=== PATIENT | female | born 1945 | race Caucasian/White ===

== ENCOUNTER 2016-09-07 14:08 | Emergency (ER) | payer OTHER ==
[2016-09-07 14:16] VITALS: TEMP 98; BMI 34.7
--- NOTE | 2016-09-07 14:22 | PDOC ---
History of Present Illness - General History Source: Patient, Old Records Exam Limitations: No Limitations - History of Present Illness Initial Comments: 09/07/16 15:18 The patient is a 71 year old female with a significant past medical history of CAD, CHF, atrial fibrillation, hypertension, hyperlipidemia, anxiety, chronic lower back pain, and recurrent peripheral vertigo, who presents to the emergency department today for further evaluation of shortness of breath on exertion for 7-10 days. The patient states that she is only able to make it up 3 steps at a time before becoming short of breath. The patient reports that, at baseline, she is able to make it up all 22 steps to her residence without becoming short of breath. The patient notes that she also becomes short of breath when she is vacuuming and talking. The patient denies fever, cough, chest pain. Patient does report point tenderness at xiphoid bone to touch. The patient reports associated hoarseness and constipation intermittently over the last week, but denies sore throat. The patient reports mild alleviation of her shortness of breath when she uses a pillow (placed at her lower back) to sit. Patients PCP was called at 15:07 and reports patient had a normal stress test in 2016; echocardiogram 10/28/15 EF at 50%-60%, moderate mitril regurgitation, normal Diastolic function The patient denies fever, chills, and sweats. The patient denies nausea, vomiting, and diarrhea. The patient denies chest pain, cough, and shortness of breath. PCP: Dr. Beverley Pizarro [phone] Coding Director: Dr. Bud Calle [phone] PAST MEDICAL HISTORY: CAD, atrial fibrillation, hypertension, hyperlipidemia, anxiety, chronic lower back pain, and recurrent peripheral vertigo PAST SURGICAL HISTORY: Abdominal, orthopedic (bilateral trigger finger release) FAMILY HISTORY: No pertinent history reported SOCIAL HISTORY: Former smoker (quit 10 years ago) MEDICATIONS: Reviewed ALLERGIES: As per nursing notes <Bryson Hernandez - Last Filed: 09/07/16 17:06> <Alonso Montenegro - Last Filed: 09/07/16 19:03> - General Chief Complaint: Shortness of Breath Stated Complaint: sob Time Seen by Provider: 09/07/16 14:20 Past History <Bryson Hernandez - Last Filed: 09/07/16 17:06> - Past Medical History Anemia: No Asthma: No Cancer: Yes (H/O CERVICAL) Cardiac Disorders: Yes (Cardio Myopathy,CAD, afib) CVA: No COPD: No CHF: No Dementia: No Diabetes: No GI Disorders: No Disorders: No HTN: Yes Hypercholesterolemia: Yes Liver Disease: No Psychiatric Problems: Yes (ANXIETY) Suicide Attempt (Hx): No Seizures: No Thyroid Disease: No - Surgical History Abdominal Surgery: Yes Appendectomy: No Cardiac Surgery: No Cholecystectomy: No Lung Surgery: No Neurologic Surgery: No Orthopedic Surgery: Yes (Bilateral Trigger finger release) - Immunization History Immunization Up to Date: No - Psycho/Social/Smoking Cessation Hx Anxiety: No Suicidal Ideation: No Smoking Status: No Smoking History: Former smoker Have you smoked in the past 12 months: No Number of Cigarettes Smoked Daily: 0 If you are a former smoker, when did you quit?: 5 years ago Information on smoking cessation initiated: No Hx Alcohol Use: No Drug/Substance Use Hx: No Substance Use Type: None Hx Substance Use Treatment: No <Alonso Montenegro - Last Filed: 09/07/16 19:03> - Past Medical History Allergies/Adverse Reactions: Allergies Allergy/AdvReac Type Severity Reaction Status Date / Time aspirin Allergy Verified 09/07/16 14:09 fish derived [Fish derived] Allergy Verified 09/07/16 14:09 mercury (elemental) Allergy Verified 09/07/16 14:09 [Mercury (Elemental)] Penicillins Allergy Verified 09/07/16 14:09 Raspberry Flavor, Artificial Allergy Verified 09/07/16 14:09 Home Medications: Ambulatory Orders Bupropion HCl [Bupropion Xl] 120 mg PO TID 11/03/14 Diltiazem Cd [Cardizem Cd -] 180 mg PO DAILY 11/03/14 Ubidecarenone [Co Q-10] 200 mg PO DAILY 10/22/15 Atenolol [Tenormin -] 100 mg PO DAILY tablet 11/03/15 Atorvastatin Ca [Lipitor] 10 mg PO HS tablet 11/03/15 Ramipril [Altace] 10 mg PO DAILY capsule 11/03/15 Meclizine HCl [Antivert -] 25 mg PO TID PRN 02/01/16 Warfarin Sodium 1 mg PO DAILY 02/06/16 Acetaminophen [Tylenol .Regular Strength -] 650 mg PO Q4H PRN #0 tablet Oxycodone HCl/Acetaminophen [Percocet 5-325 mg Tablet] 1 - 2 combo PO Q4H PRN # 10 tablet MDD 4 05/19/16 Review of Systems - Review of Systems Able to Perform ROS?: Yes Comments:: 09/07/16 15:44 CONSTITUTIONAL: Absent: Fever, Chills, Diaphoresis, Generalized Weakness, Malaise, Loss of Appetite HEENT: Present: Throat hoarseness Absent: Rhinorrhea, Nasal Congestion, Difficulty Swallowing, Mouth Swelling, Ear Pain, Eye Pain, Visual Changes CARDIOVASCULAR: Absent: Chest Pain, Syncope, Palpitations, Irregular Heart Rate, Lightheadedness , Peripheral Edema RESPIRATORY: Present: SOB with exertion Absent: Cough, Wheezing, Stridor, Hemoptysis GASTROINTESTINAL: Present: Constipation Absent: Abdominal pain, Abdominal Distension, Nausea, Vomiting, Diarrhea, Melena , Hematochezia GENITOURINARY: Absent: Dysuria, Frequency, Urgency, Hesitancy, Flank Pain, Genital Pain MUSCULOSKELETAL: Present: Point tenderness to palpation at xiphoid bone, lower back pain Absent: Joint Swelling, Neck Pain SKIN: Absent: Rash, Itching, PalloR HEMEATOLOGIC/IMMUNOLOGIC: Absent: Easy Bleeding, Easy Bruising, Lymphadenopathy, Frequent infections ENDOCRINE: Absent: Unexplained Weight Gain, Unexplained Weight Loss, Heat Intolerance, Cold Intolerance NEUROLOGIC: Absent: Headache, Focal Weakness, Paresthesias, Vertigo, Lightheadedness, Unsteady Gait, Seizure, Mental Status Changes, Incontinence PSYCHIATRIC: Absent: Depression <Bryson Hernandez - Last Filed: 09/07/16 17:06> *Physical Exam - Vital Signs Last Vital Signs Temp Pulse Resp BP Pulse Ox 98 F 70 18 128/85 99 09/07/16 14:09/07/16 14:09 09/07/16 14:09/07/16 14:09/07/16 14:09 - Physical Exam Comments: 09/07/16 15:40 GENERAL: The patient is awake, alert, and fully oriented, in no acute distress. HEAD: Normal with no signs of trauma. EYES: Pupils equal, round and reactive to light, extraocular movements intact, sclera anicteric, conjunctiva clear. ENT: Ears normal, nares patent, oropharynx clear without exudates. Moist mucous membranes. NECK: Normal range of motion, supple without lymphadenopathy, JVD, or masses. LUNGS: Breath sounds equal, clear to auscultation bilaterally. No wheezes, and no crackles. HEART: Regular rate and rhythm, normal S1 and S2 without murmur, rub or gallop. ABDOMEN: Soft, nontender, normoactive bowel sounds. No guarding, no rebound. No masses. BACK: (+) Mild paralumbar tenderness EXTREMITIES: Normal range of motion, no edema. No clubbing or cyanosis. No cords , erythema, or tenderness. NEUROLOGICAL: Cranial nerves II through XII grossly intact. Normal speech, normal gait. PSYCH: Normal mood, normal affect. SKIN: Warm, Dry, normal turgor, no rashes or lesions noted. <Bryson Hernandez - Last Filed: 09/07/16 17:06> - Vital Signs Last Vital Signs Temp Pulse Resp BP Pulse Ox 98 F 70 18 128/85 99 09/07/16 14:09 09/07/16 14:09 09/07/16 14:09 09/07/16 14:09 09/07/16 14:09 <Alonso Montenegro - Last Filed: 09/07/16 19:03> Heart Score/ECG Review - ECG Impressions Comment:: 09/07/16 15:39 Twelve-lead EKG was performed and reviewed by me. There is [atrial fibrillation ] at a rate of [70] beats per minute. The axis is [normal]. The intervals are normal. There are no abnormal Q waves. There are no abnormal ST elevations or depressions. There are non-specific interior T wave flattening. <Bryson Hernandez - Last Filed: 09/07/16 17:06> ED Treatment Course - LABORATORY CBC & Chemistry Diagram: 09/07/16 14:52 09/07/16 14:52 - RADIOLOGY Radiograph Interpretation: 09/07/16 16:29 IMAGIN. CXR Impression. No evidence of active pulmonary disease Reviewed and interpreted by radiologist Dr. Sergio Ta MD. <Bryson Hernandez - Last Filed: 09/07/16 17:06> - LABORATORY CBC & Chemistry Diagram: 09/07/16 14:52 09/07/16 14:52 <Alonso Montenegro S - Last Filed: 09/07/16 19:03> Medical Decision Making - Medical Decision Making 09/07/16 18:56 Laboratory Results - last 24 hr 09/07/16 09/07/16 09/07/16 14:52 14:52 14:52 WBC 7.0 RBC 5.07 Hgb 15.3 Hct 46.6 H MCV 91.8 MCHC 32.8 RDW 13.4 Plt Count 177 MPV 8.7 Neutrophils % 57.2 D Lymphocytes % 30.5 D Monocytes % 9.7 D Eosinophils % 1.9 Basophils % 0.7 INR 1.93 H Sodium 142 Potassium 4.2 Chloride 112 H Carbon Dioxide 19 L Anion Gap 11 BUN 41 H D Creatinine 1.9 H Creat Clearance w eGFR 26.06 Random Glucose 121 H Calcium 9.2 Magnesium 1.9 Total Bilirubin 0.2 D AST 20 D ALT 15 Alkaline Phosphatase 87 Creatine Kinase Troponin I B-Natriuretic Peptide Total Protein 7.1 Albumin 4.0 09/07/16 09/07/16 09/07/16 14:52 14:52 17:52 WBC RBC Hgb Hct MCV MCHC RDW Plt Count MPV Neutrophils % Lymphocytes % Monocytes % Eosinophils % Basophils % INR Sodium Potassium Chloride Carbon Dioxide Anion Gap BUN Creatinine Creat Clearance w eGFR Random Glucose Calcium Magnesium Total Bilirubin AST ALT Alkaline Phosphatase Creatine Kinase 43 Troponin I < 0.03 L < 0.03 L B-Natriuretic Peptide 3392.57 H Total Protein Albumin Patient with history of CHF, CAD, atrial fibrillation, and mitral valve regurgitation presents complaining of increasing dyspnea over the last week and a half. She states on exertion, she can only walk up a few stairs before needing to rest. She denies any chest pain. There is no nausea or vomiting. There is no diaphoresis. The symptoms also occur when vacuuming in the house. On examination, there is no JVD, the lungs are clear. The heart is irregularly irregular with a normal ventricular rate and without any audible murmur. The abdomen is benign. Extremities are warm and well-perfused with good pulses throughout, and no peripheral edema. Laboratory studies reveals serial troponin negative 2. Discussion with patient 's primary M.D. is notable for a normal stress test last year. Other laboratory results unremarkable. Chest x-ray on my review is clear without signs of CHF or pneumonia. BNP is elevated, but no clinical signs of heart failure. BUN and creatinine is also mildly elevated, but the patient has old labs with mild chronic kidney disease, unchanged from baseline. Impression: Patient with ongoing exertional dyspnea over the last couple of weeks. Her last echo had normal EF with moderate mitral regurgitation. Currently, there are no signs of CHF on examination. Given the negative cardiac enzymes, the clear chest x-ray, and the overall picture, patient is stable to follow up with her primary edge brusher on Saturday. I attempted to call her edge brusher, but the office is closed. Patient states she will follow -up on Saturday and discuss with her edge brusher possible follow-up echo and further evaluation and possible adjustment of medications. 09/07/16 19:03 The scribe's documentation has been prepared under my direction and personally reviewed by me in its entirety. I have confirmed that the note above accurately reflects all work, treatment, procedures, and medical decision- making performed by me. <Alonso Montenegro - Last Filed: 09/07/16 19:03> *DC/Admit/Observation/Transfer - Attestations Scribe Attestion: 09/07/16 15:40 Documentation prepared by Bryson Hernandez, acting as territory sales manager medical for Alonso Montenegro MD. <Bryson Hernandez - Last Filed: 09/07/16 17:06> - Discharge Dispostion Admit: No <Alnoso Montenegro - Last Filed: 09/07/16 19:03> Diagnosis at time of Disposition: Exertional dyspnea - Discharge Dispostion Disposition: HOME Condition at time of disposition: Stable - Referrals Referrals: Beverley Pizarro MD [Primary Care Provider] - 3 days - Patient Instructions Printed Discharge Instructions: DI for Shortness of Breath Additional Instructions: You were evaluated today for shortness of breath on exertion. It is strongly advised that you see your edge brusher on Saturday. Bring a copy of your laboratory results and chest x-ray with you to your appointment. If you develop chest pain, or worsening symptoms, return to the emergency department immediately. Otherwise follow-up with your edge brusher as discussed on Saturday. Continue all of your heart medications as before.
[2016-09-07 15:14] LABS: BASOPHIL 0.7 % (0-2.0); EOSINOPHIL 1.9 % (0-4.5); MCH 30.1 pg (25.7-33.7); MCHC 32.8 g/dl (32.0-36.0); MEAN CELL VOLUME 91.8 fl (80-96); MEAN PLT VOLUME 8.7 fl (7.5-11.1); NEUTROPHILS 57.2 % (42.8-82.8); PLATELET COUNT 177 K/MM3 (134-434); RDW 13.4 % (11.6-15.6)
[2016-09-07 15:26] LABS: INR 1.93 (0.82-1.09); PROTHROMBIN TIME (PATIENT) 21.3 SEC (10.2-13.0)
[2016-09-07 15:34] LABS: BILIRUBIN,TOTAL 0.2 mg/dl (0.2-1.0); CALCIUM 9.2 mg/dl (8.4-10.2); CREATININE 1.9 mg/dl (0.6-1.3); MAGNESIUM 1.9 mg/dL (1.8-2.4); TOT PROT 7.1 g/dl (6.4-8.3)
[2016-09-07 15:35] LABS: CPK(DFH) 43 IU/L (26-140)
[2016-09-07 16:01] LABS: TROPONIN I (DFP) < 0.03 ng/ml (0.03-0.50)
[2016-09-07 17:37] VITALS: BP 125/73; PULSE 61
--- NOTE | 2016-09-08 21:08 | EKG ---
Test Reason : Blood Pressure : / mmHG Vent. Rate : 070 BPM Atrial Rate : 063 BPM P-R Int : 000 ms QRS Dur : 086 ms QT Int : 402 ms P-R-T Axes : 000 050 -24 degrees QTc Int : 434 ms ATRIAL FIBRILLATION NONSPECIFIC ST AND T WAVE ABNORMALITY ABNORMAL ECG WHEN COMPARED WITH ECG OF 12-AUG-2015 04:44, NO SIGNIFICANT CHANGE WAS FOUND Confirmed by GERMÁN KAISER MD ([id number]) on 09/08/2016 9:07:43 PM Referred By: EMMANUEL Confirmed By:GERMÁN KAISER MD
== END 2016-09-07 19:06 | disposition home or self-care (01) ==
LOC: FER 14:08
DX: Z87.891 Personal history of nicotine dependence (principal); I25.10 Atherosclerotic heart disease of native coronary artery without angina pectoris; I50.9 Heart failure, unspecified; I48.91 Unspecified atrial fibrillation; E78.5 Hyperlipidemia, unspecified; I10 Essential (primary) hypertension; F41.9 Anxiety disorder, unspecified; M54.5 Low back pain; R42 Dizziness and giddiness
CPT/HCPCS: 36415; 71020-TC; 80053; 82550; 83735; 83880; 84484; 85025; 85610; 93005; 99284-25

== ENCOUNTER 2016-10-27 16:30 | Observation (INO) | payer OTHER ==
--- NOTE | 2016-10-27 16:56 | PDOC ---
History of Present Illness - General History Source: Patient Exam Limitations: No Limitations - History of Present Illness Initial Comments: 10/27/16 17:44 The patient is a 71 year old female, with significant past medical history of CKD, CHF, Atrial fibrillation, HTN, HLD, anxiety, chronic lower back pain, and recurrent peripheral vertigo, who presents today complaining of SOB, lightheadedness and a headache starting this morning. The patient states that the onset of the SOB is random and lasts about 5 minutes. She notes that the SOB is accompanied by intermittent lightheadedness and a headache. The patient states that she lives at home alone and took a taxi here today. Denies fever, chills, nausea, vomiting. Denies chest pain, cough. Denies palpitations. Denies LOC. Allergies:Aspirin, fish, Mercury, Penicillins. Surgical Hx: Abdominal, orthopedic (Bilateral trigger finger release) Social Hx: Former smoker (quit 10 years ago) PCP- Dr. Farhad Pizarro [phone] Implementation Manager: Dr. Bud Calle [phone] <Gissel French - Last Filed: 10/27/16 17:52> <Elan Driscoll - Last Filed: 10/27/16 18:36> <Joey Vann - Last Filed: 10/27/16 19:15> - General Chief Complaint: Shortness of Breath Stated Complaint: sob Time Seen by Provider: 10/27/16 16:55 Past History <Gissel French - Last Filed: 10/27/16 17:52> - Past Medical History Anemia: No Asthma: No Cancer: Yes (H/O CERVICAL) Cardiac Disorders: Yes (Cardio Myopathy,CAD, afib) CVA: No COPD: No CHF: No Dementia: No Diabetes: No GI Disorders: No Disorders: No HTN: Yes Hypercholesterolemia: Yes Liver Disease: No Psychiatric Problems: Yes (ANXIETY) Suicide Attempt (Hx): No Seizures: No Thyroid Disease: No - Surgical History Abdominal Surgery: Yes Appendectomy: No Cardiac Surgery: No Cholecystectomy: No Lung Surgery: No Neurologic Surgery: No Orthopedic Surgery: Yes (Bilateral Trigger finger release) - Immunization History Immunization Up to Date: No - Psycho/Social/Smoking Cessation Hx Anxiety: No Suicidal Ideation: No Smoking Status: No Smoking History: Unknown if ever smoked Have you smoked in the past 12 months: No Number of Cigarettes Smoked Daily: 0 If you are a former smoker, when did you quit?: 5 years ago Information on smoking cessation initiated: No Hx Alcohol Use: No Drug/Substance Use Hx: No Substance Use Type: None Hx Substance Use Treatment: No <Elan Driscoll - Last Filed: 10/27/16 18:36> <Joey Vann - Last Filed: 10/27/16 19:15> - Past Medical History Allergies/Adverse Reactions: Allergies Allergy/AdvReac Type Severity Reaction Status Date / Time aspirin Allergy Verified 10/27/16 16:36 fish derived [Fish derived] Allergy Verified 10/27/16 16:36 mercury (elemental) Allergy Verified 10/27/16 16:36 [Mercury (Elemental)] Penicillins Allergy Verified 10/27/16 16:36 Raspberry Flavor, Artificial Allergy Verified 10/27/16 16:36 Home Medications: Ambulatory Orders Atenolol [Tenormin -] 100 mg PO DAILY 10/27/16 Atorvastatin Calcium [Lipitor] 10 mg PO DAILY 10/27/16 Bupropion HCl [Bupropion HCl Sr] 150 mg PO BID 10/27/16 Diltiazem Cd [Cardizem Cd -] 180 mg PO DAILY 10/27/16 Furosemide [Lasix] 80 mg PO DAILY 10/27/16 Meclizine HCl 25 mg PO TID 10/27/16 Ramipril [Altace] 10 mg PO DAILY 10/27/16 Ubidecarenone [Coenzyme Q-10] 100 mg PO DAILY 10/27/16 Warfarin Sodium [Coumadin] 2 mg PO ASDIR 10/27/16 Review of Systems - Review of Systems Comments:: 10/27/16 17:44 GENERAL/CONSTITUTIONAL: Yes: lightheadedness, headache. No fever or chills. No weakness. HEAD, EYES, EARS, NOSE AND THROAT: No change in vision. No ear pain or discharge. No sore throat. CARDIOVASCULAR: No chest pain or shortness of breath. RESPIRATORY: Yes: SOB No cough, wheezing, or hemoptysis. GASTROINTESTINAL: No nausea, vomiting, diarrhea or constipation. GENITOURINARY: No dysuria, frequency, or change in urination. MUSCULOSKELETAL: No joint or muscle swelling or pain. No neck or back pain. SKIN: No rash NEUROLOGIC: No vertigo, loss of consciousness, or change in strength/sensation. ENDOCRINE: No increased thirst. No abnormal weight change. HEMATOLOGIC/LYMPHATIC: No anemia, easy bleeding, or history of blood clots. ALLERGIC/IMMUNOLOGIC: No hives or skin allergy. <ChristieliviaGissel - Last Filed: 10/27/16 17:52> *Physical Exam - Vital Signs Last Vital Signs Temp Pulse Resp BP Pulse Ox 98.1 F 68 18 108/72 97 10/27/16 16:31 10/27/16 17:23 10/27/16 17:23 10/27/16 17:23 10/27/16 17:23 - Physical Exam Comments: 10/27/16 17:45 GENERAL: Morbidly obese. Awake, alert, and fully oriented, in no acute distress HEAD: No signs of trauma EYES: PERRLA, EOMI, sclera anicteric, conjunctiva clear ENT: Auricles normal inspection, hearing grossly normal, nares patent, oropharynx clear without exudates. Moist mucosa NECK: Normal ROM, supple, no lymphadenopathy, JVD, or masses LUNGS: Breath sounds equal, clear to auscultation bilaterally. No wheezes, and no crackles HEART: Irregularly irregular rate and rhythm, normal S1 and S2, no murmurs, rubs or gallops ABDOMEN: Soft, nontender, normoactive bowel sounds. No guarding, no rebound. No masses EXTREMITIES: Normal range of motion, no edema. No clubbing or cyanosis. No cords, erythema, or tenderness NEUROLOGICAL: Cranial nerves II through XII grossly intact. Normal speech, normal gait SKIN: Warm, Dry, normal turgor, no rashes or lesions noted. <Kipjose antonioGissel - Last Filed: 10/27/16 17:52> - Vital Signs Last Vital Signs Temp Pulse Resp BP Pulse Ox 98.1 F 76 17 105/70 100 10/27/16 16:31 10/27/16 16:31 10/27/16 16:31 10/27/16 16:31 10/27/16 16:31 <Elan Driscoll - Last Filed: 10/27/16 18:36> - Vital Signs Last Vital Signs Temp Pulse Resp BP Pulse Ox 98.1 F 72 17 108/82 97 10/27/16 16:31 10/27/16 18:02 10/27/16 17:45 10/27/16 18:02 10/27/16 17:45 <Joey Vann - Last Filed: 10/27/16 19:15> Heart Score/ECG Review #1 10/27/16 17:[address] depression in v5 and v6. T waves are in the opposite polarity of the previous EKG of 08/31. <Gissel French - Last Filed: 10/27/16 17:52> #1 ECG reviewed & interpreted by me at: 19:14 10/27/16 19:15 EKG 10/27/2016 18:26 Ventricular rate: [address] and T wave abnormality, consider anterior ischemia Persistent ST depressions in V4, V5 and V6 <Joey Vann - Last Filed: 10/27/16 19:15> ED Treatment Course - LABORATORY CBC & Chemistry Diagram: 10/27/16 17:11 10/27/16 17:11 - Medications Given in the ED: ED Medications Discontinued Medications Generic Name Dose Route Start Last Admin Trade Name Freq PRN Reason Stop Dose Admin Lorazepam 1 mg 10/27/16 17:11 10/27/16 17:23 Ativan - PO 10/27/16 17:12 1 mg ONCE ONE Administration Nitroglycerin 0.5 inch 10/27/16 17:11 10/27/16 17:23 Nitro-Bid 2% Paste - TD 10/27/16 17:12 0.5 inch ONCE ONE Administration <Gissel French - Last Filed: 10/27/16 17:52> - LABORATORY CBC & Chemistry Diagram: 10/27/16 17:11 10/27/16 17:11 <Elan Driscoll - Last Filed: 10/27/16 18:36> - LABORATORY CBC & Chemistry Diagram: 10/27/16 17:11 10/27/16 17:11 - ADDITIONAL ORDERS Additional order review: Laboratory Results 10/27/16 10/27/16 10/27/16 17:11 17:11 17:11 INR 1.69 H Sodium 141 Potassium 3.8 Chloride 105 Carbon Dioxide 24 D Anion Gap 12 BUN 37 H Creatinine 2.0 H Creat Clearance w eGFR 24.56 Random Glucose 154 H D Calcium 9.2 Total Bilirubin 0.7 D AST 24 ALT 15 Alkaline Phosphatase 93 H Creatine Kinase 43 Troponin I < 0.03 L B-Natriuretic Peptide 2894.34 H Total Protein 7.1 Albumin 4.1 10/27/16 17:11 RBC 4.65 MCV 92.4 MCHC 34.2 RDW 12.8 MPV 9.0 Neutrophils % 61.5 Lymphocytes % 27.1 Monocytes % 9.7 Eosinophils % 0.9 Basophils % 0.8 - Medications Given in the ED: ED Medications Discontinued Medications Generic Name Dose Route Start Last Admin Trade Name Freq PRN Reason Stop Dose Admin Lorazepam 1 mg 10/27/16 17:11 10/27/16 17:23 Ativan - PO 10/27/16 17:12 1 mg ONCE ONE Administration Nitroglycerin 0.5 inch 10/27/16 17:11 10/27/16 17:23 Nitro-Bid 2% Paste - TD 10/27/16 17:12 0.5 inch ONCE ONE Administration <Joey Vann - Last Filed: 10/27/16 19:15> Medical Decision Making - Medical Decision Making 10/27/16 18:47 Dr. Nieves was consulted regarding the patient and admission at 6:30pm Dr. Fleming was consulted regarding the patient at 6:47pm <Joey Vann - Last Filed: 10/27/16 19:15> *DC/Admit/Observation/Transfer - Attestations Scribe Attestion: 10/27/16 17:46 Documentation prepared by LETY Bansal, acting as medical assisting instructor for Elan Driscoll. <Gissel French - Last Filed: 10/27/16 17:52> - Discharge Dispostion Admit: Yes - Attestations Physician Attestion: 10/27/16 16:56 I, Dr. Elan Driscoll, attest that this document has been prepared under my direction and personally reviewed by me in its entirety. I further attest, that it accurately reflects all work, treatment, procedures and medical decision -making performed by me. <Elan Driscoll - Last Filed: 10/27/16 18:36> <Joey Vann - Last Filed: 10/27/16 19:15> Diagnosis at time of Disposition: Acute myocardial ischemia, Atrial fibrillation by electrocardiogram Dyspnea Qualifiers: Dyspnea type: shortness of breath Qualified Code(s): R06.02 - Shortness of breath - Discharge Dispostion Condition at time of disposition: Guarded
[2016-10-27] MEDS ORDERED: LORazepam 1 MG TABLET PO ONE (17:11)
[2016-10-27] MEDS ORDERED: NITROGLYCERIN 2% OINTMENT - 1GM PACKET TD ONE ×2 (17:11→17:17)
[2016-10-27] MEDS ORDERED: LORazepam 0.5 MG TABLET ONE (17:17)
[2016-10-27 17:33] LABS: BASOPHIL 0.8 % (0-2.0); EOSINOPHIL 0.9 % (0-4.5); MCH 31.6 pg (25.7-33.7); MCHC 34.2 g/dl (32.0-36.0); MEAN CELL VOLUME 92.4 fl (80-96); NEUTROPHILS 61.5 % (42.8-82.8); PLATELET COUNT 173 K/MM3 (134-434); RDW 12.8 % (11.6-15.6)
[2016-10-27 17:35] LABS: INR 1.69 (0.82-1.09); PROTHROMBIN TIME (PATIENT) 18.7 SEC (10.2-13.0)
[2016-10-27 17:39] LABS: ALBUMIN 4.1 g/dl (3.5-5.0); BILIRUBIN,TOTAL 0.7 mg/dl (0.2-1.0); CALCIUM 9.2 mg/dl (8.4-10.2); COCKROFT - GAULT 33.9915; TOT PROT 7.1 g/dl (6.4-8.3)
[2016-10-27 17:40] LABS: CPK(DFH) 43 IU/L (26-140)
[2016-10-27 17:56] LABS: TROPONIN I (DFP) < 0.03 ng/ml (0.03-0.50)
--- NOTE | 2016-10-27 21:02 | HP ---
CHIEF COMPLAINT: PCP: Not on Staff HISTORY OF PRESENT ILLNESS: This is a 71 y/o female with a past medical history of CKD, CHF, Atrial fibrillation, HTN, HLD, Anxiety, Chronic Lower Back Pain, Recurrent Peripheral Vertigo. Who presents to the emergency department with SOB, lightheadedness and a headache x am. The patient reports that she becomes SOB after taking 12 steps. She notes that the SOB is accompanied by intermittent lightheadedness and a headache. Patient denies fever, chills, cough, CP, AP, N/V/D, constipation , dysuria ER course was notable for: (1) BNP- 2894 (2) Chest Xray-image Cardiomegaly, vascular congestion, report pending (3) Cardiac Enzymes- neg x1 Recent Travel: None PAST MEDICAL HISTORY: See HPI PAST SURGICAL HISTORY: AICD placement Social History: Smoking: Former Alcohol: None Drugs: None Lives alone, independent- retired [employer]EL[employer] SE[employer]ING [employer] Family History: Father: Cardiac- Mother- well, alive Allergies aspirin Allergy (Verified 10/27/16 16:36) fish derived [Fish derived] Allergy (Verified 10/27/16 16:36) all fish mercury (elemental) [Mercury (Elemental)] Allergy (Verified 10/27/16 16:36) Penicillins Allergy (Verified 10/27/16 16:36) Raspberry Flavor, Artificial Allergy (Verified 10/27/16 16:36) HOME MEDICATIONS: Home Medications Medication Instructions Recorded Atenolol [Tenormin -] 100 mg PO DAILY 10/27/16 Atorvastatin Calcium [Lipitor] 10 mg PO DAILY 10/27/16 Bupropion HCl [Bupropion HCl Sr] 150 mg PO BID 10/27/16 Diltiazem Cd [Cardizem Cd -] 180 mg PO DAILY 10/27/16 Furosemide [Lasix] 80 mg PO DAILY 10/27/16 Meclizine HCl 25 mg PO TID 10/27/16 Ramipril [Altace] 10 mg PO DAILY 10/27/16 Ubidecarenone [Coenzyme Q-10] 100 mg PO DAILY 10/27/16 Warfarin Sodium [Coumadin] 2 mg PO ASDIR 10/27/16 REVIEW OF SYSTEMS CONSTITUTIONAL: Absent: fever, chills, diaphoresis, generalized weakness, malaise, loss of appetite, weight change HEENT: Absent: rhinorrhea, nasal congestion, throat pain, throat swelling, difficulty swallowing, mouth swelling, ear pain, eye pain, visual changes CARDIOVASCULAR: Absent: chest pain, syncope, palpitations, irregular heart rate, lightheadedness , peripheral edema RESPIRATORY: shortness of breath, dyspnea with exertion Absent: cough, orthopnea, wheezing, stridor, hemoptysis GASTROINTESTINAL: Absent: abdominal pain, abdominal distension, nausea, vomiting, diarrhea, constipation, melena, hematochezia GENITOURINARY: Absent: dysuria, frequency, urgency, hesitancy, hematuria, flank pain, genital pain MUSCULOSKELETAL: Absent: myalgia, arthralgia, joint swelling, back pain, neck pain SKIN: Absent: rash, itching, pallor HEMATOLOGIC/IMMUNOLOGIC: Absent: easy bleeding, easy bruising, lymphadenopathy, frequent infections ENDOCRINE: Absent: unexplained weight gain, unexplained weight loss, heat intolerance, cold intolerance NEUROLOGIC: Absent: headache, focal weakness or paresthesias, dizziness, unsteady gait, seizure, mental status changes, bladder or bowel incontinence PSYCHIATRIC: Absent: anxiety, depression, suicidal or homicidal ideation, hallucinations. PHYSICAL EXAMINATION GENERAL: Severe Obesity. Awake, alert, and fully oriented, in no acute distress. HEAD: Normal with no signs of trauma. EYES: Pupils equal, round and reactive to light, extraocular movements intact, sclera anicteric, conjunctiva clear. No lid lag. EARS, NOSE, THROAT: Ears normal, nares patent, oropharynx clear without exudates. Moist mucous membranes. NECK: Normal range of motion, supple without lymphadenopathy, JVD, or masses. LUNGS: Breath sounds equal, clear to auscultation bilaterally. No wheezes, and no crackles. No accessory muscle use. HEART: Irregular rate and rhythm, normal S1 and S2 without murmur, rub or gallop. ABDOMEN: Soft, Obese, nontender, not distended, normoactive bowel sounds, no guarding, no rebound, no masses. No hepatomegaly or splenomegaly. MUSCULOSKELETAL: Normal range of motion at all joints. No bony deformities or tenderness. No CVA tenderness. UPPER EXTREMITIES: 2+ pulses, warm, well-perfused. No cyanosis. No clubbing. No peripheral edema. LOWER EXTREMITIES: Trace to R>L peripheral edema. 2+ pulses, warm, well- perfused. No calf tenderness. NEUROLOGICAL: Cranial nerves II-XII intact. Normal speech. Normal gait. PSYCHIATRIC: Cooperative. Good eye contact. Appropriate mood and affect. SKIN: Warm, dry, normal turgor, no rashes or lesions noted, normal capillary refill. Laboratory Results - last 24 hr 3 10/27/16 10/27/16 10/27/16 17:11 17:11 17:11 WBC 6.0 RBC 4.65 Hgb 14.7 Hct 42.9 MCV 92.4 MCHC 34.2 RDW 12.8 Plt Count 173 MPV 9.0 Neutrophils % 61.5 Lymphocytes % 27.1 Monocytes % 9.7 Eosinophils % 0.9 Basophils % 0.8 INR 1.69 H Sodium 141 Potassium 3.8 Chloride 105 Carbon Dioxide 24 D Anion Gap 12 BUN 37 H Creatinine 2.0 H Creat Clearance w eGFR 24.56 Random Glucose 154 H D Calcium 9.2 Total Bilirubin 0.7 D AST 24 ALT 15 Alkaline Phosphatase 93 H Creatine Kinase Troponin I B-Natriuretic Peptide 2894.34 H Total Protein 7.1 Albumin 4.1 Urine Color Urine Appearance Urine pH Ur Specific [place] Urine Protein Urine Glucose (UA) Urine Ketones Urine Blood Urine Nitrite Urine Bilirubin Urine Urobilinogen Ur Leukocyte Esterase Urine RBC Urine WBC Ur Epithelial Cells Amorphous Urates Urine Bacteria 3 10/27/16 10/27/16 17:11 20:30 WBC RBC Hgb Hct MCV MCHC RDW Plt Count MPV Neutrophils % Lymphocytes % Monocytes % Eosinophils % Basophils % INR Sodium Potassium Chloride Carbon Dioxide Anion Gap BUN Creatinine Creat Clearance w eGFR Random Glucose Calcium Total Bilirubin AST ALT Alkaline Phosphatase Creatine Kinase 43 Troponin I < 0.03 L B-Natriuretic Peptide Total Protein Albumin Urine Color Yellow Urine Appearance Hazy Urine pH 5.0 Ur Specific [place] 1.015 Urine Protein Negative Urine Glucose (UA) Negative Urine Ketones Trace Urine Blood Trace-intact Urine Nitrite Negative Urine Bilirubin Negative Urine Urobilinogen 0.2 e.u/dl Ur Leukocyte Esterase 1+ H Urine RBC 2-+5 Urine WBC 5-10 Ur Epithelial Cells Few Amorphous Urates Few Urine Bacteria Few Heart Score/ECG Review #1 10/27/16 17:[address] depression in v5 and v6. T waves are in the opposite polarity of the previous EKG of 08/31. ASSESSMENT/PLAN: This is a 71 y/o female with a PMHx of: CKD, CHF, Afib, HLD, HTN, Anxiety, Recurrent Peripheral Vertigo. Placed in Tele Observation for AMI, Dyspnea for further evaluation of their emergent condition. 1. Cardiology:Afib/CHF/HTN/HLD - continue telemetry monitoring - HEART Score 4 - Appreciate Cardiology Consult - EKG- Afib with ST or T wave abnormality - CE neg x1 - Serial Enzymes - Echo - Lipid panel in am - HgbA1c - Continue home meds 2. Nephrology: CKD - Cr at Baseline - Avoid Nephrotoxic Agents - Monitor BMP 3. Subtherapuetic INR - Warfarin 2mg given tonight - Daily INRs - f/u in outpatient with PMD 3. Neurology: Recurrent Peripheral Vertigo - Stable - Meclizine prn 4. Psych: Anxiety - Continue home meds 5. FEN - 2L fluid restriction - Monitor labs in am - Low Na, Low Cholesterol Diet 6. DVT Prophylaxis - OOB - SCDs - Continue Coumadin Code Status: Full Code Problem List - Problem (1) Acute myocardial ischemia Code(s): I24.9 - ACUTE ISCHEMIC HEART DISEASE, UNSPECIFIED (2) Dyspnea Code(s): R06.00 - DYSPNEA, UNSPECIFIED Qualifiers: Dyspnea type: shortness of breath Qualified Code(s): R06.02 - Shortness of breath (3) [id number] kidney injury Code(s): N17.9 - ACUTE KIDNEY FAILURE, UNSPECIFIED N18.9 - CHRONIC KIDNEY DISEASE, UNSPECIFIED (4) Lightheaded Code(s): R42 - DIZZINESS AND GIDDINESS (5) TIA (transient ischemic attack) Code(s): G45.9 - TRANSIENT CEREBRAL ISCHEMIC ATTACK, UNSPECIFIED (6) Vertigo Code(s): R42 - DIZZINESS AND GIDDINESS (7) A-fib Code(s): I48.91 - UNSPECIFIED ATRIAL FIBRILLATION (8) Anxiety Code(s): F41.9 - ANXIETY DISORDER, UNSPECIFIED (9) CKD (chronic kidney disease) Code(s): N18.9 - CHRONIC KIDNEY DISEASE, UNSPECIFIED (11) HTN (hypertension) Code(s): I10 - ESSENTIAL (PRIMARY) HYPERTENSION (12) Hyperlipidemia Code(s): E78.5 - HYPERLIPIDEMIA, UNSPECIFIED (13) DVT prophylaxis Code(s): VSV6046 - Visit type - Emergency Visit Emergency Visit: Yes ED Registration Date: 10/27/16 Care time: The patient presented to the Emergency Department on the above date and was hospitalized for further evaluation of their emergent condition. - New Patient This patient is new to me today: Yes Date on this admission: 10/27/16 - Critical Care Critical Care patient: No
[2016-10-27] MEDS ORDERED: WARFARIN NA 2 MG TABLET (UD) PO ONE (21:25)
[2016-10-27 21:37] LABS: URINE BILIRUBIN Negative (NEGATIVE); URINE BLOOD Trace-intact (NEGATIVE); URINE COLOR YELLOW; URINE GLUCOSE (UA) Negative (NEGATIVE); URINE KETONE Trace (NEGATIVE); URINE LEUK ESTERASE 1+ (NEGATIVE); URINE NITRITE Negative (NEGATIVE); URINE PROTEIN Negative (NEGATIVE); URINE UROBILINOGEN 0.2 E.U/dl (0.2-1.0)
[2016-10-27 21:44] VITALS: BMI 35.7
[2016-10-27 21:59] LABS: URINE BACTERIA FEW /hpf (NEGATIVE); URINE RBC 2-+5 /hpf (0-3)
[2016-10-27 22:00] LABS: URINE APPEARANCE HAZY
[2016-10-27] MEDS ORDERED: ATORVASTATIN CA 10 MG TABLET (FP) PO SCH (22:00)
[2016-10-28 01:42] LABS: TROPONIN I < 0.02 ng/ml (0.00-0.05)
[2016-10-28 06:25] VITALS: TEMP 98.7
--- NOTE | 2016-10-28 08:13 | PN ---
[id number] in her chest yesterday afternoon assoc with some dizzyness. states it lasted for several beats then self resolved with sitting on the couch. several hours later has similar episode which prompted her to the ER. states she woke up in her normal state of health. no SOB, CP, orthopnea, swelling, fever, chills, urinary frequency, dysuria, recent cold symptoms or sick contacts. states this was different in nature than when she presented to the hospital 2 months ago. unaware if she becomes symptomatic along with her afib. has been compliant with her medication and have been frequently adjusting her coumadin to due to labile INR. saw her PMD a week or 2 ago and is awaiting schedule for carotid endarectomy at [facility] and possible cardiac bypass? had cardiac workup this time last year including echo and stress which she reports as negative. (echo here is negative) states she has a lot scheduled to do today and having a large family gathering today for the holiday and contributes her symptoms to stress for the event Current Medications Generic Name Dose Route Start Last Admin Trade Name Loco PRN Reason Stop Dose Admin Atenolol 50 mg 10/28/16 10:00 Tenormin - PO DAILY ANA Atorvastatin Calcium 10 mg 10/27/16 22:00 10/27/16 22:21 Lipitor - PO Not Given HS ANA Diltiazem HCl 180 mg 10/28/16 10:00 Cardizem Cd - PO DAILY [facility] Furosemide 80 mg 10/28/16 10:00 Lasix - PO DAILY [facility] Ramipril 10 mg 10/28/16 10:00 Altace - PO DAILY ANA Warfarin Sodium 2 mg 11/01/16 18:00 Coumadin - PO THFR@1800 ANA Warfarin Sodium 1 mg 10/28/16 18:00 Coumadin - PO SUMOTUWESA@1800 [facility] Last Vital Signs Temp Pulse Resp BP Pulse Ox 98.7 F 81 18 133/81 97 10/28/16 06:00 10/28/16 06:00 10/28/16 06:00 10/28/16 06:00 10/28/16 03:21 General NAD HEENT no JVD, no carotid bruit CP S1 S2+ no murmur/rub/gallop Lungs CTA B/L no murmur/rub/gallop Extremities no pedal edema, pulses intact CBCD WBC 6.0 K/mm3 (4.0-10.8) 10/27/16 17:11 RBC 4.65 M/mm3 (3.60-5.2) 10/27/16 17:11 Hgb 14.7 GM/dl (10.7-15.3) 10/27/16 17:11 Hct 42.9 % (32.4-45.2) 10/27/16 17:11 MCV 92.4 fl (80-96) 10/27/16 17:11 MCHC 34.2 g/dl (32.0-36.0) 10/27/16 17:11 RDW 12.8 % (11.6-15.6) 10/27/16 17:11 Plt Count 173 K/MM3 (134-434) 10/27/16 17:11 MPV 9.0 fl (7.5-11.1) 10/27/16 17:11 CMP Sodium 141 mmol/L (136-145) 10/27/16 17:11 Potassium 3.8 mmol/L (3.5-5.1) 10/27/16 17:11 Chloride 105 mmol/L (98-107) 10/27/16 17:11 Carbon Dioxide 24 mmol/L (22-28) D 10/27/16 17:11 Anion Gap 12 (8-16) 10/27/16 17:11 BUN 37 mg/dl (7-18) H 10/27/16 17:11 Creatinine 2.0 mg/dl (0.6-1.3) H 10/27/16 17:11 Creat Clearance w eGFR 24.56 (>60) 10/27/16 17:11 Random Glucose 154 mg/dl (74-106) H D 10/27/16 17:11 Calcium 9.2 mg/dl (8.4-10.2) 10/27/16 17:11 Total Bilirubin 0.7 mg/dl (0.2-1.0) D 10/27/16 17:11 AST 24 U/L (10-42) 10/27/16 17:11 ALT 15 U/L (10-40) 10/27/16 17:11 Alkaline Phosphatase 93 U/L (32-92) H 10/27/16 17:11 Total Protein 7.1 g/dl (6.4-8.3) 10/27/16 17:11 Albumin 4.1 g/dl (3.5-5.0) 10/27/16 17:11 CARDIAC ENZYMES Creatine Kinase 41 IU/L (26-192) 10/28/16 00:04 Troponin I < 0.02 ng/ml (0.00-0.05) 10/28/16 00:04 A/P 71yo F with multiple comorbidities presented to the ER and was admitted for further evaluation of their emergent condition 1. palpitations- several insignificant pauses noted on the monitor. orthostatics checked this AM and negative. cardiac markers neg x2 with no recurrent episodes. cadio eval pending. 2. Afib on coumadin- no ablation in the past. INR subtherapeutic, currently adjusting medication with PMD to optimize therapeutic INR. unsure if not candidate for NOAC in setting of CKD (CrCl 33) cont to monitor closely by primary. instructed her to take 2mg tonight due to subtherapeutic INR. 3. HTN- atenolol dose reduced here due to single reading of low BP on admission. however pt took her medication yesterday. will give full 100mg today. 4. pt states she needs to leave by noon due to large gathering shes hosting. informed her of importance of waiting to see pipe welder prior to discharge. informed her or risks and benefits of leaving. verbalized understanding and states she will wait until noon. agreed to follow up with PMD on Saturday, will need frequent INR monitoring Visit type - Emergency Visit Emergency Visit: Yes ED Registration Date: 10/27/16 Care time: The patient presented to the Emergency Department on the above date and was hospitalized for further evaluation of their emergent condition. - New Patient This patient is new to me today: Yes Date on this admission: 10/28/16 - Critical Care Critical Care patient: No - Discharge Referral Referred to [facility] Yes Physician Referral: Joshua Davalos MD (Int Med)
[2016-10-28] MEDS: FUROSEMIDE 40 MG TABLET (FP) PO SCH ×2 (09:21→09:25)
[2016-10-28 09:48] LABS: INR 1.82 (0.82-1.09); PROTHROMBIN TIME (PATIENT) 20.1 SEC (10.2-13.0)
[2016-10-28 09:50] LABS: BASOPHIL 0.5 % (0-2.0); CPK(DFH) 33 IU/L (26-140); EOSINOPHIL 1.9 % (0-4.5); MCH 31.1 pg (25.7-33.7); MCHC 33.1 g/dl (32.0-36.0); MEAN CELL VOLUME 93.9 fl (80-96); MEAN PLT VOLUME 9.2 fl (7.5-11.1); NEUTROPHILS 51.8 % (42.8-82.8); PLATELET COUNT 163 K/MM3 (134-434); RDW 13.2 % (11.6-15.6); WHITE BLOOD COUNT 6.3 K/mm3 (4.0-10.8)
[2016-10-28 09:56] LABS: ANION GAP 12 (8-16); CALCIUM 8.9 mg/dl (8.4-10.2); CHOLESTEROL 136 mg/dl; CO2 23 mmol/L (22-28); CREATININE 1.9 mg/dl (0.6-1.3); GLUCOSE,RANDOM 94 mg/dl (74-106); MAGNESIUM 2.3 mg/dL (1.8-2.4); PHOSPHOROUS 3.6 mg/dl (2.5-4.6)
[2016-10-28] MEDS ORDERED: ATENOLOL 50 MG TABLET (FP) PO SCH ×2 (10:00)
[2016-10-28] MEDS ORDERED: RAMIPRIL 5 MG CAPSULE (FP) PO SCH (10:00)
[2016-10-28] MEDS ORDERED: PATIENT'S OWN MEDICATION (NON-FORMULARY) (Atenolol [Tenormin -] 100 MG) PO SCH (10:00)
[2016-10-28 10:07] LABS: COCKROFT - GAULT NT
--- NOTE | 2016-10-28 11:10 | CON.CARD ---
Cardiology Consult (text) - Consultation Consultation Note: Patient left AMA prior to evaluation.
[2016-10-28 12:19] VITALS: BP 111/65; PULSE 88
[2016-10-28 12:23] LABS: TROPONIN I (DFP) < 0.03 ng/ml (0.03-0.50)
--- NOTE | 2016-10-28 16:08 | EKG ---
Test Reason : Blood Pressure : / mmHG Vent. Rate : 068 BPM Atrial Rate : 288 BPM P-R Int : 000 ms QRS Dur : 086 ms QT Int : 408 ms P-R-T Axes : 000 025 -30 degrees QTc Int : 433 ms ATRIAL FIBRILLATION NONSPECIFIC ST AND T WAVE ABNORMALITY ABNORMAL ECG WHEN COMPARED WITH ECG OF 07-SEP-2016 14:09, NO SIGNIFICANT CHANGE WAS FOUND Confirmed by ARGENIS NAIK MD ([id number]) on 10/28/2016 4:08:31 PM Referred By: JE Confirmed By:ARGENIS NAIK MD
--- NOTE | 2016-10-28 16:08 | EKG ---
Test Reason : Blood Pressure : / mmHG Vent. Rate : 065 BPM Atrial Rate : 072 BPM P-R Int : 000 ms QRS Dur : 088 ms QT Int : 430 ms P-R-T Axes : 000 001 -15 degrees QTc Int : 447 ms ATRIAL FIBRILLATION NONSPECIFIC ST AND T WAVE ABNORMALITY ABNORMAL ECG WHEN COMPARED WITH ECG OF 27-OCT-2016 16:47, NO SIGNIFICANT CHANGE WAS FOUND Confirmed by ARGENIS NAIK MD ([id number]) on 10/28/2016 4:08:12 PM Referred By: JE Confirmed By:ARGENIS NAIK MD
[2016-10-28] MEDS ORDERED: WARFARIN NA 1 MG TABLET (FP) PO SCH (18:00)
--- NOTE | 2016-10-30 07:28 | DS ---
Physical Exam: SUBJECTIVE: Patient seen and examined. OBJECTIVE: PHYSICAL EXAM GENERAL: The patient is awake, alert, and fully oriented, in no acute distress. HEAD: Normal with no signs of trauma. EYES: PERRL, extraocular movements intact, sclera anicteric, conjunctiva clear. ENT: Ears normal, nares patent, oropharynx clear without exudates, moist mucous membranes. NECK: Trachea midline, full range of motion, supple. LUNGS: Breath sounds equal, clear to auscultation bilaterally, no wheezes, no crackles, no accessory muscle use. HEART: Regular rate and rhythm, S1, S2 without murmur, rub or gallop. ABDOMEN: Soft, nontender, nondistended, normoactive bowel sounds, no guarding, no rebound, no hepatosplenomegaly, no masses. EXTREMITIES: 2+ pulses, warm, well-perfused, no edema. NEUROLOGICAL: Cranial nerves II through XII grossly intact. Normal speech, gait not observed. PSYCH: Normal mood, normal affect. SKIN: Warm, dry, normal turgor, no rashes or lesions noted. LABS HOSPITAL COURSE: Date of Admission:10/27/16 Date of Discharge: 10/30/16 admitting diagnosis: palpitations Pre hospital course This is a 71 y/o female with a past medical history of CKD, CHF, Atrial fibrillation, HTN, HLD, Anxiety, Chronic Lower Back Pain, Recurrent Peripheral Vertigo. Who presents to the emergency department with SOB, lightheadedness and a headache x am. The patient reports that she becomes SOB after taking 12 steps. She notes that the SOB is accompanied by intermittent lightheadedness and a headache. Patient denies fever, chills, cough, CP, AP, N/V/D, constipation , dysuria Subsequent hospital course tele observation. home medications resumed. orthostatics checked and negative. tele monotr with insignificant pauses. full cardiac workup done last year. symptoms resolved. cardio consulted. pt did not want to wait for cardio evaluation. stated she would follow up with PMD next day. informed INR subtherapeutic and should take 2 mg of coumadin tonight. pt signed out ama. counseled on risks and benefits of leaving. verbalized understanding. Minutes to complete discharge: 40 Discharge Summary Reason For Visit: MYOCARDIAL ISCHEMIA, AFIB & DYSPENA Condition: Improved - Instructions Disposition: AGAINST MEDICAL ADVICE - Home Medications Comprehensive Discharge Medication List: Ambulatory Orders Atenolol [Tenormin -] 100 mg PO DAILY 10/27/16 Atorvastatin Calcium [Lipitor] 10 mg PO DAILY 10/27/16 Bupropion HCl [Bupropion HCl Sr] 150 mg PO BID 10/27/16 Diltiazem Cd [Cardizem Cd -] 180 mg PO DAILY 10/27/16 Furosemide [Lasix] 80 mg PO DAILY 10/27/16 Meclizine HCl 25 mg PO TID 10/27/16 Ramipril [Altace] 10 mg PO DAILY 10/27/16 Ubidecarenone [Coenzyme Q-10] 100 mg PO DAILY 10/27/16 Warfarin Sodium [Coumadin] 1 mg PO 10/27/16 Warfarin Sodium [Coumadin] 2 mg PO 10/27/16 This patient is new to me today: Yes Date on this admission: 10/28/16 Emergency Visit: Yes ED Registration Date: 10/27/16 Care time: The patient presented to the Emergency Department on the above date and was hospitalized for further evaluation of their emergent condition. Critical Care patient: No - Discharge Referral Referred to [facility] Yes Physician Referral: Joshua Davalos MD (Int Med)
[2016-11-01] MEDS ORDERED: WARFARIN NA 2 MG TABLET (UD) PO SCH (18:00)
== END 2016-10-28 12:10 | disposition left against medical advice (07) ==
LOC: FER 16:30 → FM/S 19:13
PROVIDERS: ADMIT Internal Medicine; ATTEND Internal Medicine
DX: I21.29 ST elevation (STEMI) myocardial infarction involving other sites (principal); I48.91 Unspecified atrial fibrillation; Z79.01 Long term (current) use of anticoagulants; I50.9 Heart failure, unspecified; I12.9 Hypertensive chronic kidney disease with stage 1 through stage 4 chronic kidney disease, or unspecified chronic kidney disease; N18.9 Chronic kidney disease, unspecified; I25.10 Atherosclerotic heart disease of native coronary artery without angina pectoris; E78.5 Hyperlipidemia, unspecified; F41.9 Anxiety disorder, unspecified; M54.5 Low back pain; G89.29 Other chronic pain; Z85.41 Personal history of malignant neoplasm of cervix uteri; I42.9 Cardiomyopathy, unspecified; Z88.0 Allergy status to penicillin; Z88.8 Allergy status to other drugs, medicaments and biological substances; Z91.013 Allergy to seafood
CPT/HCPCS: 36415; 71010-TC; 80048; 80053; 80061; 81003; 81015; 82550; 83036; 83735; 83880; 84100; 84484; 85025; 85610; 93005; 99285-25; G0378

== ENCOUNTER 2016-11-12 17:45 | Emergency (ER) | payer OTHER ==
[2016-11-12 17:51] VITALS: BMI 35.9
--- NOTE | 2016-11-12 17:51 | PDOC ---
History of Present Illness - General History Source: Patient Exam Limitations: No Limitations <Dennise Alexandre - Last Filed: 11/12/16 19:00> - General History Source: Patient Exam Limitations: No Limitations <Rosita Alvarez - Last Filed: 11/13/16 10:51> - General Chief Complaint: Palpitations Stated Complaint: SHORTNESS OF BREATH/PALPIATION Time Seen by Provider: 11/12/16 17:48 - History of Present Illness Initial Comments: 11/12/16 18:56 The patient is a 71 year old female with a significant past medical history of Afib, CAD, CKD, CHF, hypertension, hyperlipidemia, anxiety, depression, chronic lower back pain, and recurrent peripheral vertigo, who presents to the emergency department with a complaint of shortness of breath and intermittent dyspnea. Patient was recently admitted to [facility] on 10/28/15 and left AMA 10/30. Patient states that she usually experiences her breathing going fast and then going slow and then it resolves on its own after few minutes. Patient states that her symptoms worsened today which prompted her to present to the ED. Patient has an appointment on November 29, 2016 for chris cardioversion. Patient states that she was able to take all of her medications today. She denies any chest pain, chest tightness, palpitations, diaphoresis or nausea Last stress test - EF at 50%-60%, moderate mitral regurgitation, normal Diastolic function PCP: Dr. Beverley Pizarro [phone] Director Educational Radio - Dr. Joy [facility] [place] office; [phone] [facility] (Dennise Alexandre) Past History <Dennise Alexandre - Last Filed: 11/12/16 19:00> - Past Medical History Anemia: No Asthma: No Cancer: Yes (H/O CERVICAL) Cardiac Disorders: Yes (Cardio Myopathy,CAD, afib) CVA: No COPD: No CHF: No Dementia: No Diabetes: No GI Disorders: No Disorders: No HTN: Yes Hypercholesterolemia: Yes Liver Disease: No Psychiatric Problems: Yes (ANXIETY) Suicide Attempt (Hx): No Seizures: No Thyroid Disease: No - Surgical History Abdominal Surgery: Yes Appendectomy: No Cardiac Surgery: No Cholecystectomy: No Lung Surgery: No Neurologic Surgery: No Orthopedic Surgery: Yes (Bilateral Trigger finger release) - Immunization History Immunization Up to Date: No - Psycho/Social/Smoking Cessation Hx Anxiety: No Suicidal Ideation: No Smoking Status: No Smoking History: Never smoked Have you smoked in the past 12 months: No Number of Cigarettes Smoked Daily: 0 If you are a former smoker, when did you quit?: 10 years ago Hx Alcohol Use: No Drug/Substance Use Hx: No Substance Use Type: None Hx Substance Use Treatment: No <Rosita Alvarez - Last Filed: 11/13/16 10:51> - Past Medical History Allergies/Adverse Reactions: Allergies Allergy/AdvReac Type Severity Reaction Status Date / Time aspirin Allergy Verified 11/12/16 17:58 fish derived [Fish derived] Allergy Verified 11/12/16 17:58 mercury (elemental) Allergy Verified 11/12/16 17:58 [Mercury (Elemental)] Penicillins Allergy Verified 11/12/16 17:58 Raspberry Flavor, Artificial Allergy Verified 11/12/16 17:58 Home Medications: Ambulatory Orders Atenolol [Tenormin -] 100 mg PO DAILY 10/27/16 Atorvastatin Calcium [Lipitor] 10 mg PO DAILY 10/27/16 Bupropion HCl [Bupropion HCl Sr] 150 mg PO BID 10/27/16 Diltiazem Cd [Cardizem Cd -] 180 mg PO DAILY 10/27/16 Furosemide [Lasix] 80 mg PO DAILY 10/27/16 Meclizine HCl 25 mg PO TID 10/27/16 Ramipril [Altace] 10 mg PO DAILY 10/27/16 Ubidecarenone [Coenzyme Q-10] 100 mg PO DAILY 10/27/16 Warfarin Sodium [Coumadin] 1 mg PO ASDIR 10/27/16 Warfarin Sodium [Coumadin] 2 mg PO ASDIR 10/27/16 Cardiac Specific PMH - Complaint Specific PMHX Cardiac Arrhythmia: Yes (A Fib) Pacemaker: No <Rosita Alvarez - Last Filed: 11/13/16 10:51> Review of Systems - Review of Systems Able to Perform ROS?: Yes <Dennise Alexandre - Last Filed: 11/12/16 19:00> <Rosita Alvarez - Last Filed: 11/13/16 10:51> - Review of Systems Comments:: 11/12/16 18:56 GENERAL/CONSTITUTIONAL: No: fever, chills, weakness, loss of appetite. HEAD, EYES, EARS, NOSE AND THROAT: No: change in vision, ear pain, discharge, sore throat, throat swelling. CARDIOVASCULAR: No: chest pain, lightheadedness, palpitations, syncope RESPIRATORY: +SOB, +intermittent dyspnea No: cough, wheezing, hemoptysis, stridor. GASTROINTESTINAL: No: nausea, vomiting, abdominal cramping, diarrhea, rectal bleeding, constipation. GENITOURINARY: No: dysuria, hematuria, frequency, urgency, flank pain. MUSCULOSKELETAL: No: back pain, neck pain, joint pain, muscle swelling or pain SKIN: No: lesions, pallor, rash or easy bruising. NEUROLOGIC: No: headache, vertigo, paresthesias, weakness ENDOCRINE: No: unexplained weight gain or loss HEMATOLOGIC/LYMPHATIC: No: anemia, easy bleeding, swelling nodes (Dennise Alexandre) *Physical Exam <Dennise Alexandre - Last Filed: 11/12/16 19:00> <Rosita Alvarez - Last Filed: 11/13/16 10:51> - Vital Signs Last Vital Signs Temp Pulse Resp BP Pulse Ox 98.4 F 82 20 121/67 96 11/12/16 17:46 11/12/16 19:07 11/12/16 19:07 11/12/16 20:02 11/12/16 19:07 - Physical Exam Comments: 11/12/16 18:57 GENERAL: The patient is in no acute distress. HEAD: Normal with no signs of trauma. EYES: PERRLA, EOMI, sclera anicteric, conjunctiva clear. ENT: Ears normal, nares patent, oropharynx clear without exudates. Moist mucous membranes. NECK: Normal range of motion, supple without lymphadenopathy, JVD, or masses. LUNGS: +Speaking full sentences, non dyspneic. Breath sounds equal, clear to auscultation bilaterally. No wheezes, and no crackles. HEART: +Regularly irregular rate and rhythm, normal S1 and S2 without murmur, rub or gallop. ABDOMEN: Soft, nontender, normoactive bowel sounds. No guarding, no rebound. EXTREMITIES: Normal range of motion, no edema. No clubbing or cyanosis. No erythema, or tenderness. NEUROLOGICAL: Cranial nerves II through XII grossly intact. Normal speech. No focal neurological deficits. MUSCULOSKELETAL: Back nontender to palpation, no CVA tenderness SKIN: Warm, Dry, normal turgor, no rashes or lesions noted. (Dennise Alexandre) Heart Score/ECG Review <Dennise Alexandre - Last Filed: 11/12/16 19:00> #1 ECG reviewed & interpreted by me at: 18:35 <Rosita Alvarez - Last Filed: 11/13/16 10:51> #1 11/12/16 18:35 Afib rate of 76bpm Hayden nml Intervals: QRS:94ms, QTc:486 (Rosita Alvarez) ED Treatment Course - LABORATORY CBC & Chemistry Diagram: 11/12/16 18:57 11/12/16 18:57 <Rosita Alvarez - Last Filed: 11/13/16 10:51> - ADDITIONAL ORDERS Additional order review: 11/12/16 18:57 RBC 4.57 MCV 93.2 MCHC 33.7 RDW 12.9 MPV 8.5 Neutrophils % 65.4 D Lymphocytes % 22.6 D Monocytes % 9.3 Eosinophils % 0.9 Basophils % 1.8 D Medical Decision Making <Dennise Alexandre - Last Filed: 11/12/16 19:00> <Rosita Alvarez - Last Filed: 11/13/16 10:51> - Medical Decision Making 11/12/16 17:51 A portion of this note was documented by scribe services under my direction. I have reviewed the details of the note, within reason, and agree with the documentation with the following case summary and management plan written by me. Nursing documentation reviewed and incorporated into medical decision making This is a 71 yo F well known to this facility She has a past medical history of CAD, atrial fibrillation (on coumadin), hypertension, hyperlipidemia, anxiety, recurrent peripheral vertigo, multiple episodes, with multiple ER visits She presents emergency department with a complaint of intermittent dyspnea, shortness of breath. Patient denies fevers chills cough. patient denies chest pain. Patient denies palpitations. Patient denies lower extremity edema. Patient tells me that she has had a long-standing history of these symptoms, but states today it was worse and she felt that it "knocked her out " She denies vertigo today. Patient apparently is scheduled for a CHRIS and ablation by her blade groover Dr. Joy in 2 weeks 11/12/16 18:34 Call placed to covering physician - Dr. Dwyer Saw Rufino on 02/2016 Had increased dyspnea Denied exertional symptoms Thought to be related to anxiety Nuclear stress in September - EF normal, 11/12/16 18:35 Will do labs Will do EKG Will do CXR Will re assess Pt currently is well appearing 11/12/16 18:55 11/12/16 18:58 Pt signed out to Dr. Dawson Pending Labs Pending CXR Re Assess (Rosita Alvarez) *DC/Admit/Observation/Transfer <Dennise Alexandre - Last Filed: 11/12/16 19:00> <Rosita Alvarez - Last Filed: 11/13/16 10:51> Diagnosis at time of Disposition: SOB (shortness of breath) - Discharge Dispostion Disposition: HOME Condition at time of disposition: Improved - Referrals Referrals: Beverley Pizarro MD [Staff Physician] - - Patient Instructions Printed Discharge Instructions: DI for Shortness of Breath Additional Instructions: Return to the emergency department immediately with ANY new, persistent or worsening symptoms. You MUST call and follow up with your doctor tomorrow for further evaluation of your symptoms. Results were discussed with you. Please make sure your doctor reviews the results of your emergency evaluation. If you had any xrays during your visit, it was read preliminarily by myself, a Radiologist will review it and if there are any additional findings we will call you. Print Language: GHANAIAN - Attestations Scribe Attestion: 11/12/16 18:58 Documentation prepared by LETY Hernandes, acting as certified medical technician assistant for Rosita Alvarez MD. (Dennise Alexandre)
[2016-11-12 18:31] VITALS: TEMP 98.4
[2016-11-12 19:08] VITALS: PULSE 82
[2016-11-12 19:11] LABS: BASOPHIL 1.8 % (0-2.0); EOSINOPHIL 0.9 % (0-4.5); MCH 31.4 pg (25.7-33.7); MCHC 33.7 g/dl (32.0-36.0); MEAN CELL VOLUME 93.2 fl (80-96); MEAN PLT VOLUME 8.5 fl (7.5-11.1); NEUTROPHILS 65.4 % (42.8-82.8); PLATELET COUNT 196 K/MM3 (134-434); RDW 12.9 % (11.6-15.6); WHITE BLOOD COUNT 8.6 K/mm3 (4.0-10.8)
[2016-11-12 19:20] LABS: INR 2.78 (0.82-1.09); PROTHROMBIN TIME (PATIENT) 30.5 SEC (10.2-13.0)
[2016-11-12 19:29] LABS: ANION GAP 12 (8-16); CALCIUM 8.8 mg/dl (8.4-10.2); CO2 21 mmol/L (22-28); CPK(DFH) 60 IU/L (26-140); GLUCOSE,RANDOM 94 mg/dl (74-106)
[2016-11-12 19:30] LABS: ALBUMIN 4.2 g/dl (3.5-5.0); ALK PHOS 82 U/L (32-92); BILIRUBIN,TOTAL 1.2 mg/dl (0.2-1.0); SGOT/AST 28 U/L (10-42); SGPT/ALT 14 U/L (10-40)
[2016-11-12 19:45] LABS: TROPONIN I (DFP) < 0.03 ng/ml (0.03-0.50)
--- NOTE | 2016-11-12 19:59 | PDOC ---
*Physical Exam - Vital Signs Last Vital Signs Temp Pulse Resp BP Pulse Ox 98.4 F 82 20 109/60 96 11/12/16 17:46 11/12/16 19:07 11/12/16 19:07 11/12/16 19:07 11/12/16 19:07 ED Treatment Course - LABORATORY CBC & Chemistry Diagram: 11/12/16 18:57 11/12/16 18:57 - ADDITIONAL ORDERS Additional order review: Laboratory Results 11/12/16 11/12/16 11/12/16 18:57 18:57 18:57 INR 2.78 H D Sodium 141 Potassium 4.0 Chloride 108 H Carbon Dioxide 21 L Anion Gap 12 BUN 34 H Creatinine 2.0 H Creat Clearance w eGFR 24.56 Random Glucose 94 Calcium 8.8 Total Bilirubin 1.2 H D AST 28 ALT 14 Alkaline Phosphatase 82 Creatine Kinase 60 Troponin I < 0.03 L Total Protein 7.0 Albumin 4.2 11/12/16 18:57 RBC 4.57 MCV 93.2 MCHC 33.7 RDW 12.9 MPV 8.5 Neutrophils % 65.4 D Lymphocytes % 22.6 D Monocytes % 9.3 Eosinophils % 0.9 Basophils % 1.8 D Medical Decision Making - Medical Decision Making 11/12/16 19:55 Pt signed out to me from Dr. Alvarez The patient has multiple meical problems including afib, presenting with complaing of 'sob, feeling like her cheset is going up and down'. Pt was awaiting lab work, which are at baseline. On reassessment the pt is feeling ' much better'. She is in no acute distress, her BP was noted a bit low but suspect it is secondary to a very large bp cuff. will recheck. Will dc the pt to fu with PMD return precautions were discussed I discussed the physical exam findings, ancillary test results and final diagnoses with the patient. I answered all of the patient's questions. The patient was satisfied with the care received and felt comfortable with the discharge plan and treatment plan. The patient will call their primary care physician within 24 hours to arrange follow-up and will return to the Emergency Department with any new, persistent or worsening symptoms. *DC/Admit/Observation/Transfer Diagnosis at time of Disposition: SOB (shortness of breath) - Discharge Dispostion Disposition: HOME Condition at time of disposition: Improved Admit: No - Referrals Referrals: Beverley Pizarro MD [Staff Physician] - - Patient Instructions Printed Discharge Instructions: DI for Shortness of Breath Additional Instructions: Return to the emergency department immediately with ANY new, persistent or worsening symptoms. You MUST call and follow up with your doctor tomorrow for further evaluation of your symptoms. Results were discussed with you. Please make sure your doctor reviews the results of your emergency evaluation. If you had any xrays during your visit, it was read preliminarily by myself, a Radiologist will review it and if there are any additional findings we will call you. Print Language: SOUTH SUDANESE
[2016-11-12 20:02] VITALS: BP 121/67
--- NOTE | 2016-11-13 22:56 | EKG ---
Test Reason : Blood Pressure : / mmHG Vent. Rate : 076 BPM Atrial Rate : 082 BPM P-R Int : 000 ms QRS Dur : 094 ms QT Int : 432 ms P-R-T Axes : 000 029 -67 degrees QTc Int : 486 ms ATRIAL FIBRILLATION PROLONGED QT ABNORMAL ECG WHEN COMPARED WITH ECG OF 27-OCT-2016 18:26, NO SIGNIFICANT CHANGE WAS FOUND Confirmed by CHAI LLAMAS MD ([id number]) on 11/13/2016 10:56:17 PM Referred By: VIELKA Confirmed By:CHAI LLAMAS MD
== END 2016-11-12 20:07 | disposition home or self-care (01) ==
LOC: FER 17:45
DX: R06.02 Shortness of breath (principal); I48.91 Unspecified atrial fibrillation; I25.10 Atherosclerotic heart disease of native coronary artery without angina pectoris; N18.9 Chronic kidney disease, unspecified; I50.9 Heart failure, unspecified; I10 Essential (primary) hypertension; E78.5 Hyperlipidemia, unspecified; F41.8 Other specified anxiety disorders; G89.29 Other chronic pain; Z87.891 Personal history of nicotine dependence
CPT/HCPCS: 36415; 80053; 82550; 84484; 85025; 85610; 93005; 99283-25

== ENCOUNTER 2016-11-23 19:32 | Observation (INO) | payer OTHER ==
--- NOTE | 2016-11-23 20:11 | PDOC ---
History of Present Illness - General History Source: Patient Exam Limitations: No Limitations - History of Present Illness Initial Comments: 11/23/16 20:29 The patient is a 71 year old female, with significant past medical history of anxiety, depression, CAD, CKD, CHF, HTN, HLD, who presents today complaining of palpitations and SOB. The patient has multiple previous visits, approximately twice a month, for SOB. The patient states that she had a transesophageal echocardiography performed today at [facility] because she was experiencing SOB and palpitations. After the MAINE, she continued to experience SOB and palpitations, so she called her associate java developer at [facility] who advised her to visit the closest emergency room. Denies abdominal pain. Denies fever, chills, nausea, vomiting. Allergies: Penicillin, mercury, fish PCP- Dr.Steve Pizarro Lcsw: Dr. Joy at [facility] Review of systems General: No fevers or chills, no weakness, no weight loss HEENT: No change in vision. No sore throat,. No ear pain CardioVascular: +shortness of breath, palpitations. No chest pain. Respiratory:No cough, or wheezing. Gastrointestinal: no nausea, vomiting, diarrhea or constipation, No rectal bleeding Genitourinary: No dysuria, hematuria, or frequency Musculoskeletal: No joint or muscle pain or swelling Neurologic: No headache, vertigo, dizziness or loss of consciousness Psychiatric: nor depression Skin: No rashes or easy bruising Endocrine: no increased thirst or abnormal weight change Allergic: no skin or latex allergy All other systems reviewed and normal Physical Exam General: Patient hyperventilating during exam. Well-nourished well-developed individual. HEENT: Throat: Normal, tonsils normal, no erythema or exudate Neck: Supple, no meningeal signs, no lymphadenopathy Eyes::Pupils equal reactive and round, extraocular motion intact Chest: Nontender to palpation Cardiac: S1-S2 normal, regular rate and rhythm, no murmurs rubs or gallops Respiratory: Lungs clear to auscultation bilateral Abdomen: Soft, nondistended, normal bowel sounds, nontender to palpation diffusely Extremities: Warm, dry, no cyanosis, clubbing, or edema Skin: No rashes Neuro: Alert and oriented x3, nonfocal exam, grossly intact, normal gait Psych: Normal mood and affect 11/23/16 20:34 <Gissel French - Last Filed: 11/23/16 21:29> - General History Source: Patient Exam Limitations: No Limitations - History of Present Illness Initial Comments: 11/23/16 22:13 A portion of this note was documented by scribe services under my direction. I have reviewed the details of the note, within reason, and agree with the documentation. The case summary and management plan written by me. This is a 71-year-old female comes in complaining of shortness of breath and palpitations. Patient was noted to be hyperventilating when she came in. Patient said she has had these symptoms times all day long. Patient had a transesophageal echo earlier in the day over to [facility] for these symptoms and after the MAINE she was discharged and after she got home she said symptoms persisted and worsened so she called the doctors at [facility] and they told her to go to the nearest emergency room. So patient came here. In the emergency room patient was very anxious and noted to be hyperventilating she otherwise denied any chest pain, nausea, sweating or any other complaints other than palpitations and shortness of breath. Patient's vitals were here in the emergency room normal with a normal O2 sat other than a slightly elevated respiratory rate. Patient had a workup including cardiac enzymes and her troponin was measurable at 0.04. Patient's heart score is 5. Patient will be admitted to an inpatient telemetry bed. <Benedicto Pena I - Last Filed: 11/23/16 22:54> - General Chief Complaint: Shortness of Breath Stated Complaint: SOB Time Seen by Provider: 11/23/16 20:03 Past History <Gissel French - Last Filed: 11/23/16 21:29> - Past Medical History Anemia: No Asthma: No Cancer: Yes (H/O CERVICAL) Cardiac Disorders: Yes (Cardio Myopathy,CAD, afib) CVA: No COPD: No CHF: No Dementia: No Diabetes: No GI Disorders: No Disorders: No HTN: Yes Hypercholesterolemia: Yes Liver Disease: No Psychiatric Problems: Yes (ANXIETY) Suicide Attempt (Hx): No Seizures: No Thyroid Disease: No - Surgical History Abdominal Surgery: Yes Appendectomy: No Cardiac Surgery: No Cholecystectomy: No Lung Surgery: No Neurologic Surgery: No Orthopedic Surgery: Yes (Bilateral Trigger finger release) - Immunization History Immunization Up to Date: No - Psycho/Social/Smoking Cessation Hx Anxiety: No Suicidal Ideation: No Smoking Status: No Smoking History: Former smoker Have you smoked in the past 12 months: No Number of Cigarettes Smoked Daily: 0 If you are a former smoker, when did you quit?: 10 years ago Information on smoking cessation initiated: No Hx Alcohol Use: No Drug/Substance Use Hx: No Substance Use Type: None Hx Substance Use Treatment: No <Benedicto Pena I - Last Filed: 11/23/16 22:54> - Past Medical History Allergies/Adverse Reactions: Allergies Allergy/AdvReac Type Severity Reaction Status Date / Time aspirin Allergy Verified 11/12/16 17:58 fish derived [Fish derived] Allergy Verified 11/12/16 17:58 mercury (elemental) Allergy Verified 11/12/16 17:58 [Mercury (Elemental)] Penicillins Allergy Verified 11/12/16 17:58 Raspberry Flavor, Artificial Allergy Verified 11/12/16 17:58 Home Medications: Ambulatory Orders Atenolol [Tenormin -] 25 mg PO DAILY 10/27/16 Atorvastatin Calcium [Lipitor] 10 mg PO DAILY 10/27/16 Bupropion HCl [Bupropion HCl Sr] 150 mg PO BID 10/27/16 Furosemide [Lasix] 40 mg PO DAILY 10/27/16 Meclizine HCl 25 mg PO TID PRN 10/27/16 Ramipril [Altace] 10 mg PO DAILY 10/27/16 Ubidecarenone [Coenzyme Q-10] 100 mg PO DAILY 10/27/16 Warfarin Sodium [Coumadin] 1 mg PO ASDIR 10/27/16 Warfarin Sodium [Coumadin] 2 mg PO ASDIR 10/27/16 Clopidogrel Bisulfate [Plavix -] 75 mg PO DAILY 11/23/16 Isosorbide Mononitrate [Imdur -] 30 mg PO DAILY 11/23/16 Soy Isofl/Blk Coh/Gr Tea/Yerba [[employer] Caplet] 25 mg PO DAILY 11/23/16 *Physical Exam - Vital Signs Last Vital Signs Temp Pulse Resp BP Pulse Ox 97.7 F 70 20 110/73 98 11/23/16 19:39 11/23/16 19:39 11/23/16 19:39 11/23/16 19:39 11/23/16 19:39 <Gissel French - Last Filed: 11/23/16 21:29> - Vital Signs Last Vital Signs Temp Pulse Resp BP Pulse Ox 97.7 F 70 20 110/73 98 11/23/16 19:39 11/23/16 19:39 11/23/16 19:39 11/23/16 19:39 11/23/16 19:39 <Benedicto Pena I - Last Filed: 11/23/16 22:54> Heart Score/ECG Review #1 11/23/16 20:33 Abnormal EKG with a rate of 95 Afib No acute changes since 10/13/16 <Gissel French - Last Filed: 11/23/16 21:29> - History History: Slightly suspicious - Electrocardiogram EKG: Non specific repolarization disturbance - Age Age: >/= 65 - Risk Factors Risk Factors Heart Score: Yes Hx Hypercholesterolemia, Yes Hx Hypertension, Yes Positive family hx of cardiac disease, Yes Hx Obesity Based on the list above the patient has:: >/=3 risk factors or Hx atherosclerotic disease - Troponin Troponin: </= normal limit - Score Heart Score - Total: 5 <Benedicto Pnea I - Last Filed: 11/23/16 22:54> ED Treatment Course - LABORATORY CBC & Chemistry Diagram: 11/23/16 20:35 - RADIOLOGY Radiograph Interpretation: 11/23/16 21:29 EXAM#: TYPE/EXAM: RESULT: [id number] RAD/CHEST X-RAY PORTABLE* Difficulty breathing. Portable chest x-ray AP sitting Since prior chest x-ray dated 10/27/2016, the cardiac silhouette remains slightly enlarged with mild unfolding of the aortic arch and mild perihilar lung markings. No focal infiltrates are identified. Mediastinum and visualized osseous structures appear intact Impression: No significant interval change. Mild cardiomegaly without evidence of acute lung disease Reported By: Kalin Wesley <Gissel French - Last Filed: 11/23/16 21:29> - LABORATORY CBC & Chemistry Diagram: 11/23/16 20:35 11/23/16 22:30 <Benedicto Pena I - Last Filed: 11/23/16 22:54> *DC/Admit/Observation/Transfer - Attestations Scribe Attestion: 11/23/16 20:34 Documentation prepared by LETY Bansal, acting as medical claims specialist for Benedicto Pena MD. <Gissel French - Last Filed: 11/23/16 21:29> - Discharge Dispostion Admit: Yes <Benedicto Pena I - Last Filed: 11/23/16 22:54> Diagnosis at time of Disposition: SOB (shortness of breath), Atrial fibrillation by electrocardiogram - Discharge Dispostion Condition at time of disposition: Stable - Referrals Referrals: Beverley Pizarro MD [Primary Care Provider] -
[2016-11-23] MEDS ORDERED: ALPRAZolam 0.25 MG TABLET PO ONE (20:18)
[2016-11-23] MEDS ORDERED: ALPRAZolam 0.25 MG TABLET ONE (20:19)
[2016-11-23 20:43] LABS: BASOPHIL 0.4 % (0-2.0); EOSINOPHIL 1.6 % (0-4.5); MCH 31.6 pg (25.7-33.7); MCHC 33.7 g/dl (32.0-36.0); MEAN CELL VOLUME 93.7 fl (80-96); MEAN PLT VOLUME 8.1 fl (7.5-11.1); NEUTROPHILS 54.5 % (42.8-82.8); PLATELET COUNT 159 K/MM3 (134-434); RDW 13.1 % (11.6-15.6); WHITE BLOOD COUNT 6.1 K/mm3 (4.0-10.8)
[2016-11-23 21:09] LABS: TROPONIN I (DFP) 0.04 ng/ml (0.03-0.50)
[2016-11-23 22:39] LABS: URINE APPEARANCE Clear; URINE BILIRUBIN Negative (NEGATIVE); URINE BLOOD Negative (NEGATIVE); URINE GLUCOSE (UA) Negative (NEGATIVE); URINE KETONE Negative (NEGATIVE); URINE NITRITE Negative (NEGATIVE); URINE PROTEIN Negative (NEGATIVE); URINE UROBILINOGEN 0.2 E.U/dl (0.2-1.0)
[2016-11-23 22:42] LABS: URINE COLOR YELLOW; URINE LEUK ESTERASE 2+ (NEGATIVE)
[2016-11-23] MEDS ORDERED: FUROSEMIDE 40 MG/4 ML INJECTABLE VIAL IVPUSH ONE (22:50)
[2016-11-23 22:51] LABS: INR 1.27 (0.82-1.09); PROTHROMBIN TIME (PATIENT) 14.2 SEC (10.2-13.0)
[2016-11-23 22:56] LABS: ALBUMIN 3.9 g/dl (3.5-5.0); ALK PHOS 76 U/L (32-92); ANION GAP 9 (8-16); BILIRUBIN,TOTAL 1.3 mg/dl (0.2-1.0); CALCIUM 9.1 mg/dl (8.4-10.2); CO2 21 mmol/L (22-28); CREATININE 1.8 mg/dl (0.6-1.3); GLUCOSE,RANDOM 99 mg/dl (74-106); SGOT/AST 21 U/L (10-42); SGPT/ALT 12 U/L (10-40); TOT PROT 7.1 g/dl (6.4-8.3)
[2016-11-23 23:07] LABS: URINE RBC 0-1 /hpf (0-3); URINE WBC 20-30 (3-5)
[2016-11-23 23:08] LABS: URINE BACTERIA FEW /hpf (NEGATIVE)
[2016-11-23] MEDS ORDERED: FUROSEMIDE 40 MG/4 ML INJECTABLE VIAL ONE (23:14)
[2016-11-24 00:25] VITALS: BMI 35.3
[2016-11-24] MEDS ORDERED: MECLIZINE HCL 25 MG TABLET (FP) PO PRN (00:37)
--- NOTE | 2016-11-24 00:41 | HP ---
CHIEF COMPLAINT: palpitations and SOB PCP: Moira Edge Stripper: Rufino HISTORY OF PRESENT ILLNESS: This is a 71 year old woman with h/o CAD, afib, HLD , HTN, anxiety, cardiomyopathy and cervical CA who presents with worsening palpitations and SOB after a MAINE today. She endorses having the SOB and palpitations for the past 2 weeks which is why she was referred for echo. She denies chest pain, PND, bloating, swelling of extremities or change in weight. ER course was notable for: (1) palpitations (2) subtherapeutic INR (3) elevated urine WBC and Leuk esterase Recent Travel: Denies PAST MEDICAL HISTORY: CAD, afib, HLD, HTN, anxiety and cervical CA PAST SURGICAL HISTORY: denies Social History: Smokin pack years quit 5-6 years ago Alcohol: denies Drugs: denies Family History: Allergies aspirin Allergy (Verified 11/12/16 17:58) fish derived [Fish derived] Allergy (Verified 11/12/16 17:58) all fish mercury (elemental) [Mercury (Elemental)] Allergy (Verified 11/12/16 17:58) Penicillins Allergy (Verified 11/12/16 17:58) Raspberry Flavor, Artificial Allergy (Verified 11/12/16 17:58) HOME MEDICATIONS: Home Medications 3 Medication Instructions Recorded Atenolol [Tenormin -] 25 mg PO DAILY 10/27/16 Atorvastatin Calcium [Lipitor] 10 mg PO DAILY 10/27/16 Bupropion HCl [Bupropion HCl Sr] 150 mg PO BID 10/27/16 Furosemide [Lasix] 40 mg PO DAILY 10/27/16 Meclizine HCl 25 mg PO TID PRN 10/27/16 Ramipril [Altace] 10 mg PO DAILY 10/27/16 Ubidecarenone [Coenzyme Q-10] 100 mg PO DAILY 10/27/16 Warfarin Sodium [Coumadin] 1 mg PO ASDIR 10/27/16 Warfarin Sodium [Coumadin] 2 mg PO ASDIR 10/27/16 Clopidogrel Bisulfate [Plavix -] 75 mg PO DAILY 11/23/16 Isosorbide Mononitrate [Imdur -] 30 mg PO DAILY 11/23/16 Soy Isofl/Blk Coh/Gr Tea/Yerba 25 mg PO DAILY 11/23/16 [[employer]let] REVIEW OF SYSTEMS CONSTITUTIONAL: Absent: fever, chills, diaphoresis, generalized weakness, malaise, loss of appetite, weight change HEENT: throat pain Absent: rhinorrhea, nasal congestion, throat swelling, difficulty swallowing, mouth swelling, ear pain, eye pain, visual changes CARDIOVASCULAR: palpitations Absent: chest pain, syncope, irregular heart rate, lightheadedness, peripheral edema RESPIRATORY: cough, shortness of breath, 2 pillow orthopnea Absent: dyspnea with exertion, wheezing, stridor, hemoptysis GASTROINTESTINAL: Absent: abdominal pain, abdominal distension, nausea, vomiting, diarrhea, constipation, melena, hematochezia GENITOURINARY: Absent: dysuria, frequency, urgency, hesitancy, hematuria, flank pain, genital pain MUSCULOSKELETAL: Absent: myalgia, arthralgia, joint swelling, back pain, neck pain SKIN: Absent: rash, itching, pallor HEMATOLOGIC/IMMUNOLOGIC: Absent: easy bleeding, easy bruising, lymphadenopathy, frequent infections ENDOCRINE: Absent: unexplained weight gain, unexplained weight loss, heat intolerance, cold intolerance NEUROLOGIC: Absent: headache, focal weakness or paresthesias, dizziness, unsteady gait, seizure, mental status changes, bladder or bowel incontinence PSYCHIATRIC: Absent: anxiety, depression, suicidal or homicidal ideation, hallucinations. PHYSICAL EXAMINATION GENERAL: Awake, alert, and fully oriented, in no acute distress. HEAD: Normal with no signs of trauma. EYES: Pupils equal, round and reactive to light, extraocular movements intact, sclera anicteric, conjunctiva clear. No lid lag. EARS, NOSE, THROAT: Ears normal, nares patent, oropharynx clear without exudates. Moist mucous membranes. NECK: Normal range of motion, supple without lymphadenopathy, JVD, or masses. LUNGS: Breath sounds equal, clear to auscultation bilaterally. No wheezes, and no crackles. No accessory muscle use. HEART: Irregular rate and rhythm, normal S1 and S2 without murmur, rub or gallop. ABDOMEN: Soft, nontender, not distended, normoactive bowel sounds, no guarding, no rebound, no masses. No hepatomegaly or splenomegaly. MUSCULOSKELETAL: Normal range of motion at all joints. No bony deformities or tenderness. No CVA tenderness. UPPER EXTREMITIES: 2+ pulses, warm, well-perfused. No cyanosis. No clubbing. No peripheral edema. LOWER EXTREMITIES: 2+ pulses, warm, well-perfused. No calf tenderness. No peripheral edema. NEUROLOGICAL: Cranial nerves II-XII intact. Normal speech. Normal gait. PSYCHIATRIC: Cooperative. Good eye contact. Appropriate mood and affect. SKIN: Warm, dry, normal turgor, no rashes or lesions noted, normal capillary refill. Laboratory Tests 3 11/23/16 11/23/16 11/23/16 20:35 20:35 20:35 WBC 6.1 RBC 4.30 Hgb 13.6 Hct 40.3 MCV 93.7 MCHC 33.7 RDW 13.1 Plt Count 159 MPV 8.1 Neutrophils % 54.5 Lymphocytes % 32.7 D Monocytes % 10.8 H Eosinophils % 1.6 Basophils % 0.4 INR Sodium Potassium Chloride Carbon Dioxide Anion Gap BUN Creatinine Creat Clearance w eGFR Random Glucose Calcium Total Bilirubin AST ALT Alkaline Phosphatase Creatine Kinase 96 Troponin I 0.04 B-Natriuretic Peptide 81084.83 H Total Protein Albumin Urine Color Urine Appearance Urine pH Ur Specific [place] Urine Protein Urine Glucose (UA) Urine Ketones Urine Blood Urine Nitrite Urine Bilirubin Urine Urobilinogen Ur Leukocyte Esterase Urine RBC Urine WBC Ur Epithelial Cells Urine Bacteria 3 11/23/16 11/23/16 11/23/16 22:30 22:30 22:30 WBC RBC Hgb Hct MCV MCHC RDW Plt Count MPV Neutrophils % Lymphocytes % Monocytes % Eosinophils % Basophils % INR 1.27 H D Sodium 138 Potassium 3.8 Chloride 108 H Carbon Dioxide 21 L Anion Gap 9 BUN 25 H D Creatinine 1.8 H Creat Clearance w eGFR 27.74 Random Glucose 99 Calcium 9.1 Total Bilirubin 1.3 H AST 21 D ALT 12 Alkaline Phosphatase 76 Creatine Kinase Troponin I B-Natriuretic Peptide Total Protein 7.1 Albumin 3.9 Urine Color Yellow Urine Appearance Clear Urine pH 5.0 Ur Specific [place] 1.010 Urine Protein Negative Urine Glucose (UA) Negative Urine Ketones Negative Urine Blood Negative Urine Nitrite Negative Urine Bilirubin Negative Urine Urobilinogen 0.2 e.u/dl Ur Leukocyte Esterase 2+ H Urine RBC 0-1 Urine WBC 20-30 Ur Epithelial Cells Few Urine Bacteria Few ASSESSMENT/PLAN: A: This is a 71 year old woman with history as above presenting with worsening SOB and palpitations s/p MAINE today. Lungs CTAB. No edema present. No JVD. At present denies palpitations. Telemetry- afib with rate of 89. INR 1.27 on current dosing schedule of warfarin (1mg on MWThFSa and 2mg SuTu). UA with elevated WBC and Leuk esterase. Does not meet SIRS. Treat prophylactically. P: CHF -continue Lasix -daily weights -I&O's Palpitations -telemetry monitoring -continue home Beta mikaela -serial troponin Subtherapeutic INR -give warfarin 1mg now -daily INR CKD -GFR 29.5 remains decreased since 08/31 -nephrology consult UTI -start Bactrim -urine cx HTN -continue home meds HLD -continue home meds F/E/N -monitor K as is on Bactrim and DANA as well as CKD -cardiac diet Dispo- Patient currently needs inpatient admission. Currently Full Code. Visit type - Emergency Visit Emergency Visit: Yes ED Registration Date: 11/23/16 Care time: The patient presented to the Emergency Department on the above date and was hospitalized for further evaluation of their emergent condition. - New Patient This patient is new to me today: Yes Date on this admission: 11/25/16 - Critical Care Critical Care patient: No
[2016-11-24] MEDS ORDERED: WARFARIN NA 1 MG TABLET (FP) PO ONE (01:41)
[2016-11-24] MEDS ORDERED: SULFAMETHOXAZOLE/TRIMETHOPRIM 800MG/160MG D.S. TABLET PO SCH (10:00)
[2016-11-24] MEDS ORDERED: UBIDECARENONE 100 MG PO SCH (10:00)
[2016-11-24] MEDS: CLOPIDOGREL BISULFATE 75 MG TABLET (FP) PO SCH (10:00)
[2016-11-24] MEDS ORDERED: ATENOLOL 25 MG TABLET (FP) PO SCH (10:00)
[2016-11-24] MEDS: ISOSORBIDE MONONITRATE 30 MG TAB.SR.24H (FP) PO SCH (10:00)
[2016-11-24] MEDS: FUROSEMIDE 40 MG TABLET (FP) PO SCH (10:01)
[2016-11-24] MEDS: RAMIPRIL 5 MG CAPSULE (FP) PO SCH (10:01)
--- NOTE | 2016-11-24 12:26 | PN ---
Physical Exam: SUBJECTIVE: Patient seen and examined. Reports persistent SOB and "heaviness of breathing." Not feeling better at all as per pt. However, does report that she has no heaviness of breathing at present. Denies chest pain. OBJECTIVE: Vital Signs - 24 hr 3 11/23/16 11/23/16 11/23/16 19:39 23:24 23:54 Temperature 97.7 F 98.7 F 98.7 F Pulse Rate 70 Pulse Rate [ 85 Radial] Respiratory 20 20 20 Rate Blood Pressure 110/73 Blood Pressure 126/81 [Arm] O2 Sat by Pulse 98 95 95 Oximetry (%) 3 11/24/16 11/24/16 11/24/16 00:41 06:15 08:57 Temperature 98.0 F 98.4 F Pulse Rate 102 H 103 H Pulse Rate [ Radial] Respiratory 19 18 18 Rate Blood Pressure 134/79 135/75 Blood Pressure [Arm] O2 Sat by Pulse 98 93 L 93 L Oximetry (%) GENERAL: The patient is awake, alert, and fully oriented, in no acute distress. HEAD: Normal with no signs of trauma. EYES: PERRL, extraocular movements intact, sclera anicteric, conjunctiva clear. No ptosis. ENT: Ears normal, nares patent, oropharynx clear without exudates, moist mucous membranes. NECK: Trachea midline, full range of motion, supple. LUNGS: Breath sounds equal, clear to auscultation bilaterally, no wheezes, no crackles, no accessory muscle use. HEART: Regular rate and rhythm, S1, S2 without murmur, rub or gallop. ABDOMEN: Obese, soft, nontender, nondistended, normoactive bowel sounds, no guarding, no rebound, no hepatosplenomegaly, no masses. EXTREMITIES: 2+ pulses, warm, well-perfused, no edema. NEUROLOGICAL: Cranial nerves II through XII grossly intact. Normal speech, gait not observed. PSYCH: Normal mood, normal affect. SKIN: Warm, dry, normal turgor, no rashes or lesions noted Laboratory Results - last 24 hr 3 11/23/16 11/23/16 11/23/16 20:35 20:35 20:35 WBC 6.1 RBC 4.30 Hgb 13.6 Hct 40.3 MCV 93.7 MCHC 33.7 RDW 13.1 Plt Count 159 MPV 8.1 Neutrophils % 54.5 Lymphocytes % 32.7 D Monocytes % 10.8 H Eosinophils % 1.6 Basophils % 0.4 INR Sodium Potassium Chloride Carbon Dioxide Anion Gap BUN Creatinine Creat Clearance w eGFR Random Glucose Calcium Total Bilirubin AST ALT Alkaline Phosphatase Creatine Kinase 96 Troponin I 0.04 B-Natriuretic Peptide 89125.83 H Total Protein Albumin Urine Color Urine Appearance Urine pH Ur Specific [place] Urine Protein Urine Glucose (UA) Urine Ketones Urine Blood Urine Nitrite Urine Bilirubin Urine Urobilinogen Ur Leukocyte Esterase Urine RBC Urine WBC Ur Epithelial Cells Urine Bacteria 3 11/23/16 11/23/16 11/23/16 11/24/16 22:30 22:30 22:30 02:00 WBC RBC Hgb Hct MCV MCHC RDW Plt Count MPV Neutrophils % Lymphocytes % Monocytes % Eosinophils % Basophils % INR 1.27 H D Sodium 138 Potassium 3.8 Chloride 108 H Carbon Dioxide 21 L Anion Gap 9 BUN 25 H D Creatinine 1.8 H Creat Clearance w eGFR 27.74 Random Glucose 99 Calcium 9.1 Total Bilirubin 1.3 H AST 21 D ALT 12 Alkaline Phosphatase 76 Creatine Kinase Troponin I 0.02 B-Natriuretic Peptide Total Protein 7.1 Albumin 3.9 Urine Color Yellow Urine Appearance Clear Urine pH 5.0 Ur Specific [place] 1.010 Urine Protein Negative Urine Glucose (UA) Negative Urine Ketones Negative Urine Blood Negative Urine Nitrite Negative Urine Bilirubin Negative Urine Urobilinogen 0.2 e.u/dl Ur Leukocyte Esterase 2+ H Urine RBC 0-1 Urine WBC 20-30 Ur Epithelial Cells Few Urine Bacteria Few Active Medications Generic Name Dose Route Start Last Admin Trade Name Freq PRN Reason Stop Dose Admin Atenolol 25 mg 11/24/16 10:00 11/24/16 10:01 Tenormin - PO 25 mg DAILY ANA Administration Atorvastatin Calcium 10 mg 11/24/16 22:00 Lipitor - PO HS ANA Bupropion HCl 150 mg 11/24/16 10:00 11/24/16 10:00 Wellbutrin Xl - PO 150 mg BID ANA Administration Cephalexin HCl 500 mg 11/24/16 22:00 Keflex - PO Q8H ANA Clopidogrel Bisulfate 75 mg 11/24/16 10:00 11/24/16 10:00 Plavix - PO 75 mg DAILY ANA Administration Furosemide 40 mg 11/24/16 10:00 11/24/16 10:01 Lasix - PO 40 mg DAILY ANA Administration Isosorbide Mononitrate 30 mg 11/24/16 10:00 11/24/16 10:00 Imdur - PO 30 mg DAILY ANA Administration Meclizine HCl 25 mg 11/24/16 00:37 Antivert - PO TID PRN VERTIGO Non-Formulary Medication 25 mg 11/24/16 10:00 Soy Isofl/Blk Coh/Gr Tea/Yerba [[employer]let] PO DAILY [facility] Non-Formulary Medication 100 mg 11/24/16 10:00 Ubidecarenone [Coenzyme Q-10] PO DAILY [facility] Ramipril 10 mg 11/24/16 10:00 11/24/16 10:01 Altace - PO 10 mg DAILY ANA Administration Warfarin Sodium 1 mg 11/24/16 18:00 Coumadin - PO MOWETHFRSA@1800 [facility] Warfarin Sodium 2 mg 11/25/16 18:00 Coumadin - PO SUTH@1800 [facility] ASSESSMENT/PLAN: 71yF with a PMH significant for anxiety, depression, CAD, CKD, CHF, HTN, HLD presented with palpitations and SOB s/p MAINE yesterday. She was referred to nearest ED by her it network administrator. Pt was admitted for further observation. Acute SOB / CHF exac - s/p lasix 40mg IVP last evening in ED - no crackles auscultated on exam, CXR ok - will cont home lasix 40mg po - Cardiology consult - troponin neg x 2; one more ordered - cardiology consult - ? anxiety component to SOB given hyperventilation on arrival to ED and normal oxygen saturation - cont DANA-i Atrial fibrillation, on coumadin - INR subtherapeutic, pt declining any change in her scheduled home regimen, but agrees to 2mg tonight in lieu of 1mg, will f/u with her private it network administrator on saturday for change in home regimen. Aware of risk of CVA. - HR low 100s, would recommend increasing atenolol to 50QD, pt in agreement. atenolol 25 given this am, 25mg additional to be given now. CAD - cont home imdur CKD - Cr 1.8 yesterday, baseline 1.6-2.0 - bactrim DC, change to doxycycline, less nephrotoxic UTI - bactrim DC secondary to CKD - doxycycline 100 BID HLD - cont home statin DVT PPX - deferred, expected LOS <48h FEN - tolerating po intake, no IVF - repeat BMP, mag - low sodium diet Dispo: Pt currently requires inpatient observation for management of her emergent condition. Visit type - Emergency Visit Emergency Visit: Yes ED Registration Date: 11/23/16 Care time: The patient presented to the Emergency Department on the above date and was hospitalized for further evaluation of their emergent condition. - New Patient This patient is new to me today: Yes Date on this admission: 11/24/16 - Critical Care Critical Care patient: No - Discharge Referral Referred to [facility] Med P.C.: No
[2016-11-24] MEDS ORDERED: ATENOLOL 25 MG TABLET (FP) PO ONE (12:42)
--- NOTE | 2016-11-24 13:42 | CON.CARD ---
Cardiology Consult (text) - Consultation Consultation Note: cc: palps, sob hpi: 71 f hx afib, dchf, htn, hld, here with sob, palps. Pt had elective outpt chris/dccv on saturday at [facility], sent by her cardio dr lucia. After procedure that night she felt palps/sob and sxs lasted for 3 days at home until she contacted her cardio and was told to go to ER last night. No cp, dizzy, loc , pnd, orthopnea, le edema. She was found to have uti and mild rvr, no signs chf. She was given abx and bb was increased. Today she reports feeling better. pmh: per hpi psh: nc social: ex tob fam: no premature cad, scd ros: per hpi; no fever, nvd, cough, nasal congestion, gib, hematuria, wt loss, vision changes, rash meds: Home Medications Medication Instructions Recorded Atenolol [Tenormin -] 25 mg PO DAILY 10/27/16 Atorvastatin Calcium [Lipitor] 10 mg PO DAILY 10/27/16 Bupropion HCl [Bupropion HCl Sr] 150 mg PO BID 10/27/16 Furosemide [Lasix] 40 mg PO DAILY 10/27/16 Meclizine HCl 25 mg PO TID PRN 10/27/16 Ramipril [Altace] 10 mg PO DAILY 10/27/16 Ubidecarenone [Coenzyme Q-10] 100 mg PO DAILY 10/27/16 Warfarin Sodium [Coumadin] 1 mg PO ASDIR 10/27/16 Warfarin Sodium [Coumadin] 2 mg PO ASDIR 10/27/16 Clopidogrel Bisulfate [Plavix -] 75 mg PO DAILY 11/23/16 Isosorbide Mononitrate [Imdur -] 30 mg PO DAILY 11/23/16 Soy Isofl/Blk Coh/Gr Tea/Yerba 25 mg PO DAILY 11/23/16 [[employer] Caplet] pe: Vital Signs Period Temp Pulse Resp BP Sys/Franks Pulse Ox Last 24 Hr 97.7 F-98.7 F 70-103 18-20 110-135/73-81 93-98 nad no jvd irreg, reg rate, s1s2 no mrg cta bl nl eff aaox3 no le e/c/c no jaundice diaphoresis pos dp pt no carotid bruits abd nt nd pos bs Laboratory Last Values WBC 6.1 K/mm3 (4.0-10.8) 11/23/16 20:35 RBC 4.30 M/mm3 (3.60-5.2) 11/23/16 20:35 Hgb 13.6 GM/dl (10.7-15.3) 11/23/16 20:35 Hct 40.3 % (32.4-45.2) 11/23/16 20:35 MCV 93.7 fl (80-96) 11/23/16 20:35 MCHC 33.7 g/dl (32.0-36.0) 11/23/16 20:35 RDW 13.1 % (11.6-15.6) 11/23/16 20:35 Plt Count 159 K/MM3 (134-434) 11/23/16 20:35 MPV 8.1 fl (7.5-11.1) 11/23/16 20:35 Neutrophils % 54.5 % (42.8-82.8) 11/23/16 20:35 Lymphocytes % 32.7 % (8-40) D 11/23/16 20:35 Monocytes % 10.8 % (3.8-10.2) H 11/23/16 20:35 Eosinophils % 1.6 % (0-4.5) 11/23/16 20:35 Basophils % 0.4 % (0-2.0) 11/23/16 20:35 INR 1.27 (0.82-1.09) H D 11/23/16 22:30 Sodium 141 mmol/L (136-145) 11/24/16 13:05 Potassium 3.8 mmol/L (3.5-5.1) 11/24/16 13:05 Chloride 108 mmol/L (98-107) H 11/24/16 13:05 Carbon Dioxide 20 mmol/L (22-28) L 11/24/16 13:05 Anion Gap 13 (8-16) 11/24/16 13:05 BUN 29 mg/dl (7-18) H 11/24/16 13:05 Creatinine 2.2 mg/dl (0.6-1.3) H D 11/24/16 13:05 Creat Clearance w eGFR 27.74 (>60) 11/23/16 22:30 Random Glucose 166 mg/dl (74-106) H D 11/24/16 13:05 Calcium 9.1 mg/dl (8.4-10.2) 11/24/16 13:05 Magnesium 1.8 mg/dL (1.8-2.4) D 11/24/16 13:05 Total Bilirubin 1.3 mg/dl (0.2-1.0) H 11/23/16 22:30 AST 21 U/L (10-42) D 11/23/16 22:30 ALT 12 U/L (10-40) 11/23/16 22:30 Alkaline Phosphatase 76 U/L (32-92) 11/23/16 22:30 Creatine Kinase 82 IU/L (26-140) 11/24/16 13:05 Troponin I 0.02 ng/ml (0.00-0.05) 11/24/16 02:00 B-Natriuretic Peptide 21121.83 pg/ml (5-125) H 11/23/16 20:35 Total Protein 7.1 g/dl (6.4-8.3) 11/23/16 22:30 Albumin 3.9 g/dl (3.5-5.0) 11/23/16 22:30 Urine Color Yellow 11/23/16 22:30 Urine Appearance Clear 11/23/16 22:30 Urine pH 5.0 (4.5-8) 11/23/16 22:30 Ur Specific [place] 1.010 (1.005-1.025) 11/23/16 22:30 Urine Protein Negative (NEGATIVE) 11/23/16 22:30 Urine Glucose (UA) Negative (NEGATIVE) 11/23/16 22:30 Urine Ketones Negative (NEGATIVE) 11/23/16 22:30 Urine Blood Negative (NEGATIVE) 11/23/16 22:30 Urine Nitrite Negative (NEGATIVE) 11/23/16 22:30 Urine Bilirubin Negative (NEGATIVE) 11/23/16 22:30 Urine Urobilinogen 0.2 e.u/dl (0.2-1.0) 11/23/16 22:30 Ur Leukocyte Esterase 2+ (NEGATIVE) H 11/23/16 22:30 Urine RBC 0-1 /hpf (0-3) 11/23/16 22:30 Urine WBC 20-30 (3-5) 11/23/16 22:30 Ur Epithelial Cells Few /HPF 11/23/16 22:30 Urine Bacteria Few /hpf (NEGATIVE) 11/23/16 22:30 Echo 07/2014: Normal LV/RVF, imp relaxation, BILL, mild to mod MR Ado stress MPI 2012: no ischemia Cath @ [facility] 2002 and [facility] 05/2009: normal cors, normal LVF ecg 11/23/16: afib, vr 95, nl qtc, nonspecific st-t changes, no sig change prior ecg 11/12/16 tele: afib, rate controlled cxr: clear lungs a/p: 71 f hx afib, dchf, htn, hld, here with sob, palps. sob, palps: -current symptoms seem to correlate with her afib with RVR upon admit -now that bb increased and HR improved she is feeling better -no signs chf or acs. ce's negx2, ecg w/o ischemic changes afib: -had elective chris/dccv 11/20/16, now here with afib and rvr -cont bb at increased dose of atenolol 50 qd (was on 25 qd at home), HR improved -monitor on tele overnight, if rate controlled then ok for dc from cardiac pov -cont ac with coumadin per inr chronic diastolic chf: -no signs vol overload, cxr clear, no chf sxs -cont home dose po lasix htn: -controlled on current meds hld: -cont statin
[2016-11-24 13:43] LABS: CALCIUM 9.1 mg/dl (8.4-10.2); COCKROFT - GAULT 30.43; CREATININE 2.2 mg/dl (0.6-1.3); MAGNESIUM 1.8 mg/dL (1.8-2.4)
[2016-11-24 15:43] LABS: TROPONIN I (DFP) 0.03 ng/ml (0.03-0.50)
[2016-11-24] MEDS ORDERED: WARFARIN NA 2 MG TABLET (UD) PO ONE (18:00)
[2016-11-24] MEDS ORDERED: WARFARIN NA 1 MG TABLET (FP) PO SCH ×2 (18:00)
[2016-11-24] MEDS ORDERED: WARFARIN NA 2 MG TABLET (UD) PO SCH (18:00)
[2016-11-24] MEDS: DOXYCYCLINE HYCLATE 100 MG CAPSULE PO SCH (18:08)
[2016-11-24] MEDS ORDERED: CEPHALEXIN MONOHYDRATE 500 MG CAPSULE (UD) PO SCH (22:00)
[2016-11-24] MEDS ORDERED: ATORVASTATIN CA 10 MG TABLET (FP) PO SCH (22:00)
--- NOTE | 2016-11-25 08:04 | CONSULT ---
Consult - text type - Consultation Consultation Note: Renal Consult for KAYLA on CKD This is a 71 year old woman with PMhx of CKD Stage 3, Hypertension, Afib on Coumadin, HLD who presented with palpitations and found to have Afib with RVR and Cr 1.8->2.2. Pt reported palpitions for 1 week. Has elective MAINE at [place] recently. Denies any NSAID use, no contrast exposure. On ACEi. No chest pain, sob, abd pain, N/V/D, LE swelling today. PMhx: as above Allergies: as per EMR Family Hx: NC Social Hx: No T/A ROS: as per HPI, all other pertinent ros negative Home Meds: Home Medications Medication Instructions Recorded Atenolol [Tenormin -] 25 mg PO DAILY 10/27/16 Atorvastatin Calcium [Lipitor] 10 mg PO DAILY 10/27/16 Bupropion HCl [Bupropion HCl Sr] 150 mg PO BID 10/27/16 Furosemide [Lasix] 40 mg PO DAILY 10/27/16 Meclizine HCl 25 mg PO TID PRN 10/27/16 Ramipril [Altace] 10 mg PO DAILY 10/27/16 Ubidecarenone [Coenzyme Q-10] 100 mg PO DAILY 10/27/16 Warfarin Sodium [Coumadin] 1 mg PO ASDIR 10/27/16 Warfarin Sodium [Coumadin] 2 mg PO ASDIR 10/27/16 Clopidogrel Bisulfate [Plavix -] 75 mg PO DAILY 11/23/16 Isosorbide Mononitrate [Imdur -] 30 mg PO DAILY 11/23/16 Soy Isofl/Blk Coh/Gr Tea/Yerba 25 mg PO DAILY 11/23/16 [[employer]] Vital Signs Temperature 98.2 F 11/25/16 06:00 Pulse Rate 68 11/25/16 06:00 Respiratory Rate 19 11/25/16 06:00 Blood Pressure 113/72 11/25/16 06:00 O2 Sat by Pulse Oximetry (%) 97 11/25/16 06:00 Intake & Output 11/22/16 11/23/16 11/24/16 11/25/16 23:59 23:59 23:59 23:59 Intake Total 650 Output Total 600 500 Balance 50 -500 Weight 181 lb 0.014 oz 181 lb 10.931 oz 178 lb 0.7 oz Gen: NAD, awake and alert HEENT: NC/AT, MMM, No JVD CVS: irregular, no M/R Lungs: CTA, no rales or wheeze Abd: soft NT/ND Ext: No edema, clubbing or cyanosis : No bladder distension CBC, BMP 11/23/16 20:35 11/24/16 13:05 Laboratory Tests 11/24/16 13:05 Calcium 9.1 Magnesium 1.8 D Current Medications Atenolol (Tenormin -) 50 mg PO DAILY [facility] Atorvastatin Calcium (Lipitor -) 10 mg PO HS [facility] Last Admin: 11/24/16 21:21 Dose: 10 mg Bupropion HCl (Wellbutrin Xl -) 150 mg PO BID [facility] Last Admin: 11/24/16 21:21 Dose: 150 mg Clopidogrel Bisulfate (Plavix -) 75 mg PO DAILY [facility] Last Admin: 11/24/16 10:00 Dose: 75 mg Doxycycline Hyclate (Vibramycin -) 100 mg PO BID@1000,1800 [facility] Last Admin: 11/24/16 18:08 Dose: 100 mg Furosemide (Lasix -) 40 mg PO DAILY [facility] Last Admin: 11/24/16 10:01 Dose: 40 mg Isosorbide Mononitrate (Imdur -) 30 mg PO DAILY [facility] Last Admin: 11/24/16 10:00 Dose: 30 mg Meclizine HCl (Antivert -) 25 mg PO TID PRN PRN Reason: VERTIGO Non-Formulary Medication (Soy Isofl/Blk Coh/Gr Tea/Yerba [[employer] ]) 25 mg PO DAILY [facility] Non-Formulary Medication (Ubidecarenone [Coenzyme Q-10]) 100 mg PO DAILY [facility] Ramipril (Altace -) 10 mg PO DAILY [facility] Last Admin: 11/24/16 10:01 Dose: 10 mg Warfarin Sodium (Coumadin -) 1 mg PO MOWETHFRSA@1800 [facility] Warfarin Sodium (Coumadin -) 2 mg PO SUTH@1800 [facility] A/P 71 year old woman with PMhx of CKD Stage 3, Hypertension, Afib on Coumadin, HLD who presented with palpitations and found to have Afib with RVR and Cr 1.8->2.2. #Acute on Chronic Renal Insufficiency Likely related to transient hemodynamic injury/renal hypoperfusion in setting of rapid afib and relative hypotension with ACEi Todays labs pending if BUN/Cr stable ok for discharge with outpatient follow up if Cr up trends, hold ACEi or reduce dose as pt may need to have a slightly higher BP given long standing history of HTN Dose all meds for Cr Cl ~30 avoid NSAIDs, Contrast on Lasix 40mg, can continue as per cardiology Pt to follow up in the office on discharge Thank you Harley Torres DO
[2016-11-25 08:50] LABS: BASOPHIL 0.5 % (0-2.0); EOSINOPHIL 2.7 % (0-4.5); MCH 30.8 pg (25.7-33.7); MCHC 32.8 g/dl (32.0-36.0); MEAN PLT VOLUME 9.2 fl (7.5-11.1); NEUTROPHILS 49.2 % (42.8-82.8); PLATELET COUNT 168 K/MM3 (134-434); RDW 13.4 % (11.6-15.6); WHITE BLOOD COUNT 6.9 K/mm3 (4.0-10.8)
[2016-11-25 09:08] LABS: INR 1.16 (0.82-1.09)
[2016-11-25] MEDS: ISOSORBIDE MONONITRATE 30 MG TAB.SR.24H (FP) PO SCH (09:29)
[2016-11-25] MEDS: FUROSEMIDE 40 MG TABLET (FP) PO SCH (09:29)
[2016-11-25] MEDS: DOXYCYCLINE HYCLATE 100 MG CAPSULE PO SCH (09:29)
[2016-11-25] MEDS: RAMIPRIL 5 MG CAPSULE (FP) PO SCH (09:29)
[2016-11-25] MEDS: CLOPIDOGREL BISULFATE 75 MG TABLET (FP) PO SCH (09:29)
[2016-11-25 09:34] VITALS: BP 131/75; PULSE 93; TEMP 98.1
[2016-11-25] MEDS ORDERED: ATENOLOL 50 MG TABLET (FP) PO SCH (10:00)
[2016-11-25 10:12] LABS: ALBUMIN 3.8 g/dl (3.5-5.0); ALK PHOS 71 U/L (32-92); ANION GAP 14 (8-16); BILIRUBIN,TOTAL 1.2 mg/dl (0.2-1.0); CALCIUM 8.9 mg/dl (8.4-10.2); CO2 21 mmol/L (22-28); GLUCOSE,RANDOM 82 mg/dl (74-106); SGOT/AST 16 U/L (10-42); SGPT/ALT 13 U/L (10-40)
[2016-11-25 10:13] LABS: COCKROFT - GAULT NT
[2016-11-25] MEDS ORDERED: WARFARIN NA 2 MG TABLET (UD) PO ONE (11:15)
--- NOTE | 2016-11-25 12:01 | DS ---
Physical Exam: SUBJECTIVE: Patient seen and examined OBJECTIVE: Vital Signs Period Temp Pulse Resp BP Sys/Franks Pulse Ox Last 24 Hr 98.1 F-99.1 F 68-104 18-95 110-132/52-81 93-97 PHYSICAL EXAM GENERAL: The patient is awake, alert, and fully oriented, in no acute distress. HEAD: Normal with no signs of trauma. EYES: PERRL, extranuclear movements intact, sclera anicteric, conjunctiva clear. ENT: Ears normal, nares patent, oropharynx clear without exudates, moist mucous membranes. NECK: Trachea midline, full range of motion, supple. LUNGS: Breath sounds equal, clear to auscultation bilaterally, no wheezes, no crackles, no accessory muscle use. HEART: Regular rate and rhythm, S1, S2 without murmur, rub or gallop. ABDOMEN: Soft, nontender, nondistended, normoactive bowel sounds, no guarding, no rebound, no hepatosplenomegaly, no masses. EXTREMITIES: 2+ pulses, warm, well-perfused, no edema. NEUROLOGICAL: Cranial nerves II through XII grossly intact. Normal speech, gait not observed. PSYCH: Normal mood, normal affect. SKIN: Warm, dry, normal turgor, no rashes or lesions noted. LABS Laboratory Results - last 24 hr 11/24/16 11/24/16 11/25/16 13:05 13:05 06:20 WBC 6.9 RBC 4.49 Hgb 13.8 Hct 42.2 MCV 94.0 MCHC 32.8 RDW 13.4 Plt Count 168 MPV 9.2 D Neutrophils % 49.2 Lymphocytes % 37.4 Monocytes % 10.2 Eosinophils % 2.7 Basophils % 0.5 INR Sodium 141 Potassium 3.8 Chloride 108 H Carbon Dioxide 20 L Anion Gap 13 BUN 29 H Creatinine 2.2 H D Creat Clearance w eGFR Random Glucose 166 H D Calcium 9.1 Magnesium 1.8 D Total Bilirubin AST ALT Alkaline Phosphatase Creatine Kinase 82 Troponin I 0.03 Total Protein Albumin 11/25/16 11/25/16 06:20 06:20 WBC RBC Hgb Hct MCV MCHC RDW Plt Count MPV Neutrophils % Lymphocytes % Monocytes % Eosinophils % Basophils % INR 1.16 Sodium 139 Potassium 3.7 Chloride 104 Carbon Dioxide 21 L Anion Gap 14 BUN 34 H Creatinine 2.0 H Creat Clearance w eGFR 24.56 Random Glucose 82 D Calcium 8.9 Magnesium Total Bilirubin 1.2 H AST 16 D ALT 13 Alkaline Phosphatase 71 Creatine Kinase Troponin I Total Protein 7.0 Albumin 3.8 HOSPITAL COURSE: Date of Admission:11/23/16 Date of Discharge: 11/25/16 This is a 71yF with a PMH significant for anxiety, depression, CAD, CKD, CHF, HTN, HLD presented with palpitations and SOB s/p MAINE yesterday. Pt was placed on observation. EKG showed A-Fib with controlled rate. cxr - revealed mild cardiomegaly no acute pathology. Serial cardiac enzymes negative ACS ruled out. BNP [id number], pt received IV Lasix with improvement, now remains asymptomatic. Pt was evaluated by hydramatic mechanic, recommend to continue on Lasix 40mg daily *For hx of Atrial fibrillation: Initially,HR was in low 100's, Atenolol dose increased to 50mg daily. HR stable now, ON Coumadin, INR subtherapeutic will give 4mg today and recommend to follow up on INR in 2 days,pt declining any change in her scheduled home regimen. *CAD: Will continue on Plavix, BB, Statin and Imdur *CKD: Cr was 2.2 , now to day( baseline 1.6-2.0), renal consult appreciated, recommend to followup with Dr. Torres as scheduled tomorrow. *UTI: Pyuria but urine culture revealed no significant growth,remains asymptomatic, pt received Doxy during the hospital stay, no need to continue on antibiotics. *HLD: Will continue on home dose Statin Minutes to complete discharge: 40 Discharge Summary Reason For Visit: SOB & AFIB Current Active Problems Atrial fibrillation by electrocardiogram (Acute) SOB (shortness of breath) (Acute) Condition: Stable - Instructions Diet, Activity, Other Instructions: Heart healthy diet. Followup on INR in 1-2 days. Referrals: Beverley Pizarro MD [Primary Care Provider] - 1 Week Walter Joy MD [Staff Physician] - 1 Week Harley Torres MD [Staff Physician] - (as scheduled tomorrow ) Disposition: HOME - Home Medications Comprehensive Discharge Medication List: Ambulatory Orders Atorvastatin Calcium [Lipitor] 10 mg PO DAILY 10/27/16 Bupropion HCl [Bupropion HCl Sr] 150 mg PO BID 10/27/16 Furosemide [Lasix] 40 mg PO DAILY 10/27/16 Meclizine HCl 25 mg PO TID PRN 10/27/16 Ramipril [Altace] 10 mg PO DAILY 10/27/16 Ubidecarenone [Coenzyme Q-10] 100 mg PO DAILY 10/27/16 Clopidogrel Bisulfate [Plavix -] 75 mg PO DAILY 11/23/16 Isosorbide Mononitrate [Imdur -] 30 mg PO DAILY 11/23/16 Soy Isofl/Blk Coh/Gr Tea/Yerba [[employer] Caplet] 25 mg PO DAILY 11/23/16 Atenolol [Tenormin -] 50 mg PO DAILY tablet 11/25/16 Warfarin Na [Coumadin -] 1 mg PO MOWETHFR@1800 tablet 11/25/16 Warfarin Na [Coumadin -] 2 mg PO SuTh@1800 tablet 11/25/16 This patient is new to me today: Yes Date on this admission: 11/25/16 Emergency Visit: Yes ED Registration Date: 11/23/16 Care time: The patient presented to the Emergency Department on the above date and was hospitalized for further evaluation of their emergent condition. Critical Care patient: No - Discharge Referral Referred to [facility] No
[2016-11-25] MEDS ORDERED: WARFARIN NA 2 MG TABLET (UD) PO SCH ×2 (18:00)
--- NOTE | 2016-11-26 13:05 | EKG ---
Test Reason : Blood Pressure : / mmHG Vent. Rate : 095 BPM Atrial Rate : 039 BPM P-R Int : 000 ms QRS Dur : 080 ms QT Int : 386 ms P-R-T Axes : 000 012 -45 degrees QTc Int : 485 ms ATRIAL FIBRILLATION NONSPECIFIC ST AND T WAVE ABNORMALITY ABNORMAL ECG WHEN COMPARED WITH ECG OF 12-NOV-2016 17:52, NO SIGNIFICANT CHANGE WAS FOUND Confirmed by ARGENIS NAIK MD ([id number]) on 11/26/2016 1:05:26 PM Referred By: LELE Confirmed By:ARGENIS NAIK MD
[2016-11-26] MEDS ORDERED: WARFARIN NA 1 MG TABLET (FP) PO SCH (18:00)
== END 2016-11-25 13:00 | disposition home or self-care (01) ==
LOC: FER 19:32 → FM/S 23:54 → INTOOBSV 23:54
PROVIDERS: ADMIT Internal Medicine; ATTEND Nurse Practitioner Family
PROC: 3E033GC Introduction of Other Therapeutic Substance into Peripheral Vein, Percutaneous Approach (ICD-10-PCS; principal; 2016-11-23)
DX: I48.91 Unspecified atrial fibrillation (principal); I50.32 Chronic diastolic (congestive) heart failure; Z79.01 Long term (current) use of anticoagulants; R06.02 Shortness of breath; I12.9 Hypertensive chronic kidney disease with stage 1 through stage 4 chronic kidney disease, or unspecified chronic kidney disease; I25.10 Atherosclerotic heart disease of native coronary artery without angina pectoris; I42.9 Cardiomyopathy, unspecified; N18.3 Chronic kidney disease, stage 3 (moderate); F41.9 Anxiety disorder, unspecified; F52.9 Unspecified sexual dysfunction not due to a substance or known physiological condition; Z85.41 Personal history of malignant neoplasm of cervix uteri; Z87.891 Personal history of nicotine dependence; N39.0 Urinary tract infection, site not specified
CPT/HCPCS: 36415; 71010-TC; 80048; 80053; 81003; 81015; 82550; 83735; 83880; 84484; 85025; 85610; 87086; 93005; 99283-25; G0378

== ENCOUNTER 2017-02-05 17:40 | Emergency (ER) | payer OTHER ==
[2017-02-05 17:44] VITALS: BP 121/64; PULSE 60; TEMP 97.9; BMI 35.7
--- NOTE | 2017-02-05 18:41 | PDOC ---
History of Present Illness <Areli Rodarte - Last Filed: 02/05/17 18:37> - History of Present Illness Initial Comments: 02/05/17 18:41 The patient is a 71 year old female, with significant past medical history of anxiety, depression, CAD, CKD, CHF, HTN, HLD, who presents to the emergency department with earring stuck in left ear x2 days. The patient reports pain, redness, pus, and swelling from the left ear today. The patient reports placing ice packs on her left ear with no relief. She denies other complaints. She denies chest pain, shortness of breath, headache and dizziness. She denies fever, chills, nausea, vomit, diarrhea and constipation. She denies dysuria, frequency, urgency and hematuria. Allergies: Penicillin, mercury, fish PCP- Dr.Steve Pizarro <Louise Keith - Last Filed: 02/05/17 18:43> - General Chief Complaint: Ear Problem Stated Complaint: EARING STUCK IN EAR Time Seen by Provider: 02/05/17 17:52 Past History - Past Medical History Anemia: No Asthma: No Cancer: Yes (H/O CERVICAL) Cardiac Disorders: Yes (Cardio Myopathy,CAD, afib) CVA: No COPD: No CHF: No Dementia: No Diabetes: No GI Disorders: No Disorders: No HTN: Yes Hypercholesterolemia: Yes Liver Disease: No Psychiatric Problems: Yes (ANXIETY) Suicide Attempt (Hx): No Seizures: No Thyroid Disease: No - Surgical History Abdominal Surgery: Yes Appendectomy: No Cardiac Surgery: No Cholecystectomy: No Lung Surgery: No Neurologic Surgery: No Orthopedic Surgery: Yes (Bilateral Trigger finger release) - Immunization History Immunization Up to Date: No - Psycho/Social/Smoking Cessation Hx Anxiety: No Suicidal Ideation: No Smoking Status: No Smoking History: Never smoked Have you smoked in the past 12 months: No Number of Cigarettes Smoked Daily: 0 If you are a former smoker, when did you quit?: 10 years ago Information on smoking cessation initiated: No Hx Alcohol Use: No Drug/Substance Use Hx: No Substance Use Type: None Hx Substance Use Treatment: No <Areli Rodarte - Last Filed: 02/05/17 18:37> <Louise Keith - Last Filed: 02/05/17 18:43> - Past Medical History Allergies/Adverse Reactions: Allergies Allergy/AdvReac Type Severity Reaction Status Date / Time aspirin Allergy Verified 02/05/17 17:41 fish derived [Fish derived] Allergy Verified 02/05/17 17:41 mercury (elemental) Allergy Verified 02/05/17 17:41 [Mercury (Elemental)] Penicillins Allergy Verified 02/05/17 17:41 Raspberry Flavor, Artificial Allergy Verified 02/05/17 17:41 Home Medications: Ambulatory Orders Atorvastatin Calcium [Lipitor] 10 mg PO DAILY 10/27/16 Bupropion HCl [Bupropion HCl Sr] 150 mg PO BID 10/27/16 Furosemide [Lasix] 40 mg PO DAILY 10/27/16 Meclizine HCl 25 mg PO TID PRN 10/27/16 Ramipril [Altace] 10 mg PO DAILY 10/27/16 Ubidecarenone [Coenzyme Q-10] 100 mg PO DAILY 10/27/16 Clopidogrel Bisulfate [Plavix -] 75 mg PO DAILY 11/23/16 Isosorbide Mononitrate [Imdur -] 30 mg PO DAILY 11/23/16 Soy Isofl/Blk Coh/Gr Tea/Yerba [[employer] Caplet] 25 mg PO DAILY 11/23/16 Atenolol [Tenormin -] 50 mg PO DAILY tablet 11/25/16 Warfarin Na [Coumadin -] 1 mg PO MOWETHFR@1800 tablet 11/25/16 Warfarin Na [Coumadin -] 2 mg PO SuTh@1800 tablet 11/25/16 Sulfamethoxazole/Trimethoprim [Bactrim Ds -] 1 tab PO BID #10 tablet 02/05/17 Review of Systems - Review of Systems Able to Perform ROS?: Yes Comments:: 02/05/17 18:42 GENERAL/CONSTITUTIONAL: No fever or chills. No weakness. HEAD, EYES, EARS, NOSE AND THROAT: (+) earring stuck in left ear with pain, redness, swelling, and "pus". No change in vision.No sore throat. CARDIOVASCULAR: No chest pain or shortness of breath. RESPIRATORY: No cough, wheezing, or hemoptysis. GASTROINTESTINAL: No nausea, vomiting, diarrhea or constipation. GENITOURINARY: No dysuria, frequency, or change in urination. MUSCULOSKELETAL: No joint or muscle swelling or pain. No neck or back pain. SKIN: No rash NEUROLOGIC: No headache, vertigo, loss of consciousness, or change in strength/ sensation. ENDOCRINE: No increased thirst. No abnormal weight change. HEMATOLOGIC/LYMPHATIC: No anemia, easy bleeding, or history of blood clots. ALLERGIC/IMMUNOLOGIC: No hives or skin allergy. <Louise Keith - Last Filed: 02/05/17 18:43> *Physical Exam - Vital Signs Last Vital Signs Temp Pulse Resp BP Pulse Ox 97.9 F 60 16 121/64 100 02/05/17 17:40 02/05/17 17:40 02/05/17 17:40 02/05/17 17:40 02/05/17 17:40 <Areli Rodarte - Last Filed: 02/05/17 18:37> - Vital Signs Last Vital Signs Temp Pulse Resp BP Pulse Ox 97.9 F 60 16 121/64 100 02/05/17 17:40 02/05/17 17:40 02/05/17 17:40 02/05/17 17:40 02/05/17 17:40 - Physical Exam Comments: 02/05/17 18:41 GENERAL: Awake, alert, and fully oriented, in no acute distress HEAD: No signs of trauma EYES: PERRLA, EOMI, sclera anicteric, conjunctiva clear ENT: (+) Left ear is erythematous to inferior lobe. Earring in place. Unable to visualize anterior surface. expressible purulence. Auricles normal inspection, hearing grossly normal, nares patent, oropharynx clear without exudates. Moist mucosa NECK: Normal ROM, supple, no lymphadenopathy, JVD, or masses LUNGS: Breath sounds equal, clear to auscultation bilaterally. No wheezes, and no crackles HEART: Regular rate and rhythm, normal S1 and S2, no murmurs, rubs or gallops ABDOMEN: Soft, nontender, normoactive bowel sounds. No guarding, no rebound. No masses EXTREMITIES: Normal range of motion, no edema. No clubbing or cyanosis. No cords, erythema, or tenderness NEUROLOGICAL: Cranial nerves II through XII grossly intact. Normal speech, normal gait SKIN: (+) see ear exam otherwise no rash. Warm, Dry, normal turgor, no rashes or lesions noted. <Louise Keith - Last Filed: 02/05/17 18:43> Medical Decision Making - Medical Decision Making 02/05/17 18:38 earring removed. 1 % lido . tolerated procedure well. irrigated. bacitracin and sterile dressing applied. <Areli Rodarte - Last Filed: 02/05/17 18:37> - Medical Decision Making 02/05/17 18:41 The patient is a 71yF who presents for evaluation of an earring stuck to her left ear with associated redness, swelling, and pain. Plan for anesthetic removal and ABx, D/c home <Louise Keith - Last Filed: 02/05/17 18:43> *DC/Admit/Observation/Transfer - Discharge Dispostion Admit: No <Areli Rodarte - Last Filed: 02/05/17 18:37> - Attestations Scribe Attestion: 02/05/17 18:43 Documentation prepared by Louise Keith, acting as medical billing coder for Areli Rodarte MD, <Louise Keith - Last Filed: 02/05/17 18:43> Diagnosis at time of Disposition: Embedded earring of left ear - Discharge Dispostion Condition at time of disposition: Stable - Prescriptions Prescriptions: Sulfamethoxazole/Trimethoprim [Bactrim Ds -] 1 tab PO BID #10 tablet - Patient Instructions Printed Discharge Instructions: Cellulitis Additional Instructions: leave dressing in place for one day. then wash with warm soap and water. clean with hydrogen peroxide. then apply triple antiobtiocs cream or bacitracin to the ear twice daily. you will take an oral antiobiotic called BActrim twice daily x 5 days. follow up with your regular doctor. for repeat of your INR due to your coumadin. return for fever, headache or any concerns.
== END 2017-02-05 18:48 | disposition home or self-care (01) ==
LOC: FER 17:40
PROC: 09C1XZZ Extirpation of Matter from Left External Ear, External Approach (ICD-10-PCS; principal; 2017-02-05)
DX: T16.2XXA Foreign body in left ear, initial encounter (principal); F41.8 Other specified anxiety disorders; I25.10 Atherosclerotic heart disease of native coronary artery without angina pectoris; I10 Essential (primary) hypertension; E78.5 Hyperlipidemia, unspecified; Z85.41 Personal history of malignant neoplasm of cervix uteri
CPT/HCPCS: 69200-25; 99281-25

== ENCOUNTER 2017-05-08 17:33 | Emergency (ER) | payer OTHER ==
[2017-05-08 17:45] VITALS: BP 124/74; PULSE 90; TEMP 98.5; BMI 35.7
[2017-05-08] MEDS ORDERED: ACETAMINOPHEN 325 MG TABLET (FP) PO ONE (18:33)
--- NOTE | 2017-05-08 18:34 | PDOC ---
History of Present Illness - General History Source: Patient Exam Limitations: No Limitations - History of Present Illness Initial Comments: 05/08/17 18:34 Chief Complaint: Right Knee Pain History of Present Illness: 72 year old female, with significant past medical history of anxiety, depression, CAD, CKD, CHF, HTN, HLD, who presents to the emergency department with right knee pain today. Patient states the pain began this morning when she woke up. She reports associated swelling. Patient is able to ambulate, but with pain. Denies recent trauma or injury. Denies numbness, tingling. Denies chest pain, SOB, palpitations. Denies fever, chills, nausea, vomiting, diarrhea. Review of Systems: CONSTITUTIONAL: Absent: fever, chills, diaphoresis, generalized weakness, malaise, loss of appetite HEENT: Absent: rhinorrhea, nasal congestion, throat pain, throat swelling, difficulty swallowing, mouth swelling, ear pain, eye pain, visual changes CARDIOVASCULAR: Absent: chest pain, syncope, palpitations, irregular heart rate , lightheadedness, peripheral edema RESPIRATORY: Absent: cough, shortness of breath, dyspnea with exertion, orthopnea, wheezing, stridor, hemoptysis GASTROINTESTINAL: Absent: abdominal pain, abdominal distension, nausea, vomiting , diarrhea, constipation, melena, hematochezia GENITOURINARY: Absent: dysuria, frequency, urgency, hesitancy, hematuria, flank pain, genital pain MUSCULOSKELETAL: (+) right knee pain SKIN: Absent: rash, itching, pallor HEMATOLOGIC/IMMUNOLOGIC: Absent: easy bleeding, easy bruising, lymphadenopathy, frequent infections ENDOCRINE: Absent: unexplained weight gain, unexplained weight loss, heat intolerance, cold intolerance NEUROLOGIC: Absent: headache, focal weakness or paresthesias, dizziness, seizure , mental status changes, bladder or bowel incontinence PSYCHIATRIC: Absent: anxiety, depression, suicidal or homicidal ideation, hallucinations. Physical Exam: GENERAL: Well developed, well nourished. Awake and alert. No acute distress. HEENT: Normocephalic, atraumatic. PERRLA, EOMI. No conjunctival pallor. Sclera are non-icteric. Moist mucous membranes. Oropharynx is clear. NECK: Supple. Full ROM. No JVD. Carotid pulses 2+ and symmetric, without bruits. No thyromegaly. No lymphadenopathy. CARDIOVASCULAR: Regular rate and rhythm. No murmurs, rubs, or gallops. Distal pulses are 2+ and symmetric. PULMONARY: No evidence of respiratory distress. Lungs clear to auscultation bilaterally. No wheezing, rales or rhonchi. ABDOMINAL: Soft. Non-tender. Non-distended. No rebound or guarding. No organomegaly. Normoactive bowel sounds. MUSCULOSKELETAL: Normal range of motion at all joints. No bony deformities or tenderness. No CVA tenderness. EXTREMITIES: Diffuse swelling, small effusion. No deformity, erythema or warmth. Limited ROM in flexion and extension secondary to pain, unable to asses ligaments due to pain and guarding. No posterior calf swelling or tenderness, pulses full, no distal sensory deficits. SKIN: Warm and dry. Normal capillary refill. No rashes. No jaundice. NEUROLOGICAL: Alert, awake, appropriate. Cranial nerves 2-12 intact. No deficits to light touch and temperature in face, upper extremities and lower extremities. No motor deficits in the in face, upper extremities and lower extremities. Normoreflexic in the upper and lower extremities. Normal speech. Toes are downgoing bilaterally. PSYCHIATRIC: Cooperative. Good eye contact. Appropriate mood and affect. <Valeria Nagy - Last Filed: 05/08/17 18:34> <Ricardo Cunha - Last Filed: 05/09/17 07:14> - General Chief Complaint: Pain, Acute Stated Complaint: RIGHT KNEE PAIN Time Seen by Provider: 05/08/17 17:44 Past History <Valeria Nagy - Last Filed: 05/08/17 18:34> - Past Medical History Anemia: No Asthma: No Cancer: Yes (H/O CERVICAL) Cardiac Disorders: Yes (Cardio Myopathy,CAD, afib) CVA: No COPD: No CHF: No Dementia: No Diabetes: No GI Disorders: No Disorders: No HTN: Yes Hypercholesterolemia: Yes Liver Disease: No Psychiatric Problems: Yes (ANXIETY) Seizures: No Thyroid Disease: No - Surgical History Abdominal Surgery: Yes Appendectomy: No Cardiac Surgery: No Cholecystectomy: No Lung Surgery: No Neurologic Surgery: No Orthopedic Surgery: Yes (Bilateral Trigger finger release) - Immunization History Immunization Up to Date: No - Suicide/Smoking/Psychosocial Hx Smoking Status: No Smoking History: Former smoker Have you smoked in the past 12 months: No Number of Cigarettes Smoked Daily: 0 If you are a former smoker, when did you quit?: 10 years ago Information on smoking cessation initiated: No Hx Alcohol Use: No Drug/Substance Use Hx: No Substance Use Type: None Hx Substance Use Treatment: No <Ricardo Cunha - Last Filed: 05/09/17 07:14> - Past Medical History Allergies/Adverse Reactions: Allergies Allergy/AdvReac Type Severity Reaction Status Date / Time aspirin Allergy Verified 05/08/17 17:47 fish derived [Fish derived] Allergy Verified 05/08/17 17:47 mercury (elemental) Allergy Verified 05/08/17 17:47 [Mercury (Elemental)] Penicillins Allergy Verified 05/08/17 17:47 Raspberry Flavor, Artificial Allergy Verified 05/08/17 17:47 Home Medications: Ambulatory Orders Atorvastatin Calcium [Lipitor] 10 mg PO DAILY 10/27/16 Bupropion HCl [Bupropion HCl Sr] 150 mg PO BID 10/27/16 Furosemide [Lasix] 40 mg PO DAILY 10/27/16 Meclizine HCl 25 mg PO TID PRN 10/27/16 Ramipril [Altace] 10 mg PO DAILY 10/27/16 Clopidogrel Bisulfate [Plavix -] 75 mg PO DAILY 11/23/16 Isosorbide Mononitrate [Imdur -] 30 mg PO DAILY 11/23/16 Atenolol [Tenormin -] 50 mg PO DAILY tablet 11/25/16 Warfarin Na [Coumadin -] 1 mg PO MOWETHFR@1800 tablet 11/25/16 Warfarin Na [Coumadin -] 2 mg PO SuTh@1800 tablet 11/25/16 Tramadol HCl 50 mg PO QID PRN #20 tablet MDD 4 05/08/17 *Physical Exam - Vital Signs Last Vital Signs Temp Pulse Resp BP Pulse Ox 98.5 F 90 18 124/74 98 05/08/17 17:35 05/08/17 17:35 05/08/17 17:35 05/08/17 17:35 05/08/17 17:35 <Valeria Nagy - Last Filed: 05/08/17 18:34> - Vital Signs Last Vital Signs Temp Pulse Resp BP Pulse Ox 98.5 F 90 18 124/74 98 05/08/17 17:35 05/08/17 17:35 05/08/17 17:35 05/08/17 17:35 05/08/17 17:35 <Ricardo Cunha - Last Filed: 05/09/17 07:14> Medical Decision Making - Medical Decision Making 05/08/17 18:45 Patient with swelling and pain of her right knee since this morning. No known trauma. Examination of the knee demonstrates what appears to be chronic synovial thickening, no erythema or warmth suggestive of acute inflammation. There is pain with weightbearing and with flexion and extension. X-ray examination pending. Patient refuses analgesics. Signed out to Dr. Schmitz 7 PM pending x-ray and further orthopedic evaluation. <Ricardo Cunha - Last Filed: 05/09/17 07:14> *DC/Admit/Observation/Transfer - Attestations Scribe Attestion: 05/08/17 18:35 Documentation prepared by Valeria Nagy, acting as director medical writing for Ricardo Macario MD. <Valeria Nagy - Last Filed: 05/08/17 18:34> - Discharge Dispostion Admit: No <Ricardo Cunha - Last Filed: 05/09/17 07:14> Diagnosis at time of Disposition: Osteoarthritis Qualifiers: Osteoarthritis location: knee Osteoarthritis type: primary Laterality: left Qualified Code(s): M17.12 - Unilateral primary osteoarthritis, left knee Strain of right knee Qualifiers: Encounter type: initial encounter Qualified Code(s): S86.911A - Strain of unspecified muscle(s) and tendon(s) at lower leg level, right leg, initial encounter - Discharge Dispostion Disposition: HOME Condition at time of disposition: Stable - Prescriptions Prescriptions: Tramadol HCl 50 mg PO QID PRN #20 tablet MDD 4 PRN Reason: Severe Pain - Referrals Referrals: Ignacio Valles MD [Staff Physician] - 1 week - Patient Instructions Printed Discharge Instructions: DI for Osteoarthritis, How to Apply an Efraín Wrap Additional Instructions: Rest, ice, elevate, medication as needed for pain. Efraín wrap during day. See orthopedist for further evaluation and treatment
[2017-05-08] MEDS ORDERED: ACETAMINOPHEN 325 MG TABLET (FP) ONE (18:44)
--- NOTE | 2017-05-08 19:27 | PDOC ---
History of Present Illness - General Chief Complaint: Pain, Acute Stated Complaint: RIGHT KNEE PAIN Time Seen by Provider: 05/08/17 17:44 Past History - Past Medical History Allergies/Adverse Reactions: Allergies Allergy/AdvReac Type Severity Reaction Status Date / Time aspirin Allergy Verified 05/08/17 17:47 fish derived [Fish derived] Allergy Verified 05/08/17 17:47 mercury (elemental) Allergy Verified 05/08/17 17:47 [Mercury (Elemental)] Penicillins Allergy Verified 05/08/17 17:47 Raspberry Flavor, Artificial Allergy Verified 05/08/17 17:47 Home Medications: Ambulatory Orders Atorvastatin Calcium [Lipitor] 10 mg PO DAILY 10/27/16 Bupropion HCl [Bupropion HCl Sr] 150 mg PO BID 10/27/16 Furosemide [Lasix] 40 mg PO DAILY 10/27/16 Meclizine HCl 25 mg PO TID PRN 10/27/16 Ramipril [Altace] 10 mg PO DAILY 10/27/16 Clopidogrel Bisulfate [Plavix -] 75 mg PO DAILY 11/23/16 Isosorbide Mononitrate [Imdur -] 30 mg PO DAILY 11/23/16 Atenolol [Tenormin -] 50 mg PO DAILY tablet 11/25/16 Warfarin Na [Coumadin -] 1 mg PO MOWETHFR@1800 tablet 11/25/16 Warfarin Na [Coumadin -] 2 mg PO SuTh@1800 tablet 11/25/16 Tramadol HCl 50 mg PO QID PRN #20 tablet MDD 4 05/08/17 Anemia: No Asthma: No Cancer: Yes (H/O CERVICAL) Cardiac Disorders: Yes (Cardio Myopathy,CAD, afib) CVA: No COPD: No CHF: No Dementia: No Diabetes: No GI Disorders: No Disorders: No HTN: Yes Hypercholesterolemia: Yes Liver Disease: No Psychiatric Problems: Yes (ANXIETY) Seizures: No Thyroid Disease: No - Surgical History Abdominal Surgery: Yes Appendectomy: No Cardiac Surgery: No Cholecystectomy: No Lung Surgery: No Neurologic Surgery: No Orthopedic Surgery: Yes (Bilateral Trigger finger release) - Immunization History Immunization Up to Date: No - Suicide/Smoking/Psychosocial Hx Smoking Status: No Smoking History: Former smoker Have you smoked in the past 12 months: No Number of Cigarettes Smoked Daily: 0 If you are a former smoker, when did you quit?: 10 years ago Information on smoking cessation initiated: No Hx Alcohol Use: No Drug/Substance Use Hx: No Substance Use Type: None Hx Substance Use Treatment: No *Physical Exam - Vital Signs Last Vital Signs Temp Pulse Resp BP Pulse Ox 98.5 F 90 18 124/74 98 05/08/17 17:35 05/08/17 17:35 05/08/17 17:35 05/08/17 17:35 05/08/17 17:35 ED Treatment Course - Medications Given in the ED: ED Medications Discontinued Medications Generic Name Dose Route Start Last Admin Trade Name Freq PRN Reason Stop Dose Admin Acetaminophen 650 mg 05/08/17 18:33 05/08/17 18:45 Tylenol - PO 05/08/17 18:34 Not Given ONCE ONE *DC/Admit/Observation/Transfer Diagnosis at time of Disposition: Osteoarthritis Qualifiers: Osteoarthritis location: knee Osteoarthritis type: primary - Discharge Dispostion Condition at time of disposition: Stable - Prescriptions Prescriptions: Tramadol HCl 50 mg PO QID PRN #20 tablet MDD 4 PRN Reason: Severe Pain - Referrals Referrals: Ignacio Valles MD [Staff Physician] - 1 week - Patient Instructions Printed Discharge Instructions: DI for Osteoarthritis, How to Apply an Efraín Wrap Additional Instructions: Rest, ice, elevate, medication as needed for pain. Knee immobilizer as directed. See orthopedist for further evaluation and treatment - Post Discharge Activity
--- NOTE | 2017-05-08 19:33 | PDOC ---
*Physical Exam - Vital Signs Last Vital Signs Temp Pulse Resp BP Pulse Ox 98.5 F 90 18 124/74 98 05/08/17 17:35 05/08/17 17:35 05/08/17 17:35 05/08/17 17:35 05/08/17 17:35 ED Treatment Course - Medications Given in the ED: ED Medications Discontinued Medications Generic Name Dose Route Start Last Admin Trade Name Freq PRN Reason Stop Dose Admin Acetaminophen 650 mg 05/08/17 18:33 05/08/17 18:45 Tylenol - PO 05/08/17 18:34 Not Given ONCE ONE Progress Note - Progress Note Progress Note: Care of this patient received from Dr. Flodo. Right knee x-ray shows no evidence of effusion/fracture/dislocation. Clinical presentation most consistent with right knee osteoarthritis/right knee strain. Results discussed with the patient. Patient states that she has an orthopedist at [facility] with whom she will follow up. Efraín wrap was applied. The patient states that she has medications at home that she can take for pain. *DC/Admit/Observation/Transfer Diagnosis at time of Disposition: Osteoarthritis Qualifiers: Osteoarthritis location: knee Osteoarthritis type: primary Laterality: left Qualified Code(s): M17.12 - Unilateral primary osteoarthritis, left knee Strain of right knee Qualifiers: Encounter type: initial encounter Qualified Code(s): S86.911A - Strain of unspecified muscle(s) and tendon(s) at lower leg level, right leg, initial encounter - Discharge Dispostion Disposition: HOME Condition at time of disposition: Stable - Prescriptions Prescriptions: Tramadol HCl 50 mg PO QID PRN #20 tablet MDD 4 PRN Reason: Severe Pain - Referrals Referrals: Ignacio Valles MD [Staff Physician] - 1 week - Patient Instructions Printed Discharge Instructions: DI for Osteoarthritis, How to Apply an Efraín Wrap Additional Instructions: Rest, ice, elevate, medication as needed for pain. Efraín wrap during day. See orthopedist for further evaluation and treatment - Post Discharge Activity
== END 2017-05-08 19:39 | disposition home or self-care (01) ==
LOC: FER 17:33
DX: M17.11 Unilateral primary osteoarthritis, right knee (principal); S86.911A Strain of unspecified muscle(s) and tendon(s) at lower leg level, right leg, initial encounter; X58.XXXA Exposure to other specified factors, initial encounter; Y93.89 Activity, other specified; Y92.9 Unspecified place or not applicable; Z87.891 Personal history of nicotine dependence; I10 Essential (primary) hypertension; Z85.41 Personal history of malignant neoplasm of cervix uteri; F41.9 Anxiety disorder, unspecified; E78.00 Pure hypercholesterolemia, unspecified
CPT/HCPCS: 73560-TC-RT; 99282-25

== ENCOUNTER 2017-07-19 09:00 | Emergency (ER) | payer OTHER ==
[2017-07-19 09:55] VITALS: BP 130/84; PULSE 88; TEMP 98.5; BMI 35.2
[2017-07-19] MEDS ORDERED: CEPHALEXIN MONOHYDRATE 500 MG CAPSULE (UD) PO ONE (10:28)
--- NOTE | 2017-07-19 10:29 | PDOC ---
History of Present Illness - General Chief Complaint: Foreign Body (FB) Stated Complaint: LEFT EARLOBE EARRING STUCK Time Seen by Provider: 07/19/17 10:01 History Source: Patient Exam Limitations: No Limitations - History of Present Illness Initial Comments: 07/19/17 10:23 This is a 72-year-old female who woke up this morning with her jaymie ear ringing stuck inside the earlobe. Patient tried to get it out but was unable to come in for evaluation. Patient denies any other complaints. PAST MEDICAL HISTORY: Extensive medical history none of which is significant to patient's complaint PAST SURGICAL HISTORY: no significant history FAMILY HISTORY: no pertinant history SOCIAL HISTORY: Pt lives with family and is employed. MEDICATIONS: reviewed ALLERGIES: As per nursing notes Review of Systems General: No fevers or chills, no weakness, no weight loss HEENT: No change in vision. No sore throat,. No ear pain CardioVascular: No chest pain or shortness of breath Respiratory:No cough, or wheezing. Gastrointestinal: no nausea, vomitting, diarrhea or constipation, No rectal bleeding Genitourinary: No dysuria, hematuria, or frequency Musculoskeletal: No joint or muscle pain or swelling Neurologic: No headache, vertigo, dizziness or loss of consciousness Psychiatric: nor depression Skin: earing stuck in earlobe as per history of present illness Endocrine: no increased thirst or abnormal weight change Allergic: no skin or latex allergy All other systems reviewed and normal GENERAL: The patient is awake, alert, and fully oriented, in no acute distress. HEAD: Normal with no signs of trauma. LEFT EARLOBE there is an earring embedded in the left earlobe EYES: Pupils equal, round and reactive to light, extraocular movements intact, sclera anicteric, conjunctiva clear. EXTREMITIES: Normal range of motion, no edema. NEUROLOGICAL: Normal speech, normal gait. grossly intact PSYCH: Normal mood, normal affect. SKIN: Warm, Dry, normal turgor, no rashes or lesions noted. Procedure note: Foreign body removal left ear Ear lobe anesthetized with 2% lidocaine no epinephrine Earing removed from earlobe with forceps with minimal difficulty Post removal earlobe was cleaned and bacitracin applied to the earlobe. Assessment and plan: This is 72-year-old female who had a earing/foreign body embedded in her left earlobe. It was removed and patient will be started on Keflex a short course to prevent infection. Past History - Past Medical History Allergies/Adverse Reactions: Allergies Allergy/AdvReac Type Severity Reaction Status Date / Time aspirin Allergy Verified 05/08/17 17:47 fish derived [Fish derived] Allergy Verified 05/08/17 17:47 mercury (elemental) Allergy Verified 05/08/17 17:47 [Mercury (Elemental)] Penicillins Allergy Verified 05/08/17 17:47 Raspberry Flavor, Artificial Allergy Verified 05/08/17 17:47 Home Medications: Ambulatory Orders Atorvastatin Calcium [Lipitor] 10 mg PO DAILY 10/27/16 Bupropion HCl [Bupropion HCl Sr] 150 mg PO BID 10/27/16 Furosemide [Lasix] 40 mg PO DAILY 10/27/16 Meclizine HCl 25 mg PO TID PRN 10/27/16 Ramipril [Altace] 10 mg PO DAILY 10/27/16 Clopidogrel Bisulfate [Plavix -] 75 mg PO DAILY 11/23/16 Isosorbide Mononitrate [Imdur -] 30 mg PO DAILY 11/23/16 Atenolol [Tenormin -] 50 mg PO DAILY tablet 11/25/16 Warfarin Na [Coumadin -] 1 mg PO MOWETHFR@1800 tablet 11/25/16 Warfarin Na [Coumadin -] 2 mg PO SuTh@1800 tablet 11/25/16 Tramadol HCl 50 mg PO QID PRN #20 tablet MDD 4 05/08/17 Cephalexin Monohydrate [Keflex -] 500 mg PO TID #15 capsule 07/19/17 Anemia: No Asthma: No Cancer: Yes (H/O CERVICAL) Cardiac Disorders: Yes (Cardio Myopathy,CAD, afib) CVA: No COPD: No CHF: No Dementia: No Diabetes: No GI Disorders: No Disorders: No HTN: Yes Hypercholesterolemia: Yes Liver Disease: No Psychiatric Problems: Yes (ANXIETY) Seizures: No Thyroid Disease: No - Surgical History Abdominal Surgery: Yes Appendectomy: No Cardiac Surgery: No Cholecystectomy: No Lung Surgery: No Neurologic Surgery: No Orthopedic Surgery: Yes (Bilateral Trigger finger release) - Immunization History Immunization Up to Date: No - Suicide/Smoking/Psychosocial Hx Smoking Status: No Smoking History: Former smoker Have you smoked in the past 12 months: No Number of Cigarettes Smoked Daily: 0 If you are a former smoker, when did you quit?: 10 years ago Information on smoking cessation initiated: No Hx Alcohol Use: No Drug/Substance Use Hx: No Substance Use Type: None Hx Substance Use Treatment: No *Physical Exam - Vital Signs Last Vital Signs Temp Pulse Resp BP Pulse Ox 98.5 F 88 16 130/84 98 07/19/17 09:50 07/19/17 09:50 07/19/17 09:50 07/19/17 09:50 07/19/17 09:50 *DC/Admit/Observation/Transfer Diagnosis at time of Disposition: Acute foreign body of left earlobe Qualifiers: Encounter type: initial encounter Qualified Code(s): T16.2XXA - Foreign body in left ear, initial encounter - Discharge Dispostion Disposition: HOME Condition at time of disposition: Stable Admit: No - Referrals - Patient Instructions Additional Instructions: Clean the left ear lobe with some peroxide once a day and reapply the bacitracin. Take Keflex one tablet 3 times a day for 5 days to prevent infection. Return to the emergency department immediately with ANY new, persistent or worsening symptoms. Continue any medications as previously prescribed by your physician. You should follow up with your primary doctor as soon as possible regarding today's emergency department visit. . Please make sure your doctor reviews the results of your emergency evaluation. Thank you for coming to the Emergency Department today for your care. It was a pleasure to see you today. Please note that your evaluation is INCOMPLETE until you follow-up with your doctor. - Post Discharge Activity
[2017-07-19] MEDS ORDERED: CEPHALEXIN MONOHYDRATE 500 MG CAPSULE (UD) ONE (10:36)
== END 2017-07-19 10:40 | disposition home or self-care (01) ==
LOC: FER 09:49
PROC: 09C1XZZ Extirpation of Matter from Left External Ear, External Approach (ICD-10-PCS; principal; 2017-07-19)
DX: T16.2XXA Foreign body in left ear, initial encounter (principal); I10 Essential (primary) hypertension; I48.91 Unspecified atrial fibrillation; F41.9 Anxiety disorder, unspecified; E78.00 Pure hypercholesterolemia, unspecified; X58.XXXA Exposure to other specified factors, initial encounter; Y93.89 Activity, other specified; Y92.9 Unspecified place or not applicable
CPT/HCPCS: 10120-25; 99282-25

== ENCOUNTER 2017-09-09 18:42 | Emergency (ER) | payer OTHER ==
[2017-09-09] MEDS ORDERED: SODIUM CHLORIDE 500 ML IV STA (18:44)
[2017-09-09] MEDS ORDERED: ONDANSETRON 4 MG/2 ML VIAL IVPB ONE (18:44)
[2017-09-09 18:55] VITALS: BP 140/75; PULSE 95; TEMP 98.1; BMI 35.2
--- NOTE | 2017-09-09 19:03 | PDOC ---
History of Present Illness - General History Source: Patient Exam Limitations: No Limitations - History of Present Illness Initial Comments: 09/09/17 19:03 The patient is a 72 year old female with significant history of hypertension, hyperlipidemia, CAD, atrial fibrillation, CKD, who presents to the ED complaining of shortness of breath for 1 day. She states she went to bed in her usual state of health this morning. Today she woke up and experienced SOB and sore throat. She describes her shortness of breath as improved with lying flat, worse with sitting up. She also reports associated diffuse headache and nausea. No vomiting. No fever or chills. No chest pain or palpitations. PCP: Dr. Pizarro <Franny Davis - Last Filed: 09/09/17 19:55> <Hilton Haynes - Last Filed: 09/11/17 12:09> - General Chief Complaint: Lightheaded Stated Complaint: sob Time Seen by Provider: 09/09/17 18:44 Past History <Franny Davis - Last Filed: 09/09/17 19:55> - Past Medical History Anemia: No Asthma: No Cancer: Yes (H/O CERVICAL) Cardiac Disorders: Yes (Cardio Myopathy,CAD, afib) CVA: No COPD: No CHF: No Dementia: No Diabetes: No GI Disorders: No Disorders: No HTN: Yes Hypercholesterolemia: Yes Liver Disease: No Psychiatric Problems: Yes (ANXIETY) Seizures: No Thyroid Disease: No - Surgical History Abdominal Surgery: Yes Appendectomy: No Cardiac Surgery: No Cholecystectomy: No Lung Surgery: No Neurologic Surgery: No Orthopedic Surgery: Yes (Bilateral Trigger finger release) - Immunization History Immunization Up to Date: No - Suicide/Smoking/Psychosocial Hx Smoking Status: No Smoking History: Former smoker Have you smoked in the past 12 months: No Number of Cigarettes Smoked Daily: 0 If you are a former smoker, when did you quit?: 10 years ago Hx Alcohol Use: No Drug/Substance Use Hx: No Substance Use Type: None Hx Substance Use Treatment: No <Hilton Haynes - Last Filed: 09/11/17 12:09> - Past Medical History Allergies/Adverse Reactions: Allergies Allergy/AdvReac Type Severity Reaction Status Date / Time aspirin Allergy Verified 09/09/17 18:48 fish derived [Fish derived] Allergy Verified 09/09/17 18:48 mercury (elemental) Allergy Verified 09/09/17 18:48 [Mercury (Elemental)] Penicillins Allergy Verified 09/09/17 18:48 Raspberry Flavor, Artificial Allergy Verified 09/09/17 18:48 Home Medications: Ambulatory Orders Atorvastatin Calcium [Lipitor] 10 mg PO DAILY 10/27/16 Bupropion HCl [Bupropion HCl Sr] 150 mg PO BID 10/27/16 Furosemide [Lasix] 40 mg PO DAILY 10/27/16 Meclizine HCl 25 mg PO TID PRN 10/27/16 Ramipril [Altace] 10 mg PO DAILY 10/27/16 Clopidogrel Bisulfate [Plavix -] 75 mg PO DAILY 11/23/16 Isosorbide Mononitrate [Imdur -] 30 mg PO DAILY 11/23/16 Atenolol [Tenormin -] 50 mg PO DAILY tablet 11/25/16 Warfarin Na [Coumadin -] 1 mg PO MOWETHFR@1800 tablet 11/25/16 Warfarin Na [Coumadin -] 2 mg PO SuTh@1800 tablet 11/25/16 Tramadol HCl 50 mg PO QID PRN #20 tablet MDD 4 05/08/17 Review of Systems - Review of Systems Able to Perform ROS?: Yes Comments:: 09/09/17 19:06 GENERAL/CONSTITUTIONAL: No fever or chills. No weakness. HEAD, EYES, EARS, NOSE AND THROAT: +Sore throat. No change in vision. No ear pain or discharge. CARDIOVASCULAR: +SOB. No chest pain or palpitations. RESPIRATORY: No cough, wheezing, or hemoptysis. GASTROINTESTINAL: +Nausea. No vomiting, diarrhea or constipation. GENITOURINARY: No dysuria, frequency, or change in urination. MUSCULOSKELETAL: No joint or muscle swelling or pain. No neck or back pain. SKIN: No rash NEUROLOGIC: +Headache. No loss of consciousness, or change in strength/ sensation. ENDOCRINE: No increased thirst. No abnormal weight change. HEMATOLOGIC/LYMPHATIC: No anemia, easy bleeding, or history of blood clots. ALLERGIC/IMMUNOLOGIC: No hives or skin allergy. <Franny Davis - Last Filed: 09/09/17 19:55> *Physical Exam - Vital Signs Last Vital Signs Temp Pulse Resp BP Pulse Ox 98.1 F 95 H 22 140/75 98 09/09/17 18:44 09/09/17 18:44 09/09/17 18:44 09/09/17 18:44 09/09/17 18:44 - Physical Exam Comments: 09/09/17 19:09 GENERAL: Awake, alert, and fully oriented. +Anxious appearing. HEAD: No signs of trauma EYES: PERRLA, EOMI, sclera anicteric, conjunctiva clear ENT: Auricles normal inspection, hearing grossly normal, nares patent, oropharynx clear without exudates. Moist mucosa NECK: Normal ROM, supple, no lymphadenopathy, JVD, or masses LUNGS: Breath sounds equal, clear to auscultation bilaterally. No wheezes, and no crackles HEART: Irregularly irregular, normal S1 and S2, no murmurs, rubs or gallops ABDOMEN: Soft, nontender, normoactive bowel sounds. No guarding, no rebound. No masses EXTREMITIES: Normal range of motion, no edema. No clubbing or cyanosis. No cords, erythema, or tenderness NEUROLOGICAL: Cranial nerves II through XII grossly intact. Normal speech, normal gait SKIN: Warm, Dry, normal turgor, no rashes or lesions noted. <Franny Davis - Last Filed: 09/09/17 19:55> Heart Score/ECG Review #1 ECG reviewed & interpreted by me at: 19:35 09/09/17 19:46 atrial fibrillation 83, no std/cyrus, nonspecific ST and T wave abnormality, QTC 470 msec <Hilton Haynes - Last Filed: 09/11/17 12:09> ED Treatment Course - LABORATORY CBC & Chemistry Diagram: 09/09/17 19:25 09/09/17 19:25 <Franny Davis - Last Filed: 09/09/17 19:55> - LABORATORY CBC & Chemistry Diagram: 09/09/17 19:25 09/09/17 19:25 - RADIOLOGY Radiology Studies Ordered: Category Date Time Status CHEST X-RAY PORTABLE* [RAD] Stat Radiology 09/09/17 18:44 Ordered <Hilton Haynes - Last Filed: 09/11/17 12:09> Medical Decision Making - Medical Decision Making 09/09/17 19:[address] Palacios demonstrates mild CHF. <Franny Davis - Last Filed: 09/09/17 19:55> - Medical Decision Making 09/09/17 19:46 A portion of this note was documented by scribe services under my direction. I have reviewed the details of the note, within reason, and agree with the documentation with the following case summary and management plan written by me. Patient treated in the ED. Nursing notes are reviewed and incorporated into the medical decision-making. Vital signs reviewed. Peripheral IV access obtained by the nurse, laboratory studies are drawn and sent, reviewed and interpreted by myself. Vital Signs Temp Pulse Resp BP Pulse Ox 98.1 F 95 H 22 140/75 98 09/09/17 18:44 09/09/17 18:44 09/09/17 18:44 09/09/17 18:44 09/09/17 18:44 72 year old female with past medical history anxiety, depression, coronary disease, chronic kidney disease, congestive heart failure, hypertension, hyperlipidemia presents with palpitation short of breath today. Patient reports that she was in her usual state health when she felt palpitations and discomfort and lightheadedness. Denies recent illnesses, fevers, chills, cough, vomiting. Reports that she is adherent to her medications. Patient states that she's been feeling palpitations and came to the ED. Given her cardiac history, we'll send a troponin, labs. Chest x-ray, telemetry. We'll rule out other cardiac etiology such as OR, atrial fibrillation in rapid ventricular response. Patient's heart rate is not tachycardic at the moment. The patient was reporting palpitations though on the monitor there was no rapid ventricular response. We'll however work the patient up. Case was signed out to night physician Dr. Schmitz for further management and disposition. <Hilton Haynes - Last Filed: 09/11/17 12:09> *DC/Admit/Observation/Transfer - Attestations Scribe Attestion: 09/09/17 19:10 Documentation prepared by Franny Davis, acting as center medical and lab director for Hilton Haynes MD. <Franny Davis - Last Filed: 09/09/17 19:55> <Hilton Haynes - Last Filed: 09/11/17 12:09> Diagnosis at time of Disposition: Dyspnea Qualifiers: Dyspnea type: shortness of breath Qualified Code(s): R06.02 - Shortness of breath CHF (congestive heart failure) Qualifiers: Heart failure type: diastolic Heart failure chronicity: chronic Qualified Code( s): I50.32 - Chronic diastolic (congestive) heart failure - Discharge Dispostion Disposition: HOME Condition at time of disposition: Stable - Referrals Referrals: Beverley Pizarro MD [Staff Physician] - 24 hours - Patient Instructions Printed Discharge Instructions: DI for Shortness of Breath Additional Instructions: Continue medications as prescribed Follow-up with tomorrow as scheduled Follow-up with tapping machine operator automatic next Saturday as scheduled Return to ER if you have severe shortness of breath/palpitations/chest pain
[2017-09-09] MEDS ORDERED: ONDANSETRON 4 MG/2 ML VIAL ONE (19:30)
[2017-09-09 19:34] LABS: URINE APPEARANCE Clear; URINE BILIRUBIN Negative (NEGATIVE); URINE GLUCOSE (UA) Negative (NEGATIVE); URINE KETONE Negative (NEGATIVE); URINE NITRITE Negative (NEGATIVE); URINE PROTEIN Negative (NEGATIVE); URINE UROBILINOGEN 0.2 (0.2-1.0)
[2017-09-09 19:37] LABS: URINE BLOOD Trace-intact (NEGATIVE); URINE COLOR YELLOW; URINE LEUK ESTERASE 1+ (NEGATIVE)
[2017-09-09 19:43] LABS: BASO % 0.6 % (0-2.0); EOS % 2.1 % (0-4.5); HEMATOCRIT 43.8 % (32.4-45.2); HEMOGLOBIN 15.4 GM/dl (10.7-15.3); LYMPH % 28.9 % (8-40); MCH 32.7 pg (25.7-33.7); MCHC 35.2 g/dl (32.0-36.0); MEAN CELL VOLUME 92.8 fl (80-96); MEAN PLT VOLUME 8.2 fl (7.5-11.1); NEUT % 59.4 % (42.8-82.8); PLATELET COUNT 216 K/MM3 (134-434); RBC 4.72 M/mm3 (3.60-5.2); RDW 12.6 % (11.6-15.6); WHITE BLOOD COUNT 7.9 K/mm3 (4.0-10.8)
[2017-09-09 19:49] LABS: ACTIVATED PTT 25.3 SECONDS (24.0-38.9)
[2017-09-09 19:52] LABS: ALBUMIN 4.4 g/dl (3.5-5.0); ALK PHOS 111 U/L (32-92); ANION GAP 12 (8-16); BILIRUBIN,TOTAL 0.6 mg/dl (0.2-1.0); BLOOD UREA NITROGEN 42 mg/dl (7-18); CHLORIDE 105 mmol/L (98-107); CO2 25 mmol/L (22-28); GLUCOSE,RANDOM 87 mg/dl (74-106); MAGNESIUM 2.1 mg/dL (1.8-2.4); PHOSPHOROUS 3.7 mg/dl (2.5-4.6); SGOT/AST 22 U/L (10-42); SGPT/ALT 14 U/L (10-40); SODIUM 142 mmol/L (136-145); TOT PROT 7.6 g/dl (6.4-8.3)
[2017-09-09 19:54] LABS: INR 1.12 (0.82-1.09); PROTHROMBIN TIME (PATIENT) 12.5 SEC (10.2-13.0)
[2017-09-09 20:25] LABS: POTASSIUM 3.7 mmol/L (3.5-5.1)
[2017-09-09 20:47] LABS: EPI CELLS FEW /HPF; N-TERMINAL BNP 3242.19 pg/ml (5-125); URINE BACTERIA FEW /hpf (NEGATIVE)
--- NOTE | 2017-09-09 21:03 | PDOC ---
*Physical Exam - Vital Signs Last Vital Signs Temp Pulse Resp BP Pulse Ox 98.1 F 95 H 22 140/75 98 09/09/17 18:44 09/09/17 18:44 09/09/17 18:44 09/09/17 18:44 09/09/17 18:44 ED Treatment Course - LABORATORY CBC & Chemistry Diagram: 09/09/17 19:25 09/09/17 19:25 - ADDITIONAL ORDERS Additional order review: Laboratory Results 09/09/17 09/09/17 09/09/17 19:25 19:25 19:25 PT with INR INR PTT (Actin FS) Sodium 142 Potassium 3.7 Chloride 105 Carbon Dioxide 25 Anion Gap 12 BUN 42 H Creatinine 2.0 H Creat Clearance w eGFR 24.49 Random Glucose 87 D Calcium 9.0 Phosphorus 3.7 Magnesium 2.1 Total Bilirubin 0.6 AST 22 ALT 14 Alkaline Phosphatase 111 H D Troponin I < 0.03 B-Natriuretic Peptide 3242.19 H Total Protein 7.6 Albumin 4.4 Urine Color Yellow Urine Appearance Clear Urine pH 5.0 Ur Specific [place] 1.015 Urine Protein Negative Urine Glucose (UA) Negative Urine Ketones Negative Urine Blood Trace-intact H Urine Nitrite Negative Urine Bilirubin Negative Urine Urobilinogen 0.2 Ur Leukocyte Esterase 1+ H Urine RBC 2-3 Urine WBC 5-10 Ur Epithelial Cells Few Urine Bacteria Few 09/09/17 19:25 PT with INR 12.5 INR 1.12 PTT (Actin FS) 25.3 L Sodium Potassium Chloride Carbon Dioxide Anion Gap BUN Creatinine Creat Clearance w eGFR Random Glucose Calcium Phosphorus Magnesium Total Bilirubin AST ALT Alkaline Phosphatase Troponin I B-Natriuretic Peptide Total Protein Albumin Urine Color Urine Appearance Urine pH Ur Specific [place] Urine Protein Urine Glucose (UA) Urine Ketones Urine Blood Urine Nitrite Urine Bilirubin Urine Urobilinogen Ur Leukocyte Esterase Urine RBC Urine WBC Ur Epithelial Cells Urine Bacteria 09/09/17 19:25 RBC 4.72 MCV 92.8 MCHC 35.2 RDW 12.6 MPV 8.2 Neutrophils % 59.4 Lymphocytes % 28.9 Monocytes % 9.0 Eosinophils % 2.1 Basophils % 0.6 - Medications Given in the ED: ED Medications Discontinued Medications Generic Name Dose Route Start Last Admin Trade Name Freq PRN Reason Stop Dose Admin Sodium Chloride 500 mls @ 500 mls/hr 09/09/17 18:44 09/09/17 19:37 Normal Saline - IV 09/09/17 19:43 500 mls/hr ASDIR STA Administration Ondansetron HCl 4 mg 09/09/17 18:44 09/09/17 19:38 Zofran Injection IVPB 09/09/17 18:45 4 mg ONCE ONE Administration Medical Decision Making - Medical Decision Making Care of this patient received from . Portable chest x-ray performed and interpreted by Dr. Palacios: Mild CHF without other acute processes. Laboratory evaluation is essentially at baseline (moderate renal insufficiency is stable) except for BNP which is 3242. Lasix 40 mg administered intravenously. Since patient has been ambulating without significant difficulty, speaks in full sentences without shortness of breath, she will be discharged with follow- up with Dr. Pizarro tomorrow and with her new chainstitch zipper setter on Saturday. Patient should return to the emergency room if she has any development of chest pain, increasing shortness of breath, palpitations. *DC/Admit/Observation/Transfer Diagnosis at time of Disposition: Dyspnea Qualifiers: Dyspnea type: shortness of breath Qualified Code(s): R06.02 - Shortness of breath CHF (congestive heart failure) Qualifiers: Heart failure type: diastolic Heart failure chronicity: chronic Qualified Code( s): I50.32 - Chronic diastolic (congestive) heart failure - Discharge Dispostion Disposition: HOME Condition at time of disposition: Stable - Referrals Referrals: Beverley Pizarro MD [Staff Physician] - 24 hours - Patient Instructions Printed Discharge Instructions: DI for Shortness of Breath Additional Instructions: Continue medications as prescribed Follow-up with tomorrow as scheduled Follow-up with chainstitch zipper setter next Saturday as scheduled Return to ER if you have severe shortness of breath/palpitations/chest pain - Post Discharge Activity
[2017-09-09] MEDS ORDERED: FUROSEMIDE 40 MG/4 ML INJECTABLE VIAL IVPUSH ONE (21:12)
[2017-09-09] MEDS ORDERED: FUROSEMIDE 40 MG/4 ML INJECTABLE VIAL ONE (21:13)
[2017-09-09] MEDS ORDERED: FUROSEMIDE 40 MG TABLET (FP) PO ONE (21:15)
[2017-09-09] MEDS ORDERED: FUROSEMIDE 40 MG TABLET (FP) ONE (21:16)
--- NOTE | 2017-09-10 13:33 | EKG ---
Test Reason : Blood Pressure : / mmHG Vent. Rate : 083 BPM Atrial Rate : 079 BPM P-R Int : 000 ms QRS Dur : 090 ms QT Int : 400 ms P-R-T Axes : 000 043 -17 degrees QTc Int : 470 ms ATRIAL FIBRILLATION LOW VOLTAGE QRS NONSPECIFIC ST AND T WAVE ABNORMALITY ABNORMAL ECG WHEN COMPARED WITH ECG OF 23-NOV-2016 20:25, NO SIGNIFICANT CHANGE WAS FOUND Confirmed by MD Zafar, Surinder ([id number]) on 09/10/2017 1:32:34 PM Referred By: CRUZ Confirmed By:Surinder Stephen MD
== END 2017-09-09 21:25 | disposition home or self-care (01) ==
LOC: FER 18:42
PROC: 3E033GC Introduction of Other Therapeutic Substance into Peripheral Vein, Percutaneous Approach (ICD-10-PCS; principal; 2017-09-09)
PROC: 3E0337Z Introduction of Electrolytic and Water Balance Substance into Peripheral Vein, Percutaneous Approach (ICD-10-PCS; 2017-09-09)
DX: I50.32 Chronic diastolic (congestive) heart failure (principal); R06.02 Shortness of breath
CPT/HCPCS: 36415; 71045-TC-FY; 80053; 81003; 81015; 83735; 83880; 84100; 84484; 85025; 85610; 85730; 87086; 93005; 96361; 96374; 99281-25

== ENCOUNTER 2017-09-12 13:00 | Emergency (ER) | payer OTHER ==
[2017-09-12 13:13] VITALS: BP 116/73; PULSE 89; TEMP 98.2; BMI 35.2
--- NOTE | 2017-09-12 13:13 | PDOC ---
History of Present Illness - General Chief Complaint: Lightheaded Stated Complaint: DIZZINESS Time Seen by Provider: 09/12/17 13:05 History Source: Patient Exam Limitations: No Limitations - History of Present Illness Initial Comments: 09/12/17 13:09 72 y/o female with history of vertigo presents to ER with dizziness on/off since yesterday. No weakness or numbness. Denies chest pain, but feels heart racing and some SOB. Coughing as well. No N/V/d/c. No weakness or numbness.Pt states she did not take her medication for her dizziness. Has a history of a- fib. NIH Stroke Scale - Initial Evaluation Level of consciousness: Alert Ask patient the month and their age: Answers both correctly Ask patient to open & close eyes; make fist and let go: Obeys both correctly Best gaze (horizontal eye movement): Normal Visual field testing: No visual field loss Facial paresis (Show teeth/raise eyebrows/close eyes tight): Normal symmetrical movement Motor Function: Left Arm: Normal Motor Function: Right Arm: Normal (extends arm 90 (or 45) degrees for 10 seconds without drift Motor Function: Left Leg: Normal (extends leg 30 degrees for 5 seconds without drift) Motor Function: Right Leg: Normal (extends leg 30 degrees for 5 seconds without drift) Limb Ataxia: No ataxia Sensory(Use pinprick test arms,legs,trunk,face/side to side): Normal Best language (Describe picture, name items, read sentences): No Aphasia Dysarthria (read several words): Normal articulation Extinction and Inattention: No abnormality - Total Score NIH Stroke Scale Score: 0 Past History - Past Medical History Allergies/Adverse Reactions: Allergies Allergy/AdvReac Type Severity Reaction Status Date / Time aspirin Allergy Verified 09/12/17 13:03 fish derived [Fish derived] Allergy Verified 09/12/17 13:03 mercury (elemental) Allergy Verified 09/12/17 13:03 [Mercury (Elemental)] Penicillins Allergy Verified 09/12/17 13:03 Raspberry Flavor, Artificial Allergy Verified 09/12/17 13:03 Home Medications: Ambulatory Orders Atorvastatin Calcium [Lipitor] 10 mg PO DAILY 10/27/16 Bupropion HCl [Bupropion HCl Sr] 150 mg PO BID 10/27/16 Furosemide [Lasix] 40 mg PO DAILY 10/27/16 Meclizine HCl 25 mg PO TID PRN 10/27/16 Ramipril [Altace] 10 mg PO DAILY 10/27/16 Clopidogrel Bisulfate [Plavix -] 75 mg PO DAILY 11/23/16 Isosorbide Mononitrate [Imdur -] 30 mg PO DAILY 11/23/16 Atenolol [Tenormin -] 50 mg PO DAILY tablet 11/25/16 Warfarin Na [Coumadin -] 1 mg PO MOWETHFR@1800 tablet 11/25/16 Warfarin Na [Coumadin -] 2 mg PO SuTh@1800 tablet 11/25/16 Tramadol HCl 50 mg PO QID PRN #20 tablet MDD 4 05/08/17 Anemia: No Asthma: No Cancer: Yes (H/O CERVICAL) Cardiac Disorders: Yes (Cardio Myopathy,CAD, afib) CVA: No COPD: No CHF: No Dementia: No Diabetes: No GI Disorders: No Disorders: No HTN: Yes Hypercholesterolemia: Yes Liver Disease: No Psychiatric Problems: Yes (ANXIETY) Seizures: No Thyroid Disease: No - Surgical History Abdominal Surgery: Yes Appendectomy: No Cardiac Surgery: No Cholecystectomy: No Lung Surgery: No Neurologic Surgery: No Orthopedic Surgery: Yes (Bilateral Trigger finger release) - Immunization History Immunization Up to Date: No - Suicide/Smoking/Psychosocial Hx Smoking Status: No Smoking History: Former smoker Have you smoked in the past 12 months: No Number of Cigarettes Smoked Daily: 0 If you are a former smoker, when did you quit?: 10 years ago Hx Alcohol Use: No Drug/Substance Use Hx: No Substance Use Type: None Hx Substance Use Treatment: No Review of Systems - Review of Systems Able to Perform ROS?: Yes Is the patient limited [place] proficient: No Constitutional: No: Chills, Fever Respiratory: Yes: Cough, Shortness of Breath Cardiac (ROS): Yes: Lightheadedness, Palpitations. No: Chest Pain ABD/GI: No: Nausea, Vomiting Musculoskeletal: No: Back Pain All Other Systems: Reviewed and Negative *Physical Exam - Physical Exam General Appearance: Yes: Nourished, Appropriately Dressed. No: Apparent Distress HEENT: positive: EOMI, PERCY, Normal ENT Inspection, Normal Voice, Symmetrical Neck: positive: Trachea midline, Normal Thyroid, Supple. negative: Tender, Rigid Respiratory/Chest: positive: Lungs Clear, Normal Breath Sounds. negative: Chest Tender, Respiratory Distress Cardiovascular: positive: Regular Rhythm, Regular Rate, S1, S2. negative: Edema , JVD, Murmur Vascular Pulses: Femoral (R): 4+, Femoral (L): 4+, Carotid (R): 4+, Carotid (L) : 4+, Dorsalis-Pedis (R): 4+, Doralis-Pedis (L): 4+ Gastrointestinal/Abdominal: positive: Normal Bowel Sounds, Flat, Soft. negative : Tender, Organomegaly Lymphatic: negative: Adenopathy, Tenderness, Other Extremity: positive: Normal Capillary Refill, Normal Inspection, Normal Range of Motion. negative: Tender Integumentary: positive: Normal Color, Dry, Warm Neurologic: positive: cargo agent II-XII NML intact, Fully Oriented, Alert, Normal Mood/ Affect, Normal Response, Motor Strength 5/5 (strength 5+/5 b/l in UE and LE, no focal deficits noted) Heart Score/ECG Review - ECG Intrepretation Rhythm: Irregularly Irregular Comment:: 09/12/17 13:40 At 13:35 a-fib at rate 83, unchanged from prior EKG 09/09/2017 - ST and T Non Specific ST-T Wave changes: Yes ED Treatment Course - LABORATORY CBC & Chemistry Diagram: 09/12/17 13:10 09/12/17 13:10 - ADDITIONAL ORDERS Additional order review: 09/12/17 13:12 Pt with dizziness and palpitations., will obtain lab work, EKG and CT head. 09/12/17 14:27 Pt is doing well, vitals stable CXR NAD, unchanged from prior CT head: No change from prior, no bleed Continue current meds INR low, discussed increasing COumadin, but advised to speak to her Ad Setter If worsen return to ER *DC/Admit/Observation/Transfer Diagnosis at time of Disposition: Lightheaded - Discharge Dispostion Disposition: HOME Condition at time of disposition: Stable Admit: No - Referrals Referrals: Beverley Pizarro MD [Primary Care Provider] - - Patient Instructions Printed Discharge Instructions: DI for Dizziness-Nonvertigo Additional Instructions: Continue current medications Follow up with Ad Setter to adjust Coumadin If worsen return to ER - Post Discharge Activity
[2017-09-12] MEDS ORDERED: guaiFENesin 200 MG/10 ML 10 ML UNIT-DOSE CUPS PO ONE (13:15)
[2017-09-12] MEDS ORDERED: guaiFENesin/D-METHORPHAN HB 10 ML UNIT-DOSE CUPS ONE (13:16)
[2017-09-12] MEDS ORDERED: guaiFENesin/D-METHORPHAN HB 10 ML UNIT-DOSE CUPS PO ONE (13:25)
[2017-09-12 13:49] LABS: BASO % 0.5 % (0-2.0); EOS % 1.7 % (0-4.5); HEMATOCRIT 41.1 % (32.4-45.2); LYMPH % 20.2 % (8-40); MCH 31.7 pg (25.7-33.7); MEAN CELL VOLUME 93.3 fl (80-96); MEAN PLT VOLUME 7.8 fl (7.5-11.1); MONO % 8.8 % (3.8-10.2); NEUT % 68.8 % (42.8-82.8); PLATELET COUNT 185 K/MM3 (134-434); RBC 4.41 M/mm3 (3.60-5.2); RDW 12.6 % (11.6-15.6); WHITE BLOOD COUNT 6.3 K/mm3 (4.0-10.8)
[2017-09-12 13:56] LABS: INR 1.2 (0.82-1.09); PROTHROMBIN TIME (PATIENT) 13.4 SEC (10.2-13.0)
[2017-09-12 13:59] LABS: ALBUMIN 3.9 g/dl (3.5-5.0); ALK PHOS 87 U/L (32-92); ANION GAP 6 (8-16); BILIRUBIN,TOTAL 0.8 mg/dl (0.2-1.0); BLOOD UREA NITROGEN 32 mg/dl (7-18); CALCIUM 8.9 mg/dl (8.4-10.2); CHLORIDE 109 mmol/L (98-107); CO2 22 mmol/L (22-28); GLUCOSE,RANDOM 96 mg/dl (74-106); POTASSIUM 3.8 mmol/L (3.5-5.1); SGOT/AST 22 U/L (10-42); SGPT/ALT 13 U/L (10-40); SODIUM 137 mmol/L (136-145); TOT PROT 6.8 g/dl (6.4-8.3)
[2017-09-12 14:03] LABS: ACTIVATED PTT 25.7 SECONDS (24.0-38.9)
--- NOTE | 2017-09-13 18:20 | EKG ---
Test Reason : Blood Pressure : / mmHG Vent. Rate : 080 BPM Atrial Rate : 416 BPM P-R Int : 000 ms QRS Dur : 086 ms QT Int : 398 ms P-R-T Axes : 000 028 -07 degrees QTc Int : 459 ms ATRIAL FIBRILLATION WITH A COMPETING JUNCTIONAL PACEMAKER NONSPECIFIC ST AND T WAVE ABNORMALITY WHEN COMPARED WITH ECG OF 09-SEP-2017 19:35, NO SIGNIFICANT CHANGE WAS FOUND Confirmed by MD CHANO, JAYCE ([id number]) on 09/13/2017 6:19:41 PM Referred By: DR DUENAS Confirmed By:JAYCE MADDEN MD
== END 2017-09-12 14:45 | disposition home or self-care (01) ==
LOC: SUPCPDRO 13:00 → FER 13:00
DX: R42 Dizziness and giddiness (principal); F41.9 Anxiety disorder, unspecified; I10 Essential (primary) hypertension; E78.00 Pure hypercholesterolemia, unspecified; Z85.41 Personal history of malignant neoplasm of cervix uteri; Z87.891 Personal history of nicotine dependence
CPT/HCPCS: 36415; 70450-TC; 71045-TC-FY; 80053; 84484; 85025; 85610; 85730; 93005; 99283-25

== ENCOUNTER 2017-12-18 15:18 | Observation (INO) | payer OTHER ==
--- NOTE | 2017-12-18 15:29 | PDOC ---
History of Present Illness - General Chief Complaint: Lightheaded Stated Complaint: VERTIGO Time Seen by Provider: 12/18/17 15:29 - History of Present Illness Initial Comments: 12/18/17 15:50 Chief complaint: Vertigo History of present illness: Patient with a long history of benign positional vertigo with frequent flareups over many years. This episode began last night, took meclizine last night and again this morning without relief. Review of systems: No nausea, vomiting, abdominal pain, visual or focal neurologic symptoms. No chest pain, shortness of breath, urinary tract symptoms , vaginal bleeding or discharge, lightheadedness. Remainder systems reviewed and found to be negative Past medical history: Atrial fibrillation, bleeding with aspirin, maintained on Plavix and warfarin. Most recent INR was subtherapeutic, and warfarin dose was increased earlier this week. No sign of bleeding elsewhere. Specifically, no melena, bloody stool, hematemesis, swollen joints, swollen or bleeding gums. Other significant medical problems are elevated cholesterol, depression, anxiety , high blood pressure, and personality disorder Social/family history reviewed and noncontributory Physical exam: Alert oriented no acute distress cheerful and cooperative No nystagmus. PERRLA, fundi benign with sharp disc margins and good central venous pulsations, no hemorrhages or exudates visible. ENT clear Neck supple without bruit mass or nodes Lungs clear CV irregularly irregular 90/m without murmur rub or gallop pulses full and symmetric no JVD or edema no bruits Abdomen soft nontender without mass or organomegaly. Good bowel sounds Extremities no CCE Neurological C2 to 12 intact. Strength full and symmetric. No focal sensory or motor deficits. Cerebellum intact. Gait not assessed. Subjective spinning sensation, but it is unusual that the patient does not appear to be uncomfortable and appears to be moving ad russell. without aggravating her symptoms Impression: Exacerbation of long-standing vertigo, no neurological signs, no sign of superimposed new neurologic or cardiac disease Plan: Symptomatic treatment, observation, and timely follow-up. Past History - Past Medical History Allergies/Adverse Reactions: Allergies Allergy/AdvReac Type Severity Reaction Status Date / Time aspirin Allergy Verified 12/18/17 15:20 fish derived [Fish derived] Allergy Verified 12/18/17 15:20 mercury (elemental) Allergy Verified 12/18/17 15:20 [Mercury (Elemental)] Penicillins Allergy Verified 12/18/17 15:20 Raspberry Flavor, Artificial Allergy Verified 12/18/17 15:20 Home Medications: Ambulatory Orders Atorvastatin Calcium [Lipitor] 10 mg PO DAILY 10/27/16 Bupropion HCl [Bupropion HCl Sr] 150 mg PO TID 10/27/16 Furosemide [Lasix] 40 mg PO DAILY 10/27/16 Meclizine HCl 25 mg PO TID PRN 10/27/16 Ramipril [Altace] 10 mg PO DAILY 10/27/16 Clopidogrel Bisulfate [Plavix -] 75 mg PO DAILY 11/23/16 Isosorbide Mononitrate [Imdur -] 30 mg PO DAILY 11/23/16 Warfarin Na [Coumadin -] 2 mg PO SuTh@1800 tablet 11/25/16 Tramadol HCl 50 mg PO QID PRN #20 tablet MDD 4 05/08/17 Atenolol [Tenormin -] 25 mg PO DAILY 12/18/17 Warfarin Na [Coumadin -] 1 mg PO ASDIR 12/18/17 Anemia: No Asthma: No Cancer: Yes (H/O CERVICAL) Cardiac Disorders: Yes (Cardio Myopathy,CAD, afib) CVA: No COPD: No CHF: No Dementia: No Diabetes: No GI Disorders: No Disorders: No HTN: Yes Hypercholesterolemia: Yes Liver Disease: No Psychiatric Problems: Yes (ANXIETY) Seizures: No Thyroid Disease: No - Surgical History Abdominal Surgery: Yes Appendectomy: No Cardiac Surgery: No Cholecystectomy: No Lung Surgery: No Neurologic Surgery: No Orthopedic Surgery: Yes (Bilateral Trigger finger release) - Immunization History Immunization Up to Date: No - Suicide/Smoking/Psychosocial Hx Smoking Status: No Smoking History: Former smoker Have you smoked in the past 12 months: No Number of Cigarettes Smoked Daily: 0 If you are a former smoker, when did you quit?: 10 years ago Hx Alcohol Use: No Drug/Substance Use Hx: No Substance Use Type: None Hx Substance Use Treatment: No ED Treatment Course - LABORATORY CBC & Chemistry Diagram: 12/20/17 08:00 12/20/17 08:00 Medical Decision Making - Medical Decision Making 12/18/17 17:20 Patient resting comfortably. Slept for a period of time. Now awake. Says her symptoms are much improved. Ambulatory to without difficulty. Signed out to Dr. Moyer 7PM pending further obs and dispo. 12/22/17 08:02 *DC/Admit/Observation/Transfer Diagnosis at time of Disposition: Vertigo, Anxiety - Discharge Dispostion Disposition: HOME Condition at time of disposition: Improved Decision to Admit order: No - Referrals - Patient Instructions - Post Discharge Activity
[2017-12-18 15:38] VITALS: BMI 35.2
[2017-12-18] MEDS ORDERED: MECLIZINE HCL 25 MG TABLET (FP) PO ONE (15:43)
[2017-12-18] MEDS ORDERED: MECLIZINE HCL 25 MG TABLET (FP) ONE (15:52)
[2017-12-18] MEDS ORDERED: LORazepam 2 MG/ML SDV VIAL ONE (15:53)
--- NOTE | 2017-12-18 19:23 | PDOC ---
*Physical Exam - Vital Signs Last Vital Signs Temp Pulse Resp BP Pulse Ox 99 F 84 20 98/70 97 12/18/17 15:20 12/18/17 18:42 12/18/17 18:41 12/18/17 18:42 12/18/17 18:41 ED Treatment Course - RADIOLOGY Radiology Studies Ordered: Category Date Time Status CHEST X-RAY PORTABLE* [RAD] Stat Radiology 12/18/17 19:11 Ordered - Medications Given in the ED: ED Medications Discontinued Medications Generic Name Dose Route Start Last Admin Trade Name Loco PRN Reason Stop Dose Admin Lorazepam 0.5 mg 12/18/17 15:43 12/18/17 15:57 Ativan Injection - IM 12/18/17 15:44 0.5 mg ONCE ONE Administration Meclizine HCl 50 mg 12/18/17 15:43 12/18/17 15:57 Antivert - PO 12/18/17 15:44 50 mg ONCE ONE Administration Progress Note - Progress Note Progress Note: This is a 72-year-old female who has a history of vertigo and comes in with vertigo. Patient was initially evaluated by Dr. Abdi and decision was made to admit her to an observation unit. As her vertigo has not resolved with treatment and she is unable to ambulate without difficulty. Patient will be admitted to an observation bed admission discussed with hospitalist. *DC/Admit/Observation/Transfer Diagnosis at time of Disposition: Vertigo, Anxiety - Discharge Dispostion Disposition: HOME Condition at time of disposition: Improved Decision to Admit order: Yes - Referrals - Patient Instructions - Post Discharge Activity
[2017-12-18 19:33] LABS: HEMOGLOBIN 15.3 GM/dl (10.7-15.3); MCH 31.9 pg (25.7-33.7); MEAN PLT VOLUME 8.1 fl (7.5-11.1); PLATELET COUNT 216 K/MM3 (134-434); RBC 4.79 M/mm3 (3.60-5.2); RDW 12.8 % (11.6-15.6); WHITE BLOOD COUNT 7.8 K/mm3 (4.0-10.8)
[2017-12-18 19:50] LABS: ALBUMIN 4.2 g/dl (3.5-5.0); ALK PHOS 93 U/L (32-92); ANION GAP 7 (8-16); BLOOD UREA NITROGEN 31 mg/dl (7-18); CALCIUM 8.9 mg/dl (8.4-10.2); CHLORIDE 108 mmol/L (98-107); CO2 25 mmol/L (22-28); CREATININE 1.8 mg/dl (0.6-1.3); GLUCOSE,RANDOM 105 mg/dl (74-106); POTASSIUM 3.7 mmol/L (3.5-5.1); SGOT/AST 26 U/L (10-42); SGPT/ALT 13 U/L (10-40); SODIUM 140 mmol/L (136-145); TOT PROT 7.2 g/dl (6.4-8.3)
[2017-12-18 19:51] LABS: BILIRUBIN,TOTAL < 0.5 mg/dl (0.2-1.0)
--- NOTE | 2017-12-18 21:23 | HP ---
CHIEF COMPLAINT: vertigo PCP: Moira HISTORY OF PRESENT ILLNESS: This is a 72 year old female with a significant past medical history of vertigo , afib, CAD, cardiomyopahty, anxiety who presented to the ED with an episode of vertigo since last night. She states that this episode is much more severe than in past. She reports that the room spinning was so bad that she fell because of it and she had to call EMS. She denies any injury or LOC during her fall. She denies hitting her head. She denies chest pain, SOB, palpitations. ER course was notable for: (1) CT head unremarkable (2) labs unremarkable Recent Travel: pt denies PAST MEDICAL HISTORY: vertigo, Afib, cardiomyopathy, CAD, HTN, HLD, cervical CA, anxiety PAST SURGICAL HISTORY: CADEN in her 20s tonsillectomy Social History: Smoking: quit 10y ago, reports previous 2PPW Alcohol: denies Drugs: denies Family History: mother age 92, old age father age 56, liver disease Allergies aspirin Allergy (Verified 12/18/17 15:20) fish derived [Fish derived] Allergy (Verified 12/18/17 15:20) all fish mercury (elemental) [Mercury (Elemental)] Allergy (Verified 12/18/17 15:20) Penicillins Allergy (Verified 12/18/17 15:20) Raspberry Flavor, Artificial Allergy (Verified 12/18/17 15:20) HOME MEDICATIONS: 3 Medication Instructions Recorded Atorvastatin Calcium [Lipitor] 10 mg PO DAILY 10/27/16 Bupropion HCl [Bupropion HCl Sr] 150 mg PO TID 10/27/16 Furosemide [Lasix] 40 mg PO DAILY 10/27/16 Meclizine HCl 25 mg PO TID PRN 10/27/16 Ramipril [Altace] 10 mg PO DAILY 10/27/16 Clopidogrel Bisulfate [Plavix -] 75 mg PO DAILY 11/23/16 Isosorbide Mononitrate [Imdur -] 30 mg PO DAILY 11/23/16 Warfarin Na [Coumadin -] 2 mg PO SuTh@1800 tablet 11/25/16 Tramadol HCl 50 mg PO QID PRN #20 tablet MDD 4 05/08/17 Atenolol [Tenormin -] 25 mg PO DAILY 12/18/17 Warfarin Na [Coumadin -] 1 mg PO ASDIR 12/18/17 REVIEW OF SYSTEMS CONSTITUTIONAL: Absent: fever, chills, diaphoresis, generalized weakness, malaise, loss of appetite, weight change HEENT: Absent: rhinorrhea, nasal congestion, throat pain, throat swelling, difficulty swallowing, mouth swelling, ear pain, eye pain, visual changes CARDIOVASCULAR: Absent: chest pain, syncope, palpitations, irregular heart rate, lightheadedness , peripheral edema RESPIRATORY: Absent: cough, shortness of breath, dyspnea with exertion, orthopnea, wheezing, stridor, hemoptysis GASTROINTESTINAL: Absent: abdominal pain, abdominal distension, nausea, vomiting, diarrhea, constipation, melena, hematochezia GENITOURINARY: Absent: dysuria, frequency, urgency, hesitancy, hematuria, flank pain, genital pain MUSCULOSKELETAL: Absent: myalgia, arthralgia, joint swelling, back pain, neck pain SKIN: Absent: rash, itching, pallor HEMATOLOGIC/IMMUNOLOGIC: Absent: easy bleeding, easy bruising, lymphadenopathy, frequent infections ENDOCRINE: Absent: unexplained weight gain, unexplained weight loss, heat intolerance, cold intolerance NEUROLOGIC: Present: dizziness-room spinning Absent: headache, focal weakness or paresthesias, unsteady gait, seizure, mental status changes, bladder or bowel incontinence PSYCHIATRIC: Absent: anxiety, depression, suicidal or homicidal ideation, hallucinations. PHYSICAL EXAMINATION Vital Signs - 24 hr 3 12/18/17 12/18/17 12/18/17 15:20 18:41 18:42 Temperature 99 F Pulse Rate 62 Pulse Rate [ 84 Left Radial] Respiratory 16 20 Rate Blood Pressure 116/74 Blood Pressure 98/70 [Right Arm] O2 Sat by Pulse 100 97 Oximetry (%) 3 12/18/17 12/18/17 12/18/17 19:23 20:06 21:00 Temperature 98.5 F 98.4 F Pulse Rate 74 Pulse Rate [ 84 Left Radial] Respiratory 18 16 16 Rate Blood Pressure 131/59 Blood Pressure 134/84 [Right Arm] O2 Sat by Pulse 99 97 97 Oximetry (%) GENERAL: Awake, alert, and fully oriented, in no acute distress. HEAD: Normal with no signs of trauma. EYES: Pupils equal, round and reactive to light, extraocular movements intact, sclera anicteric, conjunctiva clear. No lid lag. EARS, NOSE, THROAT: Ears normal, nares patent, oropharynx clear without exudates. Moist mucous membranes. NECK: Normal range of motion, supple without lymphadenopathy, JVD, or masses. LUNGS: Breath sounds equal, clear to auscultation bilaterally. No wheezes, and no crackles. No accessory muscle use. HEART: Regular rate and rhythm, normal S1 and S2 without murmur, rub or gallop. ABDOMEN: Soft, nontender, not distended, normoactive bowel sounds, no guarding, no rebound, no masses. No hepatomegaly or splenomegaly. MUSCULOSKELETAL: Normal range of motion at all joints. No bony deformities or tenderness. No CVA tenderness. UPPER EXTREMITIES: 2+ pulses, warm, well-perfused. No cyanosis. No clubbing. No peripheral edema. LOWER EXTREMITIES: 2+ pulses, warm, well-perfused. No calf tenderness. No peripheral edema. NEUROLOGICAL: Cranial nerves II-XII intact. Normal speech. gait not observed PSYCHIATRIC: Cooperative. Good eye contact. Appropriate mood and affect. SKIN: Warm, dry, normal turgor, no rashes or lesions noted, normal capillary refill. Laboratory Results - last 24 hr 3 12/18/17 12/18/17 19:19 19:19 WBC 7.8 RBC 4.79 Hgb 15.3 Hct 45.0 MCV 94.0 MCH 31.9 MCHC 34.0 RDW 12.8 Plt Count 216 MPV 8.1 Absolute Neuts (auto) 5.6 Neutrophils % No Result Required. Lymphocytes % No Result Required. Sodium 140 Potassium 3.7 Chloride 108 H Carbon Dioxide 25 Anion Gap 7 L BUN 31 H Creatinine 1.8 H Creat Clearance w eGFR 27.66 Random Glucose 105 Calcium 8.9 Total Bilirubin < 0.5 D AST 26 ALT 13 Alkaline Phosphatase 93 H Total Protein 7.2 Albumin 4.2 ECG Atrial fibrillation vent rate 66, QTC 417 ST/T wave abnormality, consider anterolateral ischemia Radiology Reports Chest portable IMPRESSION: Cardiomegaly, no acute disease. Reported By: Fransisco Palacios MD 12/18/172004 CT head without contrast IMPRESSION: No evidence of acute intracranial pathology. Reported By: Fransisco Palacios MD 12/18/172003 ASSESSMENT/PLAN: 72yF with PMH vertigo, Afib, cardiomyopathy, CAD, HTN, HLD, cervical CA, anxiety presented to the ED with room spinning type dizziness since yesterday. vertigo - cont meclizine PRN - CT head negative - consider neurology if not improving afib - cont home atenolol, warfarin, INR therapeutic cardiomyopathy/CAD/HTN/HLD - cont home Lipitor, atenolol, plavix, imdur, altace, lasix - f/u with outpatient end polisher CKD - Cr is near previous baseline of 1.8-2, no intervention required - renal dose all meds - f/u as outpatient anxiety - cont home buproprion DVT PPX - defer heparin as anticipated LOS <48h FEN - tolerating po - BMP in am - low sodium diet as tolerated Dispo: Pt currently requires further observation for management of her emergent condition. Visit type - Emergency Visit Emergency Visit: Yes ED Registration Date: 12/18/17 Care time: The patient presented to the Emergency Department on the above date and was hospitalized for further evaluation of their emergent condition. - New Patient This patient is new to me today: Yes Date on this admission: 12/19/17 - Critical Care Critical Care patient: No Hospitalist Screening - Colonoscopy Questionnaire Colonoscopy Questionnaire: Colonoscopy Questionnaire - Patient: 50 - 75 years old and never had a screening colonoscopy: Yes History of colon or rectal polyps, or CA: No History of IBD, Crohn's disease or UC: No History of abdominal radiation therapy as a child: No - Relative: 1 with colon or rectal CA, or polyps at age 60 or younger: Unknown Colon or rectal CA diagnosed at age 45 or younger: Unknown Multiple relatives with colon or rectal CA: Unknown - Outcome: Screening Result: Positive Screen
[2017-12-18] MEDS ORDERED: MECLIZINE HCL 25 MG TABLET (FP) PO PRN (21:24)
[2017-12-18 22:19] LABS: INR 2.7 (0.82-1.09); PROTHROMBIN TIME (PATIENT) 29.7 SEC (10.2-13.0)
[2017-12-18] MEDS: WARFARIN NA 1 MG TABLET (FP) PO ONE ×2 (22:31→22:38)
[2017-12-18] MEDS: buPROPion HCL 75 MG TABLET PO SCH (22:32)
[2017-12-18 22:45] LABS: PLATELET ESTIMATE ADEQUATE
[2017-12-19] MEDS ORDERED: PT OWN MED DRAWER 7, Y5N ONE ×2 (05:43→21:14)
[2017-12-19] MEDS: buPROPion HCL 75 MG TABLET PO SCH ×3 (06:14→21:26)
[2017-12-19 08:21] LABS: BASO % 0.7 % (0-2.0); EOS % 0.8 % (0-4.5); HEMATOCRIT 42.2 % (32.4-45.2); HEMOGLOBIN 13.9 GM/dl (10.7-15.3); LYMPH % 32.8 % (8-40); MCH 30.9 pg (25.7-33.7); MEAN CELL VOLUME 93.6 fl (80-96); MEAN PLT VOLUME 7.9 fl (7.5-11.1); MONO % 9.2 % (3.8-10.2); NEUT % 56.5 % (42.8-82.8); PLATELET COUNT 198 K/MM3 (134-434); RBC 4.51 M/mm3 (3.60-5.2); RDW 12.6 % (11.6-15.6); WHITE BLOOD COUNT 6.4 K/mm3 (4.0-10.8)
[2017-12-19 08:25] LABS: ANION GAP 9 (8-16); BLOOD UREA NITROGEN 31 mg/dl (7-18); CALCIUM 8.8 mg/dl (8.4-10.2); CHLORIDE 111 mmol/L (98-107); CO2 20 mmol/L (22-28); CREATININE 1.9 mg/dl (0.6-1.3); GLUCOSE,RANDOM 98 mg/dl (74-106); MAGNESIUM 2.1 mg/dL (1.8-2.4); PHOSPHOROUS 3.4 mg/dl (2.5-4.6); POTASSIUM 3.3 mmol/L (3.5-5.1); SODIUM 140 mmol/L (136-145)
[2017-12-19] MEDS ORDERED: POTASSIUM CHLORIDE TABS 20 MEQ TABLET.ER (FP) PO ONE (09:15)
[2017-12-19] MEDS: FUROSEMIDE 40 MG TABLET (FP) PO SCH (09:42)
[2017-12-19] MEDS: ATENOLOL 25 MG TABLET (FP) PO SCH (09:43)
[2017-12-19] MEDS: RAMIPRIL 5 MG CAPSULE (FP) PO SCH (10:39)
[2017-12-19] MEDS: ISOSORBIDE MONONITRATE 30 MG TAB.SR.24H (FP) PO SCH (10:40)
[2017-12-19] MEDS: CLOPIDOGREL BISULFATE 75 MG TABLET (FP) PO SCH (10:43)
--- NOTE | 2017-12-19 11:31 | EKG ---
Test Reason : Blood Pressure : / mmHG Vent. Rate : 066 BPM Atrial Rate : 394 BPM P-R Int : 000 ms QRS Dur : 088 ms QT Int : 398 ms P-R-T Axes : 000 021 -72 degrees QTc Int : 417 ms ATRIAL FIBRILLATION ABNORMAL ECG WHEN COMPARED WITH ECG OF 12-SEP-2017 13:35, T WAVE INVERSION NOW EVIDENT IN LATERAL LEADS Confirmed by YOLI FISHMAN MD ([id number]) on 12/19/2017 11:30:46 AM Referred By: MD ROYAL Confirmed By:YOLI FISHMAN MD
--- NOTE | 2017-12-19 12:20 | PN ---
Physical Exam: SUBJECTIVE: Patient seen and examined, patient reports dizziness that worsens upon ambulation denies any chest pain or shortness of breath OBJECTIVE: patient is a 72 year old female with a past medical history of vertigo, Afib, cardiomyopathy, CAD, HTN, HLD, cervical CA, anxiety. Patient was admitted from the emergency department to observation for emergent condition. Vital Signs Period Temp Pulse Resp BP Sys/Franks Pulse Ox Last 24 Hr 98.4 F-99 F 62-87 16-20 98-134/59-84 95-100 GENERAL: The patient is awake, alert, and fully oriented, in no acute distress. HEAD: Normal with no signs of trauma. EYES: PERRL, extraocular movements intact, sclera anicteric, conjunctiva clear. No ptosis. ENT: Ears normal, nares patent, oropharynx clear without exudates, moist mucous membranes. NECK: Trachea midline, full range of motion, supple. LUNGS: Breath sounds equal, clear to auscultation bilaterally, no wheezes, no crackles, no accessory muscle use. HEART: Regular rate and rhythm, S1, S2 without murmur, rub or gallop. ABDOMEN: Soft, nontender, nondistended, normoactive bowel sounds, no guarding, no rebound, no hepatosplenomegaly, no masses. EXTREMITIES: 2+ pulses, warm, well-perfused, no edema. NEUROLOGICAL: Cranial nerves II through XII grossly intact. Normal speech, gait not observed. PSYCH: Normal mood, normal affect. SKIN: Warm, dry, normal turgor, no rashes or lesions noted Laboratory Results - last 24 hr 12/18/17 12/18/17 12/18/17 19:19 19:19 21:45 WBC 7.8 RBC 4.79 Hgb 15.3 Hct 45.0 MCV 94.0 MCH 31.9 MCHC 34.0 RDW 12.8 Plt Count 216 MPV 8.1 Absolute Neuts (auto) 5.6 Neutrophils % No Result Required. Neutrophils % (Manual) 83.0 H Lymphocytes % No Result Required. Lymphocytes % (Manual) 15.0 Monocytes % Monocytes % (Manual) 2 L Eosinophils % Basophils % Platelet Estimate Adequate PT with INR 29.7 H INR 2.70 H Sodium 140 Potassium 3.7 Chloride 108 H Carbon Dioxide 25 Anion Gap 7 L BUN 31 H Creatinine 1.8 H Creat Clearance w eGFR 27.66 Random Glucose 105 Calcium 8.9 Phosphorus Magnesium Total Bilirubin < 0.5 D AST 26 ALT 13 Alkaline Phosphatase 93 H Creatine Kinase Troponin I Total Protein 7.2 Albumin 4.2 12/19/1718 18 07:30 07:30 07:30 WBC 6.4 RBC 4.51 Hgb 13.9 Hct 42.2 MCV 93.6 MCH 30.9 MCHC 33.0 RDW 12.6 Plt Count 198 MPV 7.9 Absolute Neuts (auto) 3.6 Neutrophils % 56.5 Neutrophils % (Manual) Lymphocytes % 32.8 Lymphocytes % (Manual) Monocytes % 9.2 Monocytes % (Manual) Eosinophils % 0.8 Basophils % 0.7 Platelet Estimate PT with INR INR Sodium 140 Potassium 3.3 L Chloride 111 H Carbon Dioxide 20 L Anion Gap 9 BUN 31 H Creatinine 1.9 H Creat Clearance w eGFR Random Glucose 98 Calcium 8.8 Phosphorus 3.4 Magnesium 2.1 Total Bilirubin AST ALT Alkaline Phosphatase Creatine Kinase Troponin I < 0.03 Total Protein Albumin 12/19/17 07:30 WBC RBC Hgb Hct MCV MCH MCHC RDW Plt Count MPV Absolute Neuts (auto) Neutrophils % Neutrophils % (Manual) Lymphocytes % Lymphocytes % (Manual) Monocytes % Monocytes % (Manual) Eosinophils % Basophils % Platelet Estimate PT with INR INR Sodium Potassium Chloride Carbon Dioxide Anion Gap BUN Creatinine Creat Clearance w eGFR Random Glucose Calcium Phosphorus Magnesium Total Bilirubin AST ALT Alkaline Phosphatase Creatine Kinase 56 Troponin I Total Protein Albumin Active Medications Generic Name Dose Route Start Last Admin Trade Name Freq PRN Reason Stop Dose Admin Atenolol 25 mg 12/19/17 10:00 Tenormin - PO DAILY ANA Atorvastatin Calcium 10 mg 12/19/17 22:00 Lipitor - PO HS ANA Bupropion HCl 150 mg 12/19/17 14:00 Wellbutrin - PO TID ANA Clopidogrel Bisulfate 75 mg 12/19/17 10:00 Plavix - PO DAILY ANA Diltiazem HCl 120 mg 12/19/17 10:00 Cardizem Cd - PO DAILY ANA Furosemide 40 mg 12/19/17 10:00 Lasix - PO DAILY ANA Isosorbide Mononitrate 30 mg 12/19/17 10:00 Imdur - PO DAILY ANA Meclizine HCl 25 mg 12/18/17 21:24 12/19/17 06:17 Antivert - PO 25 mg Q8H PRN Administration VERTIGO Ramipril 10 mg 12/19/17 10:00 Altace - PO DAILY COUNT INCLUDES THE [facility] Warfarin Sodium 1 mg 12/20/17 18:00 Coumadin - PO MoWeFrSa@1800 COUNT INCLUDES THE [facility] Warfarin Sodium 2 mg 12/19/17 18:00 Coumadin - PO SuTh@1800 ANA ASSESSMENT/PLAN: 1)neuro vertigo - patient reports ongoing vertigo upon ambulation will trial of Valium - CT head negative - appreciate neurology input 2) cardiovascular afib - cont home atenolol, warfarin, INR therapeutic cardiomyopathy/CAD/HTN/HLD - cont home Lipitor, atenolol, plavix, imdur, altace, lasix - f/u with outpatient drawer in [employer]qu[employer] loom 3) neprology CKD - Cr is near previous baseline of 1.8-2, no intervention required - renal dose all meds - f/u as outpatient 4) anxiety - cont home buproprion DVT PPX - on coumadin FEN - tolerating po - BMP in am - low sodium diet as tolerated Dispo: Pt currently requires further observation for management of her emergent condition. Visit type - Emergency Visit Emergency Visit: Yes ED Registration Date: 12/18/17 Care time: The patient presented to the Emergency Department on the above date and was hospitalized for further evaluation of their emergent condition. - New Patient This patient is new to me today: No - Critical Care Critical Care patient: No - Discharge Referral Referred to [facility] Med P.C.: No
[2017-12-19] MEDS ORDERED: diazePAM 5 MG TABLET PO PRN (12:24)
--- NOTE | 2017-12-19 16:11 | EKG ---
Test Reason : Blood Pressure : / mmHG Vent. Rate : 091 BPM Atrial Rate : 234 BPM P-R Int : 000 ms QRS Dur : 090 ms QT Int : 374 ms P-R-T Axes : 000 027 -66 degrees QTc Int : 460 ms ATRIAL FIBRILLATION ABNORMAL ECG WHEN COMPARED WITH ECG OF 18-DEC-2017 19:22, T WAVE INVERSION LESS EVIDENT IN ANTEROLATERAL LEADS Confirmed by YOLI FISHMAN MD ([id number]) on 12/19/2017 4:11:09 PM Referred By: Confirmed By:YOLI FISHMAN MD
[2017-12-19 17:27] LABS: INR 2.65 (0.82-1.09); PROTHROMBIN TIME (PATIENT) 29.1 SEC (10.2-13.0)
[2017-12-19] MEDS ORDERED: WARFARIN NA 2 MG TABLET (UD) PO SCH (18:00)
--- NOTE | 2017-12-19 18:20 | CON.NEURO ---
Consult - Past Medical History Cardio/Vascular: Yes: AFIB, HTN, Hyperlipdemia ...: No Psych: Yes: Anxiety - Alcohol/Substance Use Hx Alcohol Use: No History of Substance Use: reports: None - Smoking History Smoking history: Former smoker Have you smoked in the past 12 months: No Aproximately how many cigarettes per day: 0 If you are a former smoker, when did you quit?: 10 years ago - Social History ADL: Independent History of Recent Travel: No Home Medications - Allergies Allergies/Adverse Reactions: Allergies Allergy/AdvReac Type Severity Reaction Status Date / Time aspirin Allergy Verified 12/18/17 15:20 fish derived [Fish derived] Allergy Verified 12/18/17 15:20 mercury (elemental) Allergy Verified 12/18/17 15:20 [Mercury (Elemental)] Penicillins Allergy Verified 12/18/17 15:20 Raspberry Flavor, Artificial Allergy Verified 12/18/17 15:20 - Home Medications Home Medications: Ambulatory Orders Atorvastatin Calcium [Lipitor] 10 mg PO DAILY 10/27/16 Bupropion HCl [Bupropion HCl Sr] 150 mg PO TID 10/27/16 Furosemide [Lasix] 40 mg PO DAILY 10/27/16 Meclizine HCl 25 mg PO TID PRN 10/27/16 Ramipril [Altace] 10 mg PO DAILY 10/27/16 Clopidogrel Bisulfate [Plavix -] 75 mg PO DAILY 11/23/16 Isosorbide Mononitrate [Imdur -] 30 mg PO DAILY 11/23/16 Warfarin Na [Coumadin -] 2 mg PO SuTh@1800 tablet 11/25/16 Tramadol HCl 50 mg PO QID PRN #20 tablet MDD 4 05/08/17 Atenolol [Tenormin -] 25 mg PO DAILY 12/18/17 Warfarin Na [Coumadin -] 1 mg PO ASDIR 12/18/17 Family Disease History - Family Disease History Family Disease History: CA: Father (unspecified ) Physical Exam-Neuro Vital Signs: Vital Signs Temperature 98.0 F 12/19/17 14:17 Pulse Rate 89 12/19/17 14:17 Respiratory Rate 16 12/19/17 14:17 Blood Pressure 122/74 12/19/17 14:17 O2 Sat by Pulse Oximetry (%) 94 L 12/19/17 14:17 Labs: CBC, BMP 12/19/17 07:30 12/19/17 07:30 INR, PTT INR 2.65 (0.82-1.09) H 12/19/17 16:54 Assessment/Plan CC Episode of dizziness and feeling of Dysbalance HPI 72 year old female history of Vertigo, Atrial Fibrillation, CAD, Cardiomyopathy, anxiety. Patient came with feeling of dysbalance and feeling room is spinning THere is no hemiparesis, no sensory loss, no seizure like activity. There is no dysphagia, dysarthria, or diplopia. Patient is being treated with meclizine and diazepam and she has recovered almsot 80%. Her ct head is normal. She denies any ringing in her ear. She has similar episode in past and recovered completely in past. PMH as above PAST MEDICAL HISTORY: vertigo, Afib, cardiomyopathy, CAD, HTN, HLD, cervical CA, anxiety PAST SURGICAL HISTORY: CADEN in her 20s tonsillectomy SH Smoking: quit 10y ago, reports previous 2PPW,Alcohol: denies.Drugs: denies Family History: mother age 92, old age father age 56, liver disease Allergies aspirin Allergy (Verified 12/18/17 15:20) fish derived [Fish derived] Allergy (Verified 12/18/17 15:20) all fish mercury (elemental) [Mercury (Elemental)] Allergy (Verified 12/18/17 15:20) Penicillins Allergy (Verified 12/18/17 15:20) Raspberry Flavor, Artificial Allergy (Verified 12/18/17 15:20) HOME MEDICATIONS: 3 Medication Instructions Recorded Atorvastatin Calcium [Lipitor] 10 mg PO DAILY 10/27/16 Bupropion HCl [Bupropion HCl Sr] 150 mg PO TID 10/27/16 Furosemide [Lasix] 40 mg PO DAILY 10/27/16 Meclizine HCl 25 mg PO TID PRN 10/27/16 Ramipril [Altace] 10 mg PO DAILY 10/27/16 Clopidogrel Bisulfate [Plavix -] 75 mg PO DAILY 11/23/16 Isosorbide Mononitrate [Imdur -] 30 mg PO DAILY 11/23/16 Warfarin Na [Coumadin -] 2 mg PO SuTh@1800 tablet 11/25/16 Tramadol HCl 50 mg PO QID PRN #20 tablet MDD 4 05/08/17 Atenolol [Tenormin -] 25 mg PO DAILY 12/18/17 Warfarin Na [Coumadin -] 1 mg PO ASDIR 12/18/17 Neurological Examination Alert oriented x 3, speech is normal, follow command EOMI, pupils is reactive, mild right eye nystagmus on right sided eye movement movign all extremity 5/5 sensation is normal FTN, HTS normal, she is able to walk without herelf CT head unremarkable Assessment - Agree with assessment of BPPV, She seems to be recovering with meclizine and diazepam. Ct head is normal, and no other focal neurological symptoms or sign. Unlikely to be Posterior circulation stroke Plan- no need for mri of brain - Suggest she can have PT tomorrow - can be discharged from neuro point of view, if she feeling better Thanking you so much Cordell Wilburn MD
[2017-12-19] MEDS ORDERED: LOPERAMIDE HCL 2 MG CAPSULE PO ONE (19:57)
[2017-12-19] MEDS ORDERED: ATORVASTATIN CA 10 MG TABLET (FP) PO SCH (22:00)
[2017-12-20] MEDS ORDERED: PT OWN MED DRAWER 7, Y5N ONE (05:48)
[2017-12-20] MEDS: buPROPion HCL 75 MG TABLET PO SCH (06:02)
[2017-12-20 06:42] VITALS: BP 106/55; PULSE 77; TEMP 98
[2017-12-20 08:08] LABS: HEMATOCRIT 42.7 % (32.4-45.2); HEMOGLOBIN 14.3 GM/dl (10.7-15.3); MCH 31.5 pg (25.7-33.7); MCHC 33.5 g/dl (32.0-36.0); MEAN CELL VOLUME 93.9 fl (80-96); MEAN PLT VOLUME 7.9 fl (7.5-11.1); PLATELET COUNT 201 K/MM3 (134-434); RBC 4.55 M/mm3 (3.60-5.2); RDW 12.9 % (11.6-15.6)
[2017-12-20 08:36] LABS: ALBUMIN 3.9 g/dl (3.5-5.0); ALK PHOS 85 U/L (32-92); ANION GAP 8 (8-16); BILIRUBIN,TOTAL 0.7 mg/dl (0.2-1.0); BLOOD UREA NITROGEN 31 mg/dl (7-18); CALCIUM 8.9 mg/dl (8.4-10.2); CHLORIDE 108 mmol/L (98-107); CO2 25 mmol/L (22-28); CREATININE 1.9 mg/dl (0.6-1.3); GLUCOSE,RANDOM 94 mg/dl (74-106); POTASSIUM 3.7 mmol/L (3.5-5.1); SGOT/AST 18 U/L (10-42); SGPT/ALT 13 U/L (10-40); SODIUM 141 mmol/L (136-145); TOT PROT 6.9 g/dl (6.4-8.3)
[2017-12-20 08:48] LABS: INR 2.89 (0.82-1.09); PROTHROMBIN TIME (PATIENT) 31.7 SEC (10.2-13.0)
[2017-12-20] MEDS: RAMIPRIL 5 MG CAPSULE (FP) PO SCH (09:15)
[2017-12-20] MEDS: ATENOLOL 25 MG TABLET (FP) PO SCH (09:15)
[2017-12-20] MEDS: CLOPIDOGREL BISULFATE 75 MG TABLET (FP) PO SCH (09:15)
[2017-12-20] MEDS: ISOSORBIDE MONONITRATE 30 MG TAB.SR.24H (FP) PO SCH (09:16)
[2017-12-20] MEDS: FUROSEMIDE 40 MG TABLET (FP) PO SCH (09:16)
[2017-12-20] MEDS ORDERED: INSULIN (NOVOLOG) ASPART 100 UNITS/ML 10ML VIAL ONE (11:28)
--- NOTE | 2017-12-20 11:58 | DS ---
Physical Exam: SUBJECTIVE: Patient seen and examined, patient is ambulatory throughout nursing station, reports resolution of vertigo with meclizine, patient denies any chest pain or shortness of breath. OBJECTIVE: Patient is a 72 year old female with a significant past medical history of vertigo, afib, CAD, cardiomyopahty, anxiety who presented to the ED with an episode of vertigo since last night. She states that this episode is much more severe than in past. She reports that the room spinning was so bad that she fell because of it and she had to call EMS. She denies any injury or LOC during her fall. She denies hitting her head. She denies chest pain, SOB, palpitations. ER course was notable for: (1) CT head unremarkable (2) labs unremarkable Vital Signs Period Temp Pulse Resp BP Sys/Franks Pulse Ox Last 24 Hr 98.0 F-98.2 F 77-89 16-18 106-122/55-74 94-99 PHYSICAL EXAM GENERAL: The patient is awake, alert, and fully oriented, in no acute distress. HEAD: Normal with no signs of trauma. EYES: PERRL, extraocular movements intact, sclera anicteric, conjunctiva clear. No ptosis. ENT: Ears normal, nares patent, oropharynx clear without exudates, moist mucous membranes. NECK: Trachea midline, full range of motion, supple. LUNGS: Breath sounds equal, clear to auscultation bilaterally, no wheezes, no crackles, no accessory muscle use. HEART: irregular rate and rhythm, S1, S2 without murmur, rub or gallop. ABDOMEN: Soft, nontender, nondistended, normoactive bowel sounds, no guarding, no rebound, no hepatosplenomegaly, no masses. EXTREMITIES: 2+ pulses, warm, well-perfused, no edema. NEUROLOGICAL: Cranial nerves II through XII grossly intact. Normal speech, steady gait noted PSYCH: Normal mood, normal affect. SKIN: Warm, dry, normal turgor, no rashes or lesions noted LABS Laboratory Results - last 24 hr 12/19/17 12/20/17 12/20/17 16:54 08:00 08:00 WBC 7.0 RBC 4.55 Hgb 14.3 Hct 42.7 MCV 93.9 MCH 31.5 MCHC 33.5 RDW 12.9 Plt Count 201 MPV 7.9 PT with INR 29.1 H 31.7 H INR 2.65 H 2.89 H Sodium Potassium Chloride Carbon Dioxide Anion Gap BUN Creatinine Creat Clearance w eGFR Random Glucose Calcium Total Bilirubin AST ALT Alkaline Phosphatase Total Protein Albumin 12/20/17 08:00 WBC RBC Hgb Hct MCV MCH MCHC RDW Plt Count MPV PT with INR INR Sodium 141 Potassium 3.7 Chloride 108 H Carbon Dioxide 25 D Anion Gap 8 BUN 31 H Creatinine 1.9 H Creat Clearance w eGFR 25.98 Random Glucose 94 Calcium 8.9 Total Bilirubin 0.7 D AST 18 D ALT 13 Alkaline Phosphatase 85 Total Protein 6.[address] of head: no evidence of acute pathology chest xray: no acute pathology HOSPITAL COURSE: 1) vertigo, reports improvement with meclizine patient ambulated without difficulty. neurology Dr Wilburn consulted 2) afib, continued home atenolol, warfarin, INR therapeutic. cardiomyopathy/CAD/ HTN/HLD, continued home Lipitor, atenolol, plavix, imdur, altace, lasix. Patient will require outpatient cook boat follow up. 3) CKD, Cr is near previous baseline of 1.8-2, no intervention required. renal dose all meds, f/u as outpatient 4) anxiety, continued home buproprion PLAN - discharge home - continue all medications as prescribed - follow up with neurology within 2 weeks - follow up with PCP within 2 weeks - return precautions reviewed Date of Admission:12/18/17 Date of Discharge: 12/20/17 Minutes to complete discharge: 45 Discharge Summary Reason For Visit: VERTIGO Current Active Problems Vertigo (Acute) Anxiety (Chronic) Condition: Improved - Instructions Diet, Activity, Other Instructions: - resume low sodium and low cholestrol diet - continue meclizne as needed for vertigo - please follow up with your primary care physician within 2 weeks - please follow up with the neurologist within 3 weeks - if Any new or persistent symptoms develop please return to emergency department Disposition: HOME - Home Medications Comprehensive Discharge Medication List: Ambulatory Orders Atorvastatin Calcium [Lipitor] 10 mg PO DAILY 10/27/16 Bupropion HCl [Bupropion HCl Sr] 150 mg PO TID 10/27/16 Furosemide [Lasix] 40 mg PO DAILY 10/27/16 Meclizine HCl 25 mg PO TID PRN 10/27/16 Ramipril [Altace] 10 mg PO DAILY 10/27/16 Clopidogrel Bisulfate [Plavix -] 75 mg PO DAILY 11/23/16 Isosorbide Mononitrate [Imdur -] 30 mg PO DAILY 11/23/16 Warfarin Na [Coumadin -] 2 mg PO SuTh@1800 tablet 11/25/16 Tramadol HCl 50 mg PO QID PRN #20 tablet MDD 4 05/08/17 Atenolol [Tenormin -] 25 mg PO DAILY 12/18/17 Warfarin Na [Coumadin -] 1 mg PO ASDIR 12/18/17 This patient is new to me today: No Emergency Visit: Yes ED Registration Date: 12/18/17 Care time: The patient presented to the Emergency Department on the above date and was hospitalized for further evaluation of their emergent condition. Critical Care patient: No - Discharge Referral Referred to [facility] Med P.C.: No
[2017-12-20] MEDS ORDERED: WARFARIN NA 1 MG TABLET (FP) PO SCH (18:00)
== END 2017-12-20 12:45 | disposition home or self-care (01) ==
LOC: FER 15:18 → FM/S 19:23
PROVIDERS: ADMIT Internal Medicine; ATTEND Nurse Practitioner Family
PROC: 3E033GC Introduction of Other Therapeutic Substance into Peripheral Vein, Percutaneous Approach (ICD-10-PCS; principal; 2017-12-18)
DX: R42 Dizziness and giddiness (principal); F41.9 Anxiety disorder, unspecified; I12.9 Hypertensive chronic kidney disease with stage 1 through stage 4 chronic kidney disease, or unspecified chronic kidney disease; N18.9 Chronic kidney disease, unspecified; I48.91 Unspecified atrial fibrillation; E78.5 Hyperlipidemia, unspecified; F32.9 Major depressive disorder, single episode, unspecified; F60.9 Personality disorder, unspecified; I42.9 Cardiomyopathy, unspecified; I25.10 Atherosclerotic heart disease of native coronary artery without angina pectoris; Z87.891 Personal history of nicotine dependence; Z85.41 Personal history of malignant neoplasm of cervix uteri; Z79.01 Long term (current) use of anticoagulants; Z88.8 Allergy status to other drugs, medicaments and biological substances; Z88.6 Allergy status to analgesic agent; Z91.013 Allergy to seafood; Z91.018 Allergy to other foods
CPT/HCPCS: 36415; 70450-TC; 71045-TC-FY; 80048; 80053; 82550; 83735; 84100; 84484; 85025; 85027; 85610; 93005; 96374; 97116-GP; 97161-GP; 99282-25; G0378

== ENCOUNTER 2018-01-04 18:19 | Observation (INO) | payer OTHER ==
[2018-01-04] MEDS ORDERED: SODIUM CHLORIDE 1,000 ML IV STA (18:56)
[2018-01-04] MEDS ORDERED: MECLIZINE HCL 25 MG TABLET (FP) PO ONE (18:56)
[2018-01-04] MEDS ORDERED: ONDANSETRON 4 MG/2 ML VIAL IVPB ONE (18:56)
--- NOTE | 2018-01-04 19:00 | PDOC ---
History of Present Illness - General Chief Complaint: Lightheaded Stated Complaint: VERTIGO Time Seen by Provider: 01/04/18 18:39 - History of Present Illness Initial Comments: 01/04/18 19:01 72 F with h/o vertigo, afib, CAD, cardiomyopahty, anxiety presenting to ED with vertigo. Pt states that around 5PM today, she began to feel the room spinning. She states that this is the same as her prior episode of vertigo. She states the dizziness is worse with turning her head to the left. She endorses one episode of N+V, nonbloody. Denies weakness/numbness in any extremity. Pt was admitted for vertigo earlier this month. Pt was evaluated by neurology and diagnosed with BPPV. Had negative head CT. Pt denies any new symptoms today. Pt states that she took 2 meclizine prior to arrival but vomited them up. Past History - Past Medical History Allergies/Adverse Reactions: Allergies Allergy/AdvReac Type Severity Reaction Status Date / Time aspirin Allergy Verified 01/04/18 18:50 fish derived [Fish derived] Allergy Verified 01/04/18 18:50 mercury (elemental) Allergy Verified 01/04/18 18:50 [Mercury (Elemental)] Penicillins Allergy Verified 01/04/18 18:50 Raspberry Flavor, Artificial Allergy Verified 01/04/18 18:50 Home Medications: Ambulatory Orders Atorvastatin Calcium [Lipitor] 10 mg PO DAILY 10/27/16 Bupropion HCl [Bupropion HCl Sr] 150 mg PO TID 10/27/16 Furosemide [Lasix] 40 mg PO DAILY 10/27/16 Meclizine HCl 25 mg PO TID PRN 10/27/16 Ramipril [Altace] 10 mg PO DAILY 10/27/16 Clopidogrel Bisulfate [Plavix -] 75 mg PO DAILY 11/23/16 Isosorbide Mononitrate [Imdur -] 30 mg PO DAILY 11/23/16 Warfarin Na [Coumadin -] 2 mg PO SuTh@1800 tablet 11/25/16 Atenolol [Tenormin -] 25 mg PO DAILY 12/18/17 Warfarin Na [Coumadin -] 1 mg PO MOTUWEFR 12/18/17 Anemia: No Asthma: No Cancer: Yes (a.fib) Cardiac Disorders: Yes (Cardio Myopathy,CAD, afib) CVA: No COPD: No CHF: No Dementia: No Diabetes: No GI Disorders: No Disorders: No HTN: Yes Hypercholesterolemia: Yes Liver Disease: No Psychiatric Problems: Yes (depression) Seizures: No Thyroid Disease: No Other medical history: vertigo - Surgical History Abdominal Surgery: Yes Appendectomy: No Cardiac Surgery: No Cholecystectomy: No Lung Surgery: No Neurologic Surgery: No Orthopedic Surgery: Yes (Bilateral Trigger finger release) - Immunization History Immunization Up to Date: No - Suicide/Smoking/Psychosocial Hx Smoking Status: No Smoking History: Former smoker Have you smoked in the past 12 months: No Number of Cigarettes Smoked Daily: 0 If you are a former smoker, when did you quit?: 10 years ago Information on smoking cessation initiated: No Hx Alcohol Use: No Drug/Substance Use Hx: No Substance Use Type: None Hx Substance Use Treatment: No Review of Systems - Review of Systems Comments:: 01/04/18 19:05 "GENERAL/CONSTITUTIONAL: No fever or chills. No weakness. HEAD, EYES, EARS, NOSE AND THROAT: No change in vision. No ear pain or discharge. No sore throat. CARDIOVASCULAR: No chest pain or shortness of breath. RESPIRATORY: No cough, wheezing, or hemoptysis. GASTROINTESTINAL: No nausea, vomiting, diarrhea or constipation. GENITOURINARY: No dysuria, frequency, or change in urination. MUSCULOSKELETAL: No joint or muscle swelling or pain. No neck or back pain. SKIN: No rash NEUROLOGIC: + vertigo, No headache, loss of consciousness, or change in strength /sensation. ENDOCRINE: No increased thirst. No abnormal weight change. HEMATOLOGIC/LYMPHATIC: No anemia, easy bleeding, or history of blood clots. ALLERGIC/IMMUNOLOGIC: No hives or skin allergy. " *Physical Exam - Vital Signs Last Vital Signs Temp Pulse Resp BP Pulse Ox 98.4 F 77 18 109/63 100 01/04/18 18:51 01/04/18 18:51 01/04/18 18:51 01/04/18 18:51 01/04/18 18:51 - Physical Exam Comments: 01/04/18 19:05 "GENERAL: Awake, alert, and fully oriented, in no acute distress. HEAD: No signs of trauma EYES: PERRLA, EOMI, sclera anicteric, conjunctiva clear ENT: Auricles normal inspection, hearing grossly normal, nares patent, oropharynx clear without exudates. Moist mucosa NECK: Nontender, no stepoffs, Normal ROM, supple, no lymphadenopathy, JVD, or masses LUNGS: Breath sounds equal, clear to auscultation bilaterally. No wheezes, and no crackles HEART: Regular rate and rhythm, normal S1 and S2, no murmurs, rubs or gallops ABDOMEN: Soft, nontender, normoactive bowel sounds. No guarding, no rebound. No masses EXTREMITIES: Normal range of motion, no edema. No clubbing or cyanosis. No cords, erythema, or tenderness NEUROLOGICAL: + L beating nystagmus, Cranial nerves II through XII intact. 5/5 strength and sensation in all extremities, Normal speech, normal gait, normal cerebellar function SKIN: Warm, Dry, normal turgor, no rashes or lesions noted. " Medical Decision Making - Medical Decision Making 01/04/18 19:05 72 F with room spinning dizziness and L sided nystagmus on exam. Consistent with pt's h/o peripheral vertigo. Pt with no other neuro deficits to suggest CVA. Has had evaluation by neuro less than 2 weeks ago for same presentation and was diagnosed with BPPV at that time. - Labs - IVF, meclizine, ativan, zofran
[2018-01-04 19:38] LABS: BASO % 0.7 % (0-2.0); EOS % 1.7 % (0-4.5); HEMATOCRIT 40.5 % (32.4-45.2); HEMOGLOBIN 13.8 GM/dL (10.7-15.3); LYMPH % 15.2 % (8-40); MCH 31.8 pg (25.7-33.7); MEAN CELL VOLUME 93.5 fl (80-96); MEAN PLT VOLUME 8.3 fl (7.5-11.1); MONO % 7.4 % (3.8-10.2); PLATELET COUNT 191 K/MM3 (134-434); RBC 4.33 M/mm3 (3.60-5.2); RDW 13.2 % (11.6-15.6); WHITE BLOOD COUNT 8.6 K/mm3 (4.0-10.0)
[2018-01-04] MEDS ORDERED: MECLIZINE HCL 25 MG TABLET (FP) ONE (19:39)
[2018-01-04] MEDS ORDERED: LORazepam 2 MG/ML SDV VIAL ONE (19:40)
[2018-01-04] MEDS ORDERED: ONDANSETRON 4 MG/2 ML VIAL ONE (19:41)
[2018-01-04 20:02] LABS: ALBUMIN 3.9 g/dl (3.4-5.0); ANION GAP 11 (8-16); BILIRUBIN,TOTAL 0.3 mg/dL (0.2-1.0); BLOOD UREA NITROGEN 40 mg/dL (7-18); CALCIUM 8.7 mg/dL (8.5-10.1); CHLORIDE 112 mmol/L (98-107); CO2 23 mmol/L (21-32); CREATININE 2.2 mg/dL (0.55-1.02); GLUCOSE,RANDOM 98 mg/dL (74-106); POTASSIUM 3.8 mmol/L (3.5-5.1); SGOT/AST 14 U/L (15-37); SGPT/ALT 19 U/L (12-78); SODIUM 146 mmol/L (136-145); TOT PROT 7.2 g/dl (6.4-8.2)
[2018-01-04 20:03] LABS: ALK PHOS 120 U/L (45-117)
[2018-01-04] MEDS ORDERED: METOCLOPRAMIDE HCL INJECTION 10 MG/2 ML VIAL IVPUSH ONE (21:27)
[2018-01-04] MEDS ORDERED: METOCLOPRAMIDE HCL INJECTION 10 MG/2 ML VIAL ONE (22:00)
--- NOTE | 2018-01-05 01:05 | PDOC ---
*Physical Exam - Vital Signs Last Vital Signs Temp Pulse Resp BP Pulse Ox 98.6 F 99 H 17 134/76 97 01/04/18 20:06 01/04/18 20:06 01/04/18 20:06 01/04/18 20:06 01/04/18 20:06 ED Treatment Course - LABORATORY CBC & Chemistry Diagram: 01/04/18 19:23 01/04/18 19:23 - ADDITIONAL ORDERS Additional order review: Laboratory Results 01/04/18 01/04/18 19:23 19:23 Sodium 146 H Potassium 3.8 Chloride 112 H Carbon Dioxide 23 Anion Gap 11 BUN 40 H Creatinine 2.2 H Creat Clearance w eGFR 21.94 Random Glucose 98 Calcium 8.7 Total Bilirubin 0.3 AST 14 L ALT 19 Alkaline Phosphatase 120 H Creatine Kinase 66 Troponin I < 0.02 Total Protein 7.2 Albumin 3.9 01/04/18 19:23 RBC 4.33 MCV 93.5 MCHC 34.0 RDW 13.2 MPV 8.3 Neutrophils % 75.0 D Lymphocytes % 15.2 D Monocytes % 7.4 Eosinophils % 1.7 Basophils % 0.7 - RADIOLOGY Radiology Studies Ordered: Category Date Time Status BRAIN MRI W/O CONTRAST [MRI] Stat MRI 01/05/18 00:26 Ordered - Medications Given in the ED: ED Medications Discontinued Medications Generic Name Dose Route Start Last Admin Trade Name Freq PRN Reason Stop Dose Admin Sodium Chloride 1,000 mls @ 1,000 mls/hr 01/04/18 18:56 01/04/18 20:00 Normal Saline - IV 01/04/18 19:55 1,000 mls/hr ASDIR STA Administration Lorazepam 1 mg 01/04/18 18:56 01/04/18 20:00 Ativan Injection - IVPUSH 01/04/18 18:57 1 mg ONCE ONE Administration Meclizine HCl 25 mg 01/04/18 18:56 01/04/18 20:00 Antivert - PO 01/04/18 18:57 25 mg ONCE ONE Administration Metoclopramide HCl 10 mg 01/04/18 21:27 01/04/18 22:00 Reglan Injection - IVPUSH 01/04/18 21:28 10 mg ONCE ONE Administration Ondansetron HCl 4 mg 01/04/18 18:56 01/04/18 20:00 Zofran Injection IVPB 01/04/18 18:57 4 mg ONCE ONE Administration Medical Decision Making - Medical Decision Making 01/05/18 01:02 Care received at 1900 Pt presents with vertigo, s/p ativan, zofran, fluids, meclizine On my eval states sxs improved mildly but still present Pt given reglan and evaluated 1.5hrs later REmains vertiginous. Unable to walk WIll admit for MRI and obs Case discussed with resident Dr. Phan, pt admitted to Dr. Richard Case discussed in detail with admitting physician including history, physical exam and ancillary studies. Admitting physician has assumed care for the patient, will follow all pending diagnostics and will complete the evaluation and treatment. *DC/Admit/Observation/Transfer Diagnosis at time of Disposition: Vertigo - Discharge Dispostion Condition at time of disposition: Fair Decision to Admit order: Yes - Referrals - Patient Instructions - Post Discharge Activity - Attestations Physician Attestion: 01/05/18 01:05 I, Dr. Max Cleveland MD, attest that this document has been prepared under my direction and personally reviewed by me in its entirety. I further attest, that it accurately reflects all work, treatment, procedures and medical decision -making performed by me.
--- NOTE | 2018-01-05 01:43 | HP ---
CHIEF COMPLAINT: " Room spinning around me" PCP: Dr Pizarro Naturalist: Dr. Torres ENT: Dr. Morena Weston. HISTORY OF PRESENT ILLNESS: Patient is a 72 year old female presented to the ED with the chief complaint of " Room spinning around me". As per the patient, vertigo started last night which resolved, she was able to sleep but when she woke up this morning, she didn't feel right. Started having vertigo again, she took Meclizine but vomited three times and couldn't keep up. Vomitus contained food particles, it was non bilious, non bloody. Hence came in to the ED for further evaluation. Denies tinnitus, loc, syncope, chest pain, sob, cough, palpitation, abdominal pain, nausea or vomiting. Bowel/Bladder habit normal. Sleep/Appetite normal prior to this event. Patient was admitted at [facility] on 12/18/2017-12/20/2017 with the similar complaint of vertigo, CT head at that time didn't show any acute pathology. Was seen by Dr. Plascencia who recommended PT and f/up at his clinic. But patient didn't have chance to visit the office. She mentions that she has been planning to go to her ENT for evaluation of her vertigo. ER course was notable for: (1) Afebrile, hemodynamically stable (2) EKG: NSR (3) Meclizine, IV Zofran, IV Reglan, Ativan Recent Travel: None PAST MEDICAL HISTORY: vertigo, afib, CAD, cardiomyopathy, anxiety, cervical CA PAST SURGICAL HISTORY: CADEN in 20's and Tonsillectomy Social History: Smoking:Denies Alcohol: Denies Drugs: Denies Family History: Non contributory Allergies aspirin Allergy (Verified 01/04/18 18:50) fish derived [Fish derived] Allergy (Verified 01/04/18 18:50) all fish mercury (elemental) [Mercury (Elemental)] Allergy (Verified 01/04/18 18:50) Penicillins Allergy (Verified 01/04/18 18:50) Raspberry Flavor, Artificial Allergy (Verified 01/04/18 18:50) HOME MEDICATIONS: Home Medications Medication Instructions Recorded Atorvastatin Calcium [Lipitor] 10 mg PO DAILY 10/27/16 Bupropion HCl [Bupropion HCl Sr] 150 mg PO TID 10/27/16 Furosemide [Lasix] 40 mg PO DAILY 10/27/16 Meclizine HCl 25 mg PO TID PRN 10/27/16 Ramipril [Altace] 10 mg PO DAILY 10/27/16 Clopidogrel Bisulfate [Plavix -] 75 mg PO DAILY 11/23/16 Isosorbide Mononitrate [Imdur -] 30 mg PO DAILY 11/23/16 Warfarin Na [Coumadin -] 2 mg PO SuTh@1800 tablet 11/25/16 Atenolol [Tenormin -] 25 mg PO DAILY 12/18/17 Warfarin Na [Coumadin -] 1 mg PO MOTUWEFR 12/18/17 REVIEW OF SYSTEMS CONSTITUTIONAL: Absent: fever, chills, diaphoresis, generalized weakness, malaise, loss of appetite, weight change HEENT: Absent: rhinorrhea, nasal congestion, throat pain, throat swelling, difficulty swallowing, mouth swelling, ear pain, eye pain, visual changes CARDIOVASCULAR: Absent: chest pain, syncope, palpitations, irregular heart rate, lightheadedness , peripheral edema RESPIRATORY: Absent: cough, shortness of breath, dyspnea with exertion, orthopnea, wheezing, stridor, hemoptysis GASTROINTESTINAL: Absent: abdominal pain, abdominal distension, nausea, vomiting, diarrhea, constipation, melena, hematochezia GENITOURINARY: Absent: dysuria, frequency, urgency, hesitancy, hematuria, flank pain, genital pain MUSCULOSKELETAL: Absent: myalgia, arthralgia, joint swelling, back pain, neck pain SKIN: Absent: rash, itching, pallor HEMATOLOGIC/IMMUNOLOGIC: Absent: easy bleeding, easy bruising, lymphadenopathy, frequent infections ENDOCRINE: Absent: unexplained weight gain, unexplained weight loss, heat intolerance, cold intolerance NEUROLOGIC: Present: Vertigo Absent: headache, focal weakness or paresthesias, dizziness, unsteady gait, seizure, mental status changes, bladder or bowel incontinence PSYCHIATRIC: Absent: anxiety, depression, suicidal or homicidal ideation, hallucinations. PHYSICAL EXAMINATION Vital Signs - 24 hr 01/04/18 01/04/18 18:51 20:06 Temperature 98.4 F 98.6 F Pulse Rate 77 Pulse Rate [ 99 H Apical] Respiratory 18 17 Rate Blood Pressure 109/63 Blood Pressure 134/76 [Left Arm] O2 Sat by Pulse 100 97 Oximetry (%) GENERAL: Elderly female, lying comfortably in bed, Awake, alert, and fully oriented, in no acute distress. HEAD: Normal with no signs of trauma. EYES: EOM intact, no pallor or icterus. No nystagmus. EARS, NOSE, THROAT: Ears normal. Moist mucous membranes. NECK: Supple. LUNGS: Breath sounds equal, clear to auscultation bilaterally. No wheezes, and no crackles. No accessory muscle use. HEART: Regular rate and rhythm, normal S1 and S2 without murmur. ABDOMEN: Soft, nontender, not distended, normoactive bowel sounds, no guarding, no rebound, no masses. No hepatomegaly or splenomegaly. MUSCULOSKELETAL: Normal range of motion at all joints. No bony deformities or tenderness. No CVA tenderness. UPPER EXTREMITIES: 2+ pulses, warm, well-perfused. No cyanosis. No clubbing. No peripheral edema. LOWER EXTREMITIES: 2+ pulses, warm, well-perfused. No calf tenderness. No peripheral edema. NEUROLOGICAL: No facial droop, sensation intact, power 5/5 in all extremities. Cranial nerves II-XII intact. Normal speech. Gait not observed. PSYCHIATRIC: Cooperative. Good eye contact. Appropriate mood and affect. SKIN: Warm, dry, normal turgor, no rashes or lesions noted, normal capillary refill. Laboratory Results - last 24 hr 01/04/1818 01/04/18 19:23 19:23 19:23 WBC 8.6 RBC 4.33 Hgb 13.8 Hct 40.5 MCV 93.5 MCH 31.8 MCHC 34.0 RDW 13.2 Plt Count 191 MPV 8.3 Absolute Neuts (auto) 6.5 Neutrophils % 75.0 D Lymphocytes % 15.2 D Monocytes % 7.4 Eosinophils % 1.7 Basophils % 0.7 Nucleated RBC % 0 Sodium 146 H Potassium 3.8 Chloride 112 H Carbon Dioxide 23 Anion Gap 11 BUN 40 H Creatinine 2.2 H Creat Clearance w eGFR 21.94 Random Glucose 98 Calcium 8.7 Total Bilirubin 0.3 AST 14 L ALT 19 Alkaline Phosphatase 120 H Creatine Kinase 66 Troponin I < 0.02 Total Protein 7.2 Albumin 3.9 ASSESSMENT/PLAN: Patient is a 72 year old female with significant past medical history of vertigo, afib, CAD, cardiomyopahty, anxiety presented to the ED with the chief complaint of " Room spinning around me". # Vertigo likely BPPV c/o room spinning around her, CT head done 2 weeks ago was normal. MRI brain wasn't done at that time. Admit to Tele/Obs Will order an MRI of brain. MRA cannot be done. Continue Meclizine 25 mg TID Would recommend outpatient follow up with Neurologist. # Atrial fibrillation-rate controlled with therapeutic INR INR : 2.07 Continue home atenolol, warfarin # CAD cont home ,plavix , imdur # HTN-controlled continue Atenolol, lasix # HLD continue Lipitor # CKD creatinine 2.2, at around baseline Avoid nephrotoxic drugs F/up with Dr. Torres as outpatient # FEN Not on IV fluids Electrolytes WNL Sodium controlled diet # Prophylaxis For DVT: On Warfarin For GI: Not indicated # Code Status: Full Code # Dispo: Admitted in Tele/Obs. Possible discharge today if MRI of brain is normal. Illness, Investigation and Plan of care explained to the patient. She verbalized understanding. Case discussed with Dr. Richard. Visit type - Emergency Visit Emergency Visit: Yes ED Registration Date: 01/05/18 Care time: The patient presented to the Emergency Department on the above date and was hospitalized for further evaluation of their emergent condition. - New Patient This patient is new to me today: Yes Date on this admission: 01/05/18 - Critical Care Critical Care patient: No Hospitalist Screening - Colonoscopy Questionnaire Colonoscopy Questionnaire: Colonoscopy Questionnaire - Patient: 50 - 75 years old and never had a screening colonoscopy: Unknown History of colon or rectal polyps, or CA: Unknown History of IBD, Crohn's disease or UC: Unknown History of abdominal radiation therapy as a child: Unknown - Relative: 1 with colon or rectal CA, or polyps at age 60 or younger: Unknown Colon or rectal CA diagnosed at age 45 or younger: Unknown Multiple relatives with colon or rectal CA: Unknown - Outcome: Screening Result: Negative Screen
[2018-01-05] MEDS ORDERED: MECLIZINE HCL 25 MG TABLET (FP) PO PRN (03:00)
[2018-01-05 03:21] VITALS: BMI 35.7
--- NOTE | 2018-01-05 03:38 | PN ---
Teaching Attending Note Name of Resident: Emilie Correa ATTENDING PHYSICIAN STATEMENT I saw and evaluated the patient. I reviewed the resident's note and discussed the case with the resident. I agree with the resident's findings and plan as documented. SUBJECTIVE: Patient is a 72 year old woman with h/o vertigo, afib (on coumadin), CAD, cardiomyopahty, anxiety presenting to ER with vertigo for one day. She says that around 5PM today, she began to feel the room spinning. She states that this is the same as her prior episode of vertigo. She states the dizziness is worse with turning her head to the left. She had nausea and vomited once. Denies weakness/numbness in any extremity. Was admitted for vertigo earlier this month, seen by neurology and diagnosed with Benign Paroxysmal Positional Vertigo. She had a negative head CT but no head MRI. She took 2 tablets of meclizine prior to arrival but vomited them. OBJECTIVE: Alert and in no acute distress Vital Signs Period Temp Pulse Resp BP Sys/Franks Pulse Ox Last 24 Hr 97.7 F-98.6 F 77-102 16-18 103-134/63-76 96-100 HEENT: No Jaundice, eye redness or discharge, PERRLA, EOMI. Normocephalic, atraumatic. External ears are normal and hearing is grossly intact. No nasal discharge. Neck: Supple, nontender. No palpable adenopathy or thyromegaly. No JVD Chest: Good effort. Clear to auscultation and percussion. Heart: Regular. No S3, rub or murmur Abdomen: Not distended, soft, nontender and no HSM. No rebound or guarding. Normoactive bowel sounds. Ext: Peripheral pulses intact. No leg edema. Skin: Warm and dry. No petechiae, rash or ecchymosis. Neuro: Alert. Oriented x3. CN 2-12 grossly intact. Sensation grossly intact in all four extremities and DTR are symmetric. Current Medications Generic Name Dose Route Start Last Admin Trade Name Freq PRN Reason Stop Dose Admin Atenolol 25 mg 01/05/18 10:00 Tenormin - PO DAILY [facility] Atorvastatin Calcium 10 mg 01/05/18 10:00 Lipitor - PO DAILY [facility] Clopidogrel Bisulfate 75 mg 01/05/18 10:00 Plavix - PO DAILY [facility] Isosorbide Mononitrate 30 mg 01/05/18 10:00 Imdur - PO DAILY [facility] Non-Formulary Medication 150 mg 01/05/18 06:00 Bupropion Hcl [Bupropion Hcl Sr] PO TID ANA Non-Formulary Medication 40 mg 01/05/18 10:00 Furosemide [Lasix] PO DAILY ANA Non-Formulary Medication 25 mg 01/05/18 03:00 Meclizine Hcl [Meclizine Hcl] PO TID PRN VERTIGO Non-Formulary Medication 10 mg 01/05/18 10:00 Ramipril [Altace] PO DAILY [facility] Warfarin Sodium 2 mg 01/05/18 18:00 Coumadin - PO SuTh@1800 [facility] Warfarin Sodium 1 mg 01/06/18 03:00 Coumadin - PO MOTUWEFR [facility] Home Medications Medication Instructions Recorded Atorvastatin Calcium [Lipitor] 10 mg PO DAILY 10/27/16 Bupropion HCl [Bupropion HCl Sr] 150 mg PO TID 10/27/16 Furosemide [Lasix] 40 mg PO DAILY 10/27/16 Meclizine HCl 25 mg PO TID PRN 10/27/16 Ramipril [Altace] 10 mg PO DAILY 10/27/16 Clopidogrel Bisulfate [Plavix -] 75 mg PO DAILY 11/23/16 Isosorbide Mononitrate [Imdur -] 30 mg PO DAILY 11/23/16 Warfarin Na [Coumadin -] 2 mg PO SuTh@1800 tablet 11/25/16 Atenolol [Tenormin -] 25 mg PO DAILY 12/18/17 Warfarin Na [Coumadin -] 1 mg PO MOTUWEFR 12/18/17 Abnormal Lab Results 01/04/18 19:23 Sodium 146 H Chloride 112 H BUN 40 H Creatinine 2.2 H AST 14 L Alkaline Phosphatase 120 H ASSESSMENT AND PLAN: 1. Vertigo - Will continue meclizine and get an MRI of her brain. Olga is feeling better after meclizine in the ER. 2. CKD stage 3 - Etiology unclear. Will ensure that she is referred to a boring machine feeder and gets basic nephrologic workup. Avoid NSAIDS and other nephrotoxic agents. 3. Afib - Rate controlled. On coumadin. Will check INR. 4. DVT prophylaxis - On coumadin 5. Advance directives - Full code
[2018-01-05 04:09] LABS: INR 2.07 (0.82-1.09); PROTHROMBIN TIME (PATIENT) 23.4 SEC (9.7-13.0)
[2018-01-05] MEDS ORDERED: PATIENT'S OWN MEDICATION (NON-FORMULARY) (Bupropion Hcl [Bupropion Hcl Sr] 150 MG) PO SCH (06:00)
[2018-01-05 07:32] LABS: HEMATOCRIT 37.5 % (32.4-45.2); HEMOGLOBIN 12.9 GM/dL (10.7-15.3); MCH 32.4 pg (25.7-33.7); MCHC 34.5 g/dl (32.0-36.0); MEAN CELL VOLUME 94.1 fl (80-96); MEAN PLT VOLUME 8.1 fl (7.5-11.1); PLATELET COUNT 164 K/MM3 (134-434); RBC 3.98 M/mm3 (3.60-5.2); WHITE BLOOD COUNT 5.8 K/mm3 (4.0-10.0)
[2018-01-05 08:15] LABS: ANION GAP 8 (8-16); BLOOD UREA NITROGEN 34 mg/dL (7-18); CALCIUM 8.4 mg/dL (8.5-10.1); CHLORIDE 112 mmol/L (98-107); CO2 25 mmol/L (21-32); CREATININE 1.7 mg/dL (0.55-1.02); GLUCOSE,RANDOM 80 mg/dL (74-106); MAGNESIUM 2.1 mg/dL (1.8-2.4); PHOSPHOROUS 3.4 mg/dL (2.5-4.9); POTASSIUM 3.8 mmol/L (3.5-5.1); SODIUM 145 mmol/L (136-145)
[2018-01-05] MEDS ORDERED: PT OWN MED DRAWER 7, Y5N ONE (09:10)
[2018-01-05] MEDS ORDERED: ISOSORBIDE MONONITRATE 30 MG TAB.SR.24H (FP) PO SCH (10:00)
[2018-01-05] MEDS ORDERED: ATENOLOL 25 MG TABLET (FP) PO SCH ×2 (10:00→11:30)
[2018-01-05] MEDS ORDERED: FUROSEMIDE 40 MG TABLET (FP) PO SCH (10:00)
[2018-01-05] MEDS ORDERED: RAMIPRIL 5 MG CAPSULE (FP) PO SCH (10:00)
[2018-01-05] MEDS ORDERED: CLOPIDOGREL BISULFATE 75 MG TABLET (FP) PO SCH (10:00)
--- NOTE | 2018-01-05 10:52 | PN ---
Physical Exam: SUBJECTIVE: Patient seen and examined, denies any further vertigo or dizziness symptoms. Ambulated to the bathroom with no concerns. OBJECTIVE: Vital Signs Period Temp Pulse Resp BP Sys/Franks Pulse Ox Last 24 Hr 97.7 F-98.6 F 77-102 16-20 103-134/56-76 96-100 GENERAL: lying in bed in no acute distress Chest: NO rales or wheezing Abdomen:Soft, obese, NT Extremities: no edema Neuro AAOX3, power 5/5 except weak left hand advertising representative (due to carpal tunnel syndrome ), EOMI, no nystagmus, pupils bilaterally reactive to light, sensation positive to light touch, cranial nerves II-XII intact Laboratory Results - last 24 hr 01/04/18 01/04/18 01/04/18 19:23 19:23 19:23 WBC 8.6 RBC 4.33 Hgb 13.8 Hct 40.5 MCV 93.5 MCH 31.8 MCHC 34.0 RDW 13.2 Plt Count 191 MPV 8.3 Absolute Neuts (auto) 6.5 Neutrophils % 75.0 D Lymphocytes % 15.2 D Monocytes % 7.4 Eosinophils % 1.7 Basophils % 0.7 Nucleated RBC % 0 PT with INR INR Sodium 146 H Potassium 3.8 Chloride 112 H Carbon Dioxide 23 Anion Gap 11 BUN 40 H Creatinine 2.2 H Creat Clearance w eGFR 21.94 Random Glucose 98 Calcium 8.7 Phosphorus Magnesium Total Bilirubin 0.3 AST 14 L ALT 19 Alkaline Phosphatase 120 H Creatine Kinase 66 Troponin I < 0.02 Total Protein 7.2 Albumin 3.9 01/05/18 01/05/18 01/05/18 03:35 06:00 06:00 WBC 5.8 RBC 3.98 Hgb 12.9 Hct 37.5 MCV 94.1 MCH 32.4 MCHC 34.5 RDW 13.0 Plt Count 164 MPV 8.1 Absolute Neuts (auto) Neutrophils % Lymphocytes % Monocytes % Eosinophils % Basophils % Nucleated RBC % PT with INR 23.40 H INR 2.07 H D Sodium 145 Potassium 3.8 Chloride 112 H Carbon Dioxide 25 Anion Gap 8 BUN 34 H Creatinine 1.7 H Creat Clearance w eGFR 29.54 Random Glucose 80 Calcium 8.4 L Phosphorus 3.4 Magnesium 2.1 Total Bilirubin AST ALT Alkaline Phosphatase Creatine Kinase Troponin I Total Protein Albumin Active Medications Generic Name Dose Route Start Last Admin Trade Name Freq PRN Reason Stop Dose Admin Atenolol 25 mg 01/05/18 10:00 Tenormin - PO DAILY [facility] Atorvastatin Calcium 10 mg 01/05/18 22:00 Lipitor - PO HS ANA Clopidogrel Bisulfate 75 mg 01/05/18 10:00 01/05/18 09:54 Plavix - PO 75 mg DAILY ANA Administration Furosemide 40 mg 01/05/18 10:00 01/05/18 09:55 Lasix - PO 40 mg DAILY ANA Administration Isosorbide Mononitrate 30 mg 01/05/18 10:00 01/05/18 09:55 Imdur - PO 30 mg DAILY ANA Administration Meclizine HCl 25 mg 01/05/18 03:00 Antivert - PO TID PRN VERTIGO Ramipril 10 mg 01/05/18 10:00 Altace - PO DAILY [facility] Warfarin Sodium 2 mg 01/05/18 18:00 Coumadin - PO SuTh@1800 [facility] Warfarin Sodium 1 mg 01/06/18 03:00 Coumadin - PO MOTUWEFR [facility] ASSESSMENT/PLAN: 72 yof with PMHx of BPPV, afib on coumadin, cardiomyopathy, CAD, cervical CA admitted with vertigo -Vertigo, Likely BPPV -Afib on coumadin -HTN -Cardiomyopathy -CKD stage III Plan: Improved, meclizine standing. PT eval for vestibular PT. MRI brain at 1130 today as discussed. Neurology eval. Continue home meds D/c later today if w/u non concerning and continues to improve. Plan discussed with patient and nursing in detail, all questions answered. Visit type - Emergency Visit Emergency Visit: No - New Patient This patient is new to me today: Yes Date on this admission: 01/05/18 - Critical Care Critical Care patient: No - Discharge Referral Referred to [facility] Med P.C.: No
--- NOTE | 2018-01-05 13:53 | CONSULT ---
Consult - text type - Consultation Consultation Note: Neurology HISTORY OF PRESENT ILLNESS: Covering for Dr. Plascencia Patient is a 72 year old female presented to the ED with the chief complaint of " Room spinning around me". As per the patient, vertigo started night before admission, resolved, she was able to sleep but when she woke up she started having vertigo again, she took Meclizine but vomited three times and couldn't stay up. Vomitus contained food particles, it was non bilious, non bloody. Hence came in to the ED for further evaluation. Patient was admitted at [facility] on -12/20/2017 with the similar complaint of vertigo, CT head completed and without acute changes. MRI brain also reviewed and without acute infarct. Discussed with PCP. Denies tinnitus, loc, syncope, chest pain, sob, cough, palpitation, abdominal pain, nausea or vomiting. Bowel/Bladder habit normal. Sleep/Appetite normal prior to this event. Recent Travel: None PAST MEDICAL HISTORY: vertigo, afib, CAD, cardiomyopathy, anxiety, cervical CA PAST SURGICAL HISTORY: CADEN in 20s and Tonsillectomy Social History: Smoking:Denies Alcohol: Denies Drugs: Denies Family History: Non contributory Allergies aspirin Allergy (Verified 01/04/18 18:50) fish derived [Fish derived] Allergy (Verified 01/04/18 18:50) all fish mercury (elemental) [Mercury (Elemental)] Allergy (Verified 01/04/18 18:50) Penicillins Allergy (Verified 01/04/18 18:50) Raspberry Flavor, Artificial Allergy (Verified 01/04/18 18:50) HOME MEDICATIONS: Home Medications Medication Instructions Recorded Atorvastatin Calcium [Lipitor] 10 mg PO DAILY 10/27/16 Bupropion HCl [Bupropion HCl Sr] 150 mg PO TID 10/27/16 Furosemide [Lasix] 40 mg PO DAILY 10/27/16 Meclizine HCl 25 mg PO TID PRN 10/27/16 Ramipril [Altace] 10 mg PO DAILY 10/27/16 Clopidogrel Bisulfate [Plavix -] 75 mg PO DAILY 11/23/16 Isosorbide Mononitrate [Imdur -] 30 mg PO DAILY 11/23/16 Warfarin Na [Coumadin -] 2 mg PO SuTh@1800 tablet 11/25/16 Atenolol [Tenormin -] 25 mg PO DAILY 12/18/17 Warfarin Na [Coumadin -] 1 mg PO MOTUWEFR 12/18/17 REVIEW OF SYSTEMS CONSTITUTIONAL: Absent: fever, chills, diaphoresis, generalized weakness, malaise, loss of appetite, weight change HEENT: Absent: rhinorrhea, nasal congestion, throat pain, throat swelling, difficulty swallowing, mouth swelling, ear pain, eye pain, visual changes CARDIOVASCULAR: Absent: chest pain, syncope, palpitations, irregular heart rate, lightheadedness , peripheral edema RESPIRATORY: Absent: cough, shortness of breath, dyspnea with exertion, orthopnea, wheezing, stridor, hemoptysis GASTROINTESTINAL: Absent: abdominal pain, abdominal distension, nausea, vomiting, diarrhea, constipation, melena, hematochezia GENITOURINARY: Absent: dysuria, frequency, urgency, hesitancy, hematuria, flank pain, genital pain MUSCULOSKELETAL: Absent: myalgia, arthralgia, joint swelling, back pain, neck pain SKIN: Absent: rash, itching, pallor HEMATOLOGIC/IMMUNOLOGIC: Absent: easy bleeding, easy bruising, lymphadenopathy, frequent infections ENDOCRINE: Absent: unexplained weight gain, unexplained weight loss, heat intolerance, cold intolerance NEUROLOGIC: Present: Vertigo Absent: headache, focal weakness or paresthesias, dizziness, unsteady gait, seizure, mental status changes, bladder or bowel incontinence PSYCHIATRIC: Absent: anxiety, depression, suicidal or homicidal ideation, hallucinations. PHYSICAL EXAMINATION Vital Signs Temperature 98.1 F 01/05/18 10:00 Pulse Rate 99 H 01/05/18 11:13 Respiratory Rate 20 01/05/18 10:00 Blood Pressure 113/65 01/05/18 11:13 O2 Sat by Pulse Oximetry (%) 96 01/05/18 09:43 GENERAL: Elderly female, lying comfortably in bed, Awake, alert, and fully oriented, in no acute distress. HEAD: Normal with no signs of trauma. EYES: EOM intact, no pallor or icterus. No nystagmus. EARS, NOSE, THROAT: Ears normal. Moist mucous membranes. NECK: Supple. LUNGS: Breath sounds equal, clear to auscultation bilaterally. No wheezes, and no crackles. No accessory muscle use. HEART: Regular rate and rhythm, normal S1 and S2 without murmur. ABDOMEN: Soft, nontender, not distended, normoactive bowel sounds, no guarding, no rebound, no masses. No hepatomegaly or splenomegaly. MUSCULOSKELETAL: Normal range of motion at all joints. No bony deformities or tenderness. No CVA tenderness. UPPER EXTREMITIES: 2+ pulses, warm, well-perfused. No cyanosis. No clubbing. No peripheral edema. LOWER EXTREMITIES: 2+ pulses, warm, well-perfused. No calf tenderness. No peripheral edema. NEUROLOGICAL: No facial droop, sensation intact, power 5/5 in all extremities. Cranial nerves II-XII intact. Normal speech. No dysmetria, finger to nose intact , Gait not observed. PSYCHIATRIC: Cooperative. Good eye contact. Appropriate mood and affect. SKIN: Warm, dry, normal turgor, no rashes or lesions noted, normal capillary refill. Laboratory Results - last 24 hr 01/04/18 01/04/18 01/04/18 19:23 19:23 19:23 WBC 8.6 RBC 4.33 Hgb 13.8 Hct 40.5 MCV 93.5 MCH 31.8 MCHC 34.0 RDW 13.2 Plt Count 191 MPV 8.3 Absolute Neuts (auto) 6.5 Neutrophils % 75.0 D Lymphocytes % 15.2 D Monocytes % 7.4 Eosinophils % 1.7 Basophils % 0.7 Nucleated RBC % 0 Sodium 146 H Potassium 3.8 Chloride 112 H Carbon Dioxide 23 Anion Gap 11 BUN 40 H Creatinine 2.2 H Creat Clearance w eGFR 21.94 Random Glucose 98 Calcium 8.7 Total Bilirubin 0.3 AST 14 L ALT 19 Alkaline Phosphatase 120 H Creatine Kinase 66 Troponin I < 0.02 Total Protein 7.[address] reviewed MRI reviewed ASSESSMENT/PLAN: Patient is a 72 year old female presented to the ED with the chief complaint of " Room spinning around me". As per the patient, vertigo started night before admission, resolved, she was able to sleep but when she woke up she started having vertigo again, she took Meclizine but vomited three times and couldn't stay up. Vomitus contained food particles, it was non bilious, non bloody. Hence came in to the ED for further evaluation. Patient was admitted at [facility] on -12/20/2017 with the similar complaint of vertigo, CT head completed and without acute changes. MRI brain also reviewed and without acute infarct. Discussed with PCP. Neurologically stable Continue Meclizine 25 mg TID Maintain hydration Monitor Afib, INR checks Monitor BP, maintain normotensive range Continue Lipitor Fall precautions Avoid sudden head movements Vestibular therapy discussed
--- NOTE | 2018-01-05 14:11 | DS ---
Physical Exam: SUBJECTIVE: Patient seen and examined OBJECTIVE: Vital Signs Period Temp Pulse Resp BP Sys/Franks Pulse Ox Last 24 Hr 97.7 F-98.6 F 77-102 16-20 103-134/56-76 96-100 PHYSICAL EXAM GENERAL: The patient is awake, alert, and fully oriented, in no acute distress. HEAD: Normal with no signs of trauma. EYES: PERRL, extraocular movements intact, sclera anicteric, conjunctiva clear. ENT: Ears normal, nares patent, oropharynx clear without exudates, moist mucous membranes. NECK: Trachea midline, full range of motion, supple. LUNGS: Breath sounds equal, clear to auscultation bilaterally, no wheezes, no crackles, no accessory muscle use. HEART: Regular rate and rhythm, S1, S2 without murmur, rub or gallop. ABDOMEN: Soft, nontender, nondistended, normoactive bowel sounds, no guarding, no rebound, no hepatosplenomegaly, no masses. EXTREMITIES: 2+ pulses, warm, well-perfused, no edema. NEUROLOGICAL: Cranial nerves II through XII grossly intact. Normal speech, gait not observed. PSYCH: Normal mood, normal affect. SKIN: Warm, dry, normal turgor, no rashes or lesions noted. LABS Laboratory Results - last 24 hr 01/04/18 01/04/18 01/04/18 19:23 19:23 19:23 WBC 8.6 RBC 4.33 Hgb 13.8 Hct 40.5 MCV 93.5 MCH 31.8 MCHC 34.0 RDW 13.2 Plt Count 191 MPV 8.3 Absolute Neuts (auto) 6.5 Neutrophils % 75.0 D Lymphocytes % 15.2 D Monocytes % 7.4 Eosinophils % 1.7 Basophils % 0.7 Nucleated RBC % 0 PT with INR INR Sodium 146 H Potassium 3.8 Chloride 112 H Carbon Dioxide 23 Anion Gap 11 BUN 40 H Creatinine 2.2 H Creat Clearance w eGFR 21.94 Random Glucose 98 Calcium 8.7 Phosphorus Magnesium Total Bilirubin 0.3 AST 14 L ALT 19 Alkaline Phosphatase 120 H Creatine Kinase 66 Troponin I < 0.02 Total Protein 7.2 Albumin 3.9 01/05/18 01/05/18 01/05/18 03:35 06:00 06:00 WBC 5.8 RBC 3.98 Hgb 12.9 Hct 37.5 MCV 94.1 MCH 32.4 MCHC 34.5 RDW 13.0 Plt Count 164 MPV 8.1 Absolute Neuts (auto) Neutrophils % Lymphocytes % Monocytes % Eosinophils % Basophils % Nucleated RBC % PT with INR 23.40 H INR 2.07 H D Sodium 145 Potassium 3.8 Chloride 112 H Carbon Dioxide 25 Anion Gap 8 BUN 34 H Creatinine 1.7 H Creat Clearance w eGFR 29.54 Random Glucose 80 Calcium 8.4 L Phosphorus 3.4 Magnesium 2.1 Total Bilirubin AST ALT Alkaline Phosphatase Creatine Kinase Troponin I Total Protein Albumin HOSPITAL COURSE: Date of Admission:01/05/18 Date of Discharge: 01/05/18 Minutes to complete discharge: 35 Discharge Summary Reason For Visit: VERTIGO Current Active Problems Vertigo (Acute) Hospital Course: He symptoms resolved on meclizine. She had MRI brain showing chronic macrovascular changes but no acute process. She was evaluated by physical therapy and recommended outpatient therapy. She was seen by neurology and deemed stable for discharge. Condition: Good - Instructions Diet, Activity, Other Instructions: You had MRI brain that was negative for concerning findings. YOu were evaluated by physical therapy and advised outpatient physical therapy, home services will be arranged or you can have your doctor arrange for outpatient physical therapy. Do not drink, operate heavy machinery till your next doctor visit. Avoid sudden postural changes. take all your medications as before. Follow up with your regular doctor in 1 week. Disposition: VNS/HOME HEALTH CARE - Home Medications Comprehensive Discharge Medication List: Ambulatory Orders Atorvastatin Calcium [Lipitor] 10 mg PO DAILY 10/27/16 Furosemide [Lasix] 40 mg PO DAILY 10/27/16 Meclizine HCl 25 mg PO TID PRN 10/27/16 Ramipril [Altace] 10 mg PO DAILY 10/27/16 Clopidogrel Bisulfate [Plavix -] 75 mg PO DAILY 11/23/16 Isosorbide Mononitrate [Imdur -] 30 mg PO DAILY 11/23/16 Warfarin Na [Coumadin -] 2 mg PO SuTh@1800 tablet 11/25/16 Atenolol [Tenormin -] 25 mg PO DAILY 12/18/17 Warfarin Na [Coumadin -] 1 mg PO MOTUWEFR 12/18/17 This patient is new to me today: Yes Date on this admission: 01/05/18 Emergency Visit: No Critical Care patient: No - Discharge Referral Referred to [facility] Med P.C.: No
[2018-01-05 14:24] VITALS: BP 113/80; PULSE 120; TEMP 97.9
[2018-01-05] MEDS ORDERED: WARFARIN NA 2 MG TABLET (UD) PO SCH (18:00)
[2018-01-05] MEDS ORDERED: ATORVASTATIN CA 10 MG TABLET (FP) PO SCH (22:00)
[2018-01-06] MEDS ORDERED: WARFARIN NA 1 MG TABLET (FP) PO SCH (03:00)
--- NOTE | 2018-01-06 18:35 | EKG ---
Test Reason : Blood Pressure : / mmHG Vent. Rate : 089 BPM Atrial Rate : 075 BPM P-R Int : 000 ms QRS Dur : 086 ms QT Int : 368 ms P-R-T Axes : 000 037 -73 degrees QTc Int : 447 ms ATRIAL FIBRILLATION ABNORMAL ECG WHEN COMPARED WITH ECG OF 19-DEC-2017 06:21, NO SIGNIFICANT CHANGE WAS FOUND Confirmed by CHAI LLAMAS MD ([id number]) on 01/06/2018 6:35:05 PM Referred By: Confirmed By:CHAI LLAMAS MD
== END 2018-01-05 17:09 | disposition home health service (06) ==
LOC: JER 18:19 → JERBED 01-05 01:05 → J7W 01-05 03:01
PROVIDERS: ADMIT Internal Medicine; ATTEND Hospitalist
PROC: 3E033GC Introduction of Other Therapeutic Substance into Peripheral Vein, Percutaneous Approach (ICD-10-PCS; principal; 2018-01-05)
PROC: 3E0337Z Introduction of Electrolytic and Water Balance Substance into Peripheral Vein, Percutaneous Approach (ICD-10-PCS; 2018-01-05)
DX: R42 Dizziness and giddiness (principal); I12.9 Hypertensive chronic kidney disease with stage 1 through stage 4 chronic kidney disease, or unspecified chronic kidney disease; N18.3 Chronic kidney disease, stage 3 (moderate); I48.91 Unspecified atrial fibrillation; I25.10 Atherosclerotic heart disease of native coronary artery without angina pectoris; I42.9 Cardiomyopathy, unspecified; F41.9 Anxiety disorder, unspecified; E78.5 Hyperlipidemia, unspecified; Z79.01 Long term (current) use of anticoagulants; Z88.6 Allergy status to analgesic agent; Z91.013 Allergy to seafood; Z88.0 Allergy status to penicillin; Z87.891 Personal history of nicotine dependence
CPT/HCPCS: 36415; 70551-TC; 80048; 80053; 82550; 83735; 84100; 84484; 85025; 85027; 85610; 93005; 93010; 96361; 96374; 96375; 97116-GP; 97161-GP; 99283-25; G0378; J7030

== ENCOUNTER 2018-01-18 20:22 | Observation (INO) | payer OTHER ==
[2018-01-18 20:30] VITALS: BMI 35.2
--- NOTE | 2018-01-18 20:34 | PDOC ---
Attending Attestation - ED Attending Attestation I have performed the following: I have examined & evaluated the patient, The case was reviewed & discussed with the resident, I agree w/resident's findings & plan - HPI HPI: 01/18/18 21:39 The patient is a 72 year old female from [place], with a significant past medical history of vertigo, afib, CAD, cardiomyopathy, and anxiety, who presents to the emergency department for evaluation of dizziness. The patient reports 2 episodes of dizziness today at 10am and around 5pm. She describes the dizziness as similar to her previous episodes of vertigo. Pt reports falling on the carpet floor of her living room, landing on her wrist twice today, denying head trauma, loss of consciousness, and wrist pain. She reports associated symptoms of palpitations and throat pain. Pt states her throat pain maybe from her being near her air conditioner all day. The patient was admitted for vertigo on 01/04/18. She states she was evaluated by neurology and diagnosed with BPPV. Of note, the patient reports taking 2 doses of meclizine prior to arrival and is currently on Warfarin. The patient denies chest pain, ear pain, shortness of breath, generalized weakness, fever, chills, nausea, and vomiting. Denies weakness/numbness in any extremity and urinary/bowel symptoms. Allergies: Aspirin, fish derived, mercury, penicillins, raspberry flavor Social History: No reported alcohol, cigarette, or drug use. Surgical History: Pt denies. PCP: Dr. Pizarro Plastic Production Machine Setter: Dr. Phillips - Physicial Exam PE: GENERAL: Afebrile. Awake, alert, and fully oriented, in no acute distress HEAD: No signs of trauma EYES: (+)Minimal horizontal nystagmus, no vertical nystagmus. EOMI, sclera anicteric, conjunctiva clear ENT: Auricles normal inspection, hearing grossly normal, nares patent, oropharynx clear without exudates. Moist mucosa NECK: Normal ROM, supple. LUNGS: Breath sounds equal, clear to auscultation bilaterally. No wheezes, and no crackles HEART: (+)Irregularly irregular, normal rate. No murmurs, rubs or gallops. No orthostatic hypotension. ABDOMEN: Soft, nontender, normoactive bowel sounds. No belly pain. No guarding, no rebound. No masses EXTREMITIES: Normal range of motion, no pitting edema. No clubbing or cyanosis. No cords, erythema, or tenderness NEUROLOGICAL: Cranial nerves II through XII grossly intact. Normal speech. SKIN: Warm, Dry, normal turgor, no rashes or lesions noted. <Elgin Dominguez - Last Filed: 01/18/18 21:56> - Resident Resident Name: Andres Sosa - Medical Decision Making 01/20/18 04:12 Pt will be admitted to the hospitalist team for serial cardiac enzymes <Jenn Bowers - Last Filed: 01/20/18 04:13> Attestations - Attestations Documentation prepared by Elgin Dominguez, acting as pediatric medical assistant for Jenn Bowers MD. <Elgin Dominguez - Last Filed: 01/18/18 21:56>
[2018-01-18] MEDS ORDERED: MECLIZINE HCL 25 MG TABLET (FP) PO ONE (21:10)
[2018-01-18] MEDS ORDERED: MECLIZINE HCL 25 MG TABLET (FP) ONE (21:21)
[2018-01-18 22:32] LABS: BASO % 0.7 % (0-2.0); EOS % 1.7 % (0-4.5); HEMATOCRIT 40.7 % (32.4-45.2); HEMOGLOBIN 13.9 GM/dL (10.7-15.3); LYMPH % 20.7 % (8-40); MCH 32.1 pg (25.7-33.7); MCHC 34.1 g/dl (32.0-36.0); MEAN CELL VOLUME 94.1 fl (80-96); MONO % 10.3 % (3.8-10.2); NEUT % 66.6 % (42.8-82.8); PLATELET COUNT 180 K/MM3 (134-434); RBC 4.33 M/mm3 (3.60-5.2); RDW 13.2 % (11.6-15.6); WHITE BLOOD COUNT 7.1 K/mm3 (4.0-10.0)
[2018-01-18 23:08] LABS: INR 1.8 (0.82-1.09); PROTHROMBIN TIME (PATIENT) 20.3 SEC (9.7-13.0)
[2018-01-18 23:18] LABS: ALBUMIN 3.9 g/dl (3.4-5.0); ANION GAP 8 (8-16); BILIRUBIN,TOTAL 0.4 mg/dL (0.2-1.0); BLOOD UREA NITROGEN 40 mg/dL (7-18); CALCIUM 8.5 mg/dL (8.5-10.1); CHLORIDE 108 mmol/L (98-107); CO2 25 mmol/L (21-32); CREATININE 2.2 mg/dL (0.55-1.02); GLUCOSE,RANDOM 115 mg/dL (74-106); SGOT/AST 18 U/L (15-37); SGPT/ALT 20 U/L (12-78); SODIUM 141 mmol/L (136-145); TOT PROT 7.3 g/dl (6.4-8.2)
[2018-01-18 23:21] LABS: ALK PHOS 115 U/L (45-117)
--- NOTE | 2018-01-19 00:36 | PN ---
Teaching Attending Note Name of Resident: Chanel Gibbs ATTENDING PHYSICIAN STATEMENT I saw and evaluated the patient. I reviewed the resident's note and discussed the case with the resident. I agree with the resident's findings and plan as documented. SUBJECTIVE: Patient is a 72 year old woman from [place], with a history of vertigo, Afib ( on coumadin), CAD, cardiomyopathy, and anxiety, who presents to the ER with dizziness for one day. She reports 2 episodes of dizziness today at 10am and around 5pm. She describes the dizziness as similar to her previous episodes of vertigo. She reports falling on the carpet floor of her living room, landing on her wrist twice today, denies head trauma, loss of consciousness, or wrist pain. She reports associated symptoms of palpitations and throat pain. The patient was admitted for vertigo on 01/04/[address] scan and MRI were both negative. She states she was evaluated by neurology and diagnosed with BPPV. Of note, the patient reports taking 2 doses of Meclizine prior to arrival. Apperas anxious. Says she chews her left finger nails and has to wear gloves to prevent that. Also says she is scheduled for left wrist carpal tunnel surgery. OBJECTIVE: Alert and in no acute distress. Vital Signs Period Temp Pulse Resp BP Sys/Franks Pulse Ox Last 24 Hr 98.0 F-98.2 F 100 16-17 124/60 98-100 HEENT: No Jaundice, eye redness or discharge, PERRLA, EOMI. Normocephalic, atraumatic. External ears are normal and hearing is grossly intact. No nasal discharge. Neck: Supple, nontender. No palpable adenopathy or thyromegaly. No JVD Chest: Good effort. Clear to auscultation and percussion. Heart: Irregularly irregular. No S3, rub or murmur Abdomen: Not distended, soft, nontender and no HSM. No rebound or guarding. Normoactive bowel sounds. Ext: Peripheral pulses intact. No leg edema. Skin: Warm and dry. No petechiae, rash or ecchymosis. Neuro: Alert. Oriented x3. CN 2-12 grossly intact. Sensation grossly intact in all four extremities and DTR are symmetric. Unsteady gait. Home Medications Medication Instructions Recorded Atorvastatin Calcium [Lipitor] 10 mg PO DAILY 10/27/16 Furosemide [Lasix] 40 mg PO DAILY 10/27/16 Meclizine HCl 25 mg PO TID PRN 10/27/16 Ramipril [Altace] 10 mg PO DAILY 10/27/16 Clopidogrel Bisulfate [Plavix -] 75 mg PO DAILY 11/23/16 Isosorbide Mononitrate [Imdur -] 30 mg PO DAILY 11/23/16 Warfarin Na [Coumadin -] 2 mg PO SuTh@1800 tablet 11/25/16 Atenolol [Tenormin -] 25 mg PO DAILY 12/18/17 Warfarin Na [Coumadin -] 1 mg PO MOTUWEFR 12/18/17 Abnormal Lab Results 01/18/18 01/18/18 01/18/18 22:20 22:20 22:20 Monocytes % 10.3 H PT with INR 20.30 H INR 1.80 H Chloride 108 H BUN 40 H Creatinine 2.2 H Random Glucose 115 H ASSESSMENT AND PLAN: 1. Vertigo - Patient was referred for Vestibular PT but she has not really gotten much of it. Admit as Obs in Telemetry. Will continue meclizine, encourage her to stay well hydrated, avoid sudden head turns and practice Ashley maneuvers as preventive measures. She denies any wrist pain following her fall and no xrays were done. If she begins to have pain, then we will get an Xray. CT and MRI of brain 2 weeks ago were negative. 2. CKD stage 3 - Etiology unclear. Will ensure that she follows up with a charger tester and gets basic nephrologic workup. Avoid nephrotoxic agents such as NSAIDS, aminoglycosides, contrast dyes and certain Alternative medicine products.. 3. Afib - Rate controlled. On coumadin. Will monitor INR daily. 4. DVT prophylaxis - On coumadin 5. Advance directives - Full code
[2018-01-19] MEDS ORDERED: ACETAMINOPHEN 500 MG TABLET (FP) PO ONE (00:58)
--- NOTE | 2018-01-19 00:58 | PDOC ---
History of Present Illness - General Chief Complaint: Lightheaded Stated Complaint: dizziness Time Seen by Provider: 01/18/18 20:34 History Source: Patient Exam Limitations: No Limitations - History of Present Illness Initial Comments: 01/19/18 01:02 Ms. Landon is a 72 yo F with a past medical history of vertigo and atrial fibrillation who presents with dizziness since the morning of 01/18/2018. She states that it is similar to her previous vertigo experiences and fell 2x while landing on wrists on carpet in her home. She denies pain in her wrists, loss of consciousness, and head trauma. During the episode, she states she had palpitations. She denies the following: fever, upper respiratory infection symptoms, chest pain, SOB, abdominal pain. She endorses having throat pain, which she attributes to air conditioner. The patient was admitted for vertigo on 01/04/2018. She took 2 doses of meclizine 25 mg for the episodes today and is on Coumadin. Pmhx: Afib and vertigo 01/19/18 01:05 01/19/18 20:13 01/19/18 20:20 Past History - Past Medical History Allergies/Adverse Reactions: Allergies Allergy/AdvReac Type Severity Reaction Status Date / Time aspirin Allergy Verified 01/18/18 20:30 fish derived [Fish derived] Allergy Verified 01/18/18 20:30 mercury (elemental) Allergy Verified 01/18/18 20:30 [Mercury (Elemental)] Penicillins Allergy Verified 01/18/18 20:30 Raspberry Flavor, Artificial Allergy Verified 01/18/18 20:30 Home Medications: Ambulatory Orders Atorvastatin Calcium [Lipitor] 10 mg PO DAILY 10/27/16 Furosemide [Lasix] 40 mg PO DAILY 10/27/16 Meclizine HCl 25 mg PO TID PRN 10/27/16 Ramipril [Altace] 10 mg PO DAILY 10/27/16 Isosorbide Mononitrate [Imdur -] 30 mg PO DAILY 11/23/16 Warfarin Na [Coumadin -] 2 mg PO SuTh@1800 tablet 11/25/16 Atenolol [Tenormin -] 25 mg PO DAILY 12/18/17 Warfarin Na [Coumadin -] 1 mg PO MOTUWEFR 12/18/17 Bupropion HCl [Bupropion Xl] 150 mg PO TID 01/19/18 Diltiazem Cd [Cardizem Cd -] 120 mg PO DAILY 01/19/18 Anemia: No Asthma: No Cancer: Yes (a.fib) Cardiac Disorders: Yes (Cardio Myopathy,CAD, afib) CVA: No COPD: No CHF: No Dementia: No Diabetes: No GI Disorders: No Disorders: No HTN: Yes Hypercholesterolemia: Yes Liver Disease: No Psychiatric Problems: Yes (depression) Seizures: No Thyroid Disease: No - Surgical History Abdominal Surgery: Yes Appendectomy: No Cardiac Surgery: No Cholecystectomy: No Lung Surgery: No Neurologic Surgery: No Orthopedic Surgery: Yes (Bilateral Trigger finger release) - Immunization History Immunization Up to Date: No - Suicide/Smoking/Psychosocial Hx Smoking Status: No Smoking History: Never smoked Have you smoked in the past 12 months: No Number of Cigarettes Smoked Daily: 0 If you are a former smoker, when did you quit?: 10 years ago Information on smoking cessation initiated: No Hx Alcohol Use: No Drug/Substance Use Hx: No Substance Use Type: None Hx Substance Use Treatment: No Review of Systems - Review of Systems Able to Perform ROS?: Yes Is the patient limited Frisian proficient: No Constitutional: No: Chills, Fever, Unexplained wgt Loss HEENTM: Yes: Throat Pain. No: Blurred Vision, Recent change in vision, Ear Pain , Nose Pain Respiratory: No: Cough, Shortness of Breath, SOB with Exertion Cardiac (ROS): Yes: Palpitations. No: Chest Pain ABD/GI: No: Abd. Pain w/ defecation, Constipated, Diarrhea, Nausea, Rectal Bleeding, Vomiting, Tarry Stools : No: Dysuria, Flank Pain, Hematuria Musculoskeletal: No: Back Pain Integumentary: No: Rash Neurological: Yes: Dizziness. No: Headache, Numbness, Paresthesia, Weakness, Ataxia Endocrine: No: Unexplained Weight Gain *Physical Exam - Vital Signs Last Vital Signs Temp Pulse Resp BP Pulse Ox 98.2 F 100 H 17 124/60 98 01/18/18 20:51 01/18/18 20:28 01/18/18 20:51 01/18/18 20:28 01/18/18 20:51 - Physical Exam General Appearance: Yes: Nourished HEENT: positive: EOMI, PERCY, Normal Voice, TMs Normal, Pharynx Normal. negative : Pharyngeal Erythema, Tonsillar Exudate, TM Bulging, TM Dull, TM Erythema Neck: negative: Lymphadenopathy (R), Lymphadenopathy (L) Respiratory/Chest: positive: Lungs Clear, Normal Breath Sounds. negative: Respiratory Distress Cardiovascular: positive: S1, S2, Systolic Murmur, Irregularly Irregular Musculoskeletal: negative: CVA Tenderness Extremity: positive: Normal Inspection Integumentary: positive: Normal Color, Dry, Warm Neurologic: positive: paper inspector II-XII NML intact, Fully Oriented, Alert, Normal Mood/ Affect. negative: Finger to Nose ED Treatment Course - LABORATORY CBC & Chemistry Diagram: 01/18/18 22:20 01/19/18 10:00 - ADDITIONAL ORDERS Additional order review: Laboratory Results 01/18/18 01/18/18 22:20 22:20 PT with INR 20.30 H INR 1.80 H Sodium 141 Potassium 4.0 Chloride 108 H Carbon Dioxide 25 Anion Gap 8 BUN 40 H Creatinine 2.2 H Creat Clearance w eGFR 21.94 Random Glucose 115 H Calcium 8.5 Total Bilirubin 0.4 AST 18 ALT 20 Alkaline Phosphatase 115 Creatine Kinase 69 Troponin I < 0.02 Total Protein 7.3 Albumin 3.9 01/18/18 22:20 RBC 4.33 MCV 94.1 MCHC 34.1 RDW 13.2 MPV 8.0 Neutrophils % 66.6 Lymphocytes % 20.7 D Monocytes % 10.3 H Eosinophils % 1.7 Basophils % 0.7 - Medications Given in the ED: ED Medications Discontinued Medications Generic Name Dose Route Start Last Admin Trade Name Freq PRN Reason Stop Dose Admin Meclizine HCl 25 mg 01/18/18 21:10 01/18/18 21:31 Antivert - PO 01/18/18 21:11 25 mg ONCE ONE Administration Medical Decision Making - Medical Decision Making 01/19/18 20:13 Ms. Landon is a 72 yo F with a hx of vertigo who presented to the ED with dizziness s/p 2x mechanical falls from standing on carpet landing on wrists bilaterally. Initial vitals: Initial Vital Signs Temp Pulse Resp BP Pulse Ox 98.0 F 100 H 16 124/60 100 01/18/18 20:28 01/18/18 20:28 01/18/18 20:28 01/18/18 20:28 01/18/18 20:28 Work up: Ordered: CBC with diff, CMP, UA, PT/INR, troponins, EKG, CXR. Treated with meclizine and acetaminophen. Pertinent results: Elevated creatinine of 2.2 and INR of 1.80. After treatment with meclizine she had improvement of dizziness. However, after consulting with admitting team, she developed vertigo again and was sent to observation. CBC, BMP 01/18/18 22:20 01/18/18 22:20 Laboratory Results - last 24 hr 01/18/18 01/18/18 01/18/18 22:20 22:20 22:20 WBC 7.1 RBC 4.33 Hgb 13.9 Hct 40.7 MCV 94.1 MCH 32.1 MCHC 34.1 RDW 13.2 Plt Count 180 MPV 8.0 Absolute Neuts (auto) 4.7 Neutrophils % 66.6 Lymphocytes % 20.7 D Monocytes % 10.3 H Eosinophils % 1.7 Basophils % 0.7 Nucleated RBC % 0 PT with INR 20.30 H INR 1.80 H Sodium 141 Potassium 4.0 Chloride 108 H Carbon Dioxide 25 Anion Gap 8 BUN 40 H Creatinine 2.2 H Creat Clearance w eGFR 21.94 Random Glucose 115 H Calcium 8.5 Total Bilirubin 0.4 AST 18 ALT 20 Alkaline Phosphatase 115 Creatine Kinase 69 Troponin I < 0.02 Total Protein 7.3 Albumin 3.9 Disposition: Given it being an unsafe discharge, she is admitted to observation for additional monitoring. Her labs are not suggested of a secondary cause of her vertigo. 01/19/18 20:16 01/19/18 20:18 *DC/Admit/Observation/Transfer Diagnosis at time of Disposition: Vertigo - Discharge Dispostion Disposition: VNS/HOME HEALTH CARE Condition at time of disposition: Good Decision to Admit order: Yes Decision to Admit order Date/Time: 01/19/18 01:20 Observation - Referrals - Patient Instructions - Post Discharge Activity
[2018-01-19] MEDS ORDERED: ACETAMINOPHEN 325 MG TABLET (FP) ONE (01:16)
--- NOTE | 2018-01-19 02:26 | HP ---
CHIEF COMPLAINT: Vertigo + Headache PCP: Dr. Pizarro HISTORY OF PRESENT ILLNESS: 72 y/o female with a PMHx of BPPV, anxiety and atrial fibrillation on coumadin presents with dizziness since this past morning. Patient states that during this episode of dizziness, she fell twice, both times landing on her wrists on a carpeted floor. She denies any loss of consciousness or head trauma. Patient was recently admitted for vertigo on 01/04/2018. While in the ED, patient started to experience a splitting headache that she rates 5/10. She describes the pain as heaviness over her temporal regions bilaterally. The pain does not radiate anywhere. Patient says she is compliant with taking meclizine but has stopped going to her vestibular physical therapy appointments bc she feels she does not benefit. Denies any fever, chills, chest pain, SOB, nausea, vomiting, diarrhea, tearing in either eye, runny nose. Recent Travel: None PAST MEDICAL HISTORY: - BPPV - Afib - CAD - Cardiomyopathy - Anxiety PAST SURGICAL HISTORY: - Hysterectomy - Tonsillectomy Social History: Smoking: Denies Alcohol: Denies Drugs: Denies Family History: Non-Contributory Allergies aspirin Allergy (Verified 01/18/18 20:30) fish derived [Fish derived] Allergy (Verified 01/18/18 20:30) all fish mercury (elemental) [Mercury (Elemental)] Allergy (Verified 01/18/18 20:30) Penicillins Allergy (Verified 01/18/18 20:30) Raspberry Flavor, Artificial Allergy (Verified 01/18/18 20:30) HOME MEDICATIONS: Home Medications Medication Instructions Recorded Atorvastatin Calcium [Lipitor] 10 mg PO DAILY 10/27/16 Furosemide [Lasix] 40 mg PO DAILY 10/27/16 Meclizine HCl 25 mg PO TID PRN 10/27/16 Ramipril [Altace] 10 mg PO DAILY 10/27/16 Clopidogrel Bisulfate [Plavix -] 75 mg PO DAILY 11/23/16 Isosorbide Mononitrate [Imdur -] 30 mg PO DAILY 11/23/16 Warfarin Na [Coumadin -] 2 mg PO SuTh@1800 tablet 11/25/16 Atenolol [Tenormin -] 25 mg PO DAILY 12/18/17 Warfarin Na [Coumadin -] 1 mg PO MOTUWEFR 12/18/17 REVIEW OF SYSTEMS CONSTITUTIONAL: Absent: fever, chills, diaphoresis, generalized weakness, malaise, loss of appetite, weight change HEENT: Absent: rhinorrhea, nasal congestion, throat pain, throat swelling, difficulty swallowing, mouth swelling, ear pain, eye pain, visual changes CARDIOVASCULAR: Absent: chest pain, syncope, palpitations, irregular heart rate, lightheadedness , peripheral edema RESPIRATORY: Absent: cough, shortness of breath, dyspnea with exertion, orthopnea, wheezing, stridor, hemoptysis GASTROINTESTINAL: Absent: abdominal pain, abdominal distension, nausea, vomiting, diarrhea, constipation, melena, hematochezia GENITOURINARY: Absent: dysuria, frequency, urgency, hesitancy, hematuria, flank pain, genital pain MUSCULOSKELETAL: Absent: myalgia, arthralgia, joint swelling, back pain, neck pain SKIN: Absent: rash, itching, pallor HEMATOLOGIC/IMMUNOLOGIC: Absent: easy bleeding, easy bruising, lymphadenopathy, frequent infections ENDOCRINE: Absent: unexplained weight gain, unexplained weight loss, heat intolerance, cold intolerance NEUROLOGIC: +: headache, dizziness, Hearing changes Absent: focal weakness or paresthesias, unsteady gait, seizure, mental status changes, bladder or bowel incontinence PSYCHIATRIC: Absent: anxiety, depression, suicidal or homicidal ideation, hallucinations. PHYSICAL EXAMINATION Vital Signs - 24 hr 01/18/18 01/18/18 20:28 20:51 Temperature 98.0 F 98.2 F Pulse Rate 100 H Respiratory 16 17 Rate Blood Pressure 124/60 O2 Sat by Pulse 100 98 Oximetry (%) GENERAL: Awake, alert, and fully oriented, in no acute distress. HEAD: Normal with no signs of trauma. Nontender to palpation. LUNGS: Breath sounds equal, clear to auscultation bilaterally. No wheezes, and no crackles. HEART: Regular rate and rhythm, normal S1 and S2 without murmur, rub or gallop. ABDOMEN: Soft, nontender, not distended, normoactive bowel sounds, no guarding, no rebound Laboratory Results - last 24 hr 01/18/18 01/18/18 01/18/18 22:20 22:20 22:20 WBC 7.1 RBC 4.33 Hgb 13.9 Hct 40.7 MCV 94.1 MCH 32.1 MCHC 34.1 RDW 13.2 Plt Count 180 MPV 8.0 Absolute Neuts (auto) 4.7 Neutrophils % 66.6 Lymphocytes % 20.7 D Monocytes % 10.3 H Eosinophils % 1.7 Basophils % 0.7 Nucleated RBC % 0 PT with INR 20.30 H INR 1.80 H Sodium 141 Potassium 4.0 Chloride 108 H Carbon Dioxide 25 Anion Gap 8 BUN 40 H Creatinine 2.2 H Creat Clearance w eGFR 21.94 Random Glucose 115 H Calcium 8.5 Total Bilirubin 0.4 AST 18 ALT 20 Alkaline Phosphatase 115 Creatine Kinase 69 Troponin I < 0.02 Total Protein 7.3 Albumin 3.9 ASSESSMENT/PLAN: 1. Vertigo - Admit to observation - Continue on Meclezine - Patient will need to continue Vestibular PT as an outpatient 2. Headache - Tylenol 650mg PRN 3. Increased BUN:Cr - Chronic kidney disease, will need follow up with Nephrology - Encourage PO Hydration 4. AFib - Rate controlled on current regimen - Continue on Coumadin - Monitor INR 5. DVT PPx - Continue on Coumadin Visit type - Emergency Visit Emergency Visit: Yes ED Registration Date: 01/19/18 Care time: The patient presented to the Emergency Department on the above date and was hospitalized for further evaluation of their emergent condition. - New Patient This patient is new to me today: Yes Date on this admission: 01/19/18 - Critical Care Critical Care patient: No Hospitalist Screening - Colonoscopy Questionnaire Colonoscopy Questionnaire: Colonoscopy Questionnaire - Patient: 50 - 75 years old and never had a screening colonoscopy: Unknown History of colon or rectal polyps, or CA: Unknown History of IBD, Crohn's disease or UC: Unknown History of abdominal radiation therapy as a child: Unknown - Relative: 1 with colon or rectal CA, or polyps at age 60 or younger: Unknown Colon or rectal CA diagnosed at age 45 or younger: Unknown Multiple relatives with colon or rectal CA: Unknown - Outcome: Screening Result: Negative Screen
[2018-01-19] MEDS ORDERED: MECLIZINE HCL 25 MG TABLET (FP) PO PRN (02:29)
[2018-01-19] MEDS ORDERED: ACETAMINOPHEN 325 MG TABLET (FP) PO PRN (02:30)
--- NOTE | 2018-01-19 10:08 | EKG ---
Test Reason : Blood Pressure : / mmHG Vent. Rate : 083 BPM Atrial Rate : 085 BPM P-R Int : 000 ms QRS Dur : 094 ms QT Int : 420 ms P-R-T Axes : 000 025 -59 degrees QTc Int : 493 ms POOR DATA QUALITY, INTERPRETATION MAY BE ADVERSELY AFFECTED ATRIAL FIBRILLATION NONSPECIFIC ST AND T WAVE ABNORMALITY ABNORMAL ECG WHEN COMPARED WITH ECG OF 04-JAN-2018 19:23, NO SIGNIFICANT CHANGE WAS FOUND Confirmed by KYE EPSTEIN, YOLI ([id number]) on 01/19/2018 10:07:48 AM Referred By: Confirmed By:YOLI FISHMAN MD
[2018-01-19 11:53] LABS: ANION GAP 8 (8-16); BLOOD UREA NITROGEN 35 mg/dL (7-18); CALCIUM 8.8 mg/dL (8.5-10.1); CHLORIDE 108 mmol/L (98-107); CO2 26 mmol/L (21-32); CREATININE 1.9 mg/dL (0.55-1.02); GLUCOSE,RANDOM 106 mg/dL (74-106); MAGNESIUM 2.2 mg/dL (1.8-2.4); PHOSPHOROUS 3.4 mg/dL (2.5-4.9); POTASSIUM 3.7 mmol/L (3.5-5.1); SODIUM 142 mmol/L (136-145)
--- NOTE | 2018-01-19 12:24 | CONSULT ---
Consult - text type - Consultation Consultation Note: Neurology CHIEF COMPLAINT: Vertigo + Headache HISTORY OF PRESENT ILLNESS: 72 y/o female with a PMHx of BPPV, anxiety and atrial fibrillation on coumadin presents with dizziness. Patient stated that during this episode of dizziness, she fell twice, both times landing on her wrists on a carpeted floor. She denies any loss of consciousness or head trauma. Patient was recently admitted for vertigo on 01/04/2018 and at that time completed MRI brain which I reviweed and did not show acute changes. While in the ED, patient started to experience a splitting headache but has resolved. CT head completed and did not show acute changes. Denies any fever, chills, chest pain, SOB, nausea, vomiting, diarrhea , tearing in either eye, runny nose. Neurologically stable during my exam and requesting discharge. Recent Travel: None PAST MEDICAL HISTORY: - BPPV - Afib - CAD - Cardiomyopathy - Anxiety PAST SURGICAL HISTORY: - Hysterectomy - Tonsillectomy Social History: Smoking: Denies Alcohol: Denies Drugs: Denies Family History: Non-Contributory Allergies aspirin Allergy (Verified 01/18/18 20:30) fish derived [Fish derived] Allergy (Verified 01/18/18 20:30) all fish mercury (elemental) [Mercury (Elemental)] Allergy (Verified 01/18/18 20:30) Penicillins Allergy (Verified 01/18/18 20:30) Raspberry Flavor, Artificial Allergy (Verified 01/18/18 20:30) HOME MEDICATIONS: Home Medications Medication Instructions Recorded Atorvastatin Calcium [Lipitor] 10 mg PO DAILY 10/27/16 Furosemide [Lasix] 40 mg PO DAILY 10/27/16 Meclizine HCl 25 mg PO TID PRN 10/27/16 Ramipril [Altace] 10 mg PO DAILY 10/27/16 Clopidogrel Bisulfate [Plavix -] 75 mg PO DAILY 11/23/16 Isosorbide Mononitrate [Imdur -] 30 mg PO DAILY 11/23/16 Warfarin Na [Coumadin -] 2 mg PO SuTh@1800 tablet 11/25/16 Atenolol [Tenormin -] 25 mg PO DAILY 12/18/17 Warfarin Na [Coumadin -] 1 mg PO MOTUWEFR 12/18/17 REVIEW OF SYSTEMS CONSTITUTIONAL: Absent: fever, chills, diaphoresis, generalized weakness, malaise, loss of appetite, weight change HEENT: Absent: rhinorrhea, nasal congestion, throat pain, throat swelling, difficulty swallowing, mouth swelling, ear pain, eye pain, visual changes CARDIOVASCULAR: Absent: chest pain, syncope, palpitations, irregular heart rate, lightheadedness , peripheral edema RESPIRATORY: Absent: cough, shortness of breath, dyspnea with exertion, orthopnea, wheezing, stridor, hemoptysis GASTROINTESTINAL: Absent: abdominal pain, abdominal distension, nausea, vomiting, diarrhea, constipation, melena, hematochezia GENITOURINARY: Absent: dysuria, frequency, urgency, hesitancy, hematuria, flank pain, genital pain MUSCULOSKELETAL: Absent: myalgia, arthralgia, joint swelling, back pain, neck pain SKIN: Absent: rash, itching, pallor HEMATOLOGIC/IMMUNOLOGIC: Absent: easy bleeding, easy bruising, lymphadenopathy, frequent infections ENDOCRINE: Absent: unexplained weight gain, unexplained weight loss, heat intolerance, cold intolerance NEUROLOGIC: +: headache, dizziness, Hearing changes Absent: focal weakness or paresthesias, unsteady gait, seizure, mental status changes, bladder or bowel incontinence PSYCHIATRIC: Absent: anxiety, depression, suicidal or homicidal ideation, hallucinations. PHYSICAL EXAMINATION Vital Signs - 24 hr 01/18/18 01/18/18 20:28 20:51 Temperature 98.0 F 98.2 F Pulse Rate 100 H Respiratory 16 17 Rate Blood Pressure 124/60 O2 Sat by Pulse 100 98 Oximetry (%) GENERAL: Awake, alert, and fully oriented, in no acute distress. HEAD: Normal with no signs of trauma. Nontender to palpation. LUNGS: Breath sounds equal, clear to auscultation bilaterally. No wheezes, and no crackles. HEART: Regular rate and rhythm, normal S1 and S2 without murmur, rub or gallop. ABDOMEN: Soft, nontender, not distended, normoactive bowel sounds, no guarding, no rebound Head atraumatic and normocephalic CN: PERRL, EOMI intact, no apparent facial droop, no abnormalities in facial sensation, palate elevates, uvula and tongue midline Motor: Full strength to confrontation in upper and lower extermities proximally and distally. Tone normal throughout Sensory: Intact to Temperature, light touch, and pinprick in all extremities Reflexes: 2+ biceps, brachioradialis, patellar, achillies Coordination: Intact on [id number] testing Gait: Normal, able to ambulate on toes and heels. Laboratory Results - last 24 hr 01/18/18 01/18/18 01/18/18 22:20 22:20 22:20 WBC 7.1 RBC 4.33 Hgb 13.9 Hct 40.7 MCV 94.1 MCH 32.1 MCHC 34.1 RDW 13.2 Plt Count 180 MPV 8.0 Absolute Neuts (auto) 4.7 Neutrophils % 66.6 Lymphocytes % 20.7 D Monocytes % 10.3 H Eosinophils % 1.7 Basophils % 0.7 Nucleated RBC % 0 PT with INR 20.30 H INR 1.80 H Sodium 141 Potassium 4.0 Chloride 108 H Carbon Dioxide 25 Anion Gap 8 BUN 40 H Creatinine 2.2 H Creat Clearance w eGFR 21.94 Random Glucose 115 H Calcium 8.5 Total Bilirubin 0.4 AST 18 ALT 20 Alkaline Phosphatase 115 Creatine Kinase 69 Troponin I < 0.02 Total Protein 7.[address] head reviewed MRi brain reviewed ASSESSMENT/PLAN: 72 y/o female with a PMHx of BPPV, anxiety and atrial fibrillation on coumadin presents with dizziness. Patient stated that during this episode of dizziness, she fell twice, both times landing on her wrists on a carpeted floor. She denies any loss of consciousness or head trauma. Patient was recently admitted for vertigo on 01/04/2018 and at that time completed MRI brain which I reviweed and did not show acute changes. While in the ED, patient started to experience a splitting headache but has resolved. CT head completed and did not show acute changes. Denies any fever, chills, chest pain, SOB, nausea, vomiting, diarrhea , tearing in either eye, runny nose. Neurologically stable during my exam and requesting discharge. Can Continue on Meclezine, tylenol for tension headache, maintain PO Hydration. Avoid sudden head movements. Eply maneuvers in AM suggested. Vestibular therapy may be beneficial though she does not find it helpful. Fall precuations. Ok for discharge.
--- NOTE | 2018-01-19 12:39 | DS ---
Physical Exam: SUBJECTIVE: Patient seen and examined, no further dizziness or vertigo. Eating well, symptoms resolved. OBJECTIVE: Vital Signs Period Temp Pulse Resp BP Sys/Franks Pulse Ox Last 24 Hr 97.6 F-98.2 F 80-100 16-18 124-152/59-79 98-100 PHYSICAL EXAM GENERAL: lying in bed in no acute distress Chest: CTAB, no rales or wheezing Abdomen:soft, obese, NT Extremities: no edema LABS Laboratory Results - last 24 hr 01/18/18 01/18/18 01/18/18 22:20 22:20 22:20 WBC 7.1 RBC 4.33 Hgb 13.9 Hct 40.7 MCV 94.1 MCH 32.1 MCHC 34.1 RDW 13.2 Plt Count 180 MPV 8.0 Absolute Neuts (auto) 4.7 Neutrophils % 66.6 Lymphocytes % 20.7 D Monocytes % 10.3 H Eosinophils % 1.7 Basophils % 0.7 Nucleated RBC % 0 PT with INR 20.30 H INR 1.80 H Sodium 141 Potassium 4.0 Chloride 108 H Carbon Dioxide 25 Anion Gap 8 BUN 40 H Creatinine 2.2 H Creat Clearance w eGFR 21.94 Random Glucose 115 H Calcium 8.5 Phosphorus Magnesium Total Bilirubin 0.4 AST 18 ALT 20 Alkaline Phosphatase 115 Creatine Kinase 69 Troponin I < 0.02 Total Protein 7.3 Albumin 3.9 01/19/18 10:00 WBC RBC Hgb Hct MCV MCH MCHC RDW Plt Count MPV Absolute Neuts (auto) Neutrophils % Lymphocytes % Monocytes % Eosinophils % Basophils % Nucleated RBC % PT with INR INR Sodium 142 Potassium 3.7 Chloride 108 H Carbon Dioxide 26 Anion Gap 8 BUN 35 H Creatinine 1.9 H Creat Clearance w eGFR 25.98 Random Glucose 106 Calcium 8.8 Phosphorus 3.4 Magnesium 2.2 Total Bilirubin AST ALT Alkaline Phosphatase Creatine Kinase Troponin I Total Protein Albumin HOSPITAL COURSE: Date of Admission:01/19/18 Date of Discharge: 01/19/18 Minutes to complete discharge: 40 Discharge Summary Reason For Visit: VERTIGO Current Active Problems Vertigo (Acute) Hospital Course: Patient's symptoms resolved, she was ambulating well with no concerns. She was seen by neurology and advised to continue meclizine, adequate hydration and outpatient vestibular PT. Patient is advised to address her lasix dosage with her doctor. Condition: Good - Instructions Diet, Activity, Other Instructions: Continue your medications as before. COntinue your coumadin as before and follow up with your doctor this week to get INR checked as instructed. maintain adequate oral hydration. You will need monitoring with your doctor to adjust your lasix dose as indicated. Continue outpatient Vestibular physical therapy as it will be beneficial in prevent recurrent attacks of vertigo. Call 911 or come to ED if severe dizziness, failure of symptoms to resolve with medications or any concerns. Disposition: [facility]/HOME HEALTH CARE - Home Medications Comprehensive Discharge Medication List: Ambulatory Orders Atorvastatin Calcium [Lipitor] 10 mg PO DAILY 10/27/16 Furosemide [Lasix] 40 mg PO DAILY 10/27/16 Meclizine HCl 25 mg PO TID PRN 10/27/16 Ramipril [Altace] 10 mg PO DAILY 10/27/16 Isosorbide Mononitrate [Imdur -] 30 mg PO DAILY 11/23/16 Warfarin Na [Coumadin -] 2 mg PO SuTh@1800 tablet 11/25/16 Atenolol [Tenormin -] 25 mg PO DAILY 12/18/17 Warfarin Na [Coumadin -] 1 mg PO MOTUWEFR 12/18/17 Bupropion HCl [Bupropion Xl] 150 mg PO TID 01/19/18 Diltiazem Cd [Cardizem Cd -] 120 mg PO DAILY 01/19/18 This patient is new to me today: Yes Date on this admission: 01/19/18 Emergency Visit: Yes ED Registration Date: 01/19/18 Care time: The patient presented to the Emergency Department on the above date and was hospitalized for further evaluation of their emergent condition. Critical Care patient: No - Discharge Referral Referred to [facility] Med [facility] No
[2018-01-19 13:25] VITALS: BP 106/77; PULSE 102; TEMP 98.3
== END 2018-01-19 15:25 | disposition home health service (06) ==
LOC: JER 20:22 → JERBED 01-19 01:20 → J5S 01-19 02:39
PROVIDERS: ADMIT Internal Medicine; ATTEND Hospitalist
DX: R42 Dizziness and giddiness (principal); N18.3 Chronic kidney disease, stage 3 (moderate); I48.91 Unspecified atrial fibrillation; I12.9 Hypertensive chronic kidney disease with stage 1 through stage 4 chronic kidney disease, or unspecified chronic kidney disease; I42.9 Cardiomyopathy, unspecified; I25.10 Atherosclerotic heart disease of native coronary artery without angina pectoris; F41.9 Anxiety disorder, unspecified; F32.9 Major depressive disorder, single episode, unspecified; E78.5 Hyperlipidemia, unspecified; Z79.01 Long term (current) use of anticoagulants; R51 Headache; R79.89 Other specified abnormal findings of blood chemistry
CPT/HCPCS: 36415; 71045-TC-FY; 80048; 80053; 82550; 83735; 84100; 84484; 85025; 85610; 93005; 93010; 99284-25; G0378

== ENCOUNTER 2018-03-26 09:43 | Day surgery (SDC) | payer OTHER ==
[2018-03-03 12:41] VITALS: BMI 35.5
[2018-03-26] MEDS ORDERED: LIDOCAINE HCL 2% (20ML MULTI-DOSE VIAL) NR ONE (10:30)
[2018-03-26] MEDS ORDERED: PROPOFOL 20 ML ONE (11:02)
[2018-03-26] MEDS ORDERED: MIDAZOLAM HCL 2 MG/2 ML SINGLE DOSE VIAL ONE (11:03)
[2018-03-26] MEDS ORDERED: ONDANSETRON 4 MG/2 ML VIAL ONE (11:03)
[2018-03-26] MEDS ORDERED: DEXAMETHASONE SOD PHOSPHATE 4 MG/1 ML VIAL ONE (11:03)
[2018-03-26] MEDS ORDERED: ONDANSETRON 4 MG/2 ML VIAL IVPUSH PRN (11:38)
[2018-03-26] MEDS ORDERED: PROMETHAZINE HCL 25 MG/1 ML VIAL IVPUSH PRN (11:38)
[2018-03-26] MEDS ORDERED: oxyCODONE HCL 5 MG TABLET PO PRN ×2 (11:38)
--- NOTE | 2018-03-26 12:02 | OP ---
DATE OF OPERATION: 03/26/2018 SURGEON: Levi Ray MD PREOPERATIVE DIAGNOSIS: Left carpal tunnel syndrome. POSTOPERATIVE DIAGNOSIS: Left carpal tunnel syndrome. OPERATIVE PROCEDURE: Left carpal tunnel release. ANESTHESIA: Local with sedation. COMPLICATIONS: None. ESTIMATED BLOOD LOSS: Minimal. INDICATIONS FOR PROCEDURE: The patient is a 72-year-old female with the above findings, indicated for operative treatment. The risks, benefits, and alternatives were discussed with the patient at length. Proper informed consent was obtained. PROCEDURE: After proper identification of the patient and the correct operative site, the patient was brought to the operating room and placed on the table with prominences well padded. Sedation and local anesthesia was given. Left upper extremity was prepped and draped in the usual sterile fashion. Esmarch bandage used to exsanguinate the left upper extremity. Tourniquet inflated to 250 mmHg. A longitudinal incision was made over the proximal aspect of the palm. Incision was taken sharply through the skin with blunt and sharp dissection through subcutaneous tissues. Palmar fascia was divided longitudinally. The transverse carpal ligament was divided longitudinally along with distal 4 cm of antebrachial fascia under direct visualization with loupe magnification. This provided complete release of the median nerve at the wrist. Wound was irrigated with saline and repaired with 5-0 nylon suture. Sterile dressings were applied. The patient brought to the recovery room in stable condition. She tolerated the procedure well. LEVI RAY M.D. BERT/[id number]
[2018-03-26 12:20] VITALS: TEMP 97.5
[2018-03-26 12:36] VITALS: BP 133/86
[2018-03-26 12:38] VITALS: PULSE 92
== END 2018-03-26 12:40 | disposition home or self-care (01) ==
LOC: FASU 09:43
PROVIDERS: ATTEND Orthopaedic Surgery Hand Surgery
PROC: 01N50ZZ Release Median Nerve, Open Approach (ICD-10-PCS; principal; 2018-03-26 11:13)
DX: G56.02 Carpal tunnel syndrome, left upper limb (principal)
CPT/HCPCS: 94760

== ENCOUNTER 2018-04-12 09:13 | Emergency (ER) | payer OTHER ==
--- NOTE | 2018-04-12 09:23 | PDOC ---
History of Present Illness - General Chief Complaint: Ear Problem Stated Complaint: LEFT EAR EARING STUCK - History of Present Illness Initial Comments: The patient is a 72F who presents for evaluation for foreign body in her left ear. The patient states that her earring has become embedded in her ear. The patient reports only noticing the change today. She states that she always sleeps on her left side and believes the repeated pressure is the reason for the embedding. She denies acute trauma, acute changes in hearing, fevers/chills , chest pain, diabetes, or changes in sensation. She denies drainage from the site of the wound as well as increasing pain or noticing any worsening redness. 04/12/18 09:22 Past History - Past Medical History Allergies/Adverse Reactions: Allergies Allergy/AdvReac Type Severity Reaction Status Date / Time fish derived [Fish derived] Allergy Severe SWELLING, Verified 04/12/18 09:14 NAUSEA Penicillins Allergy Severe HIVES,VOMIT Verified 04/12/18 09:14 ING aspirin Allergy Intermediate UNSURE Verified 04/12/18 09:14 Raspberry Flavor, Artificial Allergy Intermediate HIVES, Verified 04/12/18 09:14 ITCHING mercury (elemental) Allergy UNKNOWN Verified 04/12/18 09:14 [Mercury (Elemental)] Home Medications: Ambulatory Orders Atorvastatin Calcium [Lipitor] 10 mg PO DAILY 10/27/16 Ramipril [Altace] 10 mg PO DAILY 10/27/16 Isosorbide Mononitrate [Imdur -] 30 mg PO DAILY 11/23/16 Warfarin Na [Coumadin -] 2 mg PO SuTh@1800 tablet 11/25/16 Warfarin Na [Coumadin -] 1 mg PO MOTUWEFR 12/18/17 Bupropion HCl [Bupropion Xl] 150 mg PO TID 01/19/18 Diltiazem Cd [Cardizem Cd -] 120 mg PO DAILY 01/19/18 Furosemide [Lasix] 40 mg PO DAILY 03/03/18 Meclizine HCl [Antivert -] 25 mg PO Q8H #120 tablet 03/24/18 Anemia: No Asthma: No Cancer: Yes (UTERINE) Cardiac Disorders: Yes (A-FIB, CAD, CARDIOMYOPATHY) CVA: No COPD: No CHF: No DVT: No Dementia: No Diabetes: No GI Disorders: No Disorders: No HTN: Yes Hypercholesterolemia: Yes Liver Disease: No Psychiatric Problems: Yes (ANXIETY) Seizures: No Thyroid Disease: No - Surgical History Abdominal Surgery: Yes Appendectomy: No Cardiac Surgery: No Cholecystectomy: No Lung Surgery: No Neurologic Surgery: No Orthopedic Surgery: Yes (Bilateral Trigger finger release) - Immunization History Immunization Up to Date: No - Suicide/Smoking/Psychosocial Hx Smoking Status: No Smoking History: Never smoked Have you smoked in the past 12 months: Yes Number of Cigarettes Smoked Daily: 0 If you are a former smoker, when did you quit?: 10 years ago Hx Alcohol Use: No Drug/Substance Use Hx: No Substance Use Type: None Hx Substance Use Treatment: No Review of Systems - Review of Systems Able to Perform ROS?: Yes Comments:: GENERAL/CONSTITUTIONAL: No fever or chills. No weakness HEAD, EYES, EARS, NOSE AND THROAT: No change in vision. +L ear lobe foreign object. No sore throat CARDIOVASCULAR: No chest pain or shortness of breath RESPIRATORY: No cough, wheezing, or hemoptysis SKIN: -rash NEUROLOGIC: No headache, or change in strength/sensation ENDOCRINE: No increased thirst. No abnormal weight change HEMATOLOGIC/LYMPHATIC: +anemia ALLERGIC/IMMUNOLOGIC: No hives or skin allergy 04/12/18 10:31 Is the patient limited Greenlandic proficient: No *Physical Exam - Vital Signs Vital Signs Temp Pulse Resp BP Pulse Ox 97.7 F 116 H 20 134/81 99 04/12/18 09:14 04/12/18 09:14 04/12/18 09:14 04/12/18 09:14 04/12/18 09:14 04/12/18 15:47 - Physical Exam Comments: GENERAL: Awake, alert, and fully oriented, in no acute distress HEAD: No signs of trauma, normocephalic, atraumatic EYES: PERRL, EOMI, sclera anicteric, conjunctiva clear Ears: L ear lobe with embedded earring. Majority of earring visualzied/palpated on posterior aspect of lobe. Hearing grossly intact. ENT: Nares patent, oropharynx clear without exudates. Moist mucosa LUNGS: No distress, speaks full sentences, clear to auscultation bilaterally HEART:Regular rate and rhythm, peripheral pulses normal and equal bilaterally EXTREMITIES : Normal inspection, Normal range of motion, no edema. No clubbing or cyanosis NEUROLOGICAL: Cranial nerves II through XII grossly intact. Normal speech, normal gait, no focal sensorimotor deficits 04/12/18 10:27 Procedures - Additional Procedures Additional Procedures: other (Ear Foreign Body Removal) Progress: Left ear lobe foreign body removal Performed by: Alvin David MD Subervised by: Alonso Montenegro MD Consent: Verbal consent obtained. Risks and benefits: risks, benefits and alternatives were discussed Required items: required blood products, implants, devices, and special equipment available Procedure: L ear lobe infused with 1.5 cc of 1%lidocaine mixed with sodium bicarbonate (10:1), area cleaned and prepped in usual fashion. 0.5cm incision made with 11 blade lateral to the earring. Earring removed without complication. Wound irrigated with approximately 50cc of NS. Wound dried. Bacitracin and dressing placed. 04/12/18 10:36 Medical Decision Making - Medical Decision Making The patient is a 72F who presents for evaluation of L ear lobe foreign body removal. ED Course L ear foreign body removed. Ear lobe hemostatic. Details per procedure note Wound dressed with Bacitracin and gauze Patient given wound care and return precautions Plan for D/C w/ PCP f/u Patient verbalized understanding and is in agreement Dispo: Home 04/12/18 15:47 *DC/Admit/Observation/Transfer Diagnosis at time of Disposition: Foreign body in ear lobe Qualifiers: Encounter type: initial encounter Laterality: left Qualified Code(s): S00.452A - Superficial foreign body of left ear, initial encounter - Discharge Dispostion Disposition: HOME Condition at time of disposition: Improved Decision to Admit order: No - Referrals Referrals: [facility] [place] [Provider Group] - Patient Instructions Printed Discharge Instructions: DI for Puncture Wound Additional Instructions: You were seen in the Emergency Room today for evaluation of an embedded earring in your left ear lobe. A small in incision was made and the earring was removed. No stitches were placed. Be sure to wash the wound every day with soap and running water. Pat dry. You may place an antibiotic ointment over the wound while it is open. Return to the Emergency Room if you notice worsening redness, increasing pain, pus drainage, or continuous blood drainage from the wound as well as any new/ concerning symptoms. - Post Discharge Activity
[2018-04-12 09:29] VITALS: BP 134/81; PULSE 116; TEMP 97.7; BMI 28.3
[2018-04-12] MEDS ORDERED: SODIUM BICARBONATE 8.4% 50 MEQ/50 ML DISP.SYRIN IVPUSH ONE (09:46)
[2018-04-12] MEDS ORDERED: LIDOCAINE HCL 1%, 10 MG/ML (20ML VIAL) ONE (09:47)
[2018-04-12] MEDS ORDERED: LIDOCAINE HCL 1%, 10 MG/ML (50 mL VIAL) INF ONE (09:47)
[2018-04-12] MEDS ORDERED: SODIUM BICARBONATE 8.4% 50 MEQ/50 ML VIAL ONE (09:47)
--- NOTE | 2018-04-12 10:35 | PDOC ---
Attending Attestation - Resident Resident Name: Alvin David - ED Attending Attestation I have performed the following: I have examined & evaluated the patient, The case was reviewed & discussed with the resident, I agree w/resident's findings & plan - HPI HPI: 04/12/18 10:34 Embedded earring in the left ear for several days. - Physicial Exam PE: 04/12/18 10:34 Embedded earring in the left ear, no signs of infection. No increased warmth. No draining pus. Positive tender. - Medical Decision Making 04/12/18 10:35 Embedded earring removed from the left ear after skin cleansing, local lidocaine , and small incision. Performed by Dr. Alvin David under my direct bedside supervision.
== END 2018-04-12 10:38 | disposition home or self-care (01) ==
LOC: FER 09:13
PROC: 09C1XZZ Extirpation of Matter from Left External Ear, External Approach (ICD-10-PCS; principal; 2018-04-12)
DX: S00.452A Superficial foreign body of left ear, initial encounter (principal); X58.XXXA Exposure to other specified factors, initial encounter; Y93.89 Activity, other specified; Y92.9 Unspecified place or not applicable
CPT/HCPCS: 10120-25; 99281-25

== ENCOUNTER 2018-04-14 15:36 | Emergency (ER) | payer OTHER ==
--- NOTE | 2018-04-14 15:41 | PDOC ---
History of Present Illness - General Chief Complaint: Lightheaded Stated Complaint: DIZZY Time Seen by Provider: 04/14/18 15:39 History Source: Patient Exam Limitations: No Limitations - History of Present Illness Initial Comments: 04/14/18 15:41 PCP: Dr. Pizarro Ms Landon is a 73 y/o female with a PMHx of BPPV, anxiety and atrial fibrillation on coumadin presents with dizziness since this morning. Pt was able to continue her daily activities today She contacted her PMD who recommended that she come in to the ER for "electrolytes, and IVF" Pt has had breakfast and lunch today She did not take Meclizine for her dizziness today She particularly notes her symptoms when she stands No chest pain, no palpitations no headache No tinnitus Denies any fever, chills, chest pain, SOB, nausea, vomiting, diarrhea, tearing in either eye, runny nose. Recent Travel: None PAST MEDICAL HISTORY: - BPPV - Afib - CAD - Cardiomyopathy - Anxiety PAST SURGICAL HISTORY: - Hysterectomy - Tonsillectomy Social History: Smoking: Denies Alcohol: Denies Drugs: Denies Family History: Non-Contributory REVIEW OF SYSTEMS CONSTITUTIONAL: Absent: fever, chills, diaphoresis, generalized weakness, malaise, loss of appetite, weight change HEENT: Absent: rhinorrhea, nasal congestion, throat pain, throat swelling, difficulty swallowing, mouth swelling, ear pain, eye pain, visual changes CARDIOVASCULAR: Absent: chest pain, syncope, palpitations, irregular heart rate , lightheadedness, peripheral edema RESPIRATORY: Absent: cough, shortness of breath, dyspnea with exertion, orthopnea, wheezing, stridor, hemoptysis GASTROINTESTINAL: Absent: abdominal pain, abdominal distension, nausea, vomiting , diarrhea, constipation, melena, hematochezia GENITOURINARY: Absent: dysuria, frequency, urgency, hesitancy, hematuria, flank pain, genital pain MUSCULOSKELETAL: Absent: myalgia, arthralgia, joint swelling, back pain, neck pain SKIN: Absent: rash, itching, pallor ENDOCRINE: Absent: unexplained weight gain, unexplained weight loss, heat intolerance, cold intolerance NEUROLOGIC: + dizziness, Absent: focal weakness or paresthesias, unsteady gait, seizure, mental status changes, bladder or bowel incontinence PSYCHIATRIC: Absent: anxiety, depression, suicidal or homicidal ideation, hallucinations. 04/14/18 15:53 04/14/18 15:59 PE: GENERAL: Elderly female, lying comfortably in bed, Awake, alert, and fully oriented, in no acute distress. HEAD: Normal with no signs of trauma. EYES: EOM intact, no pallor or icterus. No nystagmus. EARS, NOSE, THROAT: Ears normal. Moist mucous membranes. NECK: Supple. LUNGS: Breath sounds equal, clear to auscultation bilaterally. No wheezes, and no crackles. No accessory muscle use. HEART: Regular rate and rhythm, normal S1 and S2 without murmur. ABDOMEN: Soft, nontender, not distended MUSCULOSKELETAL: Normal range of motion at all joints. No bony deformities or tenderness. No CVA tenderness. EXTREMITIES: 2+ pulses, warm, well-perfused. NEUROLOGICAL: No facial droop, sensation intact, power 5/5 in all extremities. Cranial nerves II-XII intact. Normal speech. Gait not observed. PSYCHIATRIC: Cooperative. interactive with examiner. Good eye contact. Appropriate mood and affect. SKIN: Warm, dry, normal turgor, no rashes or lesions noted, normal capillary refill. Past History - Past Medical History Allergies/Adverse Reactions: Allergies Allergy/AdvReac Type Severity Reaction Status Date / Time fish derived [Fish derived] Allergy Severe SWELLING, Verified 04/14/18 15:43 NAUSEA Penicillins Allergy Severe HIVES,VOMIT Verified 04/14/18 15:44 ING aspirin Allergy Intermediate UNSURE Verified 04/14/18 15:44 Raspberry Flavor, Artificial Allergy Intermediate HIVES, Verified 04/14/18 15:44 ITCHING mercury (elemental) Allergy UNKNOWN Verified 04/14/18 15:44 [Mercury (Elemental)] Home Medications: Ambulatory Orders Atorvastatin Calcium [Lipitor] 10 mg PO DAILY 10/27/16 Ramipril [Altace] 10 mg PO DAILY 10/27/16 Isosorbide Mononitrate [Imdur -] 30 mg PO DAILY 11/23/16 Warfarin Na [Coumadin -] 2 mg PO SuTh@1800 tablet 11/25/16 Warfarin Na [Coumadin -] 1 mg PO MOTUWEFR 12/18/17 Bupropion HCl [Bupropion Xl] 150 mg PO TID 01/19/18 Diltiazem Cd [Cardizem Cd -] 120 mg PO DAILY 01/19/18 Furosemide [Lasix] 40 mg PO DAILY 03/03/18 Meclizine HCl [Antivert -] 25 mg PO Q8H #120 tablet 03/24/18 Anemia: No Asthma: No Cancer: Yes (UTERINE) Cardiac Disorders: Yes (A-FIB, CAD, CARDIOMYOPATHY) CVA: No COPD: No CHF: No DVT: No Dementia: No Diabetes: No GI Disorders: No Disorders: No HTN: Yes Hypercholesterolemia: Yes Liver Disease: No Psychiatric Problems: Yes (ANXIETY) Seizures: No Thyroid Disease: No - Surgical History Abdominal Surgery: Yes Appendectomy: No Cardiac Surgery: No Cholecystectomy: No Lung Surgery: No Neurologic Surgery: No Orthopedic Surgery: Yes (Bilateral Trigger finger release) - Immunization History Immunization Up to Date: No - Suicide/Smoking/Psychosocial Hx Smoking Status: No Smoking History: Never smoked Have you smoked in the past 12 months: Yes Number of Cigarettes Smoked Daily: 0 If you are a former smoker, when did you quit?: 10 years ago Hx Alcohol Use: No Drug/Substance Use Hx: No Substance Use Type: None Hx Substance Use Treatment: No ED Treatment Course - LABORATORY CBC & Chemistry Diagram: 04/14/18 16:00 04/14/18 16:00 Medical Decision Making - Medical Decision Making 04/14/18 16:01 EKG: Afib rate of of 98 bpm, axis nml, no ST elevations or depression Similar to prior ekg from 04/14/18 16:43 Laboratory Tests 03/22/18 03/23/18 03/24/18 13:00 06:45 07:49 WBC Hgb Hct Plt Count BUN 30 H 25 H 22 H Creatinine 2.1 H 1.9 H 1.8 H 04/14/18 04/14/18 16:00 16:00 WBC 6.1 Hgb 14.1 Hct 42.2 Plt Count 170 BUN 36 H Creatinine 2.0 H 04/14/18 16:56 Upon re assessment, pt states that her dizziness went from "10 to 6" Will try valium Will re assess 04/14/18 18:48 Pt feels better after valium Will discharge to home Will ask pt to follow up with PMD *DC/Admit/Observation/Transfer Diagnosis at time of Disposition: Vertigo - Discharge Dispostion Disposition: HOME Condition at time of disposition: Stable Decision to Admit order: No - Referrals Referrals: Beverley Pizarro MD [Staff Physician] - Stas Leach MD [Staff Physician] - - Patient Instructions Printed Discharge Instructions: DI for Vertigo, DI for Benign Paroxysmal Positional Vertigo Additional Instructions: Ms Landon Please read the [facility] ED Care Sheets describing your diagnosis. PLEASE NOTE we suggest at a minimum that you review all symptoms and final test results with a physician that will provide ongoing care for you. THANK YOU for allowing us to help begin your care of this latest issue. Keep in mind the treatment performed in the Emergency Department is NOT complete until you have followed up with your Doctor. We want you to return to the ED as soon as possible if symptoms get worse or if you have any problems whatsoever. We advised you to take the following medication(s) as directed: Meclizine 25mg q8h prn vertigo - Post Discharge Activity
[2018-04-14] MEDS ORDERED: MECLIZINE HCL 25 MG TABLET (FP) PO ONE (15:51)
[2018-04-14] MEDS ORDERED: SODIUM CHLORIDE 1,000 ML IV STA (15:51)
[2018-04-14 15:53] VITALS: TEMP 97.8; BMI 34.3
[2018-04-14] MEDS ORDERED: MECLIZINE HCL 25 MG TABLET (FP) ONE (16:04)
[2018-04-14 16:13] LABS: BASO % 1.8 % (0-2.0); EOS % 1.3 % (0-4.5); HEMATOCRIT 42.2 % (32.4-45.2); HEMOGLOBIN 14.1 GM/dl (10.7-15.3); LYMPH % 23.5 % (8-40); MCH 31.9 pg (25.7-33.7); MCHC 33.5 g/dl (32.0-36.0); MEAN CELL VOLUME 95.3 fl (80-96); MEAN PLT VOLUME 8.2 fl (7.5-11.1); MONO % 8.7 % (3.8-10.2); NEUT % 64.7 % (42.8-82.8); PLATELET COUNT 170 K/MM3 (134-434); RBC 4.43 M/mm3 (3.60-5.2); RDW 13.2 % (11.6-15.6); WHITE BLOOD COUNT 6.1 K/mm3 (4.0-10.8)
[2018-04-14 16:36] LABS: ALBUMIN 4.1 g/dl (3.5-5.0); ALK PHOS 93 U/L (32-92); ANION GAP 12 MMOL/L (8-16); BILIRUBIN,TOTAL 0.9 mg/dl (0.2-1.0); BLOOD UREA NITROGEN 36 mg/dl (7-18); CALCIUM 8.5 mg/dl (8.4-10.2); CHLORIDE 108 mmol/L (98-107); CO2 22 mmol/L (22-28); GLUCOSE,RANDOM 100 mg/dl (74-106); MAGNESIUM 2.1 mg/dL (1.8-2.4); POTASSIUM 3.6 mmol/L (3.5-5.1); SGOT/AST 21 U/L (10-42); SGPT/ALT 15 U/L (10-40); SODIUM 142 mmol/L (136-145)
[2018-04-14] MEDS ORDERED: diazePAM 2 MG TABLET PO ONE (17:11)
[2018-04-14] MEDS ORDERED: SODIUM CHLORIDE 250 ML IV STA (17:12)
[2018-04-14] MEDS ORDERED: diazePAM 2 MG TABLET ONE (17:14)
[2018-04-14] MEDS ORDERED: SODIUM CHLORIDE 500 ML IV STA (18:33)
[2018-04-14 18:51] VITALS: BP 108/80; PULSE 78
== END 2018-04-14 19:13 | disposition home or self-care (01) ==
LOC: FER 15:36
PROC: 3E0337Z Introduction of Electrolytic and Water Balance Substance into Peripheral Vein, Percutaneous Approach (ICD-10-PCS; principal; 2018-04-14)
DX: R42 Dizziness and giddiness (principal); Z85.42 Personal history of malignant neoplasm of other parts of uterus; I48.91 Unspecified atrial fibrillation; I25.10 Atherosclerotic heart disease of native coronary artery without angina pectoris; I10 Essential (primary) hypertension; F41.9 Anxiety disorder, unspecified; E78.00 Pure hypercholesterolemia, unspecified; Z87.891 Personal history of nicotine dependence
CPT/HCPCS: 36415; 80053; 83735; 85025; 96360; 96361; 99282-25; J7030

== ENCOUNTER 2018-06-15 17:05 | Emergency (ER) | payer OTHER ==
[2018-06-15 17:15] VITALS: BP 116/69; PULSE 90; TEMP 97.9; BMI 34.3
--- NOTE | 2018-06-15 17:25 | PDOC ---
Attending Attestation - Resident Resident Name: Aaron Askew - ED Attending Attestation I have performed the following: I have examined & evaluated the patient, The case was reviewed & discussed with the resident, I agree w/resident's findings & plan - HPI HPI: 06/15/18 17:22 73 y/o female with hx of vertigo and CAD presents to ER with chest heaviness on/ off for 2 days. Also feels dizzy, but room is not spinning. No fever or chills. Has heaviness with breathing. Sees her Energy Infrastructure Engineer and told she might need a stent. No N/V/d/C. No fall or trauma. Has not taken anything. - Physicial Exam PE: 06/15/18 17:24 VSS HEENT: no JVD, no buits b/l, unremarkable Heart: irregularly irregular w/o murmur no clicks gallops or rubs Lungs: CTA b/l, no wheezes rhonchi or rales Abdomen: soft non tender +BS. no pulsatile mass Neuro: strength 5+/5 b/l in UE and LE, no focal deficits noted 06/15/18 17:57 - Medical Decision Making 06/15/18 17:57 CXR: unchanged ffrom prior enlarged heart EKG: HR 88, a-fib rate controlled, T wave inversions in lateral leads and III, unchanged from prior 06/15/18 18:28 Pt has what appears to be chronic renal insufficiency Will discharge home with UTI and atypical chest pain Place on Macrobid for UTI Will need follow up with her Energy Infrastructure Engineer If worsen return to ER Final Dx: UTI/dizziness/atypical chest pain Case discussed with Dr. Askew, resident
--- NOTE | 2018-06-15 17:33 | PDOC ---
History of Present Illness - General Chief Complaint: Lightheaded Stated Complaint: DIZZINESS Time Seen by Provider: 06/15/18 17:10 History Source: Patient Exam Limitations: No Limitations - History of Present Illness Initial Comments: 06/15/18 17:27 73 yo female pmh Afib (on Coumadin) anxiety and BPPV presents to the ED with dizziness, SOB and resolved chest pressure. Pt states she had 2 episodes of chest pressure today while watching TV. The Chest pressure was not exacerbated by walking or exertion, non radiating, denies back pain. SOB is exertional, denies recent illness, cough, N/V/F/C. Past History - Past Medical History Allergies/Adverse Reactions: Allergies Allergy/AdvReac Type Severity Reaction Status Date / Time fish derived [Fish derived] Allergy Severe SWELLING, Verified 04/14/18 15:43 NAUSEA Penicillins Allergy Severe HIVES,VOMIT Verified 04/14/18 15:44 ING aspirin Allergy Intermediate UNSURE Verified 04/14/18 15:44 Raspberry Flavor, Artificial Allergy Intermediate HIVES, Verified 04/14/18 15:44 ITCHING mercury (elemental) Allergy UNKNOWN Verified 04/14/18 15:44 [Mercury (Elemental)] Home Medications: Ambulatory Orders Atorvastatin Calcium [Lipitor] 10 mg PO DAILY 10/27/16 Ramipril [Altace] 10 mg PO DAILY 10/27/16 Isosorbide Mononitrate [Imdur -] 30 mg PO DAILY 11/23/16 Warfarin Na [Coumadin -] 2 mg PO SuTh@1800 tablet 11/25/16 Warfarin Na [Coumadin -] 1 mg PO MOTUWEFR 12/18/17 Bupropion HCl [Bupropion Xl] 150 mg PO TID 01/19/18 Diltiazem Cd [Cardizem Cd -] 120 mg PO DAILY 01/19/18 Furosemide [Lasix] 40 mg PO DAILY 03/03/18 Meclizine HCl [Antivert -] 25 mg PO Q8H #120 tablet 03/24/18 Diazepam [Valium] 2 mg PO DAILY PRN #10 tablet MDD 1 04/14/18 Meclizine HCl [Antivert -] 25 mg PO TID #21 tablet 04/14/18 Nitrofurantoin Monohyd/M-Cryst [Macrobid -] 100 mg PO BID #10 capsule 06/15/18 Anemia: No Asthma: No Cancer: Yes (UTERINE) Cardiac Disorders: Yes (A-FIB, CAD, CARDIOMYOPATHY) CVA: No COPD: No CHF: No DVT: No Dementia: No Diabetes: No GI Disorders: No Disorders: No HTN: Yes Hypercholesterolemia: Yes Liver Disease: No Psychiatric Problems: Yes (ANXIETY) Seizures: No Thyroid Disease: No Other medical history: VERTIGO - Surgical History Abdominal Surgery: Yes Appendectomy: No Cardiac Surgery: No Cholecystectomy: No Lung Surgery: No Neurologic Surgery: No Orthopedic Surgery: Yes (Bilateral Trigger finger release) - Immunization History Immunization Up to Date: No - Suicide/Smoking/Psychosocial Hx Smoking Status: No Smoking History: Former smoker Have you smoked in the past 12 months: No Number of Cigarettes Smoked Daily: 0 If you are a former smoker, when did you quit?: 10 YEARS AGO Information on smoking cessation initiated: No Hx Alcohol Use: No Drug/Substance Use Hx: No Substance Use Type: None Hx Substance Use Treatment: No Review of Systems - Review of Systems Constitutional: No: Chills, Fever HEENTM: No: Blurred Vision Respiratory: Yes: Shortness of Breath, SOB with Exertion. No: Cough, Wheezing, Productive cough Cardiac (ROS): No: Chest Pain (resolved chest pressure), Palpitations, Syncope ABD/GI: No: Constipated, Diarrhea, Nausea, Vomiting : No: Burning, Dysuria Musculoskeletal: No: Back Pain Neurological: Yes: Dizziness. No: Numbness, Paresthesia, Weakness *Physical Exam - Vital Signs Last Vital Signs Temp Pulse Resp BP Pulse Ox 97.9 F 90 18 116/69 100 06/15/18 17:06 06/15/18 17:06 06/15/18 17:06 06/15/18 17:06 06/15/18 17:06 - Physical Exam General Appearance: Yes: Nourished, Appropriately Dressed. No: Apparent Distress HEENT: positive: EOMI Respiratory/Chest: positive: Lungs Clear, Normal Breath Sounds. negative: Accessory Muscle Use, Crackles, Rhonchi, Wheezing Cardiovascular: positive: Regular Rhythm, Regular Rate, S1, S2. negative: Edema , JVD, Murmur Vascular Pulses: Dorsalis-Pedis (R): 4+, Doralis-Pedis (L): 4+ Gastrointestinal/Abdominal: positive: Normal Bowel Sounds, Flat, Soft. negative : Pulsatile Mass, Distended, Guarding, Rebound Integumentary: positive: Normal Color, Dry, Warm Neurologic: positive: Fully Oriented, Alert, Normal Mood/Affect, Normal Response Moderate Sedation - Procedure Monitoring Vital Signs: Procedure Monitoring Vital Signs Temperature 97.9 F 06/15/18 17:06 Pulse Rate 90 06/15/18 17:06 Respiratory Rate 18 06/15/18 17:06 Blood Pressure 116/69 06/15/18 17:06 O2 Sat by Pulse Oximetry (%) 100 06/15/18 17:06 ED Treatment Course - LABORATORY CBC & Chemistry Diagram: 06/15/18 17:40 06/15/18 17:40 - RADIOLOGY Radiology Studies Ordered: Category Date Time Status CHEST X-RAY PORTABLE* [RAD] Stat Radiology 06/15/18 17:22 Ordered Medical Decision Making - Medical Decision Making 06/15/18 17:51 73 yo female pmh Afib on Coumadin presents with SOB and resolved chest pressure. Pt well known to the ED. Denies all other ROS. DDX: ACS, CHF, costochondritis, pneumonia, BPPV EKG baseline afib, no change from prior ekg in 03/2018 Trops negative UA shows UTI. 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 Pt understands and agrees with the plan *DC/Admit/Observation/Transfer Diagnosis at time of Disposition: UTI (urinary tract infection) Qualifiers: Urinary tract infection type: site unspecified Hematuria presence: with hematuria Qualified Code(s): N39.0 - Urinary tract infection, site not specified ; R31.9 - Hematuria, unspecified - Discharge Dispostion Disposition: HOME Condition at time of disposition: Good Decision to Admit order: No - Prescriptions Prescriptions: Nitrofurantoin Monohyd/M-Cryst [Macrobid -] 100 mg PO BID #10 capsule - Referrals Referrals: Beverley Pizarro MD [Primary Care Provider] - - Patient Instructions Printed Discharge Instructions: DI for Urinary Tract Infection (UTI) Additional Instructions: Please make appointment with your Primary Care Doctor and [employer] Seating [employer] Operator within the next 24-48 hours. Return to the Emergency Room for any new or worsening symptoms including but not limited to: fevers, chills, pain with urination, continued chest pain or shortness of breath. Take the antibiotic Nitrofurantoin 2 times a day for 5 days. Thank you - Post Discharge Activity
[2018-06-15 18:04] LABS: BASO % 0.7 % (0-2.0); EOS % 1.6 % (0-4.5); HEMATOCRIT 43.5 % (32.4-45.2); HEMOGLOBIN 13.9 GM/dl (10.7-15.3); LYMPH % 26.9 % (8-40); MCH 30.7 pg (25.7-33.7); MEAN CELL VOLUME 95.9 fl (80-96); MEAN PLT VOLUME 8.3 fl (7.5-11.1); MONO % 9.1 % (3.8-10.2); NEUT % 61.7 % (42.8-82.8); PLATELET COUNT 198 K/MM3 (134-434); RBC 4.54 M/mm3 (3.60-5.2); RDW 12.8 % (11.6-15.6); WHITE BLOOD COUNT 5.5 K/mm3 (4.0-10.8)
[2018-06-15 18:05] LABS: PH,URINE 5.5 (4.5-8); URINE APPEARANCE Slightly; URINE BILIRUBIN Negative (NEGATIVE); URINE COLOR Yellow; URINE GLUCOSE (UA) Negative (NEGATIVE); URINE KETONE Negative (NEGATIVE); URINE LEUK ESTERASE 3+ (NEGATIVE); URINE NITRITE Negative (NEGATIVE); URINE PROTEIN Negative (NEGATIVE); URINE UROBILINOGEN 0.2 (0.2-1.0)
[2018-06-15 18:17] LABS: ALK PHOS 94 U/L (32-92); ANION GAP 13 MMOL/L (8-16); BILIRUBIN,TOTAL 0.6 mg/dl (0.2-1.0); BLOOD UREA NITROGEN 33 mg/dl (7-18); CALCIUM 8.7 mg/dl (8.4-10.2); CHLORIDE 108 mmol/L (98-107); CO2 23 mmol/L (22-28); GLUCOSE,RANDOM 83 mg/dl (74-106); POTASSIUM 3.9 mmol/L (3.5-5.1); SGOT/AST 22 U/L (10-42); SGPT/ALT 14 U/L (10-40); SODIUM 144 mmol/L (136-145); TOT PROT 7.1 g/dl (6.4-8.3)
[2018-06-15 18:30] LABS: URINE WBC 20-40 (0-5)
[2018-06-15 18:31] LABS: AMORP URATES 1+ /hpf (NONE SEEN); EPI CELLS 2+ /HPF
[2018-06-15] MEDS ORDERED: MECLIZINE HCL 25 MG TABLET (FP) PO ONE (18:36)
[2018-06-15] MEDS ORDERED: MECLIZINE HCL 25 MG TABLET (FP) ONE (18:37)
[2018-06-15] MEDS ORDERED: NITROFURANTOIN MACROCRYSTAL 50 MG CAPSULE (FP) ONE (18:43)
[2018-06-15] MEDS ORDERED: NITROFURANTOIN MACROCRYSTAL 50 MG CAPSULE (FP) PO SCH (18:45)
--- NOTE | 2018-06-17 17:03 | EKG ---
Test Reason : Blood Pressure : / mmHG Vent. Rate : 088 BPM Atrial Rate : 071 BPM P-R Int : 000 ms QRS Dur : 086 ms QT Int : 360 ms P-R-T Axes : 000 016 -56 degrees QTc Int : 435 ms ATRIAL FIBRILLATION ABNORMAL ECG Confirmed by MD GAXIOLA GREGORY ([id number]) on 06/17/2018 5:03:35 PM Referred By: Confirmed By:MINDA GAXIOLA MD
== END 2018-06-15 18:51 | disposition home or self-care (01) ==
LOC: SUPCPDRO 17:05 → FER 17:05
DX: N39.0 Urinary tract infection, site not specified (principal); R31.9 Hematuria, unspecified; Z87.891 Personal history of nicotine dependence; F41.9 Anxiety disorder, unspecified; I10 Essential (primary) hypertension; E78.00 Pure hypercholesterolemia, unspecified
CPT/HCPCS: 36415; 71045-TC-FY; 80053; 81003; 81015; 82550; 84484; 85025; 93005; 99283-25

== ENCOUNTER 2018-07-05 07:24 | Emergency (ER) | payer OTHER ==
--- NOTE | 2018-07-05 07:27 | PDOC ---
History of Present Illness - General Chief Complaint: Pain Stated Complaint: rt foot pain Time Seen by Provider: 07/05/18 07:27 - History of Present Illness Initial Comments: 07/05/18 07:39 73yo female presents ambulatory, but with a limp secondary to R big toe pain. States pain started last night. Denies trauma. States she was putting ice packs on her toe all night without any relief in pain. States she did not try and medications at home to help with the pain. Pt states she was eating chocolate yesterday and for the last few days. Pt denies f/c. No cp/sob. No abd pain. No n /v/d. No lymphangitic spread. No rash. Pt with acute redness and ttp over the R MTP on the R big toe. Pt with localized swelling to the R big toe. No redness up the foot. Pt states she has had gout in the past, but not in over 10 years. Pmhx: afib on coumadin, bppv, anxiety allergies: asa, pcn Past History - Past Medical History Allergies/Adverse Reactions: Allergies Allergy/AdvReac Type Severity Reaction Status Date / Time fish derived [Fish derived] Allergy Severe SWELLING, Verified 07/05/18 07:27 NAUSEA Penicillins Allergy Severe HIVES,VOMIT Verified 07/05/18 07:27 ING aspirin Allergy Intermediate UNSURE Verified 07/05/18 07:27 Raspberry Flavor, Artificial Allergy Intermediate HIVES, Verified 07/05/18 07:27 ITCHING mercury (elemental) Allergy UNKNOWN Verified 07/05/18 07:27 [Mercury (Elemental)] Home Medications: Ambulatory Orders Atorvastatin Calcium [Lipitor] 10 mg PO DAILY 10/27/16 Ramipril [Altace] 10 mg PO DAILY 10/27/16 Isosorbide Mononitrate [Imdur -] 30 mg PO DAILY 11/23/16 Warfarin Na [Coumadin -] 1 mg PO MOWEFRSA 12/18/17 Bupropion HCl [Bupropion Xl] 150 mg PO TID 01/19/18 Diltiazem Cd [Cardizem Cd -] 120 mg PO DAILY 01/19/18 Furosemide [Lasix] 40 mg PO DAILY 03/03/18 Diazepam [Valium] 2 mg PO DAILY PRN #10 tablet MDD 1 04/14/18 Meclizine HCl [Antivert -] 25 mg PO TID #21 tablet 04/14/18 Nitrofurantoin Monohyd/M-Cryst [Macrobid -] 100 mg PO BID #10 capsule 06/15/18 Warfarin Na [Coumadin -] 2 mg PO TUTH@1800 06/15/18 Colchicine 0.6 mg PO ONCE #1 tablet 07/05/18 Methylprednisolone [Medrol Dose Maldonado] 4 mg PO ASDIR #21 tablet 07/05/18 Anemia: No Asthma: No Cancer: Yes (UTERINE) Cardiac Disorders: Yes (A-FIB, CAD, CARDIOMYOPATHY) CVA: No COPD: No CHF: No DVT: No Dementia: No Diabetes: No GI Disorders: No Disorders: No HTN: Yes Hypercholesterolemia: Yes Liver Disease: No Psychiatric Problems: Yes (ANXIETY) Seizures: No Thyroid Disease: No - Surgical History Abdominal Surgery: Yes Appendectomy: No Cardiac Surgery: No Cholecystectomy: No Lung Surgery: No Neurologic Surgery: No Orthopedic Surgery: Yes (Bilateral Trigger finger release) - Immunization History Immunization Up to Date: No - Suicide/Smoking/Psychosocial Hx Smoking Status: No Smoking History: Former smoker Have you smoked in the past 12 months: No Number of Cigarettes Smoked Daily: 0 If you are a former smoker, when did you quit?: 10 YEARS AGO Hx Alcohol Use: No Drug/Substance Use Hx: No Substance Use Type: None Hx Substance Use Treatment: No Review of Systems - Review of Systems Able to Perform ROS?: Yes Is the patient limited Maori proficient: No Constitutional: No: Chills, Fever Respiratory: No: Shortness of Breath Cardiac (ROS): No: Chest Pain, Palpitations ABD/GI: No: Diarrhea, Nausea, Vomiting : No: Burning, Dysuria Musculoskeletal: Yes: Gout, Joint Pain. No: Back Pain Integumentary: Yes: Erythema. No: Bruising, Pruritus, Rash Neurological: No: Headache, Numbness, Paresthesia All Other Systems: Reviewed and Negative *Physical Exam - Vital Signs 07/05/18 07:46 Selected Entries 07/05/18 07:26 Temperature 97.5 F L Pulse Rate 80 Respiratory 20 Rate Blood Pressure 148/67 Blood Pressure 94 Mean O2 Sat by Pulse 98 Oximetry (%) Weight 85.729 kg - Physical Exam General Appearance: Yes: Nourished, Appropriately Dressed HEENT: positive: EOMI, Normal Voice Neck: positive: Supple Respiratory/Chest: positive: Lungs Clear, Normal Breath Sounds. negative: Respiratory Distress Cardiovascular: positive: Regular Rate, Irregularly Irregular Gastrointestinal/Abdominal: positive: Normal Bowel Sounds, Soft, Other (obese) Musculoskeletal: positive: Normal Inspection, Other (no calf ttp) Extremity: positive: Normal Capillary Refill, Normal Range of Motion, Tender (R 1st MTP redness, warmth, ttp - no lymphangitic spread, pedal pulses intact) Integumentary: positive: Dry, Warm, Erythema (R 1st MTP), Swelling (R 1st mtp). negative: Ecchymosis Neurologic: positive: Fully Oriented, Alert, Normal Mood/Affect, Motor Strength 5/5, Other (ambulates with a limp secondary to R foot pain) ED Treatment Course - LABORATORY CBC & Chemistry Diagram: 07/05/18 07:50 07/05/18 07:50 Medical Decision Making - Medical Decision Making 07/05/18 07:52 a/p: 73yo female with R 1st MTP pain and redness -concern for gouty flare vs cellulitis -pt was eating chocolate yesterday -will send labs, hx of afib on coumadin - check inr and uric acid -will obtain xray R foot -allergy to asa - avoid nsaid, will give tylenol and prednisone for gout 07/05/18 08:21 xray reviewed - no air in the tissue, no acute fx 07/05/18 08:26 no elevated wbc 07/05/18 08:52 uric acid elevated INR 3.74, no signs of active bleeding, will hold coumadin tonight Cr at baseline 1.8 *DC/Admit/Observation/Transfer Diagnosis at time of Disposition: Gouty arthritis - Discharge Dispostion Disposition: HOME Condition at time of disposition: Stable Decision to Admit order: No - Prescriptions Prescriptions: Colchicine 0.6 mg PO ONCE #1 tablet Methylprednisolone [Medrol Dose Maldonado] 4 mg PO ASDIR #21 tablet - Referrals Referrals: Beverley Pizarro MD [Staff Physician] - - Patient Instructions Printed Discharge Instructions: DI for Gout Additional Instructions: Please take all medications as prescribed. Please follow up with your PMD in 3- 4 days. Please hold your coumadin tonight. Please return to the ED with any further concerns or complaints. - Post Discharge Activity
[2018-07-05 07:37] VITALS: BP 148/67; PULSE 80; TEMP 97.5; BMI 36.9
[2018-07-05] MEDS ORDERED: ACETAMINOPHEN 500 MG TABLET (FP) PO ONE (07:38)
[2018-07-05] MEDS ORDERED: predniSONE 20 MG TABLET (UD) PO ONE (07:39)
[2018-07-05 08:19] LABS: BASO % 0.5 % (0-2.0); EOS % 1.3 % (0-4.5); HEMATOCRIT 41.4 % (32.4-45.2); HEMOGLOBIN 13.5 GM/dl (10.7-15.3); MCH 31.1 pg (25.7-33.7); MCHC 32.7 g/dl (32.0-36.0); MEAN CELL VOLUME 95.1 fl (80-96); MEAN PLT VOLUME 8.4 fl (7.5-11.1); MONO % 8.4 % (3.8-10.2); NEUT % 70.8 % (42.8-82.8); PLATELET COUNT 167 K/MM3 (134-434); RBC 4.36 M/mm3 (3.60-5.2); RDW 12.6 % (11.6-15.6); WHITE BLOOD COUNT 6.4 K/mm3 (4.0-10.8)
[2018-07-05] MEDS ORDERED: ACETAMINOPHEN 500 MG TABLET (FP) ONE (08:25)
[2018-07-05 08:27] LABS: ALK PHOS 103 U/L (32-92); ANION GAP 10 MMOL/L (8-16); BILIRUBIN,TOTAL 0.8 mg/dl (0.2-1.0); BLOOD UREA NITROGEN 25 mg/dl (7-18); CHLORIDE 111 mmol/L (98-107); CO2 20 mmol/L (22-28); CREATININE 1.8 mg/dl (0.6-1.3); GLUCOSE,RANDOM 102 mg/dl (74-106); POTASSIUM 3.7 mmol/L (3.5-5.1); SGOT/AST 20 U/L (10-42); SGPT/ALT 12 U/L (10-40); SODIUM 141 mmol/L (136-145); TOT PROT 6.8 g/dl (6.4-8.3); URIC ACID 8.8 mg/dl (2.6-7.2)
[2018-07-05 08:45] LABS: INR 3.74 (0.82-1.09); PROTHROMBIN TIME (PATIENT) 40.8 SEC (10.2-13.0)
[2018-07-05] MEDS ORDERED: predniSONE 20 MG TABLET (UD) ONE (08:49)
[2018-07-05] MEDS ORDERED: COLCHICINE 0.6 MG TABLET (FP) PO ONE (08:54)
== END 2018-07-05 09:10 | disposition home or self-care (01) ==
LOC: FER 07:24
DX: M10.9 Gout, unspecified (principal); I48.91 Unspecified atrial fibrillation; Z79.01 Long term (current) use of anticoagulants; H81.10 Benign paroxysmal vertigo, unspecified ear; Z85.42 Personal history of malignant neoplasm of other parts of uterus; Z87.891 Personal history of nicotine dependence
CPT/HCPCS: 36415; 73630-TC-RT-FY; 80053; 84550; 85025; 85610; 99282-25

== ENCOUNTER 2018-07-22 14:28 | Observation (INO) | payer OTHER ==
--- NOTE | 2018-07-22 14:30 | PDOC ---
History of Present Illness - General Chief Complaint: Lightheaded Stated Complaint: DIZZINESS Time Seen by Provider: 07/22/18 14:30 History Source: Patient Exam Limitations: No Limitations - History of Present Illness Initial Comments: 73 yo f w a pmh of BPPV, Gout, Afib on coumadin, CAD, cardiomyopathy, uterine cancer s/p hysterectomy, anxiety presents with sudden onset dizziness, lightheadedness, unsteadiness on her feet, and blurry vision. She states this all began this morning at 10:30 AM when she woke up and was significantly worse than usual. She has had vertigo many times in the past but it is usually not this bad. She took Meclizine for her lightheadedness but it did not help her. She also states that both of her hands are constantly shaking. She also says that she has a new slight headache which started today. She also admits that the dizziness is worse when she lies down. She has a history of BPPV but says this does not feel like her typical BPPV. She denies having any chest pain, SOB, difficulty breathing, nausea, vomiting, neck pain, diarrhea, constipation, dysuria, frequency, urgency, back pain, fevers, chills, infections, weakness, numbness, tingling, abdominal pain. PCP: Dr. Pizarro - Patient states she is mad at him and fired him today bc he couldn't see her and it's his fault she is in the ER today. [employer] Attendant: Dr. Torres Spd Manager: Dr. Pinzon PSH: Hysterectomy, Tonsillectomy Allergies: Fish, penicillins, artificial flavors, raspberries, Aspirin. Social Hx: Denies smoking, drinking, or other substance usage. Past History - Past Medical History Allergies/Adverse Reactions: Allergies Allergy/AdvReac Type Severity Reaction Status Date / Time fish derived [Fish derived] Allergy Severe SWELLING, Verified 07/22/18 14:29 NAUSEA Penicillins Allergy Severe HIVES,VOMIT Verified 07/22/18 14:29 ING aspirin Allergy Intermediate UNSURE Verified 07/22/18 14:29 Raspberry Flavor, Artificial Allergy Intermediate HIVES, Verified 07/22/18 14:29 ITCHING mercury (elemental) Allergy UNKNOWN Verified 07/22/18 14:29 [Mercury (Elemental)] Home Medications: Ambulatory Orders Atorvastatin Calcium [Lipitor] 10 mg PO DAILY 10/27/16 Ramipril [Altace] 10 mg PO DAILY 10/27/16 Isosorbide Mononitrate [Imdur -] 30 mg PO DAILY 11/23/16 Warfarin Na [Coumadin -] 1 mg PO MOWEFRSA 12/18/17 Bupropion HCl [Bupropion Xl] 150 mg PO TID 01/19/18 Diltiazem Cd [Cardizem Cd -] 120 mg PO DAILY 01/19/18 Furosemide [Lasix] 40 mg PO DAILY 03/03/18 Warfarin Na [Coumadin -] 2 mg PO TUTH@1800 06/15/18 Anemia: No Asthma: No Cancer: Yes (UTERINE) Cardiac Disorders: Yes (A-FIB, CAD, CARDIOMYOPATHY) CVA: No COPD: No CHF: No DVT: No Dementia: No Diabetes: No GI Disorders: No Disorders: No HTN: Yes Hypercholesterolemia: Yes Liver Disease: No Psychiatric Problems: Yes (ANXIETY) Seizures: No Thyroid Disease: No - Surgical History Abdominal Surgery: Yes Appendectomy: No Cardiac Surgery: No Cholecystectomy: No Lung Surgery: No Neurologic Surgery: No Orthopedic Surgery: Yes (Bilateral Trigger finger release) - Immunization History Immunization Up to Date: No - Suicide/Smoking/Psychosocial Hx Smoking Status: No Smoking History: Former smoker Have you smoked in the past 12 months: No Number of Cigarettes Smoked Daily: 0 If you are a former smoker, when did you quit?: 10 YEARS AGO Hx Alcohol Use: No Drug/Substance Use Hx: No Substance Use Type: None Hx Substance Use Treatment: No Review of Systems - Review of Systems Able to Perform ROS?: Yes Comments:: CONSTITUTIONAL: Absent: fever, no chills, no fatigue EYES: Present: Visual changes ENT: Absent: ear pain, no sore throat CARDIOVASCULAR: Absent: chest pain, no palpitations RESPIRATORY: Absent: cough, no SOB GI: Absent: abdominal pain, no nausea, no vomiting, no constipation, no diarrhea GENITOURINARY: Absent: dysuria, no frequency, no hematuria MUSKULOSKELETAL: Absent: back pain, no arthralgia, no myalgia SKIN: Absent: rash NEURO: Present: headache *Physical Exam - Physical Exam Comments: GENERAL: Well-appearing, well-nourished. Moderate distress. HEENT: Normocephalic, atraumatic. PERRL, EOM intact. CARDIOVASCULAR: Normal S1, S2. Regular rate and rhythm. PULMONARY: Clear to auscultation bilaterally. ABDOMEN: Soft, non-distended, non-tender. EXTREMITIES: Normal ROM in all four extremities. No gross deformities. SKIN: Warm, dry. No rash NEUROLOGICAL: Alert, awake, appropriate. Cranial nerves 2-12 intact. No deficits to light touch in face, upper extremities and lower extremities. No motor deficits in the in face, upper extremities and lower extremities. Normal speech. Gait is ataxic. PSYCHIATRIC: Cooperative. Good eye contact. Appropriate mood and affect. ED Treatment Course - LABORATORY CBC & Chemistry Diagram: 07/22/18 15:00 07/22/18 15:00 Medical Decision Making - Medical Decision Making 73 yo f w a pmh of BPPV, Gout, Afib on coumadin, CAD, cardiomyopathy, uterine cancer s/p hysterectomy, anxiety presents with sudden onset dizziness, lightheadedness, unsteadiness on her feet, and blurry vision. She states this all began this morning at 10:30 AM when she woke up and was significantly worse than usual. DDx IBNLT: CVA/stroke, peripheral vs central vertigo, complex migraine, BPPV, labrynthiitis, arrhythmia, UTI, PNA, other infection. Plan: Labs, urine, CXR, EKG, Head CT, IV hydration, meclizine, Re-assess. CBC unremarkable and WNL Trop Negative BUN: 35, Cr. 2.0 Urine notable for LE of 2+. Negative nitrite. Head CT shows no acute pathology. Patient on Coumadin PT: 37.6 INR: 3.4 Will try to treat symptoms with meclizine, reglan, diphenhydramine, acetaminophen, and re-assess. Patient still feels extremely vertiginous and like she cannot walk despite meds. Will admit patient to hospital for intractable vertigo and get a neuro consult as an inpatient. Patient also has a UTI - she is allergic to bactrim and keflex. Will treat with macrobid. Dr. Denney is cabinet professional for neuro at [facility] from 07/21-07/27. Dr. Denney has seen this patient in the past. Neuro consult placed to Dr. Denney. - Spoke with Dr. Denney: He agrees to have a neruologist assess the patient. As per his request I ordered a brain MRI w/o contrast for tomorrow and also ordered 2.5 mg valium for the patient as well as made the Meclizine order 25 MG standing TID. *DC/Admit/Observation/Transfer Diagnosis at time of Disposition: Lightheaded, Vertigo, Dizziness, UTI (urinary tract infection) - Discharge Dispostion Condition at time of disposition: Stable Decision to Admit order: Yes - Referrals - Patient Instructions - Post Discharge Activity
[2018-07-22 14:32] VITALS: BMI 35.2
[2018-07-22] MEDS ORDERED: SODIUM CHLORIDE 0.9% 500 ML INFUS.BAG IV ONE (14:54)
[2018-07-22 15:15] LABS: BASO % 0.6 % (0-2.0); EOS % 1.5 % (0-4.5); HEMATOCRIT 41.2 % (32.4-45.2); HEMOGLOBIN 13.6 GM/dl (10.7-15.3); LYMPH % 18.4 % (8-40); MCH 31.3 pg (25.7-33.7); MEAN CELL VOLUME 94.8 fl (80-96); MEAN PLT VOLUME 8.3 fl (7.5-11.1); MONO % 9.7 % (3.8-10.2); NEUT % 69.8 % (42.8-82.8); PLATELET COUNT 177 K/MM3 (134-434); RBC 4.34 M/mm3 (3.60-5.2); RDW 12.7 % (11.6-15.6); WHITE BLOOD COUNT 6.1 K/mm3 (4.0-10.8)
[2018-07-22 15:22] LABS: INR 3.44 (0.82-1.09); PROTHROMBIN TIME (PATIENT) 37.6 SEC (10.2-13.0)
--- NOTE | 2018-07-22 15:25 | PDOC ---
Attending Attestation - Resident Resident Name: Mark Vicente - ED Attending Attestation I have performed the following: I have examined & evaluated the patient, The case was reviewed & discussed with the resident, I agree w/resident's findings & plan, Exceptions are as noted - HPI HPI: 07/22/18 17:44 73 yo f w a pmh of BPPV, Gout, Afib on coumadin, CAD, cardiomyopathy, uterine cancer s/p hysterectomy, anxiety presents with bitemporal headache, lightheadedness, dizziness, unsteady gait which has been present since waking up this morning Patient with long-standing history of vertigo took her meclizine this morning with no significant improvement of symptoms was driven to the emergency department and ambulated in with slightly unsteady gait. Symptoms are waxing and waning, and go but constant throughout the morning and have never completely alleviated with no clear exacerbating or alleviating factors. ROS: A complete review of 10 out of 10 review of systems is taken and is negative apart from what is previously mentioned below and in the HPI. - Physicial Exam PE: 07/22/18 17:45 Vitals: Triage Vital signs reviewed General Appearance: no acute distress, well nourished well developed, Head: Atraumatic, Eyes: Pupils equal reactive round, extraocular movement intact Neck: Supple;No Nucal rigidity Chest Wall: Nontender Cardiac: Irregularly irregular Lungs: Clear to auscultation bilateral, good air movement bilaterally, Abdomen: Soft, non distended, normal bowel sounds, non tender to palpation Extremities: Full range of motion to all extremities, no cyanosis, clubbing, or edema Skin: Warm and dry, no rashes or lesions, no rash, no petechiae Neuro: AOX3; Cranial Nerves 2-12 grossly intact, Strength intact to all extremities, Sensation intact to all extremities, finger to nose intact, unsteady gait Psych: normal mood, normal affect - Medical Decision Making 07/22/18 17:48 Patient treated in the emergency department with meclizine IV fluids and IV Tylenol Headache is improving but patient still feels symptomatically unsteady with lightheadedness/vertigo Her EKG shows rate controlled A. fib laboratory analysis is unremarkable her head CT is negative for any acute pathology Given the patient despite treatment is still unable to annually with steady gait she is not safe to be discharged home Neurology has been consulted recommended 3 times a day meclizine Valium and MRI in the morning We'll admit to medicine for further management. Heart Score/ECG Review - ECG Impressions Comment:: 07/22/18 17:47 EKG performed at 1440 demonstrates A. fib [address] elevations or T-wave inversions. Interpreted by me.
[2018-07-22 15:32] LABS: ALBUMIN 3.7 g/dl (3.5-5.0); ALK PHOS 89 U/L (32-92); ANION GAP 8 MMOL/L (8-16); BILIRUBIN,TOTAL 0.7 mg/dl (0.2-1.0); BLOOD UREA NITROGEN 35 mg/dl (7-18); CALCIUM 8.3 mg/dl (8.4-10.2); CHLORIDE 107 mmol/L (98-107); CO2 21 mmol/L (22-28); GLUCOSE,RANDOM 128 mg/dl (74-106); POTASSIUM 3.6 mmol/L (3.5-5.1); SGOT/AST 23 U/L (10-42); SGPT/ALT 19 U/L (10-40); SODIUM 136 mmol/L (136-145); TOT PROT 6.5 g/dl (6.4-8.3)
[2018-07-22 15:55] LABS: URINE APPEARANCE Cloudy; URINE BILIRUBIN Negative (NEGATIVE); URINE COLOR Amber; URINE GLUCOSE (UA) Negative (NEGATIVE); URINE KETONE Negative (NEGATIVE); URINE LEUK ESTERASE 2+ (NEGATIVE); URINE NITRITE Negative (NEGATIVE); URINE PROTEIN Negative (NEGATIVE); URINE UROBILINOGEN 0.2 (0.2-1.0)
[2018-07-22] MEDS ORDERED: METOCLOPRAMIDE HCL INJECTION 10 MG/2 ML VIAL IVPUSH ONE (16:08)
[2018-07-22] MEDS ORDERED: MECLIZINE HCL 25 MG TABLET (FP) PO ONE (16:08)
[2018-07-22] MEDS ORDERED: MECLIZINE HCL 25 MG TABLET (FP) ONE (16:15)
[2018-07-22] MEDS ORDERED: METOCLOPRAMIDE HCL INJECTION 10 MG/2 ML VIAL ONE (16:15)
[2018-07-22] MEDS ORDERED: ACETAMINOPHEN 1000 MG/100 ML VIAL (NON FORMULARY) IVPB ONE (16:36)
[2018-07-22 16:45] LABS: EPI CELLS FEW /HPF; URINE BACTERIA 3+ /hpf (NEGATIVE); URINE WBC 40-60 (0-5)
[2018-07-22] MEDS ORDERED: ACETAMINOPHEN INJECTION 100 ML IVPB ONE (16:48)
[2018-07-22] MEDS ORDERED: NITROFURANTOIN MACROCRYSTAL 50 MG CAPSULE (FP) PO SCH (17:15)
[2018-07-22] MEDS ORDERED: NITROFURANTOIN MACROCRYSTAL 50 MG CAPSULE (FP) ONE (17:21)
[2018-07-22] MEDS ORDERED: MECLIZINE HCL 25 MG TABLET (FP) PO PRN (17:24)
[2018-07-22] MEDS ORDERED: diazePAM CARPU-JECT 10 MG/2 ML DISP.SYRIN IVPUSH ONE (17:24)
[2018-07-22] MEDS ORDERED: diazePAM 2 MG TABLET ONE (17:49)
[2018-07-22] MEDS ORDERED: diazePAM 2 MG TABLET PO ONE (17:49)
[2018-07-22] MEDS ORDERED: POTASSIUM CHLORIDE TABS 10 MEQ TABLET.ER (FP) PO STA (18:17)
[2018-07-22] MEDS ORDERED: CALCIUM GLUCONATE 10% - 1,000 MG/10 ML VIAL IVPB ONE (18:17)
--- NOTE | 2018-07-22 18:28 | HP ---
Admitting History and Physical - Primary Care Physician PCP: Beverley Pizarro D - Admission Chief Complaint: Vertigo, blurred vision History of Present Illness: 73 year old F with h/o BPPV, gout, cardiomyopathy, anxiety and atrial fibrillation on coumadin presents with dizziness, blurred vision, intermittent headache and unsteady gait which commenced this morning. Pt endorses a h/o vertigo but has never had such severe conglomertation of symptoms. She took a dose of meclizine 25mg one dose without effect. She denies CP/SOB/palpitations/ syncope/LOC/N/V/abd pain. She denies triggers to her current episode of vertigo , no recent travel or sick contacts. Pt reports attempting to schedule an appointment with PCP for evaluation but became upset after multiple automated transfers and decided to activate EMS for transport to ED for urgent evaluation. Additonally, Ms. 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 Areli Paz. In ED, EKG Afib 74bpm without acute pathology. CT head and CXR benign. Vitals: BP 127/88, HR 66bpm, T 98, RR 18 labs: INR 3.44, Cr 2.0, K =3.6, trop negative UA: +2 Lek, +3 bacteria, trace blood. Urine culture pending. Pt asymptomatic Neuro was consulted and Pt was treated with Valium 2mg x 1 dose, meclizine 25mg , IV tylenol and IVF. Decision made to admit patient for observation overnight with MRI ordered in the AM. History Source: Patient Limitations to Obtaining History: No Limitations - Past Medical History POLITICAL GEOGRAPHER: Yes: Vertigo Cardiovascular: Yes: AFIB, HTN, Hyperlipdemia Renal/: Yes: Renal Inusuff Reproductive: Yes: Other (h/o uterine ca s/p hysterectomy) Psych: Yes: Anxiety - Past Surgical History Past Surgical History: Yes: Hysterectomy, Tonsillectomy - Smoking History Smoking history: Former smoker Have you smoked in the past 12 months: No Aproximately how many cigarettes per day: 0 If you are a former smoker, when did you quit?: 10 YEARS AGO - Alcohol/Substance Use Hx Alcohol Use: No History of Substance Use: reports: None - Social History Usual Living Arrangement: Yes: Alone ADL: Independent History of Recent Travel: No Other Social History: PCP: Dr. Pizarro. Body Straightener: Dr. Torres. Pan Shaker : Dr. Pinzon Home Medications - Allergies Allergies/Adverse Reactions: Allergies Allergy/AdvReac Type Severity Reaction Status Date / Time fish derived [Fish derived] Allergy Severe SWELLING, Verified 07/22/18 14:29 NAUSEA Penicillins Allergy Severe HIVES,VOMIT Verified 07/22/18 14:29 ING aspirin Allergy Intermediate UNSURE Verified 07/22/18 14:29 Raspberry Flavor, Artificial Allergy Intermediate HIVES, Verified 07/22/18 14:29 ITCHING mercury (elemental) Allergy UNKNOWN Verified 07/22/18 14:29 [Mercury (Elemental)] - Home Medications Home Medications: Ambulatory Orders Atorvastatin Calcium [Lipitor] 10 mg PO DAILY 10/27/16 Ramipril [Altace] 10 mg PO DAILY 10/27/16 Isosorbide Mononitrate [Imdur -] 30 mg PO DAILY 11/23/16 Warfarin Na [Coumadin -] 1 mg PO MOWEFRSA 12/18/17 Bupropion HCl [Bupropion Xl] 150 mg PO TID 01/19/18 Diltiazem Cd [Cardizem Cd -] 120 mg PO DAILY 01/19/18 Furosemide [Lasix] 40 mg PO DAILY 03/03/18 Warfarin Na [Coumadin -] 2 mg PO TUTH@1800 06/15/18 Family Disease History - Family Disease History Other Family History: Noncontributory to current admission Review of Systems - Review of Systems Constitutional: reports: No Symptoms Eyes: reports: Blurred Vision HENT: reports: Hearing Loss Neck: reports: No Symptoms Cardiovascular: reports: No Symptoms Respiratory: reports: No Symptoms Gastrointestinal: reports: No Symptoms Genitourinary: reports: No Symptoms Musculoskeletal: reports: No Symptoms Integumentary: reports: No Symptoms Neurological: reports: Dizziness, Unsteady Gait, Weakness Endocrine: reports: No Symptoms Hematology/Lymphatic: reports: No Symptoms Psychiatric: reports: Anxiety Physical Examination Vital Signs: Vital Signs Temperature 98.0 F 07/22/18 17:53 Pulse Rate 61 07/22/18 17:53 Respiratory Rate 18 07/22/18 17:53 Blood Pressure 127/88 07/22/18 17:53 O2 Sat by Pulse Oximetry (%) 97 07/22/18 17:53 Constitutional: Yes: Well Nourished, No Distress, Calm, Other (laying comfortably in bed) Eyes: Yes: Conjunctiva Clear, EOM Intact, PERRL HENT: Yes: Atraumatic, Normocephalic Neck: Yes: Supple, Trachea Midline Cardiovascular: Yes: Pulse Irregular Respiratory: Yes: Regular, CTA Bilaterally Gastrointestinal: Yes: Normal Bowel Sounds, Soft ...Rectal Exam: Yes: Deferred Musculoskeletal: Yes: WNL Extremities: Yes: WNL Edema: No Peripheral Pulses WNL: Yes Peripheral Pulses: Left Radial: 2+, Right Radial: 2+ Integumentary: Yes: WNL Neurological: Yes: Alert, Oriented ...Motor Strength: WNL Psychiatric: Yes: Oriented Labs: CBC, BMP 07/22/18 15:00 07/22/18 15:00 Imaging - Results X-ray: Report Reviewed (CXR 07/22/2018: CArdiomegaly. no acute disease.) Cat Scan: Report Reviewed (Head CT 07/22/2018: No significant interval change. Mild volume loss without gross evidence of acute intracranial pathology.) EKG: Pending Problem List - Problems (1) Afib Assessment/Plan: coumadin 1mg -- coumadin 2mg T- no dose of coumadin on saturday continuous telemetry EKG if status changes continue cardizem 120mg daily Code(s): I48.91 - UNSPECIFIED ATRIAL FIBRILLATION (2) Prophylactic measure Assessment/Plan: bowel regimen with senna/colace DVT PPX: coumadin at therapeutic dose OOB to chair with assistance Fall precautions Code(s): Z29.9 - ENCOUNTER FOR PROPHYLACTIC MEASURES, UNSPECIFIED (3) Dizziness Assessment/Plan: MRI brain ordered Meclizine 25mg TID Valium once as needed for refractory symptoms continue IVF hydration for 1L Code(s): R42 - DIZZINESS AND GIDDINESS (4) UTI (urinary tract infection) Assessment/Plan: urine with Leuk, urine culture pending pt asymptomatic, hold of on abx until urine C and S resulted trend WBC and temp curve. Code(s): N39.0 - URINARY TRACT INFECTION, SITE NOT SPECIFIED (5) Vertigo Assessment/Plan: neuro following, reccs appreciated Code(s): R42 - DIZZINESS AND GIDDINESS (6) CKD (chronic kidney disease) Assessment/Plan: gentle hydration trend Creatinine replete electrolyte as needed Code(s): N18.9 - CHRONIC KIDNEY DISEASE, UNSPECIFIED Qualifiers: Chronic kidney disease stage: unspecified stage Qualified Code(s): N18.9 - Chronic kidney disease, unspecified (7) HTN (hypertension) Assessment/Plan: lasix 40mg qam ramipril 10mg daily imdur 30mg daily Code(s): I10 - ESSENTIAL (PRIMARY) HYPERTENSION (8) Hyperlipidemia Assessment/Plan: lipitor 10mg at bedtime Code(s): E78.5 - HYPERLIPIDEMIA, UNSPECIFIED Assessment/Plan Status: Full code continue bupropion 150mg, dose temporarily decreased to BID from TID due to SE profile (blurred vision, dizziness, headache) Home when stable with neuro out pt follow up APAP PRN headache or pain Visit type - Emergency Visit Emergency Visit: Yes ED Registration Date: 07/22/18 Care time: The patient presented to the Emergency Department on the above date and was hospitalized for further evaluation of their emergent condition. - New Patient This patient is new to me today: Yes Date on this admission: 07/22/18 - Critical Care Critical Care patient: No
--- NOTE | 2018-07-22 18:29 | CON.NEURO ---
Consult - Past Medical History Cardio/Vascular: Yes: AFIB, HTN, Hyperlipdemia Psych: Yes: Anxiety - Alcohol/Substance Use Hx Alcohol Use: No History of Substance Use: reports: None - Smoking History Smoking history: Former smoker Have you smoked in the past 12 months: No Aproximately how many cigarettes per day: 0 If you are a former smoker, when did you quit?: 10 YEARS AGO - Social History ADL: Independent History of Recent Travel: No Home Medications - Allergies Allergies/Adverse Reactions: Allergies Allergy/AdvReac Type Severity Reaction Status Date / Time fish derived [Fish derived] Allergy Severe SWELLING, Verified 07/22/18 14:29 NAUSEA Penicillins Allergy Severe HIVES,VOMIT Verified 07/22/18 14:29 ING aspirin Allergy Intermediate UNSURE Verified 07/22/18 14:29 Raspberry Flavor, Artificial Allergy Intermediate HIVES, Verified 07/22/18 14:29 ITCHING mercury (elemental) Allergy UNKNOWN Verified 07/22/18 14:29 [Mercury (Elemental)] - Home Medications Home Medications: Ambulatory Orders Atorvastatin Calcium [Lipitor] 10 mg PO DAILY 10/27/16 Ramipril [Altace] 10 mg PO DAILY 10/27/16 Isosorbide Mononitrate [Imdur -] 30 mg PO DAILY 11/23/16 Warfarin Na [Coumadin -] 1 mg PO MOWEFRSA 12/18/17 Bupropion HCl [Bupropion Xl] 150 mg PO TID 01/19/18 Diltiazem Cd [Cardizem Cd -] 120 mg PO DAILY 01/19/18 Furosemide [Lasix] 40 mg PO DAILY 03/03/18 Warfarin Na [Coumadin -] 2 mg PO TUT@1800 06/15/18 Family Disease History - Family Disease History Family Disease History: CA: Father (unspecified ) Physical Exam-Neuro Vital Signs: Vital Signs Temperature 98.0 F 07/22/18 17:53 Pulse Rate 61 07/22/18 17:53 Respiratory Rate 18 07/22/18 17:53 Blood Pressure 127/88 07/22/18 17:53 O2 Sat by Pulse Oximetry (%) 97 07/22/18 17:53 Labs: CBC, BMP 07/22/18 15:00 07/22/18 15:00 INR, PTT INR 3.44 (0.82-1.09) H 07/22/18 15:00 Assessment/Plan cc Feeling of dizzines since am HPI 73 year old female hisotr of atrial fibrillation on coumadin, CAD, Cardiomyoapthy, BPPV. She has hstiory of UTerine cancer and Anxiety. SHe presented with dizziness and lightheadedness. She feels like she is on rocking boat. She has very mild headache. Her ct head is normal. She is sitting comfortably and eating her dinner, she is feeling somewhat better. She took meclizine at [facility] and did not feel better. PSH: Hysterectomy, Tonsillectomy Allergies: Fish, penicillins, artificial flavors, raspberries, Aspirin. Social Hx: Denies smoking, drinking, or other substance usage. Past History - Past Medical History Allergies/Adverse Reactions: Allergies Allergy/AdvReac Type Severity Reaction Status Date / Time fish derived [Fish derived] Allergy Severe SWELLING, Verified 07/22/18 14:29 NAUSEA Penicillins Allergy Severe HIVES,VOMIT Verified 07/22/18 14:29 ING aspirin Allergy Intermediate UNSURE Verified 07/22/18 14:29 Raspberry Flavor, Artificial Allergy Intermediate HIVES, Verified 07/22/18 14:29 ITCHING mercury (elemental) Allergy UNKNOWN Verified 07/22/18 14:29 [Mercury (Elemental)] Home Medications: Ambulatory Orders Atorvastatin Calcium [Lipitor] 10 mg PO DAILY 10/27/16 Ramipril [Altace] 10 mg PO DAILY 10/27/16 Isosorbide Mononitrate [Imdur -] 30 mg PO DAILY 11/23/16 Warfarin Na [Coumadin -] 1 mg PO MOWEFRSA 12/18/17 Bupropion HCl [Bupropion Xl] 150 mg PO TID 01/19/18 Diltiazem Cd [Cardizem Cd -] 120 mg PO DAILY 01/19/18 Furosemide [Lasix] 40 mg PO DAILY 03/03/18 Warfarin Na [Coumadin -] 2 mg PO TUTH@1800 06/15/18 STEPHEN BRANNON, reviewed in chart NEUROLOGICAL EXAMIANTION Alert oriented x 3, speech is normal EOMI, pupils reactive , no face asymmetry, vf normal by confrontation FTN is normal. no rigidity or tremors were seen no nystagmus was seen sensation is normal reflex are generalized diminished ct head is normal mri of brain is normal Assessment: 73 year old female history of anxiety, HTN, HLD, Atrial fibrillation on coumadin. She also have historyof BPPV and had episode of dysblance and dizziness, likley to be related to anxiety vs BPPV, Initial ct head is normal unlikely to be cerebellar stroke Plan: concur with mri ofbrain pt B12,folate tsh can be obtained continue supportive care and meclizine prn
[2018-07-22] MEDS ORDERED: SENNOSIDES 8.6MG TABLET (FP) PO PRN (18:30)
[2018-07-22] MEDS ORDERED: DOCUSATE SODIUM 100 MG CAPSULE (FP) PO PRN (18:30)
[2018-07-22] MEDS ORDERED: ACETAMINOPHEN 325 MG TABLET (FP) PO PRN (18:30)
[2018-07-22 20:12] VITALS: TEMP 98.4
[2018-07-22] MEDS ORDERED: ATORVASTATIN CA 10 MG TABLET (FP) PO SCH (22:00)
[2018-07-22] MEDS: buPROPion HCL 75 MG TABLET PO SCH (22:40)
[2018-07-23 06:03] VITALS: BP 137/76; PULSE 94
[2018-07-23 08:12] LABS: HEMATOCRIT 40.4 % (32.4-45.2); HEMOGLOBIN 13.3 GM/dl (10.7-15.3); MCH 31.3 pg (25.7-33.7); MCHC 32.8 g/dl (32.0-36.0); MEAN CELL VOLUME 95.4 fl (80-96); MEAN PLT VOLUME 8.1 fl (7.5-11.1); PLATELET COUNT 157 K/MM3 (134-434); RBC 4.24 M/mm3 (3.60-5.2); RDW 12.9 % (11.6-15.6); WHITE BLOOD COUNT 5.9 K/mm3 (4.0-10.8)
[2018-07-23 08:26] LABS: INR 3.32 (0.82-1.09); PROTHROMBIN TIME (PATIENT) 36.3 SEC (10.2-13.0)
--- NOTE | 2018-07-23 08:29 | PN ---
Progress Note (short form) - Note Progress Note: 73 year old female hisotr of atrial fibrillation on coumadin, CAD, Cardiomyoapthy, BPPV. She has hstiory of UTerine cancer and Anxiety. SHe presented with dizziness and lightheadedness. She feels like she is on rocking boat. She has very mild headache. Her ct head is normal. She is sitting comfortably and eating her dinner, she is feeling somewhat better. Yesterday, She took meclizine at [facility] and did not feel better. Today she is feeling better, no symptoms at all and wishes to get mri cancelled and go home. [facility] NEUROLOGICAL EXAMIANTION Alert oriented x 3, speech is normal EOMI, pupils reactive , no face asymmetry, vf normal by confrontation FTN is normal. no rigidity or tremors were seen no nystagmus was seen sensation is normal reflex are generalized diminished ct head is normal mri of brain is cancelled Assessment/Plan: 73 year old female history of anxiety, HTN, HLD, Atrial fibrillation on coumadin. She also have historyof BPPV and had episode of dysblance and dizziness, likley to be related to anxiety vs BPPV, Initial ct head is normal. Her symptoms are resolved, and She wishes to cancel mri of braina nd she do not need at this time. I would cancel mri and follow up with me outpaitent if needed.
[2018-07-23 08:40] LABS: ALBUMIN 3.5 g/dl (3.5-5.0); ALK PHOS 86 U/L (32-92); ANION GAP 9 MMOL/L (8-16); BILIRUBIN,TOTAL 0.6 mg/dl (0.2-1.0); BLOOD UREA NITROGEN 27 mg/dl (7-18); CALCIUM 8.6 mg/dl (8.4-10.2); CHLORIDE 114 mmol/L (98-107); CHOLESTEROL 143 mg/dl; CO2 20 mmol/L (22-28); CREATININE 1.8 mg/dl (0.6-1.3); GLUCOSE,RANDOM 96 mg/dl (74-106); HDL CHOLESTEROL 51 mg/dl (29-89); PHOSPHOROUS 3.3 mg/dl (2.5-4.6); POTASSIUM 3.8 mmol/L (3.5-5.1); SGOT/AST 20 U/L (10-42); SGPT/ALT 17 U/L (10-40); SODIUM 143 mmol/L (136-145); TOT PROT 6.2 g/dl (6.4-8.3); TRIGLYCERIDES 148 mg/dl (35-160)
[2018-07-23] MEDS ORDERED: PT OWN MED DRAWER 7, Y5N ONE (09:27)
[2018-07-23] MEDS: buPROPion HCL 75 MG TABLET PO SCH (09:41)
--- NOTE | 2018-07-23 09:47 | DS ---
Physical Exam: SUBJECTIVE: Patient seen and examined OBJECTIVE: Vital Signs Period Temp Pulse Resp BP Sys/Franks Pulse Ox Last 24 Hr 98 F-98.6 F 61-94 18-20 106-137/56-88 97-98 PHYSICAL EXAM GENERAL: The patient is awake, alert, and fully oriented, in no acute distress. HEAD: Normal with no signs of trauma. EYES: PERRL, extraocular movements intact, sclera anicteric, conjunctiva clear. ENT: Ears normal, nares patent, oropharynx clear without exudates, moist mucous membranes. NECK: Trachea midline, full range of motion, supple. LUNGS: Breath sounds equal, clear to auscultation bilaterally, no wheezes, no crackles, no accessory muscle use. HEART: Regular rate and rhythm, S1, S2 without murmur, rub or gallop. ABDOMEN: Soft, nontender, nondistended, normoactive bowel sounds, no guarding, no rebound, no hepatosplenomegaly, no masses. EXTREMITIES: 2+ pulses, warm, well-perfused, no edema. NEUROLOGICAL: Cranial nerves II through XII grossly intact. Normal speech, gait not observed. PSYCH: Normal mood, normal affect. SKIN: Warm, dry, normal turgor, no rashes or lesions noted. LABS Laboratory Results - last 24 hr 07/22/18 07/22/18 07/22/18 15:00 15:00 15:00 WBC 6.1 RBC 4.34 Hgb 13.6 Hct 41.2 MCV 94.8 MCH 31.3 MCHC 33.0 RDW 12.7 Plt Count 177 MPV 8.3 Absolute Neuts (auto) 4.3 Neutrophils % 69.8 Lymphocytes % 18.4 Monocytes % 9.7 Eosinophils % 1.5 Basophils % 0.6 PT with INR INR Sodium 136 Potassium 3.6 Chloride 107 Carbon Dioxide 21 L Anion Gap 8 BUN 35 H Creatinine 2.0 H Creat Clearance w eGFR 24.42 Random Glucose 128 H D Calcium 8.3 L Phosphorus Magnesium Total Bilirubin 0.7 AST 23 ALT 19 D Alkaline Phosphatase 89 D Creatine Kinase Troponin I < 0.03 Total Protein 6.5 Albumin 3.7 Triglycerides Cholesterol Total LDL Cholesterol HDL Cholesterol Urine Color Urine Appearance Urine pH Ur Specific Rarden Urine Protein Urine Glucose (UA) Urine Ketones Urine Blood Urine Nitrite Urine Bilirubin Urine Urobilinogen Ur Leukocyte Esterase Urine RBC Urine WBC Ur Epithelial Cells Urine Bacteria Blood Type Antibody Screen 07/22/18 07/22/18 07/22/18 15:00 15:00 15:51 WBC RBC Hgb Hct MCV MCH MCHC RDW Plt Count MPV Absolute Neuts (auto) Neutrophils % Lymphocytes % Monocytes % Eosinophils % Basophils % PT with INR 37.6 H INR 3.44 H Sodium Potassium Chloride Carbon Dioxide Anion Gap BUN Creatinine Creat Clearance w eGFR Random Glucose Calcium Phosphorus Magnesium Total Bilirubin AST ALT Alkaline Phosphatase Creatine Kinase Troponin I Total Protein Albumin Triglycerides Cholesterol Total LDL Cholesterol HDL Cholesterol Urine Color Lisandra Urine Appearance Cloudy Urine pH 5.0 Ur Specific Rarden 1.020 Urine Protein Negative Urine Glucose (UA) Negative Urine Ketones Negative Urine Blood Trace-lysed H Urine Nitrite Negative Urine Bilirubin Negative Urine Urobilinogen 0.2 Ur Leukocyte Esterase 2+ H Urine RBC 2-5 Urine WBC 40-60 Ur Epithelial Cells Few Urine Bacteria 3+ Blood Type B POSITIVE Antibody Screen Negative 07/23/18 07/23/18 07/23/18 08:00 08:00 08:00 WBC 5.9 RBC 4.24 Hgb 13.3 Hct 40.4 MCV 95.4 MCH 31.3 MCHC 32.8 RDW 12.9 Plt Count 157 MPV 8.1 Absolute Neuts (auto) Neutrophils % Lymphocytes % Monocytes % Eosinophils % Basophils % PT with INR 36.3 H INR 3.32 H Sodium 143 Potassium 3.8 Chloride 114 H Carbon Dioxide 20 L Anion Gap 9 BUN 27 H Creatinine 1.8 H Creat Clearance w eGFR 27.58 Random Glucose 96 D Calcium 8.6 Phosphorus 3.3 Magnesium 2.0 Total Bilirubin 0.6 AST 20 ALT 17 Alkaline Phosphatase 86 Creatine Kinase Troponin I Cancelled Total Protein 6.2 L Albumin 3.5 Triglycerides 148 Cholesterol 143 Total LDL Cholesterol 63 HDL Cholesterol 51 Urine Color Urine Appearance Urine pH Ur Specific Rarden Urine Protein Urine Glucose (UA) Urine Ketones Urine Blood Urine Nitrite Urine Bilirubin Urine Urobilinogen Ur Leukocyte Esterase Urine RBC Urine WBC Ur Epithelial Cells Urine Bacteria Blood Type Antibody Screen 07/23/18 07/23/18 08:00 08:00 WBC RBC Hgb Hct MCV MCH MCHC RDW Plt Count MPV Absolute Neuts (auto) Neutrophils % Lymphocytes % Monocytes % Eosinophils % Basophils % PT with INR INR Sodium Potassium Chloride Carbon Dioxide Anion Gap BUN Creatinine Creat Clearance w eGFR Random Glucose Calcium Phosphorus Magnesium Total Bilirubin AST ALT Alkaline Phosphatase Creatine Kinase 38 Troponin I < 0.03 Total Protein Albumin Triglycerides Cholesterol Total LDL Cholesterol HDL Cholesterol Urine Color Urine Appearance Urine pH Ur Specific Rarden Urine Protein Urine Glucose (UA) Urine Ketones Urine Blood Urine Nitrite Urine Bilirubin Urine Urobilinogen Ur Leukocyte Esterase Urine RBC Urine WBC Ur Epithelial Cells Urine Bacteria Blood Type Antibody Screen HOSPITAL COURSE: Date of Admission:07/22/18 Date of Discharge: 07/23/18 73 year-old female with a PMH significant for BPPV, gout, cardiomyopathy, anxiety and atrial fibrillation on coumadin. Presented with dizziness, blurred vision, intermittent headache and unsteady gait which commenced this morning. Pt endorsed a h/o vertigo but has never had such severe conglomeration of symptoms. She took a dose of meclizine 25mg one dose without effect. She denied CP/SOB/palpitations/syncope/LOC/N/V/abd pain. She denied triggers to her current episode of vertigo, no recent travel or sick contacts. In ED, EKG Afib 74bpm without acute pathology. CT head and CXR benign. Vitals: BP 127/88, HR 66bpm, T 98, RR 18 labs: INR 3.44, Cr 2.0, K =3.6, trop negative UA: +2 Lek, +3 bacteria, trace blood. Urine culture pending. Pt asymptomatic Neuro was consulted and Pt was treated with Valium 2mg x 1 dose, meclizine 25mg , IV tylenol and IVF. Decision made to admit patient for observation overnight. Subsequent hospital course Patient was seen and evaluated by neurology. No further workup indicated. Patient reported complete resolution of symptoms. Discharge Summary Reason For Visit: DIZZINESS,LIGHTHEADEDNESS,VERTIGO Current Active Problems Afib (Acute) Dizziness (Acute) Lightheaded (Acute) Prophylactic measure (Acute) UTI (urinary tract infection) (Acute) Vertigo (Acute) Condition: Improved - Instructions Referrals: Alonso Ferrara MD [Staff Physician] - 2 Weeks Disposition: HOME - Home Medications Comprehensive Discharge Medication List: Ambulatory Orders Atorvastatin Calcium [Lipitor] 10 mg PO DAILY 10/27/16 Ramipril [Altace] 10 mg PO DAILY 10/27/16 Isosorbide Mononitrate [Imdur -] 30 mg PO DAILY 11/23/16 Warfarin Na [Coumadin -] 1 mg PO MOWEFRSA 12/18/17 Bupropion HCl [Bupropion Xl] 150 mg PO TID 01/19/18 Diltiazem Cd [Cardizem Cd -] 120 mg PO DAILY 01/19/18 Furosemide [Lasix] 40 mg PO DAILY 03/03/18 Warfarin Na [Coumadin -] 2 mg PO TUTH@1800 06/15/18
[2018-07-23] MEDS ORDERED: FUROSEMIDE 40 MG TABLET (FP) PO SCH (10:00)
[2018-07-23] MEDS ORDERED: ISOSORBIDE MONONITRATE 30 MG TAB.SR.24H (FP) PO SCH (10:00)
[2018-07-23] MEDS ORDERED: RAMIPRIL 5 MG CAPSULE (FP) PO SCH (10:00)
--- NOTE | 2018-07-23 10:03 | EKG ---
Test Reason : Blood Pressure : / mmHG Vent. Rate : 083 BPM Atrial Rate : 125 BPM P-R Int : 000 ms QRS Dur : 086 ms QT Int : 376 ms P-R-T Axes : 000 048 043 degrees QTc Int : 441 ms ATRIAL FIBRILLATION LOW VOLTAGE QRS NONSPECIFIC T WAVE ABNORMALITY ABNORMAL ECG WHEN COMPARED WITH ECG OF 22-JUL-2018 14:40, NONSPECIFIC T WAVE ABNORMALITY, WORSE IN INFERIOR LEADS Confirmed by BRANT EPSTEIN, ALEXANDRU ([id number]) on 07/23/2018 10:03:03 AM Referred By: Chuck Marion Confirmed By:ALEXANDRU GUO MD
[2018-07-23] MEDS ORDERED: WARFARIN NA 1 MG TABLET (FP) PO SCH (18:00)
[2018-07-24] MEDS ORDERED: WARFARIN NA 2 MG TABLET (UD) PO SCH (18:00)
== END 2018-07-23 12:50 | disposition home or self-care (01) ==
LOC: FER 14:28 → FM/S 17:03
PROVIDERS: ADMIT Internal Medicine; ATTEND Nurse Practitioner Acute Care
PROC: 3E033NZ Introduction of Analgesics, Hypnotics, Sedatives into Peripheral Vein, Percutaneous Approach (ICD-10-PCS; principal; 2018-07-22)
PROC: 3E0337Z Introduction of Electrolytic and Water Balance Substance into Peripheral Vein, Percutaneous Approach (ICD-10-PCS; 2018-07-22)
PROC: 3E033GC Introduction of Other Therapeutic Substance into Peripheral Vein, Percutaneous Approach (ICD-10-PCS; 2018-07-22)
DX: R42 Dizziness and giddiness (principal); N39.0 Urinary tract infection, site not specified; I12.9 Hypertensive chronic kidney disease with stage 1 through stage 4 chronic kidney disease, or unspecified chronic kidney disease; N18.9 Chronic kidney disease, unspecified; I48.91 Unspecified atrial fibrillation; I25.10 Atherosclerotic heart disease of native coronary artery without angina pectoris; I42.9 Cardiomyopathy, unspecified; F41.9 Anxiety disorder, unspecified; E78.5 Hyperlipidemia, unspecified; Z85.42 Personal history of malignant neoplasm of other parts of uterus; Z87.891 Personal history of nicotine dependence; Z91.013 Allergy to seafood; Z88.0 Allergy status to penicillin; Z88.6 Allergy status to analgesic agent; Z90.710 Acquired absence of both cervix and uterus; Z79.01 Long term (current) use of anticoagulants
CPT/HCPCS: 36415; 70450-TC; 71045-TC-FY; 80053; 80061; 81003; 81015; 82550; 82607; 83036; 83721; 83735; 84100; 84484; 85025; 85027; 85610; 86850; 86900; 86901; 87086; 93005; 96374; 96375; 99285-25; G0378; J0131

== ENCOUNTER 2018-08-26 05:35 | Emergency (ER) | payer OTHER ==
[2018-08-26 05:50] VITALS: BP 143/82; PULSE 89; TEMP 97.3; BMI 32.8
--- NOTE | 2018-08-26 05:54 | PDOC ---
History of Present Illness - General Chief Complaint: Pain, Acute Stated Complaint: GOUT RIGHT GREAT TOE Time Seen by Provider: 08/26/18 05:53 History Source: Patient Exam Limitations: No Limitations - History of Present Illness Initial Comments: 08/26/18 06:00 This is a 73-year-old female with long history of gout comes in complaining with her for gout in her right great toe. Patient said that it started yesterday she saw her primary care doctor was given colchicine and indomethacin but did not take colchicine because it makes her 6. However she did take indomethacin yesterday but did not take it today and comes in for pain in the toe. Patient denies any fevers or chills. Allergies: None Past Medical History: none Social history: Lives with family. No smoking. No alcohol. No illicit drugs. Surgical history: None General: No fevers or chills, no weakness, no weight loss HEENT: No change in vision. No sore throat,. No ear pain CardioVascular: no chest discomfort. No shortness of breath Respiratory:No cough, or wheezing. Gastrointestinal: no nausea, vomiting, diarrhea or constipation, No rectal bleeding Genitourinary: No dysuria, hematuria, or frequency Musculoskeletal: Pain and swelling right great toe Neurologic: No headache, vertigo, dizziness or loss of consciousness Psychiatric: nor depression Skin: No rashes or easy bruising Endocrine: no increased thirst or abnormal weight change Allergic: no skin or latex allergy All other systems reviewed and normal GENERAL: The patient is awake, alert, and fully oriented, in no acute distress. HEAD: Normal with no signs of trauma. EYES: Pupils equal, round and reactive to light, extraocular movements intact, sclera anicteric, conjunctiva clear. EXTREMITIES:atraumatic, there is swelling, erythema and discomfort on palpation of the right great toe. NEUROLOGICAL: Normal speech, normal gait. PSYCH: Normal mood, normal affect. SKIN: Warm, Dry, normal turgor, no rashes or lesions noted. Assessment and plan: This is a 70-year-old female who comes in complaining of exacerbation of her gout in her right great toe. Patient has a prescription for Indocin and SEEN. Patient does not take her colchicine and did not take her Indocin. Patient given Toradol and discharged told to have something to eat and take her Indocin also Past History - Past Medical History Allergies/Adverse Reactions: Allergies Allergy/AdvReac Type Severity Reaction Status Date / Time fish derived [Fish derived] Allergy Severe SWELLING, Verified 08/26/18 05:37 NAUSEA Penicillins Allergy Severe HIVES,VOMIT Verified 08/26/18 05:37 ING aspirin Allergy Intermediate UNSURE Verified 08/26/18 05:37 Raspberry Flavor, Artificial Allergy Intermediate HIVES, Verified 08/26/18 05:37 ITCHING mercury (elemental) Allergy UNKNOWN Verified 08/26/18 05:37 [Mercury (Elemental)] Home Medications: Ambulatory Orders Atorvastatin Calcium [Lipitor] 10 mg PO DAILY 10/27/16 Ramipril [Altace] 10 mg PO DAILY 10/27/16 Isosorbide Mononitrate [Imdur -] 30 mg PO DAILY 11/23/16 Warfarin Na [Coumadin -] 1 mg PO MOWEFRSA 12/18/17 Bupropion HCl [Bupropion Xl] 150 mg PO TID 01/19/18 Diltiazem Cd [Cardizem Cd -] 120 mg PO DAILY 01/19/18 Furosemide [Lasix] 40 mg PO DAILY 03/03/18 Warfarin Na [Coumadin -] 2 mg PO TUTH@1800 06/15/18 Colchicine 0.6 mg PO QID 08/26/18 HYDROmorphone [Dilaudid -] 2 mg PO Q4H 08/26/18 Indomethacin [Indocin -] 50 mg PO BID 08/26/18 Meclizine HCl 25 mg PO PRN 08/26/18 Anemia: No Asthma: No Cancer: Yes (UTERINE) Cardiac Disorders: Yes (A-FIB, CAD, CARDIOMYOPATHY) CVA: No COPD: No CHF: No DVT: No Dementia: No Diabetes: No GI Disorders: No Disorders: No HTN: Yes Hypercholesterolemia: Yes Liver Disease: No Psychiatric Problems: Yes (ANXIETY) Seizures: No Thyroid Disease: No - Surgical History Abdominal Surgery: Yes Appendectomy: No Cardiac Surgery: No Cholecystectomy: No Lung Surgery: No Neurologic Surgery: No Orthopedic Surgery: Yes (Bilateral Trigger finger release) - Immunization History Immunization Up to Date: No - Suicide/Smoking/Psychosocial Hx Smoking Status: No Smoking History: Former smoker Have you smoked in the past 12 months: No Number of Cigarettes Smoked Daily: 0 If you are a former smoker, when did you quit?: 10 Information on smoking cessation initiated: No Hx Alcohol Use: No Drug/Substance Use Hx: No Substance Use Type: None Hx Substance Use Treatment: No *Physical Exam - Vital Signs Last Vital Signs Temp Pulse Resp BP Pulse Ox 97.3 F L 89 20 143/82 100 08/26/18 05:47 08/26/18 05:47 08/26/18 05:47 08/26/18 05:47 08/26/18 05:47 Moderate Sedation - Procedure Monitoring Vital Signs: Procedure Monitoring Vital Signs Temperature 97.3 F L 08/26/18 05:47 Pulse Rate 89 08/26/18 05:47 Respiratory Rate 20 08/26/18 05:47 Blood Pressure 143/82 08/26/18 05:47 O2 Sat by Pulse Oximetry (%) 100 08/26/18 05:47 *DC/Admit/Observation/Transfer Diagnosis at time of Disposition: Gout Qualifiers: Gout site: toe Gout etiology: unspecified cause Chronicity: unspecified Laterality: right Qualified Code(s): M10.9 - Gout, unspecified - Discharge Dispostion Disposition: HOME Condition at time of disposition: Stable Decision to Admit order: No - Referrals - Patient Instructions Printed Discharge Instructions: DI for Gout, Gout (Alternative Therapy) Additional Instructions: Make sure you take your medications especially the Indocin as prescribed. Return to the emergency department immediately with ANY new, persistent or worsening symptoms. Continue any medications as previously prescribed by your physician. You should follow up with your primary doctor as soon as possible regarding today's emergency department visit. . Please make sure your doctor reviews the results of your emergency evaluation. Thank you for coming to the Emergency Department today for your care. It was a pleasure to see you today. Please note that your evaluation is INCOMPLETE until you follow-up with your doctor. - Post Discharge Activity
[2018-08-26] MEDS ORDERED: KETOROLAC TROMETHAMINE 60 MG/2 ML VIAL ONE (05:59)
[2018-08-26] MEDS ORDERED: KETOROLAC TROMETHAMINE 60 MG/2 ML VIAL IM ONE (05:59)
[2018-08-26] MEDS ORDERED: ALLOPURINOL 300 MG TABLET (FP) PO ONE (07:05)
--- NOTE | 2018-08-26 07:08 | PDOC ---
*Physical Exam - Vital Signs Last Vital Signs Temp Pulse Resp BP Pulse Ox 97.3 F L 89 20 143/82 100 08/26/18 05:47 08/26/18 05:47 08/26/18 05:47 08/26/18 05:47 08/26/18 05:47 ED Treatment Course - Medications Given in the ED: ED Medications Discontinued Medications Generic Name Dose Route Start Last Admin Trade Name Loco PRN Reason Stop Dose Admin Ketorolac Tromethamine 60 mg 08/26/18 05:59 08/26/18 06:02 Toradol Injection - IM 08/26/18 06:00 60 mg ONCE ONE Administration Medical Decision Making - Medical Decision Making 08/26/18 07:07 Pt went to get a cup of coffee in our cafeteria and returned with her toe pain. She will be loaded with allopurinol 300mg and given a percocet for good measure. Home with allopurinol 100 daily. *DC/Admit/Observation/Transfer Diagnosis at time of Disposition: Gout Qualifiers: Gout site: toe Gout etiology: unspecified cause Chronicity: unspecified Laterality: right Qualified Code(s): M10.9 - Gout, unspecified - Discharge Dispostion Disposition: HOME Condition at time of disposition: Stable Decision to Admit order: No - Prescriptions Prescriptions: Allopurinol [Zyloprim -] 100 mg PO DAILY #30 tablet - Referrals - Patient Instructions Printed Discharge Instructions: Gout (Alternative Therapy), DI for Gout Additional Instructions: Make sure you take your medications especially the Indocin as prescribed. Return to the emergency department immediately with ANY new, persistent or worsening symptoms. Continue any medications as previously prescribed by your physician. You should follow up with your primary doctor as soon as possible regarding today's emergency department visit. . Please make sure your doctor reviews the results of your emergency evaluation. Thank you for coming to the Emergency Department today for your care. It was a pleasure to see you today. Please note that your evaluation is INCOMPLETE until you follow-up with your doctor. - Post Discharge Activity
[2018-08-26] MEDS ORDERED: LIDOCAINE 5% TOPICAL PATCH ONE (07:53)
[2018-08-26] MEDS ORDERED: LIDOCAINE 5% TOPICAL PATCH TP ONE (07:53)
== END 2018-08-26 08:38 | disposition home or self-care (01) ==
LOC: FER 05:35
PROC: 3E0233Z Introduction of Anti-inflammatory into Muscle, Percutaneous Approach (ICD-10-PCS; principal; 2018-08-26)
DX: M10.9 Gout, unspecified (principal); Z87.891 Personal history of nicotine dependence; F41.9 Anxiety disorder, unspecified; I10 Essential (primary) hypertension; E78.00 Pure hypercholesterolemia, unspecified; I48.91 Unspecified atrial fibrillation; I25.10 Atherosclerotic heart disease of native coronary artery without angina pectoris
CPT/HCPCS: 96372; 99281-25

== ENCOUNTER 2018-09-15 17:25 | Emergency (ER) | payer OTHER ==
[2018-09-15] MEDS ORDERED: diphenhydrAMINE HCL 25 MG CAPSULE (FP) PO ONE ×2 (17:27→17:34)
[2018-09-15 17:31] VITALS: BP 126/77; PULSE 89; TEMP 97.8; BMI 34.0
--- NOTE | 2018-09-15 18:02 | PDOC ---
History of Present Illness - General Chief Complaint: Redness To Affected Area Stated Complaint: ITCHING TO LEFT ARM, REDNESS Time Seen by Provider: 09/15/18 17:27 History Source: Patient Exam Limitations: No Limitations - History of Present Illness Initial Comments: 09/15/18 17:56 The patient is a 73F with a PMH of Afib (on Coumadin), anxiety, and BPPV, who presents to the ER with complaints of L forearm scratching and redness. The patient states that she first noticed the redness overnight and has had intense pruritis throughout her L forearm, "to the point of bleeding". She denies any new lotions, perfumes, contacts, bites/scratches from animals, soaps. She denies having a rash anywhere else on her body. She admits to going to her PCP and "getting a shot" for which she is unsure of exactly what it is. She denies fever, chills, nausea, vomiting, other rashes. Past History - Past Medical History Allergies/Adverse Reactions: Allergies Allergy/AdvReac Type Severity Reaction Status Date / Time fish derived [Fish derived] Allergy Severe SWELLING, Verified 09/15/18 17:28 NAUSEA Penicillins Allergy Severe HIVES,VOMIT Verified 09/15/18 17:28 ING aspirin Allergy Intermediate UNSURE Verified 09/15/18 17:28 Raspberry Flavor, Artificial Allergy Intermediate HIVES, Verified 09/15/18 17:28 ITCHING mercury (elemental) Allergy UNKNOWN Verified 09/15/18 17:28 [Mercury (Elemental)] Home Medications: Ambulatory Orders Atorvastatin Calcium [Lipitor] 10 mg PO DAILY 10/27/16 Ramipril [Altace] 10 mg PO DAILY 10/27/16 Isosorbide Mononitrate [Imdur -] 30 mg PO DAILY 11/23/16 Warfarin Na [Coumadin -] 1 mg PO MOWEFRSA 12/18/17 Bupropion HCl [Bupropion Xl] 150 mg PO TID 01/19/18 Diltiazem Cd [Cardizem Cd -] 120 mg PO DAILY 01/19/18 Furosemide [Lasix] 40 mg PO DAILY 03/03/18 Warfarin Na [Coumadin -] 2 mg PO TUTH@1800 06/15/18 Allopurinol [Zyloprim -] 100 mg PO DAILY #30 tablet 08/26/18 Colchicine 0.6 mg PO QID 08/26/18 HYDROmorphone [Dilaudid -] 2 mg PO Q4H 08/26/18 Indomethacin [Indocin -] 50 mg PO BID 08/26/18 Meclizine HCl 25 mg PO PRN 08/26/18 Hydroxyzine HCl 10 mg PO TID PRN 09/15/18 Anemia: No Asthma: No Cancer: Yes (UTERINE) Cardiac Disorders: Yes (A-FIB, CAD, CARDIOMYOPATHY) CVA: No COPD: No CHF: No DVT: No Dementia: No Diabetes: No GI Disorders: No Disorders: No HTN: Yes Hypercholesterolemia: Yes Liver Disease: No Psychiatric Problems: Yes (ANXIETY) Seizures: No Thyroid Disease: No - Surgical History Abdominal Surgery: Yes Appendectomy: No Cardiac Surgery: No Cholecystectomy: No Lung Surgery: No Neurologic Surgery: No Orthopedic Surgery: Yes (Bilateral Trigger finger release) - Immunization History Immunization Up to Date: No - Suicide/Smoking/Psychosocial Hx Smoking Status: No Smoking History: Never smoked Have you smoked in the past 12 months: No Number of Cigarettes Smoked Daily: 0 If you are a former smoker, when did you quit?: 10 Information on smoking cessation initiated: No Hx Alcohol Use: No Drug/Substance Use Hx: No Substance Use Type: None Hx Substance Use Treatment: No Review of Systems - Review of Systems Able to Perform ROS?: Yes Is the patient limited Croatian proficient: No Constitutional: No: Chills, Fever HEENTM: No: Throat Pain, Throat Swelling Respiratory: No: Cough, Shortness of Breath Cardiac (ROS): No: Chest Pain, Lightheadedness ABD/GI: No: Nausea, Vomiting Integumentary: Yes: Dryness, Erythema, Pruritus, Rash Neurological: No: Numbness, Tingling, Weakness *Physical Exam - Vital Signs Last Vital Signs Temp Pulse Resp BP Pulse Ox 97.8 F 89 18 126/77 98 09/15/18 17:25 09/15/18 17:25 09/15/18 17:25 09/15/18 17:25 09/15/18 17:25 - Physical Exam General Appearance: Yes: Nourished, Appropriately Dressed HEENT: positive: Normal Voice, Hearing Grossly Normal Integumentary: positive: Warm, Erythema, Rash, Ecchymosis, Other (All on L forearm, not present elsewhere) Neurologic: positive: Fully Oriented, Alert, Normal Mood/Affect Moderate Sedation - Procedure Monitoring Vital Signs: Procedure Monitoring Vital Signs Temperature 97.8 F 09/15/18 17:25 Pulse Rate 89 09/15/18 17:25 Respiratory Rate 18 09/15/18 17:25 Blood Pressure 126/77 09/15/18 17:25 O2 Sat by Pulse Oximetry (%) 98 09/15/18 17:25 ED Treatment Course - Medications Given in the ED: ED Medications Discontinued Medications Generic Name Dose Route Start Last Admin Trade Name Loco PRN Reason Stop Dose Admin Diphenhydramine HCl 25 mg 09/15/18 17:27 09/15/18 17:42 Benadryl - PO 09/15/18 17:28 25 mg ONCE ONE Administration Medical Decision Making - Medical Decision Making 09/15/18 18:04 The patient is a 73F who presents with an intensely pruritic rash, to the point of causing diffuse erythema and petichiae. Will give benadryl, decadron, and cortisone cream and reassess. 09/15/18 18:23 Pt better after medications. Will d/c with PCP f/u. *DC/Admit/Observation/Transfer Diagnosis at time of Disposition: Itching - Discharge Dispostion Disposition: HOME Condition at time of disposition: Stable Decision to Admit order: No - Referrals Referrals: Beverley Pizarro MD [Primary Care Provider] - - Patient Instructions Printed Discharge Instructions: DI for Itching Additional Instructions: Your ER visit is not complete until your follow up with your primary care physician. Please follow up with your primary care physician in 1-2 days. Please return to the ER if you have any signs or symptoms of chest pain, shortness of breath, uncontrollable fever, chills, nausea, vomiting, numbness, tingling, or weakness in any part of your body, changes in vision, or slurred speech. Please take your medications as prescribed. Please return to the ER if symptoms persist, worsen, or new symptoms arise. - Post Discharge Activity
[2018-09-15] MEDS ORDERED: HYDROCORTISONE 1% TOPICAL CREAM 30 GM TUBE TP ONE (18:05)
[2018-09-15] MEDS ORDERED: DEXAMETHASONE SOD PHOSPHATE 4 MG/1 ML VIAL IM ONE (18:25)
[2018-09-15] MEDS ORDERED: DEXAMETHASONE 4 MG TABLET (FP) ONE (18:25)
--- NOTE | 2018-09-15 18:39 | PDOC ---
Attending Attestation - HPI HPI: 09/15/18 18:43 The patient is a 73 year old female, with a PMH of BPPV, Gout, Afib on coumadin , CAD, cardiomyopathy, uterine cancer s/p hysterectomy, and anxiety, who presents to the emergency department for evaluation of a rash to the left forearm. She states she woke up this morning and found the rash. The patient reports seeing her PCP earlier today and receiving a shot and some medication, but states she will start the medicine tomorrow. Patient has been extremely itchy, prompting her arrival to the ED. The patient denies chest pain, shortness of breath, headache and dizziness. Denies fever, chills, nausea, vomit, diarrhea and constipation. Denies dysuria, frequency, urgency and hematuria. Allergies: NKA Past surgical history: Social history: None reported PCP: Dr Pizarro - Physicial Exam PE: 09/15/18 18:44 Vitals: Triage Vital signs reviewed General Appearance: no acute distress, well nourished well developed, Extremities: Full range of motion to all extremities, no cyanosis, clubbing, or edema Skin: (+)erythema (+)scratch markings. Warm and dry, no rashes or lesions, no petechiae Neuro: AOX3; Cranial Nerves 2-12 grossly intact, Strength intact to all extremities, Sensation intact to all extremities <Chelsea Padilla - Last Filed: 09/15/18 18:42> - Resident Resident Name: Arpit Cruz - ED Attending Attestation I have performed the following: I have examined & evaluated the patient, The case was reviewed & discussed with the resident, I agree w/resident's findings & plan, Exceptions are as noted - Medical Decision Making 09/16/18 14:48 Patient with ALLERGIC reaction to left arm we'll treat with one dose IM Decadron patient has prescription for hydroxyzine recommend follow-up within 2 days or returning to the ED for any severe worsening symptoms or for any concerns. <Bud Cope - Last Filed: 09/16/18 14:48> Attestations - Attestations 09/15/18 18:44 Documentation prepared by Chelsea Padilla, acting as medical coding manager for Bud Cope MD. <Chelsea Padilla - Last Filed: 09/15/18 18:42>
[2018-09-15] MEDS ORDERED: DEXAMETHASONE 4 MG TABLET (FP) PO ONE (18:58)
== END 2018-09-15 18:35 | disposition home or self-care (01) ==
LOC: FER 17:25
DX: L29.9 Pruritus, unspecified (principal); F41.9 Anxiety disorder, unspecified; I10 Essential (primary) hypertension; E78.00 Pure hypercholesterolemia, unspecified; I48.91 Unspecified atrial fibrillation; I25.10 Atherosclerotic heart disease of native coronary artery without angina pectoris
CPT/HCPCS: 99283-25

== ENCOUNTER 2018-09-28 05:51 | Emergency (ER) | payer OTHER ==
[2018-09-28 06:05] VITALS: BP 130/88; PULSE 83; TEMP 97.3; BMI 34.2
--- NOTE | 2018-09-28 06:09 | PDOC ---
History of Present Illness - General Chief Complaint: Rash Stated Complaint: RASH Time Seen by Provider: 09/28/18 06:07 History Source: Patient Exam Limitations: No Limitations - History of Present Illness Initial Comments: 09/28/18 06:16 This is a 73-year-old female with multiple medical problems as well as multiple ALLERGIES who comes in complaining of a itchy rash to her right arm. Patient was here for similar rash in a while back and was given Decadron and an antihistamine. Patient said she responded well to both. Patient denies any cough congestion shortness of breath or difficulty breathing. Patient denies any new medications lotion, creams, or soaps Allergies: None Past Medical History: none Social history: Lives with family. No smoking. No alcohol. No illicit drugs. Surgical history: None General: No fevers or chills, no weakness, no weight loss HEENT: No change in vision. No sore throat,. No ear pain CardioVascular: no chest discomfort. No shortness of breath Respiratory:No cough, or wheezing. Gastrointestinal: no nausea, vomiting, diarrhea or constipation, No rectal bleeding Genitourinary: No dysuria, hematuria, or frequency Musculoskeletal: No joint or muscle pain or swelling Neurologic: No headache, vertigo, dizziness or loss of consciousness Psychiatric: nor depression Skin: + rash no easy bruising Endocrine: no increased thirst or abnormal weight change Allergic: no skin or latex allergy All other systems reviewed and normal GENERAL: The patient is awake, alert, and fully oriented, in no acute distress. HEAD: Normal with no signs of trauma. EYES: Pupils equal, round and reactive to light, extraocular movements intact, sclera anicteric, conjunctiva clear. EXTREMITIES:atraumatic, Normal range of motion, no edema. NEUROLOGICAL: Normal speech, normal gait. PSYCH: Normal mood, normal affect. SKIN: Warm, Dry, normal turgor, right forearm there is some erythema of the arm and excoriations from patient scratching. Neurovascular is intact. Assessment and plan: This is a 73-year-old female with an ALLERGIC reaction on her right forearm. Patient given Decadron and Benadryl and discharged home Past History - Past Medical History Allergies/Adverse Reactions: Allergies Allergy/AdvReac Type Severity Reaction Status Date / Time fish derived [Fish derived] Allergy Severe SWELLING, Verified 09/15/18 17:28 NAUSEA Penicillins Allergy Severe HIVES,VOMIT Verified 09/15/18 17:28 ING aspirin Allergy Intermediate UNSURE Verified 09/15/18 17:28 Raspberry Flavor, Artificial Allergy Intermediate HIVES, Verified 09/15/18 17:28 ITCHING mercury (elemental) Allergy UNKNOWN Verified 09/15/18 17:28 [Mercury (Elemental)] Home Medications: Ambulatory Orders Atorvastatin Calcium [Lipitor] 10 mg PO DAILY 10/27/16 Ramipril [Altace] 10 mg PO DAILY 10/27/16 Isosorbide Mononitrate [Imdur -] 30 mg PO DAILY 11/23/16 Warfarin Na [Coumadin -] 1 mg PO MOWEFRSA 12/18/17 Bupropion HCl [Bupropion Xl] 150 mg PO TID 01/19/18 Diltiazem Cd [Cardizem Cd -] 120 mg PO DAILY 01/19/18 Furosemide [Lasix] 40 mg PO DAILY 03/03/18 Warfarin Na [Coumadin -] 2 mg PO TUTH@1800 06/15/18 Allopurinol [Zyloprim -] 100 mg PO DAILY #30 tablet 08/26/18 Colchicine 0.6 mg PO QID 08/26/18 HYDROmorphone [Dilaudid -] 2 mg PO Q4H 08/26/18 Indomethacin [Indocin -] 50 mg PO BID 08/26/18 Meclizine HCl 25 mg PO PRN 08/26/18 Hydroxyzine HCl 10 mg PO TID PRN 09/15/18 Diphenhydramine [Benadryl Capsule -] 25 mg PO TID #24 capsule 09/28/18 Anemia: No Asthma: No Cancer: Yes (UTERINE) Cardiac Disorders: Yes (A-FIB, CAD, CARDIOMYOPATHY) CVA: No COPD: No CHF: No DVT: No Dementia: No Diabetes: No GI Disorders: No Disorders: No HTN: Yes Hypercholesterolemia: Yes Liver Disease: No Psychiatric Problems: Yes (ANXIETY) Seizures: No Thyroid Disease: No - Surgical History Abdominal Surgery: Yes Appendectomy: No Cardiac Surgery: No Cholecystectomy: No Lung Surgery: No Neurologic Surgery: No Orthopedic Surgery: Yes (Bilateral Trigger finger release) - Immunization History Immunization Up to Date: No - Suicide/Smoking/Psychosocial Hx Smoking Status: No Smoking History: Unknown if ever smoked Have you smoked in the past 12 months: No Number of Cigarettes Smoked Daily: 0 If you are a former smoker, when did you quit?: 10 Information on smoking cessation initiated: No Hx Alcohol Use: No Drug/Substance Use Hx: No Substance Use Type: None Hx Substance Use Treatment: No *Physical Exam - Vital Signs Last Vital Signs Temp Pulse Resp BP Pulse Ox 97.3 F L 83 18 130/88 98 09/28/18 06:01 09/28/18 06:01 09/28/18 06:01 09/28/18 06:01 09/28/18 06:01 Moderate Sedation - Procedure Monitoring Vital Signs: Procedure Monitoring Vital Signs Temperature 97.3 F L 09/28/18 06:01 Pulse Rate 83 09/28/18 06:01 Respiratory Rate 18 09/28/18 06:01 Blood Pressure 130/88 09/28/18 06:01 O2 Sat by Pulse Oximetry (%) 98 09/28/18 06:01 *DC/Admit/Observation/Transfer Diagnosis at time of Disposition: Rash due to allergy - Discharge Dispostion Disposition: HOME Condition at time of disposition: Stable Decision to Admit order: No - Prescriptions Prescriptions: Diphenhydramine [Benadryl Capsule -] 25 mg PO TID #24 capsule - Referrals - Patient Instructions Additional Instructions: I gave you a shot to help stop the itching in addition to that is sent a prescription for diphenhydramine to your pharmacy. Get the prescription filled and take one tablet 3 times a day as needed for itching. The medicine may make you drowsy. Return to the emergency department immediately with ANY new, persistent or worsening symptoms. Continue any medications as previously prescribed by your physician. You should follow up with your primary doctor as soon as possible regarding today's emergency department visit. . Please make sure your doctor reviews the results of your emergency evaluation. Thank you for coming to the Emergency Department today for your care. It was a pleasure to see you today. Please note that your evaluation is INCOMPLETE until you follow-up with your doctor. - Post Discharge Activity
[2018-09-28] MEDS ORDERED: DEXAMETHASONE SOD PHOSPHATE 10 MG/1 ML VIAL IM ONE (06:12)
[2018-09-28] MEDS ORDERED: diphenhydrAMINE HCL 25 MG CAPSULE (FP) PO ONE ×2 (06:13→06:14)
[2018-09-28] MEDS ORDERED: DEXAMETHASONE SOD PHOSPHATE 10 MG/1 ML VIAL ONE (06:14)
== END 2018-09-28 06:36 | disposition home or self-care (01) ==
LOC: FER 05:51
PROC: 3E0233Z Introduction of Anti-inflammatory into Muscle, Percutaneous Approach (ICD-10-PCS; principal; 2018-09-28)
DX: R21 Rash and other nonspecific skin eruption (principal); T78.40XA Allergy, unspecified, initial encounter; I10 Essential (primary) hypertension; E78.00 Pure hypercholesterolemia, unspecified; F41.9 Anxiety disorder, unspecified; Z87.891 Personal history of nicotine dependence; Z85.42 Personal history of malignant neoplasm of other parts of uterus; I48.91 Unspecified atrial fibrillation; I25.10 Atherosclerotic heart disease of native coronary artery without angina pectoris
CPT/HCPCS: 99281-25; J1100

== ENCOUNTER 2018-09-28 10:21 | Emergency (ER) | payer OTHER ==
[2018-09-28 10:26] VITALS: BP 113/60; PULSE 78; TEMP 97.7; BMI 34.0
[2018-09-28] MEDS ORDERED: BACITRACIN 0.9 GM PACKET TP ONE (10:50)
[2018-09-28] MEDS ORDERED: BACITRACIN 15 GM TUBE TOPICAL OINTMENT ONE (10:51)
--- NOTE | 2018-09-28 11:12 | PDOC ---
History of Present Illness - General Chief Complaint: Rash Stated Complaint: RASH Time Seen by Provider: 09/28/18 10:46 History Source: Patient (rash to right shaw) - History of Present Illness Associated Symptoms: denies: fever/chills Past History - Travel Traveled outside of the country in the last 30 days: No Close contact w/someone who was outside of country & ill: No - Past Medical History Allergies/Adverse Reactions: Allergies Allergy/AdvReac Type Severity Reaction Status Date / Time fish derived [Fish derived] Allergy Severe SWELLING, Verified 09/28/18 10:27 NAUSEA Penicillins Allergy Severe HIVES,VOMIT Verified 09/28/18 10:27 ING aspirin Allergy Intermediate UNSURE Verified 09/28/18 10:27 Raspberry Flavor, Artificial Allergy Intermediate HIVES, Verified 09/28/18 10:27 ITCHING mercury (elemental) Allergy UNKNOWN Verified 09/28/18 10:27 [Mercury (Elemental)] Home Medications: Ambulatory Orders Atorvastatin Calcium [Lipitor] 10 mg PO DAILY 10/27/16 Ramipril [Altace] 10 mg PO DAILY 10/27/16 Isosorbide Mononitrate [Imdur -] 30 mg PO DAILY 11/23/16 Warfarin Na [Coumadin -] 1 mg PO MOWEFRSA 12/18/17 Bupropion HCl [Bupropion Xl] 150 mg PO TID 01/19/18 Diltiazem Cd [Cardizem Cd -] 120 mg PO DAILY 01/19/18 Furosemide [Lasix] 40 mg PO DAILY 03/03/18 Warfarin Na [Coumadin -] 2 mg PO TUTH@1800 06/15/18 Allopurinol [Zyloprim -] 100 mg PO DAILY #30 tablet 08/26/18 Colchicine 0.6 mg PO QID 08/26/18 HYDROmorphone [Dilaudid -] 2 mg PO Q4H 08/26/18 Indomethacin [Indocin -] 50 mg PO BID 08/26/18 Meclizine HCl 25 mg PO PRN 08/26/18 Hydroxyzine HCl 10 mg PO TID PRN 09/15/18 Diphenhydramine [Benadryl Capsule -] 25 mg PO TID #24 capsule 09/28/18 Mupirocin Ointment [Bactroban] 1 applic TP BID #1 tube 09/28/18 Triamcinolone 0.1% Ointment [Aristocort 0.1% Ointment -] 1 applic TP BID 7 Days #30 gm 09/28/18 Anemia: No Asthma: No Cancer: Yes (UTERINE) Cardiac Disorders: Yes (A-FIB, CAD, CARDIOMYOPATHY) CVA: No COPD: No CHF: No DVT: No Dementia: No Diabetes: No GI Disorders: No Disorders: No HTN: Yes Hypercholesterolemia: Yes Liver Disease: No Psychiatric Problems: Yes (ANXIETY) Seizures: No Thyroid Disease: No - Surgical History Abdominal Surgery: Yes Appendectomy: No Cardiac Surgery: No Cholecystectomy: No Lung Surgery: No Neurologic Surgery: No Orthopedic Surgery: Yes (Bilateral Trigger finger release) - Immunization History Immunization Up to Date: No - Suicide/Smoking/Psychosocial Hx Smoking Status: No Smoking History: Never smoked Have you smoked in the past 12 months: No Number of Cigarettes Smoked Daily: 0 If you are a former smoker, when did you quit?: 10 Hx Alcohol Use: No Drug/Substance Use Hx: No Substance Use Type: None Hx Substance Use Treatment: No Review of Systems - Review of Systems Constitutional: No: Chills, Fever Integumentary: Yes: Erythema, Pruritus, Rash. No: Pallor *Physical Exam - Vital Signs Last Vital Signs Temp Pulse Resp BP Pulse Ox 97.7 F 78 18 113/60 99 09/28/18 10:23 09/28/18 10:23 09/28/18 10:23 09/28/18 10:23 09/28/18 10:23 - Physical Exam General Appearance: Yes: Nourished Respiratory/Chest: positive: Lungs Clear, Normal Breath Sounds Cardiovascular: positive: Regular Rate, S1, S2 Integumentary: positive: Rash (right shaw--rash with erythema, no warmth) Neurologic: positive: boat tender II-XII NML intact, Fully Oriented Moderate Sedation - Procedure Monitoring Vital Signs: Procedure Monitoring Vital Signs Temperature 97.7 F 09/28/18 10:23 Pulse Rate 78 09/28/18 10:23 Respiratory Rate 18 09/28/18 10:23 Blood Pressure 113/60 09/28/18 10:23 O2 Sat by Pulse Oximetry (%) 99 09/28/18 10:23 ED Treatment Course - Medications Given in the ED: ED Medications Discontinued Medications Generic Name Dose Route Start Last Admin Trade Name Freq PRN Reason Stop Dose Admin Bacitracin 0.9 gm 09/28/18 10:50 09/28/18 10:52 Bacitracin - TP 09/28/18 10:51 0.9 gm ONCE ONE Administration Medical Decision Making - Medical Decision Making 09/28/18 11:07 Right shaw rash for 4 days no fever no chills. patient was seen at [facility] ER at this morning given Benadryl examination which mild redness in addition no warmth exam consistent with dermatitis, *DC/Admit/Observation/Transfer Diagnosis at time of Disposition: Dermatitis - Discharge Dispostion Disposition: HOME Condition at time of disposition: Stable Decision to Admit order: No - Prescriptions Prescriptions: Mupirocin Ointment [Bactroban] 1 applic TP BID #1 tube Triamcinolone 0.1% Ointment [Aristocort 0.1% Ointment -] 1 applic TP BID 7 Days #30 gm - Referrals Referrals: Beverley Pizarro MD [Primary Care Provider] - Korina Ramos MD [Staff Physician] - - Patient Instructions Printed Discharge Instructions: Contact Dermatitis Additional Instructions: please do not use scratch skin, use ointment as prescribed Return to the ER if worsening redness, warmth or discharge Follow up with [facility]. - Post Discharge Activity
== END 2018-09-28 11:14 | disposition home or self-care (01) ==
LOC: JERFT 10:21
DX: L30.9 Dermatitis, unspecified (principal); I25.10 Atherosclerotic heart disease of native coronary artery without angina pectoris; I10 Essential (primary) hypertension; I42.9 Cardiomyopathy, unspecified; I48.91 Unspecified atrial fibrillation; Z79.01 Long term (current) use of anticoagulants; E78.00 Pure hypercholesterolemia, unspecified; F41.9 Anxiety disorder, unspecified; Z85.42 Personal history of malignant neoplasm of other parts of uterus
CPT/HCPCS: 99281-25; J1100

== ENCOUNTER 2018-11-20 19:49 | Emergency (ER) | payer OTHER ==
[2018-11-20 20:10] VITALS: BP 114/62; PULSE 98; TEMP 98.3; BMI 34.0
--- NOTE | 2018-11-20 21:21 | PDOC ---
Documentation entered by Joey Vann SCRIBE, acting as scribe for Benedicto Pena MD. Benedicto Pena MD: This documentation has been prepared by the Soo yancey Juan Manue, SCRIBE, under my direction and personally reviewed by me in its entirety. I confirm that the documentation accurately reflects all work, treatment, procedures, and medical decision making performed by me. History of Present Illness - General Chief Complaint: Shortness of Breath Stated Complaint: VERTIGO/HEAVY BREATHING History Source: Patient, Old Records Exam Limitations: No Limitations - History of Present Illness Initial Comments: 11/20/18 20:50 The patient is a 73 year old female, who presents to the ED complaining of vertigo and shortness of breath onset today. She notes that she took two doses of her vertigo medication with minimal relieve of her symptoms. The patient denies chest pain, headache, fever, chills, nausea, vomiting, diarrhea or constipation. Denies dysuria, frequency, urgency and hematuria. PAST MEDICAL HISTORY: A-FIB, CAD, CARDIOMYOPATHY, uterine CA, HTN, HLD and anxiety PAST SURGICAL HISTORY: Bilateral Trigger finger release, abdominal surgery FAMILY HISTORY: no pertinent history SOCIAL HISTORY: Pt lives with family and is employed. MEDICATIONS: reviewed ALLERGIES: As per nursing notes General: No fevers or chills, no weakness, no weight loss HEENT: No change in vision. No sore throat,. No ear pain CardioVascular: (+) Shortness of breath. No chest pain Respiratory: No cough, or wheezing. Gastrointestinal: no nausea, vomiting, diarrhea or constipation, No rectal bleeding Genitourinary: No dysuria, hematuria, or frequency Musculoskeletal: No joint or muscle pain or swelling Neurologic: (+) Vertigo. No headache, or loss of consciousness Psychiatric: nor depression Skin: No rashes or easy bruising Endocrine: no increased thirst or abnormal weight change Allergic: no skin or latex allergy All other systems reviewed and normal General: Well-nourished well-developed individual, no acute distress HEENT: Throat: Normal, tonsils normal, no erythema or exudate Neck: Supple, no meningeal signs, no lymphadenopathy Eyes::Pupils equal reactive and round, extraocular motion intact Chest: Nontender to palpation Cardiac: S1-S2 normal, regular rate and rhythm, no murmurs rubs or gallops Respiratory: Lungs clear to auscultation bilateral Abdomen: Soft, nondistended, normal bowel sounds, nontender to palpation diffusely Extremities: Warm, dry, no cyanosis, clubbing, or edema Skin: No rashes Neuro: Alert and oriented x3, nonfocal exam, grossly intact, normal gait Psych: Normal mood and affect 11/20/18 21:18 Assessment and plan: This is a 73-year-old female who comes in complaining of palpitations. Patient has frequent visits to the ED and was here 4 times last month for the same complaint. Patient here in the ED said she is still having palpitations however her heart rate is approximately 80. Otherwise her exam was normal. Basic labs sent off given her age and her history of coronary artery disease including CBC, comp, cardiac enzymes and EKG and chest x-ray EKG shows: Atrial fibrillation at a rate of [address]-T wave changes and no acute ST-T wave changes Chest x-ray shows an enlarged heart but otherwise no acute pathology specifically no CHF 11/20/18 22:17 Patient's chemistries were normal including a negative troponin Patient's symptoms are resolved at this point and patient feels better Patient's palpitations and heaviness in breathing was most likely secondary to some anxiety as a friend showed up she was here in the emergency room and she began to feel much better after her friend reassured her. Patient discharged home will follow-up with her primary care doctor Past History - Past Medical History Allergies/Adverse Reactions: Allergies Allergy/AdvReac Type Severity Reaction Status Date / Time fish derived [Fish derived] Allergy Severe SWELLING, Verified 09/28/18 10:27 NAUSEA Penicillins Allergy Severe HIVES,VOMIT Verified 09/28/18 10:27 ING aspirin Allergy Intermediate UNSURE Verified 09/28/18 10:27 Raspberry Flavor, Artificial Allergy Intermediate HIVES, Verified 09/28/18 10:27 ITCHING mercury (elemental) Allergy UNKNOWN Verified 09/28/18 10:27 [Mercury (Elemental)] Home Medications: Ambulatory Orders Atorvastatin Calcium [Lipitor] 10 mg PO DAILY 10/27/16 Ramipril [Altace] 10 mg PO DAILY 10/27/16 Isosorbide Mononitrate [Imdur -] 30 mg PO DAILY 11/23/16 Warfarin Na [Coumadin -] 1 mg PO MOWEFRSA 12/18/17 Bupropion HCl [Bupropion Xl] 150 mg PO TID 01/19/18 Diltiazem Cd [Cardizem Cd -] 180 mg PO DAILY 01/19/18 Furosemide [Lasix] 40 mg PO DAILY 03/03/18 Warfarin Na [Coumadin -] 2 mg PO TUTH@1800 06/15/18 Meclizine HCl 25 mg PO PRN 08/26/18 Hydroxyzine HCl 10 mg PO TID PRN 09/15/18 Anemia: No Asthma: No Cancer: Yes (UTERINE) Cardiac Disorders: Yes (A-FIB, CAD, CARDIOMYOPATHY) CVA: No COPD: No CHF: No DVT: No Dementia: No Diabetes: No GI Disorders: No Disorders: No HTN: Yes Hypercholesterolemia: Yes Liver Disease: No Psychiatric Problems: Yes (ANXIETY) Seizures: No Thyroid Disease: No - Surgical History Abdominal Surgery: Yes Appendectomy: No Cardiac Surgery: No Cholecystectomy: No Lung Surgery: No Neurologic Surgery: No Orthopedic Surgery: Yes (Bilateral Trigger finger release) - Immunization History Immunization Up to Date: No - Suicide/Smoking/Psychosocial Hx Smoking Status: No Smoking History: Unknown if ever smoked Have you smoked in the past 12 months: No Number of Cigarettes Smoked Daily: 0 If you are a former smoker, when did you quit?: 10 Information on smoking cessation initiated: No Hx Alcohol Use: No Drug/Substance Use Hx: No Substance Use Type: None Hx Substance Use Treatment: No *Physical Exam - Vital Signs Last Vital Signs Temp Pulse Resp BP Pulse Ox 98.3 F 98 H 16 114/62 100 11/20/18 19:52 11/20/18 19:52 11/20/18 19:52 11/20/18 19:52 11/20/18 19:52 ED Treatment Course - LABORATORY CBC & Chemistry Diagram: 11/20/18 21:21 11/20/18 21:21 - RADIOLOGY Radiology Studies Ordered: Category Date Time Status CHEST X-RAY PORTABLE* [RAD] Stat Radiology 11/20/18 20:37 Ordered *DC/Admit/Observation/Transfer Diagnosis at time of Disposition: Anxiety - Discharge Dispostion Disposition: HOME Condition at time of disposition: Stable Decision to Admit order: No - Referrals Referrals: Beverley Pizarro MD [Primary Care Provider] - - Patient Instructions Additional Instructions: Return to the emergency department immediately with ANY new, persistent or worsening symptoms. Continue any medications as previously prescribed by your physician. You should follow up with your primary doctor as soon as possible regarding today's emergency department visit. . Please make sure your doctor reviews the results of your emergency evaluation. Thank you for coming to the Emergency Department today for your care. It was a pleasure to see you today. Please note that your evaluation is INCOMPLETE until you follow-up with your doctor. - Post Discharge Activity - Attestations Scribe Attestion: 11/20/18 20:50 Documentation prepared by Joey Vann, acting as medical billing and coding instructor for Benedicto Pena MD
[2018-11-20 21:36] LABS: BASO % 0.8 % (0-2.0); EOS % 1.1 % (0-4.5); HEMATOCRIT 41.7 % (32.4-45.2); HEMOGLOBIN 14.1 GM/dl (10.7-15.3); MCH 32.2 pg (25.7-33.7); MCHC 33.7 g/dl (32.0-36.0); MEAN CELL VOLUME 95.4 fl (80-96); MEAN PLT VOLUME 8.1 fl (7.5-11.1); MONO % 8.9 % (3.8-10.2); NEUT % 67.2 % (42.8-82.8); PLATELET COUNT 201 K/MM3 (134-434); RBC 4.36 M/mm3 (3.60-5.2); RDW 12.8 % (11.6-15.6); WHITE BLOOD COUNT 7.8 K/mm3 (4.0-10.8)
[2018-11-20 21:59] LABS: ALBUMIN 4.1 g/dl (3.4-5.0); BILIRUBIN,TOTAL 0.6 mg/dl (0.2-1); CALCIUM 8.9 mg/dl (8.5-10); CREATININE 2.2 mg/dl (0.55-1.3); POTASSIUM 4.1 mmol/L (3.5-5.1); TOT PROT 7.1 g/dl (6.4-8.2)
--- NOTE | 2018-11-21 14:38 | EKG ---
Test Reason : Blood Pressure : / mmHG Vent. Rate : 080 BPM Atrial Rate : 227 BPM P-R Int : 000 ms QRS Dur : 084 ms QT Int : 376 ms P-R-T Axes : 000 046 007 degrees QTc Int : 433 ms ATRIAL FIBRILLATION NONSPECIFIC ST AND T WAVE ABNORMALITY ABNORMAL ECG WHEN COMPARED WITH ECG OF 22-JUL-2018 14:41, NO SIGNIFICANT CHANGE WAS FOUND Confirmed by VISHAL TOBIN MD ([id number]) on 11/21/2018 2:38:15 PM Referred By: DR TREJO Confirmed By:VISHAL TOBIN MD
== END 2018-11-20 22:23 | disposition home or self-care (01) ==
LOC: FER 19:49
DX: F41.9 Anxiety disorder, unspecified (principal); I10 Essential (primary) hypertension; E78.5 Hyperlipidemia, unspecified; I48.91 Unspecified atrial fibrillation; I25.10 Atherosclerotic heart disease of native coronary artery without angina pectoris; I42.9 Cardiomyopathy, unspecified; Z85.42 Personal history of malignant neoplasm of other parts of uterus; Z79.01 Long term (current) use of anticoagulants
CPT/HCPCS: 36415; 71045-TC-FY; 80053; 82550; 84484; 85025; 93005; 99282-25

== ENCOUNTER 2018-12-08 10:28 | Emergency (ER) | payer OTHER | END 2018-12-08 11:15 | disposition home or self-care (01) | LOC: JERFT 10:28 ==

== ENCOUNTER 2018-12-29 08:44 | Emergency (ER) | payer OTHER | END 2018-12-29 10:03 | disposition home or self-care (01) | LOC: JER 08:44 ==

== ENCOUNTER 2019-04-14 07:38 | Emergency (ER) | payer OTHER ==
--- NOTE | 2019-04-14 08:00 | PDOC ---
History of Present Illness - General Stated Complaint: PALPITATION,DIFFICULTY BREATHING Time Seen by Provider: 04/14/19 07:59 - History of Present Illness Initial Comments: 04/14/19 08:03 Ms. Landon is a 74 yo female w/ pmh of afib (on coumadin), anxiety, and BPPV who presents for evaluation of "heavy breathing" since approximately 4am this morning. Patient reports she was awake watching television when symptoms started. Denies any chest pain however reports she is experiencing palpitations now as well. Otherwise has no complaints. The patient denies chest pain, headache and dizziness. Denies fever, chills, nausea, vomit, diarrhea and constipation. Denies dysuria, frequency, urgency and hematuria. Past History - Past Medical History Allergies/Adverse Reactions: Allergies Allergy/AdvReac Type Severity Reaction Status Date / Time fish derived [Fish derived] Allergy Severe SWELLING, Verified 04/14/19 08:02 NAUSEA Penicillins Allergy Severe HIVES,VOMIT Verified 04/14/19 08:02 ING aspirin Allergy Intermediate UNSURE Verified 04/14/19 08:02 Raspberry Flavor, Artificial Allergy Intermediate HIVES, Verified 04/14/19 08:02 ITCHING mercury (elemental) Allergy UNKNOWN Verified 04/14/19 08:02 [Mercury (Elemental)] Home Medications: Ambulatory Orders Atorvastatin Calcium [Lipitor] 10 mg PO DAILY 10/27/16 Ramipril [Altace] 10 mg PO DAILY 10/27/16 Isosorbide Mononitrate [Imdur -] 30 mg PO DAILY 11/23/16 Warfarin Na [Coumadin -] 1 mg PO MOWEFRSA 12/18/17 Bupropion HCl [Bupropion Xl] 150 mg PO TID 01/19/18 Diltiazem Cd [Cardizem Cd -] 180 mg PO DAILY 01/19/18 Furosemide [Lasix] 40 mg PO DAILY 03/03/18 Warfarin Na [Coumadin -] 2 mg PO TUTH@1800 06/15/18 Meclizine HCl 25 mg PO PRN PRN 08/26/18 Hydroxyzine HCl 10 mg PO TID PRN 09/15/18 Methylprednisolone [Medrol Dose Maldonado] 4 mg PO ASDIR #21 tablet 12/29/18 Anemia: No Asthma: No Cancer: Yes (UTERINE) Cardiac Disorders: Yes (A-FIB, CAD, CARDIOMYOPATHY) CVA: No COPD: No CHF: No DVT: No Dementia: No Diabetes: No GI Disorders: No Disorders: No HTN: Yes Hypercholesterolemia: Yes Liver Disease: No Psychiatric Problems: Yes (ANXIETY) Seizures: No Thyroid Disease: No - Surgical History Abdominal Surgery: Yes Appendectomy: No Cardiac Surgery: No Cholecystectomy: No Lung Surgery: No Neurologic Surgery: No Orthopedic Surgery: Yes (Bilateral Trigger finger release) - Immunization History Immunization Up to Date: No - Psycho Social/Smoking Cessation Hx Smoking Status: No Smoking History: Never smoked Have you smoked in the past 12 months: No Number of Cigarettes Smoked Daily: 0 If you are a former smoker, when did you quit?: 10 Hx Alcohol Use: No Drug/Substance Use Hx: No Substance Use Type: None Hx Substance Use Treatment: No Review of Systems - Review of Systems Comments:: 04/14/19 08:04 GENERAL/CONSTITUTIONAL: No fever or chills. No weakness. HEAD, EYES, EARS, NOSE AND THROAT: No change in vision. No ear pain or discharge. No sore throat. CARDIOVASCULAR: +SOB w/ palpitations as described. No chest pain RESPIRATORY: No cough, wheezing, or hemoptysis. GASTROINTESTINAL: No nausea, vomiting, diarrhea or constipation. GENITOURINARY: No dysuria, frequency, or change in urination. MUSCULOSKELETAL: No joint or muscle swelling or pain. No neck or back pain. SKIN: No rash NEUROLOGIC: No headache, vertigo, loss of consciousness, or change in strength/ sensation. ENDOCRINE: No increased thirst. No abnormal weight change HEMATOLOGIC/LYMPHATIC: No anemia, easy bleeding, or history of blood clots. ALLERGIC/IMMUNOLOGIC: No hives or skin allergy. *Physical Exam - Physical Exam Comments: 04/14/19 08:04 GENERAL: Awake, alert, and fully oriented, in no acute distress HEAD: No signs of trauma, normocephalic, atraumatic EYES: PERRLA, EOMI, sclera anicteric, conjunctiva clear ENT: Auricles normal inspection, hearing grossly normal, nares patent, oropharynx clear without exudates. Moist mucosa NECK: Normal ROM, supple, no lymphadenopathy, JVD, or masses LUNGS: No distress, speaks full sentences, clear to auscultation bilaterally HEART: Regular rate and rhythm, normal S1 and S2, no murmurs, rubs or gallops, peripheral pulses normal and equal bilaterally. ABDOMEN: Soft, nontender, normoactive bowel sounds. No guarding, no rebound. No masses EXTREMITIES: Normal inspection, Normal range of motion, no edema. No clubbing or cyanosis. NEUROLOGICAL: Cranial nerves II through XII grossly intact. Normal speech, normal gait, no focal sensorimotor deficits SKIN: Warm, Dry, normal turgor, no rashes or lesions noted. ED Treatment Course - LABORATORY CBC & Chemistry Diagram: 04/14/19 08:30 04/14/19 08:30 Medical Decision Making - Medical Decision Making 04/14/19 09:49 Ms. Landon is a 74 yo female w/ pmh as described who presents for evaluation of prior palpitations (resolved) and "heavy breathing." Patient well appearing upon evaluation with no chest pain. Cardiac labs, EKG, and CXR done for further evaluation. Labs grossly wnl as below. EKG unchanged from previous w/ rate controlled afib. CXR negative. Discussed patient w/ cardiology who believes patient ok for f/u outpatient provided 2nd troponin likewise negative. Patient will have 2nd troponin at 3 hrs. 04/14/19 12:10 Repeat troponin negative. No concern for acute process at this time. Patient will be discharged to home for outpatient follow-up with cardiology. Laboratory Results - last 24 hr 04/14/19 04/14/19 04/14/19 08:30 08:30 08:30 WBC 5.0 RBC 4.18 Hgb 13.3 Hct 39.0 MCV 93.4 MCH 31.9 MCHC 34.2 RDW 13.3 Plt Count 176 MPV 8.1 Absolute Neuts (auto) 3.0 Neutrophils % 60.3 D Lymphocytes % 27.3 D Monocytes % 9.6 Eosinophils % 2.0 Basophils % 0.8 PT with INR 26.40 H INR 2.22 H PTT (Actin FS) 40.5 H Sodium 143 Potassium 3.9 Chloride 112 H Carbon Dioxide 22 Anion Gap 10 BUN 38.9 H Creatinine 2.2 H Est GFR (CKD-EPI)AfAm 24.78 Est GFR (CKD-EPI)NonAf 21.38 Random Glucose 97 Calcium 8.6 Total Bilirubin 0.7 AST 12 L ALT 14 Alkaline Phosphatase 132 H Creatine Kinase 62 Troponin I < 0.02 Total Protein 6.7 Albumin 3.7 04/14/19 10:58 WBC RBC Hgb Hct MCV MCH MCHC RDW Plt Count MPV Absolute Neuts (auto) Neutrophils % Lymphocytes % Monocytes % Eosinophils % Basophils % PT with INR INR PTT (Actin FS) Sodium Potassium Chloride Carbon Dioxide Anion Gap BUN Creatinine Est GFR (CKD-EPI)AfAm Est GFR (CKD-EPI)NonAf Random Glucose Calcium Total Bilirubin AST ALT Alkaline Phosphatase Creatine Kinase Troponin I < 0.02 Total Protein Albumin Discharge - Discharge Information Problems reviewed: Yes Clinical Impression/Diagnosis: Palpitations Disposition: HOME - Follow up/Referral Referrals: Beverley Pizarro MD [Primary Care Provider] - Kevin Phillips MD [Staff Physician] - - Patient Discharge Instructions Patient Printed Discharge Instructions: DI for Palpitations Additional Instructions: You were evaluated today in the ER for your symptoms. We performed chest Xray, EKG, and labs which were all normal. We do not believe anything emergent is occurring at this time and believe you are safe for discharge. We discussed your case with your business system manager who agreed with this recommendation. Please follow-up later this week with cardiology as discussed. Return to ER if any fever, chills, return of palpitations, or other concerning symptoms. - Post Discharge Activity
[2019-04-14 08:01] VITALS: TEMP 97.5; BMI 34.9
[2019-04-14 09:08] LABS: HEMOGLOBIN 13.3 GM/dL (10.7-15.3); LYMPH % 27.3 % (8-40); MCH 31.9 pg (25.7-33.7); MCHC 34.2 g/dl (32.0-36.0); MEAN CELL VOLUME 93.4 fl (80-96); MEAN PLT VOLUME 8.1 fl (7.5-11.1); MONO % 9.6 % (3.8-10.2); NEUT % 60.3 % (42.8-82.8); PLATELET COUNT 176 K/MM3 (134-434); RBC 4.18 M/mm3 (3.60-5.2); RDW 13.3 % (11.6-15.6)
[2019-04-14 09:09] LABS: BASO % 0.8 % (0-2.0)
[2019-04-14 09:18] LABS: INR 2.22 (0.83-1.09); PROTHROMBIN TIME (PATIENT) 26.4 SEC (9.7-13.0)
[2019-04-14 09:20] LABS: ACTIVATED PTT 40.5 SECONDS (25.2-36.5)
--- NOTE | 2019-04-14 09:21 | PDOC ---
Attending Attestation - Resident Resident Name: CristiamritapatienceRichyAustin - ED Attending Attestation I have performed the following: I have examined & evaluated the patient, The case was reviewed & discussed with the resident, I agree w/resident's findings & plan - HPI HPI: 04/14/19 09:13 74-year-old female with history of atrial fibrillation on Coumadin and diltiazem , followed by Dr. Phillips, presents for evaluation after episode of palpitations and breathlessness this morning. Patient has been in her usual state of good health, went to bed last night feeling fine, after awakening this morning and while walking to the bathroom developed sensation of palpitations with shortness of breath, no lightheadedness or chest pain or pressure. The patient sat on her bed and waited for the symptoms to resolve, but presents for evaluation after persistent for about 1 hour. Currently feels persistently dyspneic but denies any palpitations, denies any chest pain or pressure still. No fevers or chills or cough, no recent leg swelling, went out for dinner last night but did not have any alcohol, denies any medication changes recently. Treatment in the - Physicial Exam PE: 04/14/19 09:15 VS at triage noted, slight tachycardia with bp 99. Heart rate now 80s during exam, blood pressure 110/80, O2 sat 99% on room air Well-appearing and high functioning, speaking full sentences, joking with staff Heart is irregular with normal rate, lungs are clear without crackles or wheezing No edema or calf tenderness - Medical Decision Making 04/14/19 09:16 74-year-old female with history of atrial fibrillation presents with episode of palpitations and shortness of breath this morning, no chest pain. Hemodynamically stable here with resolution of symptoms, normal heart rate though slightly tachycardic on arrival. Question episode of A. fib with RVR resulting in shortness of breath, rule out ACS though atypical particularly given no exercise limitations recently. No evidence of infectious process, no DVT or PE risk factors, especially since she is already anticoagulated on Coumadin. Check labs, troponin 2 Cardiac monitoring Chest x-ray, EKG Discussed with Dr. Phillips, unclear when patient's last CAD evaluation took place 04/14/19 12:12 trop x2 negative. VS remain improved and normalized. Discussed with Cards, can arrange outpt f/u Heart Score/ECG Review #1 ECG reviewed & interpreted by me at: 07:45 General ECG Interpretation: Normal Rate (afib at 94), Normal Intervals (qtc 472) , No acute ischemic changes Compared to previous ECG there are: No significant change (c/w 11/20/18)
[2019-04-14 09:29] LABS: ALBUMIN 3.7 g/dl (3.4-5.0); ALK PHOS 132 U/L (45-117); ANION GAP 10 MMOL/L (8-16); BILIRUBIN,TOTAL 0.7 mg/dL (0.2-1); BLOOD UREA NITROGEN 38.9 mg/dL (7-18); CALCIUM 8.6 mg/dL (8.5-10.1); CHLORIDE 112 mmol/L (98-107); CO2 22 mmol/L (21-32); CREATININE 2.2 mg/dL (0.55-1.3); GLUCOSE,RANDOM 97 mg/dL (74-106); POTASSIUM 3.9 mmol/L (3.5-5.1); SGOT/AST 12 U/L (15-37); SGPT/ALT 14 U/L (13-61); SODIUM 143 mmol/L (136-145); TOT PROT 6.7 g/dl (6.4-8.2)
[2019-04-14 09:30] VITALS: BP 129/77; PULSE 85
--- NOTE | 2019-04-14 10:02 | EKG ---
Test Reason : Blood Pressure : / mmHG Vent. Rate : 094 BPM Atrial Rate : 110 BPM P-R Int : 000 ms QRS Dur : 084 ms QT Int : 378 ms P-R-T Axes : 000 050 -31 degrees QTc Int : 472 ms POOR DATA QUALITY, INTERPRETATION MAY BE ADVERSELY AFFECTED ATRIAL FIBRILLATION LOW VOLTAGE QRS NONSPECIFIC ST AND T WAVE ABNORMALITY ABNORMAL ECG WHEN COMPARED WITH ECG OF 20-NOV-2018 20:19, NONSPECIFIC T WAVE ABNORMALITY NOW EVIDENT IN LATERAL LEADS Confirmed by MD SAFIA, WILLIAM ([id number]) on 04/14/2019 10:01:44 AM Referred By: Confirmed By:WILLIAM BAIG MD
== END 2019-04-14 12:48 | disposition home or self-care (01) ==
LOC: JER 07:38
DX: R00.2 Palpitations (principal); I25.10 Atherosclerotic heart disease of native coronary artery without angina pectoris; I10 Essential (primary) hypertension; I42.9 Cardiomyopathy, unspecified; I48.91 Unspecified atrial fibrillation; Z79.01 Long term (current) use of anticoagulants; E78.00 Pure hypercholesterolemia, unspecified; F41.9 Anxiety disorder, unspecified; Z86.69 Personal history of other diseases of the nervous system and sense organs; Z88.0 Allergy status to penicillin; Z88.6 Allergy status to analgesic agent; Z91.013 Allergy to seafood; Z91.02 Food additives allergy status
CPT/HCPCS: 36415; 71045-TC-FY; 80053; 82550; 84484; 85025; 85610; 85730; 93005; 93010; 99285-25

== ENCOUNTER 2019-08-08 14:09 | Inpatient (IN) | payer OTHER ==
--- NOTE | 2019-08-08 15:14 | PDOC ---
History of Present Illness - General Chief Complaint: Lightheaded Stated Complaint: DIZZYNESS / R/O OD Time Seen by Provider: 08/08/19 14:28 History Source: Patient Exam Limitations: No Limitations - History of Present Illness Initial Comments: HPI: 74 y/o female presenting to [facility] ER complaining of intermittent central blurry vision and disequilibrium for the past two days. Told triage she took an additional dose of medication, but clarified on interview that she was mistaken. Her Diltalizem was uptitrated 14 days ago. Pt has a h/o vertigo, but states today's symptoms are not similar. There is no change with position or head turning. Denies headache, fevers, chills, chest pain, SOB, or leg swelling. Last had her eyes checked one year ago. The symptoms do not change when using her glasses. Opthamologist: Dr. [facility] Hx: - CAD - CHF - A-fib on Warfarin - Cardiomyopathy - HTN - HLD Review of Systems: In addition to that documented in the HPI above, the additional ROS was obtained : Constitutional- Denies fevers or chills Head- Per HPI ENMT- Denies sore throat CV- Denies chest pain Resp- Denies SOB GI- Denies vomiting or diarrhea - Denies painful urination MSK- Denies recent trauma Skin- Denies new rashes Neuro- Denies new numbness or tingling or weakness Endocrine: Denies breast enlargement/tenderness/discharge, sweats, weightloss Heme- Denies bleeding or bruising Physical Examination: Vital signs and nursing notes reviewed. Constitutional- Well-developed, well-nourished adult female in no acute distress or obvious discomfort. Found semi-fowlers on hospital bed. Answered all questions appropriately and completely. Head- Normocephalic. No obvious external signs of trauma. Eyes- Pupils 3mm and PERRL bilaterally. EOMI. R and L horizontal nystagmus. No vertical or rotary nystagmus. Sclerae white. Conjunctiva moist and not injected. No exophthalmos. Unable to see [place] chart at 10ft. No peripheral visual field cuts. I stood at the end of the bed with my arms abducted at 90 degrees. Pt reported my face was blurry but my hands were more clear. Ears- External auditory canals and tympanic membranes pearly shea. Hearing grossly intact. Nose- No nasal discharge. Throat- Oral cavity and pharynx normal. No inflammation, swelling, exudate, or lesions. Teeth and gingiva in good general condition. No tongue deviation. Neck- Supple, trachea is midline. No JVD or thyromegaly. Cardiovascular / Chest- Irregularly irregular rate and rhythm. No murmur, rubs, clicks, or gallops. Peripheral pulses- radial pulses full. No pretibial edema. Respiratory- Breathing unlabored. Equal chest rise and fall. Clear to auscultation bilaterally. No stridor, no wheezing, no rhonchi. Gastrointestinal- abdomen is soft, non-tender, non-distended. Neuro- Alert and oriented x4. Moving all four extremities spontaneously. No facial asymmetry. No slurred speech.No upper or lower extremity drift. Sensation to all four extremities intact. Intact rapid alternating movements and heel to shaw. Skin- Warm, dry, and intact. Psych- Affect- appropriate. Mood- normal. Speech was non-labored, non- pressured. MDM: 74 y/o female presenting with possible binasal heteronymous hemianopsia and disequilibrium. Symptoms intermittent while in the department. Physical exam as described above. Will evaluate for possible U-shaped nonfunctioning pituitary tumor vs TIA vs metabolic derangement vs multiple embolic events. D/D also includes psychosomatic symptoms. Reviewed laboratory data. No clinically significant derangement. INR therapeutic. CTH unremarkable. Will obtain stroke MRI to further evaluate. Telephone discussion with Dr. Wilburn. Verbally appraised of the pts HPI, ED course, and current plan of management. Will evaluate the pt as inpatient. 08 Aug 2019 18:20 PM Tele[address] discussion with Dr. Ness, pts opthamologist. Verbally appraised of the pts HPI, ED course, and current plan of management. Reported the pts vision was 20/20 in March 2019. Agreed symptoms are unclear in etiology. Would like to be called with results of MRI at [phone]. Dr. Ness updated w/ MRI results. Reported he is not filling station laborer this week and that the pt could be seen by the opthamologist filling station laborer. However, if the pt is discharged, she can follow up in his clinic on Saturday morning. 08 Aug 2019 19:40 PM Telephone discussion with resident Dr. Mondragon. Verbally appraised of the pts HPI, ED course, and current plan of management. Will admit pt to stroke/tele for attending Dr. Basilio. Past History - Past Medical History Allergies/Adverse Reactions: Allergies Allergy/AdvReac Type Severity Reaction Status Date / Time fish derived [Fish derived] Allergy Severe SWELLING, Verified 08/08/19 16:55 NAUSEA Penicillins Allergy Severe HIVES,VOMIT Verified 08/08/19 16:55 ING aspirin Allergy Intermediate UNSURE Verified 08/08/19 16:55 Raspberry Flavor, Artificial Allergy Intermediate HIVES, Verified 08/08/19 16:55 ITCHING mercury (elemental) Allergy UNKNOWN Verified 08/08/19 16:55 [Mercury (Elemental)] Home Medications: Ambulatory Orders Atorvastatin Calcium [Lipitor] 10 mg PO DAILY 10/27/16 Ramipril [Altace] 10 mg PO DAILY 10/27/16 Isosorbide Mononitrate [Imdur -] 30 mg PO DAILY 11/23/16 Warfarin Na [Coumadin -] 1 mg PO ASDIR 12/18/17 Bupropion HCl [Bupropion Xl] 150 mg PO BID 01/19/18 Diltiazem Cd [Cardizem Cd -] 240 mg PO DAILY 01/19/18 Furosemide [Lasix] 40 mg PO DAILY 03/03/18 Warfarin Na [Coumadin -] 2 mg PO ASDIR 06/15/18 Meclizine HCl 25 mg PO QID PRN 08/26/18 Anemia: No Asthma: No Cancer: Yes (UTERINE) Cardiac Disorders: Yes (A-FIB, CAD, CARDIOMYOPATHY) CVA: No COPD: No CHF: No DVT: No Dementia: No Diabetes: No GI Disorders: No Disorders: No HTN: Yes Hypercholesterolemia: Yes Liver Disease: No Psychiatric Problems: Yes (ANXIETY) Seizures: No Thyroid Disease: No - Surgical History Abdominal Surgery: Yes Appendectomy: No Cardiac Surgery: No Cholecystectomy: No Lung Surgery: No Neurologic Surgery: No Orthopedic Surgery: Yes (Bilateral Trigger finger release) - Immunization History Immunization Up to Date: No - Psycho Social/Smoking Cessation Hx Smoking Status: No Smoking History: Never smoked Have you smoked in the past 12 months: No Number of Cigarettes Smoked Daily: 0 If you are a former smoker, when did you quit?: 10 Information on smoking cessation initiated: No Hx Alcohol Use: No Drug/Substance Use Hx: No Substance Use Type: None Hx Substance Use Treatment: No *Physical Exam - Vital Signs Last Vital Signs Temp Pulse Resp BP Pulse Ox 97.7 F 73 16 110/64 98 08/08/19 14:15 08/08/19 14:15 08/08/19 14:15 08/08/19 14:15 08/08/19 14:15 ED Treatment Course - LABORATORY CBC & Chemistry Diagram: 08/08/19 16:15 08/08/19 16:15 - RADIOLOGY Radiology Studies Ordered: Category Date Time Status HEAD CT WITHOUT CONTRAST [CT] Stat CT Scan 08/08/19 14:55 Ordered CHEST PA & LAT [RAD] Stat Radiology 08/08/19 14:54 Ordered Radiograph Interpretation: Brain MRI: THIS IS A PRELIMINARY REPORT FROM 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 TECHNIQUE: Stroke protocol: Only axial DWI and FLAIR images submitted. FINDINGS: The cerebral sulci and ventricles are moderately prominent, suggesting age related involutional changes. There are no intracranial hemorrhages, extra-axial fluid collections or evidence of an intra-axial mass lesion. The diffusion weighted images reveal no evidence for an acute ischemic lesion. The FLAIR images reveal multiple, scattered focal, patchy and confluent deep white matter chronic microvascular ischemic changes bilaterally in the frontal, parietal, occipital and temporal lobes. Chronic ischemic changes are noted in the optic radiations along the lateral ventricular atria and occipital horns. Chronic ischemic changes are also noted within the central cali. There are no lesions noted within the lateral geniculate nuclei. There is abnormal soft tissue in the left sphenoid sinus immediately adjacent to the cavernous sinus. The remaining paranasal and mastoid sinuses are clear. Although this may represent nasal sinus mucosal inflammatory disease, the possibility of a soft tissue mass in this location, possibly invading the left optic foramina cannot be definitively ruled out on this limited stroke protocol study. It is recommended that a CT scan of the paranasal sinuses be obtained for further evaluation, and to rule out osteolysis. Orbital and petrous structures, cerebellopontine angles, and posterior fossa appear otherwise unremarkable. IMPRESSION: Extensive and confluent frontal and parietal deep white matter chronic ischemic changes noted in the cerebral hemispheric white matter and central cali. Moderate age related involutional changes. Abnormal soft tissue in the left sphenoid sinus immediately adjacent to the cavernous sinus. Although this may represent nasal sinus mucosal inflammatory disease, the possibility of a soft tissue mass in this location, invading the left optic foramina cannot be definitively ruled out on this limited stroke protocol study. It is recommended that a CT scan of the paranasal sinuses be obtained for further evaluation, and to rule out osteolysis. The study is otherwise unremarkable. . THIS DOCUMENT HAS BEEN ELECTRONICALLY SIGNED Marques Sood MD. 08/08/2019 18:48 EST Discharge - Discharge Information Problems reviewed: Yes Clinical Impression/Diagnosis: Blurry vision, bilateral, Disequilibrium Condition: Stable - Admission Yes - Follow up/Referral Referrals: Beverley Pizarro MD [Primary Care Provider] - - Patient Discharge Instructions - Post Discharge Activity
[2019-08-08 16:44] LABS: BASO % 0.6 % (0-2.0); EOS % 1.6 % (0-4.5); HEMATOCRIT 43.6 % (32.4-45.2); HEMOGLOBIN 14.7 GM/dL (10.7-15.3); LYMPH % 28.4 % (8-40); MCH 31.9 pg (25.7-33.7); MCHC 33.6 g/dl (32.0-36.0); MEAN CELL VOLUME 94.8 fl (80-96); MEAN PLT VOLUME 8.4 fl (7.5-11.1); NEUT % 58.4 % (42.8-82.8); PLATELET COUNT 185 K/MM3 (134-434); WHITE BLOOD COUNT 6.3 K/mm3 (4.0-10.0)
[2019-08-08 17:09] LABS: INR 3.47 (0.83-1.09); PROTHROMBIN TIME (PATIENT) 41.5 SEC (9.7-13.0)
[2019-08-08 17:14] LABS: ALBUMIN 3.8 g/dl (3.4-5.0); BILIRUBIN,TOTAL 0.4 mg/dL (0.2-1); BLOOD UREA NITROGEN 31.8 mg/dL (7-18); CALCIUM 8.7 mg/dL (8.5-10.1); CREATININE 1.9 mg/dL (0.55-1.3); MAGNESIUM 2.4 mg/dL (1.8-2.4); POTASSIUM 3.7 mmol/L (3.5-5.1); TOT PROT 7.1 g/dl (6.4-8.2)
--- NOTE | 2019-08-08 18:12 | PDOC ---
Documentation entered by Ketty Aviles SCRIBE, acting as scribe for Elena Shi MD. Elena Shi MD: This documentation has been prepared by the scribe, Ketty Aviles SCRIBE, under my direction and personally reviewed by me in its entirety. I confirm that the documentation accurately reflects all work, treatment, procedures, and medical decision making performed by me. Attending Attestation - Resident Resident Name: Duncan Jean - ED Attending Attestation I have performed the following: I have examined & evaluated the patient, The case was reviewed & discussed with the resident, I agree w/resident's findings & plan, Exceptions are as noted - HPI HPI: 74 yo F history afib on warfarin, depression presents with visual changes for the past 1 week. History is a bit unclear, however, she states that her vision is intermittently becoming "fuzzy", but the distribution is unclear. She states it is intermittent, then clears up again. Denies eye pain. Vision does not black out. Denies headache. - Physicial Exam PE: GENERAL: Awake, alert, and fully oriented, in no acute distress HEAD: No signs of trauma EYES: PERRLA, EOMI, sclera anicteric, conjunctiva clear ENT: Auricles normal inspection, hearing grossly normal, nares patent, oropharynx clear without exudates. Moist mucosa NECK: Normal ROM, supple, no lymphadenopathy, JVD, or masses LUNGS: Breath sounds equal, clear to auscultation bilaterally. No wheezes, and no crackles HEART: Regular rate and rhythm, normal S1 and S2, no murmurs, rubs or gallops ABDOMEN: Soft, nontender, normoactive bowel sounds. No guarding, no rebound. No masses EXTREMITIES: Normal range of motion, no edema. No clubbing or cyanosis. No cords, erythema, or tenderness NEUROLOGICAL: Cranial nerves II through XII grossly intact. Normal speech, normal gait. Motor and sensation intact SKIN: Warm, dry, normal turgor, no rashes or lesions noted. - Medical Decision Making Pt with vision loss that is described as "fuzzy" and intermittent. History of afib but therapeutic on warfarin. Etiology of symptoms is unclear, as it is bilateral. Poss TIA, although would expect unilateral symptoms. A mass would cause bitemporal vision loss, which is not present in this case. Difficult to localize the lesion based on the symptoms and somewhat vague history. Will obtain CTH. Will consider MRI. Will d/w neuro and ophtho.
--- NOTE | 2019-08-08 20:15 | PN ---
Teaching Attending Note Name of Resident: Juanpablo Sims ATTENDING PHYSICIAN STATEMENT I saw and evaluated the patient. I reviewed the resident's note and discussed the case with the resident. I agree with the resident's findings and plan as documented. SUBJECTIVE: 74 y/o woman with past medical history of CAD, CHF, A. fib on Coumadin, hypertension, dyslipidemia reported "furry" vision since 08/08/2019 morning associated with disequilibrium. Not associated with standing up or sitting down , occurred it intermittently. Patient saw her organ builder about 1 month ago and denied any vision deficiencies at that time. Denied any headache, dizziness, focal weaknesses. OBJECTIVE: Last Vital Signs Temp Pulse Resp BP Pulse Ox 98 F 71 18 124/76 97 08/08/19 18:58 08/08/19 18:58 08/08/19 18:58 08/08/19 18:58 08/08/19 20:04 GENERAL: Well developed, well nourished. Awake and alert. No acute distress. HEENT: Normocephalic, atraumatic. PERRLA, EOMI. No conjunctival pallor. Sclera are non- icteric. Moist mucous membranes. Oropharynx is clear. NECK: Supple. Full ROM. No JVD. Carotid pulses 2+ and symmetric, without bruits. No thyromegaly. No lymphadenopathy. CARDIOVASCULAR: Regular rate and rhythm. No murmurs, rubs, or gallops. Distal pulses are 2+ and symmetric. PULMONARY: No evidence of respiratory distress. Lungs clear to auscultation bilaterally. No wheezing, rales or rhonchi. ABDOMINAL: Soft. Non-tender. Non-distended. No rebound or guarding. No organomegaly. Normoactive bowel sounds. MUSCULOSKELETAL Normal range of motion at all joints. No bony deformities or tenderness. No CVA tenderness. EXTREMITIES: No cyanosis. No clubbing. No edema. No calf tenderness. SKIN: Warm and dry. Normal capillary refill. No rashes. No jaundice. NEUROLOGICAL: Alert, awake, appropriate. Cranial nerves 2-12 intact. No deficits to light touch and temperature in face, upper extremities and lower extremities. No motor deficits in the in face, upper extremities and lower extremities. Normoreflexic in the upper and lower extremities. Normal speech. Toes are down- going bilaterally. Gait is normal without ataxia. Negative Babinski sign bilaterally. Normal [id number] test, normal [id number] test bilaterally. PSYCHIATRIC: Cooperative. Good eye contact. Appropriate mood and affect. Abnormal Lab Results 08/08/19 08/08/19 08/08/19 16:15 16:15 16:15 Monocytes % 11.0 H PT with INR 41.50 H INR 3.47 H PTT (Actin FS) 47.0 H BUN 31.8 H Creatinine 1.9 H Random Glucose 124 H Alkaline Phosphatase 127 H Imaging studies reviewed EKG showed atrial fibrillation with rate controlled Head CT showed no acute intracranial pathology. Brain MRI- IMPRESSION: Extensive and confluent frontal and parietal deep white matter chronic ischemic changes noted in the cerebral hemispheric white matter and central cali. Moderate age related involutional changes. Abnormal soft tissue in the left sphenoid sinus immediately adjacent to the cavernous sinus. Although this may represent nasal sinus mucosal inflammatory disease, the possibility of a soft tissue mass in this location, invading the left optic foramina cannot be definitively ruled out on this limited stroke protocol study. It is recommended that a CT scan of the paranasal sinuses be obtained for further evaluation, and to rule out osteolysis. The study is otherwise unremarkable. ASSESSMENT AND PLAN: 74-year-old woman with acute blurry vision changes, ataxia. Possible TIA, CVA was not appreciated on imaging studies. Possible isolated ocular deficiency. Admit to telemetry n.p.o. Neuro consult Neurochecks every 4 hours Carotid Doppler Transthoracic echo Statin, aspirin Would benefit from outpatient ophthalmology visit Chronic medical problems: CAD CHF A.fibRate controlled Continue with Coumadin hypertension- Controlled dyslipidemia Continue chronic home meds On Coumadinfor DVT prophylaxis
--- NOTE | 2019-08-08 21:42 | HP ---
CHIEF COMPLAINT: difficulty seeing, loss of balance PCP: Dr. Pizarro HISTORY OF PRESENT ILLNESS: 74 y/o female PMH HTN, HLD, CHF (10/26/2015 echo: normal diastolic function EF 55 -60), anxiety, BPPV and a-fib (on warfarin) c/o 1 day of loss of balance and altered vision. She states that for the first time today, she noted that she was unable to see what she was doing when focusing. She was making macaroni at home and could not see the food clearly, as it appeared blurry. There were no pro-dromal or related symptoms (except imbalance) including aura, numbness/ tingling, speech changes, LOC, tongue biting. She did not fall. This vision loss was constant and prompted her to call a taxi to the ED. The concurrent symptoms of loss of balance has been present for 1 month with increasing severity. She reports it feels like she is drunk. She denies drinking alcohol or using recreational drugs. She is familiar with symptoms of vertigo given h/o BPPV and states this sensation is different. She denies SALCIDO, SOB, CP, abdominal pain, and dysarthria. She has no been sick, had sick contacts or tried new foods/drugs/herb/supplements. She denies nausea, vomiting, fever, diarrhea, constipation and chills. She has no h/o stroke/TIA. Pt medications reconciled at bedside. She reports not taking meclizine for 1 week because she feels it makes her dizzy. ER course was notable for: (1) Resolution of symptoms (2) Case discussed with Dr. Wilburn by ED (3) Case discussed with Dr. Ness, pts opthamologist Recent Travel: Denies PAST MEDICAL HISTORY: - HTN - HLD - CHF (10/26/2015 echo: normal diastolic function EF 55-60) - Anxiety - BPPV - A-fib (on warfarin: 2 mg Th and Avelar. 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 Allergies - Fish derived [Fish derived] Allergy (Severe, Verified 08/08/19 16:55) SWELLING , NAUSEA all fish - Penicillins Allergy (Severe, Verified 08/08/19 16:55) HIVES,VOMITING - Aspirin Allergy (Intermediate, Verified 08/08/19 16:55) Pt states aspirin makes her feel generally unwell but denies hives, SOB, itchiness or any compromise of breathing 2/2 aspirin. She has not taken asa for many years. - Raspberry Flavor, Artificial Allergy (Intermediate, Verified 08/08/19 16:55) HIVES, ITCHING - Mercury (elemental) [Mercury (Elemental)] Allergy (Verified 08/08/19 16:55) UNKNOWN HOME MEDICATIONS: Home Medications Medication Instructions Recorded Atorvastatin Calcium [Lipitor] 10 mg PO DAILY 10/27/16 Ramipril [Altace] 10 mg PO DAILY 10/27/16 Isosorbide Mononitrate [Imdur -] 30 mg PO DAILY 11/23/16 Warfarin Na [Coumadin -] 1 mg PO ASDIR 12/18/17 Bupropion HCl [Bupropion Xl] 150 mg PO BID 01/19/18 Diltiazem Cd [Cardizem Cd -] 240 mg PO DAILY 01/19/18 Furosemide [Lasix] 40 mg PO DAILY 03/03/18 Warfarin Na [Coumadin -] 2 mg PO ASDIR 06/15/18 Meclizine HCl 25 mg PO QID PRN 08/26/18 REVIEW OF SYSTEMS CONSTITUTIONAL: Absent: fever, chills, diaphoresis, generalized weakness, malaise, loss of appetite, weight change HEENT: Absent: rhinorrhea, nasal congestion, throat pain, throat swelling, difficulty swallowing, mouth swelling, ear pain, eye pain, visual changes CARDIOVASCULAR: Absent: chest pain, syncope, palpitations, irregular heart rate, lightheadedness , peripheral edema RESPIRATORY: Absent: cough, shortness of breath, dyspnea with exertion, orthopnea, wheezing, stridor, hemoptysis GASTROINTESTINAL: Absent: abdominal pain, abdominal distension, nausea, vomiting, diarrhea, constipation, melena, hematochezia GENITOURINARY: Absent: dysuria, frequency, urgency, hesitancy, hematuria, flank pain, genital pain MUSCULOSKELETAL: Absent: myalgia, arthralgia, joint swelling, back pain, neck pain SKIN: Absent: rash, itching, pallor HEMATOLOGIC/IMMUNOLOGIC: Absent: easy bleeding, easy bruising, lymphadenopathy, frequent infections ENDOCRINE: Absent: unexplained weight gain, unexplained weight loss, heat intolerance, cold intolerance NEUROLOGIC: Absent: headache, focal weakness or paresthesias, dizziness, unsteady gait, seizure, mental status changes, bladder or bowel incontinence PSYCHIATRIC: Absent: anxiety, depression, suicidal or homicidal ideation, hallucinations. PHYSICAL EXAMINATION Vital Signs - 24 hr 08/08/19 08/08/19 08/08/19 14:15 18:58 20:04 Temperature 97.7 F 98 F Pulse Rate 73 Pulse Rate [ 71 Right Radial] Respiratory 16 18 Rate Blood Pressure 110/64 Blood Pressure 124/76 [Right] O2 Sat by Pulse 98 97 97 Oximetry (%) GENERAL: AOx3, in no acute distress, unique personality HEAD: NCAT EYES: ANABEL, EOMI, conjunctiva clear. ENT: Ears normal, nares patent, oropharynx clear without exudates. Moist mucous membranes. NECK: Normal range of motion, supple without lymphadenopathy, JVD, or masses. LUNGS: CTAB. No wheezes, and no crackles. No accessory muscle use. HEART: RRR s1 s2 ABDOMEN: Soft, BS present in all 4 quadrants, non-distended, no JVD, MUSCULOSKELETAL: No bony deformities or tenderness. No CVA tenderness. UPPER EXTREMITIES: 2+ pulses, warm, well-perfused. No cyanosis. No clubbing. No peripheral edema. LOWER EXTREMITIES: 2+ pulses, warm, well-perfused. No calf tenderness. No peripheral edema. Onychomycosis BL. Left diffuse echymoses. NEUROLOGICAL: No focal deficits. Cranial nerves II-XII intact. Normal speech. Sensation intact throughout. Normal gait with appropriate strike, swing, and circumambulation. No dysdiadodyskinesia. Upper and lower extremity strength 5/5 in proximal and distal joints. Patellar and biceps reflex 2+. Babinkski NEG. VISION: No visual field deficits. 20/20 BL with corrective lenses. PSYCHIATRIC: Cooperative. Good eye contact. Appropriate mood and affect. SKIN: Warm, dry, normal turgor, no rashes or lesions noted, normal capillary refill. Laboratory Results - last 24 hr 08/08/19 08/08/19 08/08/19 16:15 16:15 16:15 WBC 6.3 RBC 4.60 Hgb 14.7 Hct 43.6 MCV 94.8 MCH 31.9 MCHC 33.6 RDW 14.0 Plt Count 185 MPV 8.4 Absolute Neuts (auto) 3.7 Neutrophils % 58.4 Lymphocytes % 28.4 Monocytes % 11.0 H Eosinophils % 1.6 Basophils % 0.6 Nucleated RBC % 0 PT with INR INR PTT (Actin FS) Sodium 140 Potassium 3.7 Chloride 107 Carbon Dioxide 24 Anion Gap 8 BUN 31.8 H Creatinine 1.9 H Est GFR (CKD-EPI)AfAm 29.58 Est GFR (CKD-EPI)NonAf 25.52 Random Glucose 124 H Calcium 8.7 Phosphorus 3.3 Magnesium 2.4 Total Bilirubin 0.4 AST 18 ALT 24 Alkaline Phosphatase 127 H Total Protein 7.1 Albumin 3.8 08/08/19 16:15 WBC RBC Hgb Hct MCV MCH MCHC RDW Plt Count MPV Absolute Neuts (auto) Neutrophils % Lymphocytes % Monocytes % Eosinophils % Basophils % Nucleated RBC % PT with INR 41.50 H INR 3.47 H PTT (Actin FS) 47.0 H Sodium Potassium Chloride Carbon Dioxide Anion Gap BUN Creatinine Est GFR (CKD-EPI)AfAm Est GFR (CKD-EPI)NonAf Random Glucose Calcium Phosphorus Magnesium Total Bilirubin AST ALT Alkaline Phosphatase Total Protein Albumin MRI Extensive and confluent frontal and parietal deep white matter chronic ischemic changes noted in the cerebral hemispheric white matter and central cali. Moderate age related involutional changes. Abnormal soft tissue in the left sphenoid sinus immediately adjacent to the cavernous sinus. Although this may represent nasal sinus mucosal inflammatory disease, the possibility of a soft tissue mass in this location, invading the left optic foramina cannot be definitively ruled out on this limited stroke protocol study. It is recommended that a CT scan of the paranasal sinuses be obtained for further evaluation, and to rule out osteolysis. ASSESSMENT/PLAN: 74 y/o female PMH HTN, HLD, CHF (10/26/2015 echo: normal diastolic function EF 55 -60), anxiety, BPPV and a-fib (on warfarin) c/o 1 day of loss of balance and altered vision, admitted for care of possible TIA vs ophthalmologic disturbance. # Possible TIA - ASA 325 (?hold and instead give Plavix 75 - will have to discuss with team) - Atorvastatin 80 mg PO once - ECHO, catotid dopler - Fall precautions, aspiration precautions, NPO, await s/s - PT - Pt has ophthalmology appointment [facility] 11 Aug 2019 #A-fib - F/u echo - Warfarin 2 mg po Th and Avelar - Warfarin 1 mg po every other day # Anxiety: Buproprion 150 mg PO BID # BPPV: Meclizine 25 mg PO QID # HTN - Cont. curent home regimen: Ramipril 10 mg PO qd # HLD - Cont. curent home regimen: Atrovastatin 10 mg po qd # F/E/N - Gentle NS - Cont. to monitor - NPO till s/s # DVT prophylaxis - On warfarin # Disposition - Admit to telemetry Juanpablo Sims MD Visit type - Emergency Visit Emergency Visit: Yes ED Registration Date: 08/08/19 Care time: The patient presented to the Emergency Department on the above date and was hospitalized for further evaluation of their emergent condition. - New Patient This patient is new to me today: Yes Date on this admission: 09/02/19 - Critical Care Critical Care patient: No ATTENDING PHYSICIAN STATEMENT I saw and evaluated the patient. I reviewed the resident's note and discussed the case with the resident. I agree with the resident's findings and plan as documented. SUBJECTIVE: OBJECTIVE: ASSESSMENT AND PLAN:
[2019-08-08] MEDS ORDERED: CLOPIDOGREL BISULFATE 75 MG TABLET (FP) PO SCH (21:45)
[2019-08-08] MEDS ORDERED: MECLIZINE HCL 25 MG TABLET (FP) PO PRN (23:26)
[2019-08-08] MEDS ORDERED: WARFARIN NA 1 MG TABLET (FP) PO SCH ×2 (23:30→23:31)
[2019-08-08 23:48] VITALS: BMI 34.4
[2019-08-09 07:47] LABS: BASO % 0.8 % (0-2.0); EOS % 1.9 % (0-4.5); HEMATOCRIT 42.8 % (32.4-45.2); HEMOGLOBIN 14.4 GM/dL (10.7-15.3); LYMPH % 32.7 % (8-40); MCH 31.8 pg (25.7-33.7); MCHC 33.5 g/dl (32.0-36.0); MEAN CELL VOLUME 94.7 fl (80-96); MEAN PLT VOLUME 8.3 fl (7.5-11.1); MONO % 11.6 % (3.8-10.2); PLATELET COUNT 174 K/MM3 (134-434); RBC 4.52 M/mm3 (3.60-5.2); RDW 13.8 % (11.6-15.6); WHITE BLOOD COUNT 5.8 K/mm3 (4.0-10.0)
[2019-08-09 08:10] LABS: ALBUMIN 3.7 g/dl (3.4-5.0); BILIRUBIN,TOTAL 0.8 mg/dL (0.2-1); BLOOD UREA NITROGEN 27.9 mg/dL (7-18); CALCIUM 8.6 mg/dL (8.5-10.1); CREATININE 1.8 mg/dL (0.55-1.3); MAGNESIUM 2.4 mg/dL (1.8-2.4); PHOSPHOROUS 3.6 mg/dL (2.5-4.9); POTASSIUM 3.8 mmol/L (3.5-5.1); TOT PROT 6.7 g/dl (6.4-8.2)
[2019-08-09 08:35] LABS: INR 3.22 (0.83-1.09); PROTHROMBIN TIME (PATIENT) 38.5 SEC (9.7-13.0)
[2019-08-09 08:37] LABS: ACTIVATED PTT 45.7 SECONDS (25.2-36.5)
--- NOTE | 2019-08-09 09:12 | PN ---
Progress Note (short form) - Note Progress Note: Subjective: No fever or chills. no CP , no SALCIDO, no blurry vision now. when sx happened yesterday , she got up, sat at the edge of the bed, and developed blurry vision in both eyes. lying down did not help it. sx lasted util she was in ER, and resolved while she was getting all her test. she has a h/o vertigo but this episode is different. she denied any palpitations, SOB, sweating, SOB, numbness , tingling, weakness, or any other sx withthis episode. no sx like that in past. she slo felt unsteady when she tried to walk when her sx were present. No recent change sin meds. now completely asymptomatic Objective: Vital Signs: Last Vital Signs Temp Pulse Resp BP Pulse Ox 97.9 F 82 16 123/67 97 08/09/19 08:21 08/09/19 08:21 08/09/19 08:21 08/09/19 08:21 08/08/19 23:06 Laboratory Results - last 24 hr 08/08/19 08/08/19 08/08/19 16:15 16:15 16:15 WBC 6.3 RBC 4.60 Hgb 14.7 Hct 43.6 MCV 94.8 MCH 31.9 MCHC 33.6 RDW 14.0 Plt Count 185 MPV 8.4 Absolute Neuts (auto) 3.7 Neutrophils % 58.4 Lymphocytes % 28.4 Monocytes % 11.0 H Eosinophils % 1.6 Basophils % 0.6 Nucleated RBC % 0 PT with INR INR PTT (Actin FS) Sodium 140 Potassium 3.7 Chloride 107 Carbon Dioxide 24 Anion Gap 8 BUN 31.8 H Creatinine 1.9 H Est GFR (CKD-EPI)AfAm 29.58 Est GFR (CKD-EPI)NonAf 25.52 Random Glucose 124 H Hemoglobin A1c % Calcium 8.7 Phosphorus 3.3 Magnesium 2.4 Total Bilirubin 0.4 AST 18 ALT 24 Alkaline Phosphatase 127 H Ammonia Total Protein 7.1 Albumin 3.8 Triglycerides Cholesterol Total LDL Cholesterol HDL Cholesterol Vitamin B12 TSH 08/08/19 08/09/19 08/09/19 16:15 05:52 05:53 WBC RBC Hgb Hct MCV MCH MCHC RDW Plt Count MPV Absolute Neuts (auto) Neutrophils % Lymphocytes % Monocytes % Eosinophils % Basophils % Nucleated RBC % PT with INR 41.50 H INR 3.47 H PTT (Actin FS) 47.0 H Sodium 142 Potassium 3.8 Chloride 110 H Carbon Dioxide 24 Anion Gap 8 BUN 27.9 H Creatinine 1.8 H Est GFR (CKD-EPI)AfAm 31.58 Est GFR (CKD-EPI)NonAf 27.25 Random Glucose 94 Hemoglobin A1c % Calcium 8.6 Phosphorus 3.6 Magnesium 2.4 Total Bilirubin 0.8 AST 17 ALT 23 Alkaline Phosphatase 115 Ammonia 21.10 Total Protein 6.7 Albumin 3.7 Triglycerides 139 Cholesterol 147 Total LDL Cholesterol 60 HDL Cholesterol 66 H Vitamin B12 492 TSH 0.90 08/09/19 08/09/19 08/09/19 05:53 05:53 07:55 WBC 5.8 RBC 4.52 Hgb 14.4 Hct 42.8 MCV 94.7 MCH 31.8 MCHC 33.5 RDW 13.8 Plt Count 174 MPV 8.3 Absolute Neuts (auto) 3.1 Neutrophils % 53.0 Lymphocytes % 32.7 Monocytes % 11.6 H Eosinophils % 1.9 Basophils % 0.8 Nucleated RBC % 0 PT with INR 38.50 H INR 3.22 H PTT (Actin FS) 45.7 H Sodium Potassium Chloride Carbon Dioxide Anion Gap BUN Creatinine Est GFR (CKD-EPI)AfAm Est GFR (CKD-EPI)NonAf Random Glucose Hemoglobin A1c % 5.4 Calcium Phosphorus Magnesium Total Bilirubin AST ALT Alkaline Phosphatase Ammonia Total Protein Albumin Triglycerides Cholesterol Total LDL Cholesterol HDL Cholesterol Vitamin B12 TSH Physical Exam: NAd, awake, alert, cooperative , pleasant HEENT: slightly dry lips, MMM, no lymphadenopathy in neck. CV: irreg irreg , no MRG Lungs: CTAB Abd: obese, soft, NT, ND , NL BS Ext : No edema or erythema . L lateral leg bruise. Neuro: EOMI, round pupils, equal , reactive to light. No facial droop. tongue at mid line. nl facaial sensation . Nl visual filed . mild horizontal nystagmus with R lateral gaze. strength : 5/5 in upper and lower extremities proximally and distally. sensation to light touch is NL. reflexes: 2+ knee jerk and biceps b/l. Nl nose to finger in both sides. Imaging: CT of head and MRI reports reviewed. EKG with a fib . tele with A fib and controlled ryhthm. 2 second pause seen Assessment/Plan: Pleasant 74 y/o lady with h/o A fib on coumadin, Diastoli heart failure, HTN, HLP, vertigo, CKD, CAD who presented with blurry vision that resolved in ER. 1- Blurry vision: unclear of etiology. bilateral. Nl neuro exam. No bleed or acute stroke on MRI or CT. Sx are not described as vertigo. No recent change in meds. except for her stopping her meclizine . description of sx do not go with orthostatic hypotension. she looks euvolemic. Cr at base line. Do not suspect optic neuritis, or actual ophthalmologic problems. ? arrhythmias ( rapid A fib vs blocks) , but EKG showed controlled A fib - monitor today on tele ( no events over night except for 2 second pause, which is acceptable in A fib patients ) - neuro eval pending - echo can be done as out pt - she has appointment with [facility] on Saturday - asked to see her card, Dr. Phillips, within 2-3 days of dc for echo ( has one scheduled in 2 weeks ) . last echo in our system reviewed. - check orthostatic VS - She was advised, that no answers might be found at time of dc 2- h/o Diastolic heart failure: cont lasix and cardizem 3- h/o A fib: cont cardizem. INR pending for this am. - will adjust coumadin dose according to INr - she was advised to take coumadin in PM ( takes is in am usually) - cont ramipril 4- H/o CKD: cr at base line. - cont to follow up with Dr. Torres as out pt -- cont ramipril 5- h/o HTN: cont ramipril Dispo : if neuro eval does not indicates further investigations , will dc home later htis afternoon. All her meds were confirmed with her as she has the bottles Visit type - Emergency Visit Emergency Visit: Yes ED Registration Date: 08/08/19 Care time: The patient presented to the Emergency Department on the above date and was hospitalized for further evaluation of their emergent condition. - New Patient This patient is new to me today: Yes Date on this admission: 08/09/19 - Critical Care Critical Care patient: No
[2019-08-09] MEDS ORDERED: RAMIPRIL 5 MG CAPSULE (FP) PO SCH (10:00)
[2019-08-09] MEDS ORDERED: ISOSORBIDE MONONITRATE 30 MG TAB.SR.24H (FP) PO SCH (10:00)
[2019-08-09] MEDS ORDERED: CLOPIDOGREL BISULFATE 75 MG TABLET (FP) PO SCH (10:00)
[2019-08-09] MEDS ORDERED: FUROSEMIDE 40 MG TABLET (FP) PO SCH (10:00)
[2019-08-09 11:34] LABS: PH,URINE 5.5 (5.0-8.0); URINE APPEARANCE Clear; URINE BILIRUBIN Negative (NEGATIVE); URINE COLOR Yellow; URINE GLUCOSE (UA) Negative (NEGATIVE); URINE KETONE Negative (NEGATIVE); URINE LEUK ESTERASE 1+ (NEGATIVE); URINE NITRITE Negative (NEGATIVE); URINE PROTEIN Negative (NEGATIVE); URINE UROBILINOGEN 0.2 mg/dL (0.2-1.0)
[2019-08-09 11:38] LABS: EPI CELLS 1.8 /HPF (0-5/HPF); HYALINE CASTS 4.09 /lpf (0-8); URINE BACTERIA 699.9 /hpf (NEGATIVE); URINE RBC 1.3 /hpf (0-4); URINE WBC 62.1 /hpf (0-5)
--- NOTE | 2019-08-09 12:06 | CON.NEURO ---
Consult - Past Medical History TOY STUFFER: Yes: Vertigo Cardio/Vascular: Yes: AFIB, HTN, Hyperlipdemia Renal/: Yes: Renal Inusuff Psych: Yes: Anxiety - Past Surgical History Past Surgical History: Yes: Hysterectomy, Tonsillectomy - Alcohol/Substance Use Hx Alcohol Use: No History of Substance Use: reports: None - Smoking History Smoking history: Never smoked Have you smoked in the past 12 months: No Aproximately how many cigarettes per day: 0 If you are a former smoker, when did you quit?: 10 - Social History ADL: Independent History of Recent Travel: No Home Medications - Allergies Allergies/Adverse Reactions: Allergies Allergy/AdvReac Type Severity Reaction Status Date / Time fish derived [Fish derived] Allergy Severe SWELLING, Verified 08/08/19 16:55 NAUSEA Penicillins Allergy Severe HIVES,VOMIT Verified 08/08/19 16:55 ING aspirin Allergy Intermediate UNSURE Verified 08/08/19 16:55 Raspberry Flavor, Artificial Allergy Intermediate HIVES, Verified 08/08/19 16:55 ITCHING mercury (elemental) Allergy UNKNOWN Verified 08/08/19 16:55 [Mercury (Elemental)] - Home Medications Home Medications: Ambulatory Orders Atorvastatin Calcium [Lipitor] 10 mg PO DAILY 10/27/16 Ramipril [Altace] 10 mg PO DAILY 10/27/16 Isosorbide Mononitrate [Imdur -] 30 mg PO DAILY 11/23/16 Warfarin Na [Coumadin -] 1 mg PO ASDIR 12/18/17 Bupropion HCl [Bupropion Xl] 150 mg PO BID 01/19/18 Diltiazem Cd [Cardizem Cd -] 240 mg PO DAILY 01/19/18 Furosemide [Lasix] 40 mg PO DAILY 03/03/18 Warfarin Na [Coumadin -] 2 mg PO ASDIR 06/15/18 Meclizine HCl 25 mg PO QID PRN 08/26/18 Physical Exam-Neuro Vital Signs: Vital Signs Temperature 97.9 F 08/09/19 08:21 Pulse Rate 82 08/09/19 08:21 Respiratory Rate 16 08/09/19 08:21 Blood Pressure 123/67 08/09/19 08:21 O2 Sat by Pulse Oximetry (%) 97 08/08/19 23:06 Labs: CBC, BMP 08/09/19 05:53 08/09/19 05:53 INR, PTT INR 3.22 (0.83-1.09) H 08/09/19 07:55 Assessment/Plan cc Blurring of vision 74 year old female history of HTN,HLD,CHF,BPPV,ANXIETY,AFB. Patient takes coumadin for atrial fibrillation. She came with blurring of vision and loss of balance. Rey has noraml ct head and admitted for possible stroke and he rsypmtoms resolved. Patient denie sany headhace, dysphagia, dysarthria or diplopia. Patient is back to her normal self and mri of normal and irn was in 3.4. No neurological symptoms now. PAST MEDICAL HISTORY: - HTN - HLD - CHF (10/26/2015 echo: normal diastolic function EF 55-60) - Anxiety - BPPV - A-fib (on warfarin: 2 mg Th and Avelar. 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 Allergies - Fish derived [Fish derived] Allergy (Severe, Verified 08/08/19 16:55) SWELLING , NAUSEA all fish - Penicillins Allergy (Severe, Verified 08/08/19 16:55) HIVES,VOMITING - Aspirin Allergy (Intermediate, Verified 08/08/19 16:55) Pt states aspirin makes her feel generally unwell but denies hives, SOB, itchiness or any compromise of breathing 2/2 aspirin. She has not taken asa for many years. - Raspberry Flavor, Artificial Allergy (Intermediate, Verified 08/08/19 16:55) HIVES, ITCHING - Mercury (elemental) [Mercury (Elemental)] Allergy (Verified 08/08/19 16:55) UNKNOWN HOME MEDICATIONS: Home Medications Medication Instructions Recorded Atorvastatin Calcium [Lipitor] 10 mg PO DAILY 10/27/16 Ramipril [Altace] 10 mg PO DAILY 10/27/16 Isosorbide Mononitrate [Imdur -] 30 mg PO DAILY 11/23/16 Warfarin Na [Coumadin -] 1 mg PO ASDIR 12/18/17 Bupropion HCl [Bupropion Xl] 150 mg PO BID 01/19/18 Diltiazem Cd [Cardizem Cd -] 240 mg PO DAILY 01/19/18 Furosemide [Lasix] 40 mg PO DAILY 03/03/18 Warfarin Na [Coumadin -] 2 mg PO ASDIR 06/15/18 Meclizine HCl 25 mg PO QID PRN 08/26/18 ROS,FH,SH reviewed in chart NEUROLOGICAL EXAMINATION Alert oriented x 3, speech is normal , vss eomi, pupils reactive no face asymmetry moving all ext , ftn hts is normal sensation is noraml ct head and mri ofbrain is normal Assessment/Plan 74 year old female history of HTN,HLD,CHF,BPPV,ANXIETY,AFB, Patient is back to [facility]. She is already on warfarin and atorvastatin. I sugges to increase atorvastatin gto 40 mg and these visual symptoms could be nonspecific vs? tia Plan: symptom resolved - continue coumadin - increase lipitor to 40 mg once a day - stroke education -carotid ultrasound Thanking you so much Cordell Wilburn MD
--- NOTE | 2019-08-09 12:35 | EKG ---
Test Reason : Blood Pressure : / mmHG Vent. Rate : 070 BPM Atrial Rate : 098 BPM P-R Int : 000 ms QRS Dur : 088 ms QT Int : 408 ms P-R-T Axes : 000 035 -37 degrees QTc Int : 440 ms ATRIAL FIBRILLATION NONSPECIFIC ST AND T WAVE ABNORMALITY ABNORMAL ECG WHEN COMPARED WITH ECG OF 14-APR-2019 07:45, NONSPECIFIC T WAVE ABNORMALITY NO LONGER EVIDENT IN LATERAL LEADS Confirmed by VISHAL TOBIN MD ([id number]) on 08/09/2019 12:34:57 PM Referred By: Confirmed By:VISHAL TOBIN MD
[2019-08-09 15:12] VITALS: PULSE 77
[2019-08-09 15:14] VITALS: BP 117/75; TEMP 97.3
[2019-08-09] MEDS ORDERED: WARFARIN NA 2 MG TABLET (UD) PO SCH ×2 (18:00→23:26)
[2019-08-09] MEDS ORDERED: ATORVASTATIN CA 40 MG TABLET (FP) PO SCH (22:00)
[2019-08-09] MEDS ORDERED: ATORVASTATIN CA 10 MG TABLET (FP) PO SCH (22:00)
[2019-08-09] MEDS ORDERED: ATORVASTATIN CA 80 MG TABLET (FP) PO SCH (22:00)
--- NOTE | 2019-08-10 16:53 | DS ---
Physical Exam: SUBJECTIVE: Patient seen and examined at bedside. There were no acute events overnight. This AM she offers no new complaints. OBJECTIVE: Last Vital Signs Temp Pulse Resp BP Pulse Ox 97.3 F L 77 18 117/75 97 08/09/19 15:10 08/09/19 15:10 08/09/19 15:10 08/09/19 15:10 08/09/19 10:00 PHYSICAL EXAM GENERAL: AOx3, in no acute distress, unique personality HEAD: NCAT EYES: ANABEL, EOMI, conjunctiva clear. ENT: Ears normal, nares patent, oropharynx clear without exudates. Moist mucous membranes. NECK: Normal range of motion, supple without lymphadenopathy, JVD, or masses. LUNGS: CTAB. No wheezes, and no crackles. No accessory muscle use. HEART: RRR s1 s2 ABDOMEN: Soft, BS present in all 4 quadrants, non-distended, no JVD, MUSCULOSKELETAL: No bony deformities or tenderness. No CVA tenderness. UPPER EXTREMITIES: 2+ pulses, warm, well-perfused. No cyanosis. No clubbing. No peripheral edema. LOWER EXTREMITIES: 2+ pulses, warm, well-perfused. No calf tenderness. No peripheral edema. Onychomycosis BL. Left diffuse echymoses. NEUROLOGICAL: No focal deficits. Cranial nerves II-XII intact. Normal speech. Sensation intact throughout. Normal gait with appropriate strike, swing, and circumambulation. No dysdiadodyskinesia. Upper and lower extremity strength 5/5 in proximal and distal joints. Patellar and biceps reflex 2+. Babinkski NEG. VISION: No visual field deficits. 20/20 BL with corrective lenses. PSYCHIATRIC: Cooperative. Good eye contact. Appropriate mood and affect. SKIN: Warm, dry, normal turgor, no rashes or lesions noted, normal capillary refill. LABS WBC 5.8 K/mm3 (4.0-10.0) 08/09/19 05:53 RBC 4.52 M/mm3 (3.60-5.2) 08/09/19 05:53 Hgb 14.4 GM/dL (10.7-15.3) 08/09/19 05:53 Hct 42.8 % (32.4-45.2) 08/09/19 05:53 MCV 94.7 fl (80-96) 08/09/19 05:53 MCH 31.8 pg (25.7-33.7) 08/09/19 05:53 MCHC 33.5 g/dl (32.0-36.0) 08/09/19 05:53 RDW 13.8 % (11.6-15.6) 08/09/19 05:53 Plt Count 174 K/MM3 (134-434) 08/09/19 05:53 MPV 8.3 fl (7.5-11.1) 08/09/19 05:53 Absolute Neuts (auto) 3.1 K/mm3 (1.5-8.0) 08/09/19 05:53 Neutrophils % 53.0 % (42.8-82.8) 08/09/19 05:53 Lymphocytes % 32.7 % (8-40) 08/09/19 05:53 Monocytes % 11.6 % (3.8-10.2) H 08/09/19 05:53 Eosinophils % 1.9 % (0-4.5) 08/09/19 05:53 Basophils % 0.8 % (0-2.0) 08/09/19 05:53 Nucleated RBC % 0 % (0-0) 08/09/19 05:53 Sodium 142 mmol/L (136-145) 08/09/19 05:53 Potassium 3.8 mmol/L (3.5-5.1) 08/09/19 05:53 Chloride 110 mmol/L (98-107) H 08/09/19 05:53 Carbon Dioxide 24 mmol/L (21-32) 08/09/19 05:53 Anion Gap 8 MMOL/L (8-16) 08/09/19 05:53 BUN 27.9 mg/dL (7-18) H 08/09/19 05:53 Creatinine 1.8 mg/dL (0.55-1.3) H 08/09/19 05:53 Est GFR (CKD-EPI)AfAm 31.58 08/09/19 05:53 Est GFR (CKD-EPI)NonAf 27.25 08/09/19 05:53 Random Glucose 94 mg/dL (74-106) 08/09/19 05:53 Hemoglobin A1c % 5.4 % (4.2-6.3) 08/09/19 05:53 Calcium 8.6 mg/dL (8.5-10.1) 08/09/19 05:53 Phosphorus 3.6 mg/dL (2.5-4.9) 08/09/19 05:53 Magnesium 2.4 mg/dL (1.8-2.4) 08/09/19 05:53 Total Bilirubin 0.8 mg/dL (0.2-1) 08/09/19 05:53 AST 17 U/L (15-37) 08/09/19 05:53 ALT 23 U/L (13-61) 08/09/19 05:53 Alkaline Phosphatase 115 U/L (45-117) 08/09/19 05:53 Ammonia 21.10 umol/L (11-32) 08/09/19 05:52 Total Protein 6.7 g/dl (6.4-8.2) 08/09/19 05:53 Albumin 3.7 g/dl (3.4-5.0) 08/09/19 05:53 Triglycerides 139 mg/dL (0-150) 08/09/19 05:53 Cholesterol 147 mg/dL (50-200) 08/09/19 05:53 Total LDL Cholesterol 60 mg/dL (5-100) 08/09/19 05:53 HDL Cholesterol 66 mg/dL (40-60) H 08/09/19 05:53 Vitamin B12 492 pg/ml (193-986) 08/09/19 05:53 TSH 0.90 uIU/ml (0.358-3.74) 08/09/19 05:53 HOSPITAL COURSE: Date of Admission:08/08/19 74 y/o lady with h/o A fib on coumadin, diastolic heart failure, HTN, HLD, vertigo, CKD, CAD whom presented with blurry vision that resolved in ED. No bleed or acute stroke on MRI or CT. She was monitored on telemetry (with no events over night except for 2 second pause, which is acceptable in A fib patients). She was advised to have echo as out-pt. She has appointment with ophthalmology on Saturday. She was advised to take coumadin in PM. All other med regimens maintained. She was seen by neurology whom rec increase atorvastatin to 40 mg; visual symptoms poss nonspecific vs ?tia. She is to f/u with cardiology out-pt. Date of Discharge: 08/10/19 Minutes to complete discharge: 40 Discharge Summary Problems reviewed: Yes Reason For Visit: DIZZINESS AND GIDDINESS,BLURRING OF VISUAL IMAGE Condition: Improved - Instructions Diet, Activity, Other Instructions: - change in vision and disequilibrium might 've been due to TIA ( transient ischemic attack ) or other unknown etiologies - please do not take your coumadin tonight. tomorrow continue as per your routine. - coumadin and lipitor should be taken in PM not AM - lipitor dose was increased to 40 mg - please follow with Dr. Phillips in 2-3 days for repeat echo - follow up with your ophthalmologisyt as plenned before. - if symptoms recur, please come back to ER [facility] Referrals: Cordell Wilburn MD [Staff Physician] - 2 Weeks Beverley Pizarro MD [Primary Care Provider] - 1 Week Kevin Phillips MD [Staff Physician] - 1 Week Disposition: HOME - Home Medications Comprehensive Discharge Medication List: Ambulatory Orders Ramipril [Altace] 10 mg PO DAILY 10/27/16 Isosorbide Mononitrate [Imdur -] 30 mg PO DAILY 11/23/16 Bupropion HCl [Bupropion Xl] 150 mg PO BID 01/19/18 Diltiazem Cd [Cardizem Cd -] 240 mg PO DAILY 01/19/18 Furosemide [Lasix] 40 mg PO DAILY 03/03/18 Meclizine HCl 25 mg PO QID PRN 08/26/18 Atorvastatin Ca [Lipitor] 40 mg PO HS #30 tablet 08/09/19 Warfarin Na [Coumadin -] 1 mg PO ASDIR #0 tab 08/09/19 Warfarin Na [Coumadin -] 2 mg PO ASDIR #0 tab 08/09/19 This patient is new to me today: No Emergency Visit: No Critical Care patient: No - Discharge Referral Referred to [facility] Med [facility] No ATTENDING PHYSICIAN STATEMENT I saw and evaluated the patient. I reviewed the resident's note and discussed the case with the resident. I agree with the resident's findings and plan as documented. SUBJECTIVE: OBJECTIVE: ASSESSMENT AND PLAN:
[2019-08-10] MEDS ORDERED: WARFARIN NA 1 MG TABLET (FP) PO SCH (18:00)
== END 2019-08-09 17:58 | disposition home or self-care (01) | DRG 69 ==
LOC: JER 14:09 → J4S 19:06
PROVIDERS: ADMIT Internal Medicine; ATTEND Internal Medicine
DX: G45.9 Transient cerebral ischemic attack, unspecified (principal); I13.0 Hypertensive heart and chronic kidney disease with heart failure and stage 1 through stage 4 chronic kidney disease, or unspecified chronic kidney disease; I50.32 Chronic diastolic (congestive) heart failure; I48.91 Unspecified atrial fibrillation; E78.5 Hyperlipidemia, unspecified; F41.9 Anxiety disorder, unspecified; R42 Dizziness and giddiness; N18.9 Chronic kidney disease, unspecified; H53.8 Other visual disturbances
CPT/HCPCS: 36415; 70450-TC; 70551-TC; 71046-TC-FY; 80053; 80061; 81003; 82140; 82607; 83036; 83721; 83735; 84100; 84443; 85025; 85610; 85730; 93005; 93010; 93880-TC; 97161-GP; 99284-25

== ENCOUNTER 2019-09-06 08:43 | Inpatient (IN) | payer OTHER ==
[2019-09-06 08:50] VITALS: BMI 33.5
--- NOTE | 2019-09-06 09:21 | PDOC ---
History of Present Illness - General Chief Complaint: Lightheaded Stated Complaint: DIZZY Time Seen by Provider: 09/06/19 09:19 History Source: Patient Exam Limitations: No Limitations - History of Present Illness Initial Comments: 09/06/19 09:19 PCP: [facility] Neuro: Dr. Denney HPI: 74yo F PMH CAD, CHF, Afib (on Warfarin), cardiomyopathy, HTN, HLD, BPPV ( on Meclizine at home), presenting with unsteady gait since yesterday afternoon. Patient reports she developed an unsteady gait and dizziness yesterday afternoon. She felt concerned she would fall but thought dinner and sleep would help, she woke up this morning with continued symptoms and took a taxi to the ED. Denies any nausea, vomiting, headache, trauma, falls. No history of stroke, WA, blood clots, ICH, GIB, on Warfarin for Afib. No chest pain, palpitations, SOB, cough, fevers, chills. Denies any history of migraine headaches. Reports that she has never experienced these specific symptoms before - specifically not the sensation of imbalance. All: PCN, ASA, Mercury Meds: Per chart PMH: As above PSH: Per chart SHx: Lives at home with her cat tPA Exclusion checklist 3-4.5h - Time Elapsed Date last known well: 09/05/19 Time last known well: 03:00 Elaspsed time: 1 Day(s) and 15 Hour(s) and 17 Minutes - Thrombolytic Therapy Candidate Is patient eligible for thrombolytic therapy: No - Exclusion Criteria 3-4.5 hr SBP greater than 185 or DBP greater than 110mmHg despite tx: No Recent IC/spinal surgery,head trauma or stroke<3mos.: No Hx IC hemorrhage, IC neoplasm, AV malformation or aneurysm: No Active internal bleeding: No Blding diathesis(low plt ct, inc PTT,INR>1.7 or use of NOAC): No Symptoms suggest subarachnoid hemorrhage: No CT demonstrates multilobar infarct(>1/3 cerebral hemiphere): No Arterial puncture at noncompressible site in previous 7 days: No Blood glucose concentration less than 50mg/dL (2.7mmol/L): No - Relative Exclusion Criteria 3-4.5 hr Life expectancy <1 yr or severe co-morbid illness: No : No Patient/family refused: No Rapid improvement: No Stroke severity too mild: No Recent acute WA (w/in previous 3 months): No Seizure at onset with postictal residual neuro impairments: No Major surgery or serious trauma w/in previous 14 days: No Recent GI or hemorrhage (w/in previous 21 days): No - Add'l Relative Exclusion 3-4.5 hr Age > 80: No Hx of both diabetes AND prior ischemic stroke: No Taking an oral anticoagulant regardless of INR: Yes NIHSS >25: No - Ineligibility reason(s) Reasons No tPA given: Outside of window - delayed arrival NIH Stroke Scale - Last Known Well Date/Time & Onset Date Last Known Well: 09/05/19 Time Last Known Well: 03:00 - Initial Evaluation Level of consciousness: Alert Ask patient the month and their age: Answers both correctly Ask patient to open & close eyes; make fist and let go: Obeys both correctly Best gaze (horizontal eye movement): Normal Visual field testing: No visual field loss Facial paresis (Show teeth/raise eyebrows/close eyes tight): Normal symmetrical movement Motor Function: Left Arm: Normal Motor Function: Right Arm: Normal (extends arm 90 (or 45) degrees for 10 seconds without drift Motor Function: Left Leg: Normal (extends leg 30 degrees for 5 seconds without drift) Motor Function: Right Leg: Normal (extends leg 30 degrees for 5 seconds without drift) Limb Ataxia: No ataxia Sensory(Use pinprick test arms,legs,trunk,face/side to side): Normal Best language (Describe picture, name items, read sentences): No Aphasia Dysarthria (read several words): Normal articulation Extinction and Inattention: No abnormality - Total Score NIH Stroke Scale Score: 0 Past History - Travel Traveled outside of the country in the last 30 days: No Close contact w/someone who was outside of country & ill: No - Past Medical History Allergies/Adverse Reactions: Allergies Allergy/AdvReac Type Severity Reaction Status Date / Time fish derived [Fish derived] Allergy Severe SWELLING, Verified 09/06/19 08:50 NAUSEA Penicillins Allergy Severe HIVES,VOMIT Verified 09/06/19 08:50 ING aspirin Allergy Intermediate UNSURE Verified 09/06/19 08:50 Raspberry Flavor, Artificial Allergy Intermediate HIVES, Verified 09/06/19 08:50 ITCHING mercury (elemental) Allergy UNKNOWN Verified 09/06/19 08:50 [Mercury (Elemental)] Home Medications: Ambulatory Orders Ramipril [Altace] 10 mg PO DAILY 10/27/16 Isosorbide Mononitrate [Imdur -] 30 mg PO DAILY 11/23/16 Bupropion HCl [Bupropion Xl] 150 mg PO BID 01/19/18 Furosemide [Lasix] 40 mg PO DAILY 03/03/18 Atorvastatin Ca [Lipitor] 40 mg PO HS #30 tablet 08/09/19 Warfarin Na [Coumadin -] 1 mg PO ASDIR #0 tab 08/09/19 Warfarin Na [Coumadin -] 2 mg PO ASDIR #0 tab 08/09/19 Anemia: No Asthma: No Cancer: Yes (UTERINE) Cardiac Disorders: Yes (A-FIB, CAD, CARDIOMYOPATHY) CVA: No COPD: No CHF: No DVT: No Dementia: No Diabetes: No GI Disorders: No Disorders: No HTN: Yes Hypercholesterolemia: Yes Liver Disease: No Psychiatric Problems: Yes (ANXIETY) Seizures: No Thyroid Disease: No Other medical history: vertigo - Surgical History Abdominal Surgery: Yes Appendectomy: No Cardiac Surgery: No Cholecystectomy: No Lung Surgery: No Neurologic Surgery: No Orthopedic Surgery: Yes (Bilateral Trigger finger release) - Immunization History Immunization Up to Date: No - Psycho Social/Smoking Cessation Hx Smoking Status: No Smoking History: Never smoked Have you smoked in the past 12 months: No Number of Cigarettes Smoked Daily: 0 If you are a former smoker, when did you quit?: 10 Hx Alcohol Use: No Drug/Substance Use Hx: No Substance Use Type: None Hx Substance Use Treatment: No Review of Systems - Review of Systems Able to Perform ROS?: Yes Is the patient limited [place] proficient: Yes Constitutional: No: Chills, Diaphoresis, Fever HEENTM: No: Blurred Vision, Recent change in vision, Ear Pain, Ear Discharge, Nose Congestion, Throat Pain Respiratory: No: Cough, Shortness of Breath Cardiac (ROS): No: Chest Pain, Edema, Irregular Heart Rate, Lightheadedness, Palpitations, Syncope, Chest Tightness ABD/GI: No: Constipated, Diarrhea, Nausea, Vomiting : No: Burning, Dysuria, Frequency Musculoskeletal: No: Muscle Pain, Muscle Weakness, Neck Pain Integumentary: No: Bruising, Pruritus, Rash Neurological: No: Headache, Numbness, Tingling, Weakness Psychiatric: No: Stressors, Change in Appetite Endocrine: No: Increased Thirst, Increased Urine Hematologic/Lymphatic: No: Anemia, Blood Clots, Easy Bleeding All Other Systems: Reviewed and Negative *Physical Exam - Vital Signs Last Vital Signs Temp Pulse Resp BP Pulse Ox 97.8 F 68 18 108/69 97 09/06/19 08:45 09/06/19 08:45 09/06/19 08:45 09/06/19 08:45 09/06/19 08:45 - Physical Exam 09/06/19 10:09 Vitals reviewed, AFVSS GEN: Well appearing, appears stated age, NAD, comfortable. AAOx3. HEENT: NCAT, EOMI, PERRL. Sclera anicteric, noninjected. No facial asymmetry. Moist mucous membranes. Normal voice. Trachea midline. CV: RRR, S1/S2, no murmurs / rubs / gallops appreciated. LUNG: CTAB, normal work of breathing. No wheezes, rales, rhonchi. No cough. Speaking full sentences. GI: Soft, NTND, +BS, no guarding, no rebound. No masses. Neg CVAT b/l. EXTREMITIES: 2+ distal pulses. No LE edema. No obvious deformities of all extremities. SKIN: Warm, dry, no rashes appreciated, non-jaundiced. PSYCH: Normal mood and affect. Cooperative and appropriate. NEURO: CN 2-12 intact. +horizontal nystagmus in right eye, horizontal in left eye. Moving all extremities well. Unsteady gait, uses arms for balance, not magnetic or wide-based. Normal strength and sensation to light touch throughout. No dysdiadokinesis or dysmetria. Negative pronator drift. ED Treatment Course - LABORATORY CBC & Chemistry Diagram: 09/06/19 10:14 09/06/19 10:14 Medical Decision Making - Medical Decision Making 09/06/19 10:11 74yo F PMH CAD, CHF, Afib (on Warfarin), cardiomyopathy, HTN, HLD, BPPV (on Meclizine at home), presenting with unsteady gait since last night. History notable for new onset gait imbalance and positional dizziness since yesterday afternoon, recent neuro imaging for different symptoms constellation, no nausea / vomiting / room spinning. Exam remarkable for unsteady gait R eye vertical nystagmus, left eye horizontal nystagmus, AFHDS. DDX: Vertigo (BPPV, Vestibular neuritis), ICH, cerebellar stroke, mass lesion (less likely given recent MRI), electrolyte derangement. Likely admission given new neurologic findings - gait instability and nystagmus, patient lives alone, fall risk with current disequilibrium. - CBC, CMP, PT/INR - NCHCT - EKG, CXR - Meclizine PO 50mg 09/06/19 12:03 - Head CT without acute pathology Laboratory Tests 09/06/19 09/06/19 09/06/19 10:14 10:14 10:14 WBC 5.9 RBC 4.62 Hgb 14.8 Hct 43.3 MCV 93.8 MCH 32.1 MCHC 34.2 RDW 13.6 Plt Count 163 MPV 8.4 Absolute Neuts (auto) 4.1 Neutrophils % 69.1 D Lymphocytes % 21.6 D Monocytes % 7.7 Eosinophils % 1.0 Basophils % 0.6 Nucleated RBC % 0 PT with INR 24.10 H INR 2.03 H Sodium 141 Potassium 4.8 Chloride 112 H Carbon Dioxide 20 L Anion Gap 8 BUN 31.2 H Creatinine 1.7 H Est GFR (CKD-EPI)AfAm 33.84 Est GFR (CKD-EPI)NonAf 29.20 Random Glucose 99 Calcium 9.3 Total Bilirubin 1.0 AST 44 H ALT 20 Alkaline Phosphatase 118 H Total Protein 7.1 Albumin 3.9 Dispo: Admit Stroke Floor 09/06/19 12:34 - Call placed to Dr. Denney's service - Remains symptomatic despite Meclizine 50 09/06/19 13:35 - Sign-out given to inpatient team - Awaiting neurology call back 09/06/19 13:50 - Spoke with Dr. Leach, aware of patient, group will follow case, agrees with decision for MRI Discharge - Discharge Information Problems reviewed: Yes Clinical Impression/Diagnosis: Disequilibrium, Nystagmus Condition: Guarded - Follow up/Referral - Patient Discharge Instructions - Post Discharge Activity
[2019-09-06] MEDS ORDERED: MECLIZINE HCL 25 MG TABLET (FP) PO ONE (10:11)
[2019-09-06] MEDS ORDERED: MECLIZINE HCL 25 MG TABLET (FP) ONE (10:27)
[2019-09-06 10:37] LABS: BASO % 0.6 % (0-2.0); HEMATOCRIT 43.3 % (32.4-45.2); HEMOGLOBIN 14.8 GM/dL (10.7-15.3); LYMPH % 21.6 % (8-40); MCH 32.1 pg (25.7-33.7); MCHC 34.2 g/dl (32.0-36.0); MEAN CELL VOLUME 93.8 fl (80-96); MEAN PLT VOLUME 8.4 fl (7.5-11.1); MONO % 7.7 % (3.8-10.2); NEUT % 69.1 % (42.8-82.8); PLATELET COUNT 163 K/MM3 (134-434); RBC 4.62 M/mm3 (3.60-5.2); RDW 13.6 % (11.6-15.6); WHITE BLOOD COUNT 5.9 K/mm3 (4.0-10.0)
[2019-09-06 10:49] LABS: INR 2.03 (0.83-1.09); PROTHROMBIN TIME (PATIENT) 24.1 SEC (9.7-13.0)
[2019-09-06 11:24] LABS: BLOOD UREA NITROGEN 31.2 mg/dL (7-18); CALCIUM 9.3 mg/dL (8.5-10.1); CREATININE 1.7 mg/dL (0.55-1.3); POTASSIUM 4.8 mmol/L (3.5-5.1)
[2019-09-06 11:25] LABS: ALBUMIN 3.9 g/dl (3.4-5.0); TOT PROT 7.1 g/dl (6.4-8.2)
--- NOTE | 2019-09-06 11:38 | PDOC ---
Documentation entered by Dawood Davis SCRIBE, acting as scribe for Francis Dawson MD. Francis Dawson MD: This documentation has been prepared by the Susan yancey Angel, SCRIBE, under my direction and personally reviewed by me in its entirety. I confirm that the documentation accurately reflects all work, treatment, procedures, and medical decision making performed by me. Attending Attestation - Resident Resident Name: SudheerAdam - ED Attending Attestation I have performed the following: I have examined & evaluated the patient, The case was reviewed & discussed with the resident, I agree w/resident's findings & plan, Exceptions are as noted - HPI HPI: 09/06/19 10:51 The patient is a 74 year old female with a significant past medical history of CAD, CHF, Afib (on Warfarin), cardiomyopathy, HTN, HLD, BPPV (on Meclizine at home) who presents to the ED with dizziness and unsteady gait since yesterday afternoon. Patient states she was at home watching tv when she started experiencing dizziness and unsteady gait. The patient describes the sensation with her hands as the room moving vertically, not spinning. Patient is prescribed Meclizine for her vertigo but is non compliant because it makes her sick. Patient denies headaches, nausea/vomiting, diarrhea or any pain. Allergies: NKDA PCP: Dr. Pizarro - Physicial Exam PE: 09/06/19 10:40 GENERAL: The patient is awake, alert, and fully oriented, Nontoxic - in no acute distress. HEAD: Normocephalic, atraumatic. EYES: extraocular movements intact, sclera anicteric, conjunctiva clear. nystagmus noted ENT: Normal voice, Moist mucous membranes. NECK: Normal range of motion, supple LUNGS: Breath sounds equal, clear to auscultation bilaterally. No wheezes, no rhonchi, no rales. HEART: irregularly irregular ABDOMEN: Soft, nontender, No guarding, no rebound. No CVA tenderness EXTREMITIES: Normal range of motion, no edema. NEUROLOGICAL: No facial assymetry, Normal speech, PSYCH: Normal mood, normal affect. SKIN: Warm, Dry, normal turgor, NEURO: Mental status: The patient is oriented x3. Cranial nerves: Cranial nerves II through XII are intact Motor: The upper extremities are 5 over 5 in all muscle groups. The lower extremities are 5 over 5 in all muscle groups. Negative pronator drift Sensation: Sensation is intact to light touch throughout. Cerebellar: [id number] is normal in both upper extremities. Heel-knee- shaw is normal in both lower extremities. rapid alternating movements are normal. Reflexes: 2+ and symmetric in the upper and lower extremities. Gait: unsteady gait - Medical Decision Making 09/06/19 10:41 74y hx of PMH CAD, CHF, Afib (on Warfarin), cardiomyopathy, HTN, HLD, BPPV presents with a complaint of feeling off balance since yestereday, notes it feels a bit different from her typical vertigo and states that she cannot walk right. Denies any complaints of pain including headache, neck pain, chest pain or other focal neurologic complaints including vision changes, dysarthria, focal numbness, tingling, weakness. Patient denies any infectious complaints, diarrhea, melena, BPR. On exam the patient does have an unsteady gait however and she does have a nystagmus however it is difficult to appreciate the direction, but it is constant. Her neuro exam is otherwise unremarkable Patient has had a work-up in the past for her vertigo however as the nature of this vertigo is difference consider possible cva We will give the patient meclizine will obtain CT of the head was discussed with neuro 09/06/19 13:13 CT head and chest x-ray without acute findings Patient still symptomatic unable to ambulate will admit for further management Heart Score/ECG Review - ECG Impressions Comment:: 09/06/19 10:44 Twelve-lead EKG was performed and reviewed by me. Irregularly irregular, rate of 83 Nonspecific T wave abnormality
[2019-09-06 13:13] LABS: MAGNESIUM 2.2 mg/dL (1.8-2.4)
--- NOTE | 2019-09-06 15:30 | HP ---
CHIEF COMPLAINT: dizziness, and unsteady gait PCP: Dr. Pizarro, pcp Dr. Phillips, claims correspondence clerk HISTORY OF PRESENT ILLNESS: Patient is a 72 year old female with a significant past medical history of atrial fibrillation (on coumadin), vertigo, cervical cancer, cardiomyopathy, CAD , hyperlipidemia, CKD, and anxiety. She presents to the ED today complaining of vertigo. She reports that she noted that she developed an unsteady gait and dizziness yeserteray afternoon but went to bed hoping that she felt better today. However, when she tried to ambulate this morning, she became dizzy and felt off balance. She denies any falls at home, or any syncopal episodes or LOC. She denies any headaches or visual defects. Patient has been seen here for vertigo episodes (on Meclazine) but she states that they usually resolve quickly, but today she feels persistently "off balance". She denies chest pain , palpitations or shortness of breath. Denies any nausea, vomiting, headache, trauma, falls. No history of stroke. She reports that she has had vertigo in the past but has never been this off balance. ER course was notable for: (1) negative head ct (2) inr 2.0 (3) afib rate controlled, Recent Travel: denies PAST MEDICAL/SURGICAL HISTORY: atrial fibrillation (on coumadin), vertigo, cervical cancer, cardiomyopathy, CAD, hyperlipidemia, CKD, and anxiety. Social History: Smoking: denies Alcohol: denies Drugs: denies Allergies fish derived [Fish derived] Allergy (Severe, Verified 09/06/19 08:50) SWELLING, NAUSEA all fish Penicillins Allergy (Severe, Verified 09/06/19 08:50) HIVES,VOMITING aspirin Allergy (Intermediate, Verified 09/06/19 08:50) UNSURE Raspberry Flavor, Artificial Allergy (Intermediate, Verified 09/06/19 08:50) HIVES, ITCHING mercury (elemental) [Mercury (Elemental)] Allergy (Verified 09/06/19 08:50) UNKNOWN HOME MEDICATIONS: Home Medications Medication Instructions Recorded Ramipril [Altace] 10 mg PO DAILY 10/27/16 Isosorbide Mononitrate [Imdur -] 30 mg PO DAILY 11/23/16 Bupropion HCl [Bupropion Xl] 150 mg PO BID 01/19/18 Diltiazem Cd [Cardizem Cd -] 240 mg PO DAILY 01/19/18 Furosemide [Lasix] 40 mg PO DAILY 03/03/18 Meclizine HCl 25 mg PO QID PRN 08/26/18 Atorvastatin Ca [Lipitor] 40 mg PO HS #30 tablet 08/09/19 Warfarin Na [Coumadin -] 1 mg PO ASDIR #0 tab 08/09/19 Warfarin Na [Coumadin -] 2 mg PO ASDIR #0 tab 08/09/19 REVIEW OF SYSTEMS CONSTITUTIONAL: Absent: fever, chills, diaphoresis, generalized weakness, malaise, loss of appetite, weight change HEENT: Absent: rhinorrhea, nasal congestion, throat pain, throat swelling, difficulty swallowing, mouth swelling, ear pain, eye pain, visual changes CARDIOVASCULAR: Absent: chest pain, syncope, palpitations, irregular heart rate, lightheadedness , peripheral edema RESPIRATORY: Absent: cough, shortness of breath, dyspnea with exertion, orthopnea, wheezing, stridor, hemoptysis GASTROINTESTINAL: Absent: abdominal pain, abdominal distension, nausea, vomiting, diarrhea, constipation, melena, hematochezia GENITOURINARY: Absent: dysuria, frequency, urgency, hesitancy, hematuria, flank pain, genital pain MUSCULOSKELETAL: Absent: myalgia, arthralgia, joint swelling, back pain, neck pain SKIN: Absent: rash, itching, pallor HEMATOLOGIC/IMMUNOLOGIC: Absent: easy bleeding, easy bruising, lymphadenopathy, frequent infections ENDOCRINE: Absent: unexplained weight gain, unexplained weight loss, heat intolerance, cold intolerance PHYSICAL EXAMINATION Vital Signs - 24 hr 09/06/19 09/06/19 08:45 15:02 Temperature 97.8 F 98.4 F Pulse Rate 68 Pulse Rate [ 82 Right Radial] Respiratory 18 18 Rate Blood Pressure 108/69 Blood Pressure 111/68 [Right Arm] O2 Sat by Pulse 97 97 Oximetry (%) GENERAL: Awake, alert, and fully oriented, in no acute distress. HEAD: Normal with no signs of trauma. EYES: Pupils equal, round and reactive to light, extraocular movements intact EARS, NOSE, THROAT: Ears normal, nares patent, oropharynx clear without exudates. Moist mucous membranes. NECK: Normal range of motion, supple without lymphadenopathy, JVD, or masses. LUNGS: Breath sounds equal, clear to auscultation bilaterally. HEART: Regular rate and rhythm ABDOMEN: Soft, nontender, not distended, normoactive bowel sounds, no guarding, no rebound, no masses. MUSCULOSKELETAL: Normal range of motion at all joints. No bony deformities or tenderness. No CVA tenderness. UPPER EXTREMITIES: No peripheral edema. LOWER EXTREMITIES: No peripheral edema. NEUROLOGICAL: Normal speech. unsteady gait PSYCHIATRIC: Cooperative. Good eye contact. Appropriate mood and affect. SKIN: Warm, dry, normal turgor, no rashes or lesions noted, normal capillary refill. Laboratory Results - last 24 hr 09/06/19 09/06/19 09/06/19 10:14 10:14 10:14 WBC 5.9 RBC 4.62 Hgb 14.8 Hct 43.3 MCV 93.8 MCH 32.1 MCHC 34.2 RDW 13.6 Plt Count 163 MPV 8.4 Absolute Neuts (auto) 4.1 Neutrophils % 69.1 D Lymphocytes % 21.6 D Monocytes % 7.7 Eosinophils % 1.0 Basophils % 0.6 Nucleated RBC % 0 PT with INR 24.10 H INR 2.03 H Sodium 141 Potassium 4.8 Chloride 112 H Carbon Dioxide 20 L Anion Gap 8 BUN 31.2 H Creatinine 1.7 H Est GFR (CKD-EPI)AfAm 33.84 Est GFR (CKD-EPI)NonAf 29.20 Random Glucose 99 Calcium 9.3 Magnesium 2.2 Total Bilirubin 1.0 AST 44 H ALT 20 Alkaline Phosphatase 118 H Total Protein 7.1 Albumin 3.9 ASSESSMENT/PLAN: Problem List - Problem (1) Dizziness Assessment/Plan: head ct negative possible tia? mri 07/2019 shows mild volume loss, multiple foci of small vessel infarction in the periventricular white matter and brain stem. no mass lesion carotid doppler 07/2019, negative send for ua/urine culture orthostatic bp q 8 Code(s): R42 - DIZZINESS AND GIDDINESS (2) Disequilibrium Assessment/Plan: negative head ct start on ivf and meclazine tid gait remains unsteady with ambulation. physical therapy consulted. Ct of head negative Had recent workup including brain mri and carotid dopplers on last admission Code(s): R42 - DIZZINESS AND GIDDINESS (3) Nystagmus Assessment/Plan: most prominent of left eye, new finding neuro consult may need outpatient opthomology consult Code(s): H55.00 - UNSPECIFIED NYSTAGMUS (4) Bbuty-dt-ijzglcy kidney injury Assessment/Plan: monitor with daily labs KAYLA on ckd. creat 1.7, has been 2.2 in past. continue home medications. Patient to follow up with renal as an outpatient. Code(s): N17.9 - ACUTE KIDNEY FAILURE, UNSPECIFIED; N18.9 - CHRONIC KIDNEY DISEASE, UNSPECIFIED (5) Afib Assessment/Plan: on coumadin 2mg with alternating 1mg dose. inr 2.0. daily inr checks Code(s): I48.91 - UNSPECIFIED ATRIAL FIBRILLATION (6) DVT prophylaxis Assessment/Plan: on coumadin Code(s): OSP6558 - Visit type - Emergency Visit Emergency Visit: Yes ED Registration Date: 09/06/19 Care time: The patient presented to the Emergency Department on the above date and was hospitalized for further evaluation of their emergent condition. - New Patient This patient is new to me today: Yes Date on this admission: 09/06/19 - Critical Care Critical Care patient: No
[2019-09-06] MEDS ORDERED: WARFARIN NA 1 MG TABLET (FP) PO SCH (18:00)
[2019-09-06] MEDS ORDERED: WARFARIN NA 1 MG TABLET (FP) ONE (18:04)
[2019-09-06] MEDS: WARFARIN NA 1 MG TABLET (FP) PO SCH (18:29)
[2019-09-06] MEDS ORDERED: MECLIZINE HCL 25 MG TABLET (FP) PO PRN (18:41)
[2019-09-06 20:30] LABS: EPI CELLS 9.7 /HPF (0-5/HPF); HYALINE CASTS 4 /lpf (0-8); URINE APPEARANCE TURBID; URINE BACTERIA 4072.2 /hpf (NEGATIVE); URINE BILIRUBIN NEGATIVE (NEGATIVE); URINE COLOR YELLOW; URINE GLUCOSE (UA) NEGATIVE (NEGATIVE); URINE KETONE NEGATIVE (NEGATIVE); URINE LEUK ESTERASE 3+ (NEGATIVE); URINE NITRITE POSITIVE (NEGATIVE); URINE PROTEIN TRACE (NEGATIVE); URINE RBC 7 /hpf (0-4); URINE UROBILINOGEN 0.2 mg/dL (0.2-1.0); URINE WBC 607 /hpf (0-5)
[2019-09-06] MEDS ORDERED: buPROPion HCL 100 MG TABLET ONE (22:51)
[2019-09-06] MEDS ORDERED: ATORVASTATIN CA 40 MG TABLET (FP) ONE (22:51)
[2019-09-06] MEDS: ATORVASTATIN CA 40 MG TABLET (FP) PO SCH (23:06)
--- NOTE | 2019-09-07 08:59 | CONSULT ---
Consult - text type - Consultation Consultation Note: Neurology CHIEF COMPLAINT: dizziness, and unsteady gait PCP:Dr. Pizarro, pcp Dr. Phillips, respiratory care instructor HISTORY OF PRESENT ILLNESS: Patient is a 72 year old female with a significant past medical history of atrial fibrillation (on coumadin), vertigo, cervical cancer, cardiomyopathy, CAD , hyperlipidemia, CKD, and anxiety. She presented to the ED complaining of vertigo. She reported that she noted that she developed an unsteady gait and dizziness on day prior to admission but went to bed hoping that she felt better the next day. However, when she tried to ambulate, she became dizzy and felt off balance. She denied any falls at home, or any syncopal episodes or LOC. She denied any headaches or visual defects. Patient has been seen here for vertigo episodes (on Meclizine) but she stated that they usually resolve quickly , but today she feels persistently "off balance". She denied chest pain, palpitations or shortness of breath. Denied any nausea, vomiting, headache, trauma, falls. No history of stroke. She reported that she has had vertigo in the past but has never been this off balance. CT of head completed and showed no acute pathology. She is significantly better this morning and was able to self ambulate and did not require any assistance, though did had some slight trouble with turning. Patient did recently have MRI of the brain approximately 1 month ago and at this point I do not feel this needs to be repeated especially since her symptoms have significantly improved. Recent Travel: denies PAST MEDICAL/SURGICAL HISTORY: atrial fibrillation (on coumadin), vertigo, cervical cancer, cardiomyopathy, CAD, hyperlipidemia, CKD, and anxiety. Family History: HTN Social History: Smoking: denies Alcohol: denies Drugs: denies REVIEW OF SYSTEMS CONSTITUTIONAL: Absent: fever, chills, diaphoresis, generalized weakness, malaise, loss of appetite, weight change HEENT: Absent: rhinorrhea, nasal congestion, throat pain, throat swelling, difficulty swallowing, mouth swelling, ear pain, eye pain, visual changes CARDIOVASCULAR: Absent: chest pain, syncope, palpitations, irregular heart rate, lightheadedness , peripheral edema RESPIRATORY: Absent: cough, shortness of breath, dyspnea with exertion, orthopnea, wheezing, stridor, hemoptysis GASTROINTESTINAL: Absent: abdominal pain, abdominal distension, nausea, vomiting, diarrhea, constipation, melena, hematochezia GENITOURINARY: Absent: dysuria, frequency, urgency, hesitancy, hematuria, flank pain, genital pain MUSCULOSKELETAL: Absent: myalgia, arthralgia, joint swelling, back pain, neck pain SKIN: Absent: rash, itching, pallor HEMATOLOGIC/IMMUNOLOGIC: Absent: easy bleeding, easy bruising, lymphadenopathy, frequent infections ENDOCRINE: Absent: unexplained weight gain, unexplained weight loss, heat intolerance, cold intolerance Allergies fish derived [Fish derived] Allergy (Severe, Verified 09/06/19 08:50) SWELLING, NAUSEA all fish Penicillins Allergy (Severe, Verified 09/06/19 08:50) HIVES,VOMITING aspirin Allergy (Intermediate, Verified 09/06/19 08:50) UNSURE Raspberry Flavor, Artificial Allergy (Intermediate, Verified 09/06/19 08:50) HIVES, ITCHING mercury (elemental) [Mercury (Elemental)] Allergy (Verified 09/06/19 08:50) UNKNOWN HOME MEDICATIONS: Home Medications Medication Instructions Recorded Ramipril [Altace] 10 mg PO DAILY 10/27/16 Isosorbide Mononitrate [Imdur -] 30 mg PO DAILY 11/23/16 Bupropion HCl [Bupropion Xl] 150 mg PO BID 01/19/18 Diltiazem Cd [Cardizem Cd -] 240 mg PO DAILY 01/19/18 Furosemide [Lasix] 40 mg PO DAILY 03/03/18 Meclizine HCl 25 mg PO QID PRN 08/26/18 Atorvastatin Ca [Lipitor] 40 mg PO HS #30 tablet 08/09/19 Warfarin Na [Coumadin -] 1 mg PO ASDIR #0 tab 08/09/19 Warfarin Na [Coumadin -] 2 mg PO ASDIR #0 tab 08/09/19 Active Medications Atorvastatin Calcium (Lipitor -) 40 mg PO HS [facility] Last Admin: 09/06/19 23:06 Dose: 40 mg Bupropion HCl (Wellbutrin Xl -) 150 mg PO BID [facility] Last Admin: 09/06/19 23:06 Dose: 150 mg Furosemide (Lasix -) 40 mg PO DAILY [facility] Isosorbide Mononitrate (Imdur -) 30 mg PO DAILY [facility] Meclizine HCl (Antivert -) 25 mg PO TID PRN PRN Reason: VERTIGO Ramipril (Altace -) 10 mg PO DAILY [facility] Warfarin Sodium (Coumadin -) 1 mg PO DAILY@1800 [facility] Last Admin: 09/06/19 18:29 Dose: 1 mg PHYSICAL EXAMINATION Vital Signs Period Temp Pulse Resp BP Sys/Franks Pulse Ox Last 24 Hr 97.7 F-98.4 F 75-133 18-22 104-136/68-106 97-98 GENERAL: Awake, alert, and fully oriented, in no acute distress. HEAD: Normal with no signs of trauma. EYES: Pupils equal, round and reactive to light, extraocular movements intact EARS, NOSE, THROAT: Ears normal, nares patent, oropharynx clear without exudates. Moist mucous membranes. NECK: Normal range of motion, supple without lymphadenopathy, JVD, or masses. LUNGS: Breath sounds equal, clear to auscultation bilaterally. HEART: Regular rate and rhythm ABDOMEN: Soft, nontender, not distended, normoactive bowel sounds, no guarding, no rebound, no masses. MUSCULOSKELETAL: Normal range of motion at all joints. No bony deformities or tenderness. No CVA tenderness. UPPER EXTREMITIES: No peripheral edema. LOWER EXTREMITIES: No peripheral edema. NEUROLOGICAL: Normal speech. unsteady gait PSYCHIATRIC: Cooperative. Good eye contact. Appropriate mood and affect. SKIN: Warm, dry, normal turgor, no rashes or lesions noted, normal capillary refill. CBCD WBC 5.9 K/mm3 (4.0-10.0) 09/06/19 10:14 RBC 4.62 M/mm3 (3.60-5.2) 09/06/19 10:14 Hgb 14.8 GM/dL (10.7-15.3) 09/06/19 10:14 Hct 43.3 % (32.4-45.2) 09/06/19 10:14 MCV 93.8 fl (80-96) 09/06/19 10:14 MCHC 34.2 g/dl (32.0-36.0) 09/06/19 10:14 RDW 13.6 % (11.6-15.6) 09/06/19 10:14 Plt Count 163 K/MM3 (134-434) 09/06/19 10:14 MPV 8.4 fl (7.5-11.1) 09/06/19 10:14 CMP Sodium 141 mmol/L (136-145) 09/06/19 10:14 Potassium 4.8 mmol/L (3.5-5.1) 09/06/19 10:14 Chloride 112 mmol/L (98-107) H 09/06/19 10:14 Carbon Dioxide 20 mmol/L (21-32) L 09/06/19 10:14 Anion Gap 8 MMOL/L (8-16) 09/06/19 10:14 BUN 31.2 mg/dL (7-18) H 09/06/19 10:14 Creatinine 1.7 mg/dL (0.55-1.3) H 09/06/19 10:14 Random Glucose 99 mg/dL (74-106) 09/06/19 10:14 Calcium 9.3 mg/dL (8.5-10.1) 09/06/19 10:14 Total Bilirubin 1.0 mg/dL (0.2-1) 09/06/19 10:14 AST 44 U/L (15-37) H 09/06/19 10:14 ALT 20 U/L (13-61) 09/06/19 10:14 Alkaline Phosphatase 118 U/L (45-117) H 09/06/19 10:14 Total Protein 7.1 g/dl (6.4-8.2) 09/06/19 10:14 Albumin 3.9 g/dl (3.4-5.0) 09/06/19 10:14 ASSESSMENT/PLAN: Patient is a 72 year old female with a significant past medical history of atrial fibrillation (on coumadin), vertigo, cervical cancer, cardiomyopathy, CAD , hyperlipidemia, CKD, and anxiety. She presented to the ED complaining of vertigo. She reported that she noted that she developed an unsteady gait and dizziness on day prior to admission but went to bed hoping that she felt better the next day. However, when she tried to ambulate, she became dizzy and felt off balance. She denied any falls at home, or any syncopal episodes or LOC. She denied any headaches or visual defects. Patient has been seen here for vertigo episodes (on Meclizine) but she stated that they usually resolve quickly , but today she feels persistently "off balance". She denied chest pain, palpitations or shortness of breath. Denied any nausea, vomiting, headache, trauma, falls. No history of stroke. She reported that she has had vertigo in the past but has never been this off balance. CT of head completed and showed no acute pathology. She is significantly better this morning and was able to self ambulate and did not require any assistance, though did had some slight trouble with turning. Patient did recently have MRI of the brain approximately 1 month ago and at this point I do not feel this needs to be repeated especially since her symptoms have significantly improved. Can take meclezine as needed, outpatient vestibular/physical therapy may be beneficial. Follow-up with cardiology regarding atrial fibrillation. Maintain adequate hydration, avoid rapid or sudden head turns. Outpatient follow-up mentioned to patient.
--- NOTE | 2019-09-07 09:32 | EKG ---
Test Reason : Blood Pressure : / mmHG Vent. Rate : 083 BPM Atrial Rate : 241 BPM P-R Int : 000 ms QRS Dur : 088 ms QT Int : 372 ms P-R-T Axes : 000 039 -26 degrees QTc Int : 437 ms ATRIAL FIBRILLATION NONSPECIFIC ST AND T WAVE ABNORMALITY ABNORMAL ECG WHEN COMPARED WITH ECG OF 08-AUG-2019 16:57, NO SIGNIFICANT CHANGE WAS FOUND Confirmed by Holger Reeves ([id number]) on 09/07/2019 9:32:18 AM Referred By: Confirmed By:Holger Reeves
--- NOTE | 2019-09-07 10:01 | CON.CARD ---
Consult Consult Specialty:: CV - History of Present Illness Chief Complaint: off balance History of Present Illness: 74 F here with. pt has known vestibular dysfunction/vertigo, often severe. creates uncontrolled anxiety in her b/c lives alone. has repeatedly been seen in ER here for same, at times admitted. has repeatedly declined vestibular therapy as outpatient. states this felt diff than usual sx. off balance, wobbly gait--did not fall. never felt this before. also saw objects she fixed her gaze on moving slightly. now feels better. sob resolved since saw me last month (d/c'd propranolol then) denies palpitations of late no cp, swelling PMH: diast CHF afib CKD anxiety HTN HPL - Past Medical History SOLAR SITE ASSESSMENT SPECIALIST: Yes: Vertigo Cardio/Vascular: Yes: AFIB, HTN, Hyperlipdemia Renal/: Yes: Renal Inusuff Psych: Yes: Anxiety - Past Surgical History Past Surgical History: Yes: Hysterectomy, Tonsillectomy - Alcohol/Substance Use Hx Alcohol Use: No History of Substance Use: reports: None - Smoking History Smoking history: Never smoked Have you smoked in the past 12 months: No Aproximately how many cigarettes per day: 0 If you are a former smoker, when did you quit?: 10 - Social History ADL: Independent History of Recent Travel: No Home Medications - Allergies Allergies/Adverse Reactions: Allergies Allergy/AdvReac Type Severity Reaction Status Date / Time fish derived [Fish derived] Allergy Severe SWELLING, Verified 09/06/19 08:50 NAUSEA Penicillins Allergy Severe HIVES,VOMIT Verified 09/06/19 08:50 ING aspirin Allergy Intermediate UNSURE Verified 09/06/19 08:50 Raspberry Flavor, Artificial Allergy Intermediate HIVES, Verified 09/06/19 08:50 ITCHING mercury (elemental) Allergy UNKNOWN Verified 09/06/19 08:50 [Mercury (Elemental)] - Home Medications Home Medications: Ambulatory Orders Ramipril [Altace] 10 mg PO DAILY 10/27/16 Isosorbide Mononitrate [Imdur -] 30 mg PO DAILY 11/23/16 Bupropion HCl [Bupropion Xl] 150 mg PO BID 01/19/18 Furosemide [Lasix] 40 mg PO DAILY 03/03/18 Atorvastatin Ca [Lipitor] 40 mg PO HS #30 tablet 08/09/19 Warfarin Na [Coumadin -] 1 mg PO ASDIR #0 tab 08/09/19 Warfarin Na [Coumadin -] 2 mg PO ASDIR #0 tab 08/09/19 Family Medical History Family History: Denies (no known cmp) Review of Systems - Review of Systems Constitutional: denies: Chills, Fever Eyes: denies: Eye Pain HENT: denies: Nasal Congestion Neck: denies: Stiffness Cardiovascular: denies: Palpitations Respiratory: denies: Orthopnea, PND Gastrointestinal: denies: Diarrhea, Rectal Bleeding Genitourinary: denies: Burning, Hematuria Musculoskeletal: denies: Muscle Pain Integumentary: denies: Rash Neurological: denies: Numbness, Seizure, Syncope Endocrine: denies: Excessive Sweating Hematology/Lymphatic: denies: Excessive Bleeding Vital Signs: Vital Signs Temperature 98 F 09/07/19 07:10 Pulse Rate 75 09/07/19 07:10 Respiratory Rate 18 09/07/19 07:10 Blood Pressure 115/75 09/07/19 07:10 O2 Sat by Pulse Oximetry (%) 97 09/07/19 07:10 Constitutional: Yes: Well Nourished, No Distress Eyes: No: Sclera Icterus HENT: No: Nasal Congestion Neck: No: Decreased ROM Respiratory: Yes: CTA Bilaterally. No: Accessory Muscle Use, Rales, Wheezes Gastrointestinal: Yes: Normal Bowel Sounds. No: Distention, Hepatomegaly, Palpable Mass, Tenderness Cardiovascular: Yes: Pulse Irregular Carotid Bruit: No PMI: Non-Displaced Heart Sounds: Yes: S1, S2. No: Gallop Murmur: No: Systolic Murmur, Diastolic Murmur Musculoskeletal: Yes: Other (No kyphosis) Extremities: No: Cool, Cyanosis Edema: No Peripheral Pulses: 2+ Left Carotid, 2+ Right Carotid, 2+ Left Doralis Pedis, 2+ Right Dorsalis Pedis Integumentary: No: Jaundice Neurological: Yes: Alert, Oriented (x3) Psychiatric: No: Agitated - Other Data Labs, Other Data: CBC, BMP 09/06/19 10:14 09/06/19 10:14 INR, PTT INR 2.03 (0.83-1.09) H 09/06/19 10:14 Assessment/Plan ECG: afib, NSST-Ts--no change vs prior CXR: clear lungs/pleura CT head: no acute pathology home meds: atorva 10, furosmide 40 qd, imdur 30, propranolol ER 60 qpm, ramipril 10, warfarin, meclizine prn dizziness/vertigo/BPPV: -seen by neuro here, appreciate recs--for outpt f/u for vestibular sx's -CVA not suspected (INR therapeutic on admit) persistent afib: -HR transiently rapid in ER, ? if missed med doses -propranolol 60 held last month (sob s.e.?), diltiazem increased 180 to 240 qd -cont home regimen, observe trend -warfarin for INR 2-3: therapeutic yest, low today--rec incr scheduled home dose (med reconciliation req'd) by 2 mg, cont to trend diast CHF: -L/RHC 2017: wedge, PA normal. low CI. mild nonob CAD (RCA) -echo 09/30: nl EF, ? LAP, nl RV. mild-mod TR, no RVSP. -chronic sob sx difficult to tease out clinically as pt is suboptimal historian (anxiety clouds her report, links it with "heavy beating" feeling in chest likely afib sx, but inconsistent association) -unremarkable L/RHC previously -this sx has not improved with lasix incr to 80, with increase creat--has appeared euvolemic longtime on lasix 40--cont same -recently c/o'd worsening incl at rest 08/03, ? propranolol s.e.--med held 07/28 HTN: -controlled -cont home meds HPL: -cont home regimen CKD: -baseline creat 1.7-2.2 -renal fxn stable here
[2019-09-07 10:32] LABS: BASO % 0.6 % (0-2.0); EOS % 1.4 % (0-4.5); HEMATOCRIT 44.7 % (32.4-45.2); HEMOGLOBIN 15.2 GM/dL (10.7-15.3); LYMPH % 25.6 % (8-40); MCH 32.3 pg (25.7-33.7); MCHC 34.1 g/dl (32.0-36.0); MEAN CELL VOLUME 94.9 fl (80-96); MEAN PLT VOLUME 8.5 fl (7.5-11.1); MONO % 10.5 % (3.8-10.2); NEUT % 61.9 % (42.8-82.8); PLATELET COUNT 170 K/MM3 (134-434); RBC 4.71 M/mm3 (3.60-5.2); RDW 13.8 % (11.6-15.6); WHITE BLOOD COUNT 6.3 K/mm3 (4.0-10.0)
[2019-09-07 10:50] LABS: INR 1.89 (0.83-1.09); PROTHROMBIN TIME (PATIENT) 22.4 SEC (9.7-13.0)
[2019-09-07] MEDS: ISOSORBIDE MONONITRATE 30 MG TAB.SR.24H (FP) PO SCH (11:00)
[2019-09-07] MEDS: FUROSEMIDE 40 MG TABLET (FP) PO SCH (11:00)
[2019-09-07] MEDS: RAMIPRIL 5 MG CAPSULE (FP) PO SCH (11:00)
[2019-09-07 11:06] LABS: ALBUMIN 4.1 g/dl (3.4-5.0); ALK PHOS 121 U/L (45-117); ANION GAP 8 MMOL/L (8-16); BILIRUBIN,TOTAL 0.9 mg/dL (0.2-1); BLOOD UREA NITROGEN 37.6 mg/dL (7-18); CALCIUM 9.1 mg/dL (8.5-10.1); CHLORIDE 113 mmol/L (98-107); CHOLESTEROL 124 mg/dL (50-200); CO2 23 mmol/L (21-32); GLUCOSE,RANDOM 86 mg/dL (74-106); HDL CHOLESTEROL 63 mg/dL (40-60); LDL CHOLESTEROL (ONLY SJRH) 40 mg/dL (5-100); MAGNESIUM 2.3 mg/dL (1.8-2.4); POTASSIUM 3.8 mmol/L (3.5-5.1); SGOT/AST 18 U/L (15-37); SGPT/ALT 21 U/L (13-61); SODIUM 143 mmol/L (136-145); TOT PROT 7.4 g/dl (6.4-8.2); TRIGLYCERIDES 162 mg/dL (0-150)
--- NOTE | 2019-09-07 11:28 | PN ---
Physical Exam: SUBJECTIVE: Patient seen and examined at the bedside. Had an episode of vertigo this morning. overnight developed rapid heart rate after she vomited her dinner. She denies chest pain or shortness of breath. OBJECTIVE: Patient is a 72 year old female with a significant past medical history of atrial fibrillation (on coumadin), vertigo, cervical cancer, cardiomyopathy, CAD , hyperlipidemia, CKD, and anxiety. She presents to the ED complaining of vertigo. She reports that she noted that she developed an unsteady gait and dizziness with difficulty ambulation. She continued to feel off balance and came to the ED for further evaluation. She reports that she has had vertigo in the past but has never been this off balance. UA shows +3 leuks with bacteria. patient is asymptomatic, awaiting urine cultures before treatment. Vital Signs Period Temp Pulse Resp BP Sys/Franks Pulse Ox Last 24 Hr 97.7 F-98.4 F 75-133 18-22 104-136/68-106 97-99 GENERAL: Awake, alert, and fully oriented, in no acute distress. HEAD: Normal with no signs of trauma. EYES: Pupils equal, round and reactive to light, extraocular movements intact EARS, NOSE, THROAT: Ears normal, nares patent, oropharynx clear without exudates. Moist mucous membranes. NECK: Normal range of motion, supple without lymphadenopathy, JVD, or masses. LUNGS: Breath sounds equal, clear to auscultation bilaterally. HEART: Regular rate and rhythm ABDOMEN: Soft, nontender, not distended, normoactive bowel sounds, no guarding, no rebound, no masses. MUSCULOSKELETAL: Normal range of motion at all joints. No bony deformities or tenderness. No CVA tenderness. UPPER EXTREMITIES: No peripheral edema. LOWER EXTREMITIES: No peripheral edema. NEUROLOGICAL: Normal speech. unsteady gait PSYCHIATRIC: Cooperative. Good eye contact. Appropriate mood and affect. SKIN: Warm, dry, normal turgor, no rashes or lesions noted, normal capillary refill. Laboratory Results - last 24 hr 09/06/19 09/06/19 09/07/19 10:14 20:02 10:17 WBC 6.3 RBC 4.71 Hgb 15.2 Hct 44.7 MCV 94.9 MCH 32.3 MCHC 34.1 RDW 13.8 Plt Count 170 MPV 8.5 Absolute Neuts (auto) 3.9 Neutrophils % 61.9 Lymphocytes % 25.6 Monocytes % 10.5 H Eosinophils % 1.4 Basophils % 0.6 Nucleated RBC % 0 PT with INR INR Sodium 141 Potassium 4.8 Chloride 112 H Carbon Dioxide 20 L Anion Gap 8 BUN 31.2 H Creatinine 1.7 H Est GFR (CKD-EPI)AfAm 33.84 Est GFR (CKD-EPI)NonAf 29.20 Random Glucose 99 Hemoglobin A1c % Calcium 9.3 Magnesium 2.2 Total Bilirubin 1.0 AST 44 H ALT 20 Alkaline Phosphatase 118 H Troponin I Total Protein 7.1 Albumin 3.9 Triglycerides Cholesterol Total LDL Cholesterol HDL Cholesterol Urine Color Yellow Urine Appearance Turbid Urine pH 5.0 Ur Specific Delancey 1.014 Urine Protein Trace Urine Glucose (UA) Negative Urine Ketones Negative Urine Blood 1+ H Urine Nitrite Positive H Urine Bilirubin Negative Urine Urobilinogen 0.2 Ur Leukocyte Esterase 3+ H Urine WBC (Auto) 607 Urine RBC (Auto) 7 Urine Casts (Auto) 4 U Epithel Cells (Auto) 9.7 Urine Bacteria (Auto) 4072.2 09/07/19 09/07/19 09/07/19 10:17 10:17 10:17 WBC RBC Hgb Hct MCV MCH MCHC RDW Plt Count MPV Absolute Neuts (auto) Neutrophils % Lymphocytes % Monocytes % Eosinophils % Basophils % Nucleated RBC % PT with INR 22.40 H INR 1.89 H Sodium 143 Potassium 3.8 Chloride 113 H Carbon Dioxide 23 Anion Gap 8 BUN 37.6 H Creatinine 2.0 H Est GFR (CKD-EPI)AfAm 27.80 Est GFR (CKD-EPI)NonAf 23.99 Random Glucose 86 Hemoglobin A1c % 5.2 Calcium 9.1 Magnesium 2.3 Total Bilirubin 0.9 AST 18 ALT 21 Alkaline Phosphatase 121 H Troponin I < 0.02 Total Protein 7.4 Albumin 4.1 Triglycerides 162 H Cholesterol 124 Total LDL Cholesterol 40 HDL Cholesterol 63 H Urine Color Urine Appearance Urine pH Ur Specific Delancey Urine Protein Urine Glucose (UA) Urine Ketones Urine Blood Urine Nitrite Urine Bilirubin Urine Urobilinogen Ur Leukocyte Esterase Urine WBC (Auto) Urine RBC (Auto) Urine Casts (Auto) U Epithel Cells (Auto) Urine Bacteria (Auto) Active Medications Generic Name Dose Route Start Last Admin Trade Name Freq PRN Reason Stop Dose Admin Atorvastatin Calcium 40 mg 09/06/19 22:00 09/06/19 23:06 Lipitor - PO 40 mg HS ANA Administration Bupropion HCl 150 mg 09/06/19 22:00 09/06/19 23:06 Wellbutrin Xl - PO 150 mg BID ANA Administration Furosemide 40 mg 09/07/19 10:00 Lasix - PO DAILY ANA Isosorbide Mononitrate 30 mg 09/07/19 10:00 Imdur - PO DAILY ANA Meclizine HCl 25 mg 09/06/19 18:41 Antivert - PO TID PRN VERTIGO Ramipril 10 mg 09/07/19 10:00 Altace - PO DAILY ANA Warfarin Sodium 1 mg 09/06/19 18:00 09/06/19 18:29 Coumadin - PO 1 mg DAILY@1800 ANA Administration ASSESSMENT/PLAN: Problem List - Problems (1) Dizziness Assessment/Plan: head ct negative possible tia? mri 07/2019 shows mild volume loss, multiple foci of small vessel infarction in the periventricular white matter and brain stem. no mass lesion carotid doppler 07/2019, negative send for ua/urine culture: ua + but she is asymptomatic, await urine cultures orthostatic bp q 8 physical therapy Code(s): R42 - DIZZINESS AND GIDDINESS (2) Disequilibrium Assessment/Plan: negative head ct start on ivf and meclazine tid gait remains unsteady with ambulation. physical therapy consulted. Ct of head negative Had recent workup including brain mri and carotid dopplers on last admission Code(s): R42 - DIZZINESS AND GIDDINESS (3) Nystagmus Assessment/Plan: most prominent of left eye, new finding neuro consult may need outpatient opthomology consult Code(s): H55.00 - UNSPECIFIED NYSTAGMUS (4) Xnulj-el-cjgnvft kidney injury Assessment/Plan: monitor with daily labs KAYLA on ckd. creat 1.7, has been 2.2 in past. continue home medications. Patient to follow up with renal as an outpatient. Code(s): N17.9 - ACUTE KIDNEY FAILURE, UNSPECIFIED; N18.9 - CHRONIC KIDNEY DISEASE, UNSPECIFIED (5) Afib Assessment/Plan: on coumadin 2mg with alternating 1mg dose depending on inr daily inr checks Code(s): I48.91 - UNSPECIFIED ATRIAL FIBRILLATION (6) DVT prophylaxis Assessment/Plan: on coumadin Code(s): OTG5205 - Visit type - Emergency Visit Emergency Visit: Yes ED Registration Date: 09/06/19 Care time: The patient presented to the Emergency Department on the above date and was hospitalized for further evaluation of their emergent condition. - New Patient This patient is new to me today: No - Critical Care Critical Care patient: No - Discharge Referral Referred to [facility] No
[2019-09-07] MEDS ORDERED: WARFARIN NA 2 MG TABLET (UD) PO SCH (18:15)
[2019-09-07] MEDS: WARFARIN NA 1 MG TABLET (FP) PO SCH (18:23)
[2019-09-07] MEDS ORDERED: PT OWN MED DRAWER 7, Y5N ONE (18:26)
[2019-09-07] MEDS: ATORVASTATIN CA 40 MG TABLET (FP) PO SCH (21:23)
--- NOTE | 2019-09-08 08:28 | PN ---
Progress Note, Physician History of Present Illness: Patient is a 72 year old female with a significant past medical history of atrial fibrillation (on coumadin), vertigo, cervical cancer, cardiomyopathy, CAD , hyperlipidemia, CKD, and anxiety. She presents to the ED complaining of vertigo. She reports that she noted that she developed an unsteady gait and dizziness with difficulty ambulation. She continued to feel off balance and came to the ED for further evaluation. She reports that she has had vertigo in the past but has never been this off balance. - Current Medication List Current Medications: Active Medications Atorvastatin Calcium (Lipitor -) 40 mg PO HS [facility] Last Admin: 09/07/19 21:23 Dose: 40 mg Bupropion HCl (Wellbutrin Xl -) 150 mg PO BID [facility] Last Admin: 09/07/19 21:23 Dose: 150 mg Diltiazem HCl (Cardizem Cd -) 240 mg PO DAILY [facility] Last Admin: 09/07/19 18:39 Dose: 240 mg Furosemide (Lasix -) 40 mg PO DAILY [facility] Last Admin: 09/07/19 11:00 Dose: 40 mg Isosorbide Mononitrate (Imdur -) 30 mg PO DAILY [facility] Last Admin: 09/07/19 11:00 Dose: 30 mg Meclizine HCl (Antivert -) 25 mg PO TID PRN PRN Reason: VERTIGO Ramipril (Altace -) 10 mg PO DAILY [facility] Last Admin: 09/07/19 11:00 Dose: 10 mg Warfarin Sodium (Coumadin -) 2 mg PO DAILY@1800 [facility] Last Admin: 09/07/19 18:39 Dose: 2 mg - Objective Vital Signs: Vital Signs Temperature 98.7 F 09/08/19 05:24 Pulse Rate 77 09/08/19 05:24 Respiratory Rate 18 09/08/19 05:24 Blood Pressure 115/77 09/08/19 05:24 O2 Sat by Pulse Oximetry (%) 99 09/07/19 20:21 Labs: CBC, BMP 09/07/19 10:17 09/07/19 10:17 INR, PTT INR 1.89 (0.83-1.09) H 09/07/19 10:17 Problem List - Problems (1) Nystagmus Code(s): H55.00 - UNSPECIFIED NYSTAGMUS (2) Ejwxc-qr-ajedbph kidney injury Code(s): N17.9 - ACUTE KIDNEY FAILURE, UNSPECIFIED; N18.9 - CHRONIC KIDNEY DISEASE, UNSPECIFIED (3) Afib Code(s): I48.91 - UNSPECIFIED ATRIAL FIBRILLATION (4) Dizziness Code(s): R42 - DIZZINESS AND GIDDINESS (5) Prophylactic measure Code(s): Z29.9 - ENCOUNTER FOR PROPHYLACTIC MEASURES, UNSPECIFIED (6) Vertigo Code(s): R42 - DIZZINESS AND GIDDINESS
--- NOTE | 2019-09-08 08:34 | PN ---
Progress Note (short form) - Note Progress Note: Neurology CHIEF COMPLAINT: dizziness, and unsteady gait PCP:Dr. Pizarro, pcp Dr. 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 She presented to the ED complaining of vertigo. She reported that she noted that she developed an unsteady gait and dizziness on day prior to admission but went to bed hoping that she felt better the next day. However, when she tried to ambulate, she became dizzy and felt off balance. She denied any falls at home, or any syncopal episodes or LOC. She denied any headaches or visual defects. Patient has been seen here for vertigo episodes (on Meclizine) but she stated that they usually resolve quickly , but today she feels persistently "off balance". She denied chest pain, palpitations or shortness of breath. Denied any nausea, vomiting, headache, trauma, falls. No history of stroke. She reported that she has had vertigo in the past but has never been this off balance. CT of head completed and showed no acute pathology. She is significantly better this morning and was able to self ambulate and did not require any assistance, though did had some slight trouble with turning. Patient did recently have MRI of the brain approximately 1 month ago and at this point I do not feel this needs to be repeated especially since her symptoms have significantly improved. This AM, reports being unsteady when getting out of bed and I advised her to drink more waterand meclizine has been ordered but as needed. We'll adjust to standing dose. Active Medications Atorvastatin Calcium (Lipitor -) 40 mg PO HS [facility] Last Admin: 09/07/19 21:23 Dose: 40 mg Bupropion HCl (Wellbutrin Xl -) 150 mg PO BID [facility] Last Admin: 09/07/19 21:23 Dose: 150 mg Diltiazem HCl (Cardizem Cd -) 240 mg PO DAILY [facility] Last Admin: 09/07/19 18:39 Dose: 240 mg Furosemide (Lasix -) 40 mg PO DAILY [facility] Last Admin: 09/07/19 11:00 Dose: 40 mg Isosorbide Mononitrate (Imdur -) 30 mg PO DAILY [facility] Last Admin: 09/07/19 11:00 Dose: 30 mg Meclizine HCl (Antivert -) 25 mg PO TID PRN PRN Reason: VERTIGO Ramipril (Altace -) 10 mg PO DAILY [facility] Last Admin: 09/07/19 11:00 Dose: 10 mg Warfarin Sodium (Coumadin -) 2 mg PO DAILY@1800 [facility] Last Admin: 09/07/19 18:39 Dose: 2 mg PHYSICAL EXAMINATION Vital Signs Period Temp Pulse Resp BP Sys/Franks Pulse Ox Last 24 Hr 97.1 F-98.7 F 71-95 18-20 91-132/44-83 97-99 GENERAL: Awake, alert, and fully oriented, in no acute distress. HEAD: Normal with no signs of trauma. EYES: Pupils equal, round and reactive to light, extraocular movements intact EARS, NOSE, THROAT: Ears normal, nares patent, oropharynx clear without exudates. Moist mucous membranes. NECK: Normal range of motion, supple without lymphadenopathy, JVD, or masses. LUNGS: Breath sounds equal, clear to auscultation bilaterally. HEART: Regular rate and rhythm ABDOMEN: Soft, nontender, not distended, normoactive bowel sounds, no guarding, no rebound, no masses. MUSCULOSKELETAL: Normal range of motion at all joints. No bony deformities or tenderness. No CVA tenderness. UPPER EXTREMITIES: No peripheral edema. LOWER EXTREMITIES: No peripheral edema. NEUROLOGICAL: Normal speech. unsteady gait PSYCHIATRIC: Cooperative. Good eye contact. Appropriate mood and affect. SKIN: Warm, dry, normal turgor, no rashes or lesions noted, normal capillary refill. CBCD WBC 6.3 K/mm3 (4.0-10.0) 09/07/19 10:17 RBC 4.71 M/mm3 (3.60-5.2) 09/07/19 10:17 Hgb 15.2 GM/dL (10.7-15.3) 09/07/19 10:17 Hct 44.7 % (32.4-45.2) 09/07/19 10:17 MCV 94.9 fl (80-96) 09/07/19 10:17 MCHC 34.1 g/dl (32.0-36.0) 09/07/19 10:17 RDW 13.8 % (11.6-15.6) 09/07/19 10:17 Plt Count 170 K/MM3 (134-434) 09/07/19 10:17 MPV 8.5 fl (7.5-11.1) 09/07/19 10:17 CMP Sodium 143 mmol/L (136-145) 09/07/19 10:17 Potassium 3.8 mmol/L (3.5-5.1) 09/07/19 10:17 Chloride 113 mmol/L (98-107) H 09/07/19 10:17 Carbon Dioxide 23 mmol/L (21-32) 09/07/19 10:17 Anion Gap 8 MMOL/L (8-16) 09/07/19 10:17 BUN 37.6 mg/dL (7-18) H 09/07/19 10:17 Creatinine 2.0 mg/dL (0.55-1.3) H 09/07/19 10:17 Random Glucose 86 mg/dL (74-106) 09/07/19 10:17 Calcium 9.1 mg/dL (8.5-10.1) 09/07/19 10:17 Total Bilirubin 0.9 mg/dL (0.2-1) 09/07/19 10:17 AST 18 U/L (15-37) 09/07/19 10:17 ALT 21 U/L (13-61) 09/07/19 10:17 Alkaline Phosphatase 121 U/L (45-117) H 09/07/19 10:17 Total Protein 7.4 g/dl (6.4-8.2) 09/07/19 10:17 Albumin 4.1 g/dl (3.4-5.0) 09/07/19 10:17 CARDIAC ENZYMES Troponin I < 0.02 ng/ml (0.00-0.05) 09/07/19 10:17 ASSESSMENT/PLAN: Patient is a 72 year old female with a significant past medical history of atrial fibrillation (on coumadin), vertigo, cervical cancer, cardiomyopathy, CAD , hyperlipidemia, CKD, and anxiety. She presented to the ED complaining of vertigo. She reported that she noted that she developed an unsteady gait and dizziness on day prior to admission but went to bed hoping that she felt better the next day. However, when she tried to ambulate, she became dizzy and felt off balance. She denied any falls at home, or any syncopal episodes or LOC. She denied any headaches or visual defects. Patient has been seen here for vertigo episodes (on Meclizine) but she stated that they usually resolve quickly , but today she feels persistently "off balance". She denied chest pain, palpitations or shortness of breath. Denied any nausea, vomiting, headache, trauma, falls. No history of stroke. She reported that she has had vertigo in the past but has never been this off balance. CT of head completed and showed no acute pathology. She is significantly better this morning and was able to self ambulate and did not require any assistance, though did had some slight trouble with turning. Patient did recently have MRI of the brain approximately 1 month ago and at this point I do not feel this needs to be repeated especially since her symptoms have significantly improved. Can take meclezine as needed, outpatient vestibular/physical therapy may be beneficial. Follow-up with cardiology regarding atrial fibrillation. Maintain adequate hydration, avoid rapid or sudden head turns. This AM, reports being unsteady when getting out of bed and I advised her to drink more waterand meclizine has been ordered but as needed. We'll adjust to standing dose. Outpatient follow-up mentioned to patient.
[2019-09-08 09:12] LABS: BASO % 0.5 % (0-2.0); EOS % 1.5 % (0-4.5); HEMATOCRIT 43.4 % (32.4-45.2); HEMOGLOBIN 14.7 GM/dL (10.7-15.3); MCH 32.1 pg (25.7-33.7); MCHC 33.9 g/dl (32.0-36.0); MEAN CELL VOLUME 94.6 fl (80-96); MEAN PLT VOLUME 8.8 fl (7.5-11.1); MONO % 7.7 % (3.8-10.2); NEUT % 64.3 % (42.8-82.8); PLATELET COUNT 166 K/MM3 (134-434); RBC 4.59 M/mm3 (3.60-5.2); RDW 13.7 % (11.6-15.6); WHITE BLOOD COUNT 7.5 K/mm3 (4.0-10.0)
[2019-09-08] MEDS: RAMIPRIL 5 MG CAPSULE (FP) PO SCH (09:18)
[2019-09-08] MEDS: ISOSORBIDE MONONITRATE 30 MG TAB.SR.24H (FP) PO SCH (09:19)
[2019-09-08] MEDS: FUROSEMIDE 40 MG TABLET (FP) PO SCH (09:19)
[2019-09-08 09:43] LABS: ALBUMIN 4.1 g/dl (3.4-5.0); BILIRUBIN,TOTAL 1.1 mg/dL (0.2-1); BLOOD UREA NITROGEN 39.8 mg/dL (7-18); CREATININE 1.8 mg/dL (0.55-1.3); MAGNESIUM 2.3 mg/dL (1.8-2.4); POTASSIUM 3.3 mmol/L (3.5-5.1); TOT PROT 7.3 g/dl (6.4-8.2)
[2019-09-08] MEDS ORDERED: DIPHENOXYLATE 2.5/ATROPINE.025 1 COMBO TABLET PO PRN (10:55)
--- NOTE | 2019-09-08 11:57 | DS ---
Physical Exam: SUBJECTIVE: Patient seen and examined OBJECTIVE: Vital Signs Period Temp Pulse Resp BP Sys/Franks Pulse Ox Last 24 Hr 97.1 F-98.7 F 71-95 18-20 91-132/44-83 99 PHYSICAL EXAM GENERAL: The patient is awake, alert, and fully oriented, in no acute distress. HEAD: Normal with no signs of trauma. EYES: PERRL, extraocular movements intact, sclera anicteric, conjunctiva clear. ENT: Ears normal, nares patent, oropharynx clear without exudates, moist mucous membranes. NECK: Trachea midline, full range of motion, supple. LUNGS: Breath sounds equal, clear to auscultation bilaterally, no wheezes, no crackles, no accessory muscle use. HEART: Regular rate and rhythm, S1, S2 without murmur, rub or gallop. ABDOMEN: Soft, obese, nontender, nondistended, normoactive bowel sounds, no guarding, no rebound, no hepatosplenomegaly, no masses. EXTREMITIES: 2+ pulses, warm, well-perfused, no edema. NEUROLOGICAL: Cranial nerves II through XII grossly intact. Normal speech, gait not observed. PSYCH: Normal mood, normal affect. SKIN: Warm, dry, normal turgor, no rashes or lesions noted. LABS Laboratory Results - last 24 hr 09/08/19 09/08/19 08:23 08:23 WBC 7.5 RBC 4.59 Hgb 14.7 Hct 43.4 MCV 94.6 MCH 32.1 MCHC 33.9 RDW 13.7 Plt Count 166 MPV 8.8 Absolute Neuts (auto) 4.8 Neutrophils % 64.3 Lymphocytes % 26.0 Monocytes % 7.7 Eosinophils % 1.5 Basophils % 0.5 Nucleated RBC % 0 Sodium 144 Potassium 3.3 L Chloride 112 H Carbon Dioxide 24 Anion Gap 8 BUN 39.8 H Creatinine 1.8 H Est GFR (CKD-EPI)AfAm 31.58 Est GFR (CKD-EPI)NonAf 27.25 Random Glucose 112 H Calcium 9.0 Magnesium 2.3 Total Bilirubin 1.1 H AST 18 ALT 20 Alkaline Phosphatase 114 Total Protein 7.3 Albumin 4.1 HOSPITAL COURSE: Date of Admission:09/06/19 Date of Discharge: 09/08/19 Problem List - Problems (1) Dizziness Assessment/Plan: head ct negative possible tia? mri 07/2019 shows mild volume loss, multiple foci of small vessel infarction in the periventricular white matter and brain stem. no mass lesion carotid doppler 07/2019, negative send for ua/urine culture: ua + but she is asymptomatic,Ucx with Lactolse fermenting GNB-will treat for 3 days of bactrim Code(s): R42 - DIZZINESS AND GIDDINESS (2) Disequilibrium Assessment/Plan: negative head ct improved with meclazine, continue tid HCT negative seen by neurology and no further w/u needs Had recent workup including brain mri and carotid dopplers on last admission Code(s): R42 - DIZZINESS AND GIDDINESS (3) Nystagmus Assessment/Plan: most prominent of left eye, new finding neuro consult follow outpatient opthomology consult Code(s): H55.00 - UNSPECIFIED NYSTAGMUS (4) Oqozy-ko-glcruxf kidney injury Assessment/Plan: KAYLA on ckd. creat 1.7, has been 2.2 in past. continue home medications. Patient to follow up with renal as an outpatient. Code(s): N17.9 - ACUTE KIDNEY FAILURE, UNSPECIFIED; N18.9 - CHRONIC KIDNEY DISEASE, UNSPECIFIED (5) Afib Assessment/Plan: on coumadin 2mg with alternating 1mg dose depending on inr Code(s): I48.91 - UNSPECIFIED ATRIAL FIBRILLATION (6) DVT prophylaxis Assessment/Plan: on coumadin Code(s): [id number] - Medically stable for discharge home Minutes to complete discharge: 35 Discharge Summary Problems reviewed: Yes Reason For Visit: NYSTAGMUS; DISEQUILIBRIUM Current Active Problems Disequilibrium (Acute) Nystagmus (Acute) Hospital Course: HOSPITAL COURSE: Date of Admission:09/06/19 Date of Discharge: 09/08/19 Problem List - Problems (1) Dizziness Assessment/Plan: head ct negative possible tia? mri 07/2019 shows mild volume loss, multiple foci of small vessel infarction in the periventricular white matter and brain stem. no mass lesion carotid doppler 07/2019, negative send for ua/urine culture: ua + but she is asymptomatic,Ucx with Lactolse fermenting GNB-will treat for 3 days of bactrim Code(s): R42 - DIZZINESS AND GIDDINESS (2) Disequilibrium Assessment/Plan: negative head ct improved with meclazine, continue tid HCT negative seen by neurology and no further w/u needs Had recent workup including brain mri and carotid dopplers on last admission Code(s): R42 - DIZZINESS AND GIDDINESS (3) Nystagmus Assessment/Plan: most prominent of left eye, new finding neuro consult follow outpatient opthomology consult Code(s): H55.00 - UNSPECIFIED NYSTAGMUS (4) Yhvcj-gt-neogjcg kidney injury Assessment/Plan: KAYLA on ckd. creat 1.7, has been 2.2 in past. continue home medications. Patient to follow up with renal as an outpatient. Code(s): N17.9 - ACUTE KIDNEY FAILURE, UNSPECIFIED; N18.9 - CHRONIC KIDNEY DISEASE, UNSPECIFIED (5) Afib Assessment/Plan: on coumadin 2mg with alternating 1mg dose depending on inr Code(s): I48.91 - UNSPECIFIED ATRIAL FIBRILLATION (6) DVT prophylaxis Assessment/Plan: on coumadin Code(s): [id number] - Medically stable for discharge home Condition: Improved - Instructions Diet, Activity, Other Instructions: DISCHARGE YOUR VISIT You came to the hospital because you were dizzy. A neurologist saw you and you were started on vertigo medication-meclizine. You can take this 3 times a day. MEDICATIONS Please continue to take your home medications as prescribed. There was no changes DIET Continue your home diet ADDITIONAL CARE Please make an appointment to see your primary care provider, Dr Pizarro 1 week from today. ADDITIONAL INFORMATION Please call 911 or come directly to the emergency department if you experience unusual headache, vision change, shortness of breath, chest pain, numbness, tingling, loss of alertness/awareness, loss of function, unusual bleeding or any alarming symptoms. Thank you for allowing me to care for you. Rambo Vasquez, ACNP, [facility] [phone] Referrals: Beverley Pizarro MD [Primary Care Provider] - Disposition: HOME - Home Medications Comprehensive Discharge Medication List: Ambulatory Orders Ramipril [Altace] 10 mg PO DAILY 10/27/16 Isosorbide Mononitrate [Imdur -] 30 mg PO DAILY 11/23/16 Bupropion HCl [Bupropion Xl] 150 mg PO BID 01/19/18 Furosemide [Lasix] 40 mg PO DAILY 03/03/18 Atorvastatin Ca [Lipitor] 40 mg PO HS #30 tablet 08/09/19 Warfarin Na [Coumadin -] 1 mg PO ASDIR #0 tab 08/09/19 Warfarin Na [Coumadin -] 2 mg PO ASDIR #0 tab 08/09/19 Diltiazem Cd [Cardizem Cd -] 240 mg PO DAILY cap.cd.24h 09/08/19 Meclizine HCl [Antivert -] 25 mg PO TID tablet 09/08/19 Meclizine HCl [Antivert -] 25 mg PO TID PRN #90 tablet 09/08/19 Ramipril [Altace] 10 mg PO DAILY capsule 09/08/19 Prescription Drug Monitoring Program (I-STOP) results: I-STOP not reviewed Problem List - Problems (1) Nystagmus Code(s): H55.00 - UNSPECIFIED NYSTAGMUS (2) Djbgw-ca-tmoquip kidney injury Code(s): N17.9 - ACUTE KIDNEY FAILURE, UNSPECIFIED; N18.9 - CHRONIC KIDNEY DISEASE, UNSPECIFIED (3) Afib Code(s): I48.91 - UNSPECIFIED ATRIAL FIBRILLATION (4) Dizziness Code(s): R42 - DIZZINESS AND GIDDINESS (5) Prophylactic measure Code(s): Z29.9 - ENCOUNTER FOR PROPHYLACTIC MEASURES, UNSPECIFIED (6) Vertigo Code(s): R42 - DIZZINESS AND GIDDINESS This patient is new to me today: Yes Date on this admission: 09/08/19 Emergency Visit: Yes ED Registration Date: 09/06/19 Care time: The patient presented to the Emergency Department on the above date and was hospitalized for further evaluation of their emergent condition. Critical Care patient: No - Discharge Referral Referred to [facility] No
--- NOTE | 2019-09-08 12:08 | PN ---
Progress Note (short form) - Note Progress Note: s: no chest pain, palps, dyspnea. vertigo is at baseline. Current Medications Atorvastatin Calcium (Lipitor -) 40 mg PO HS [facility] Last Admin: 09/07/19 21:23 Dose: 40 mg Bupropion HCl (Wellbutrin Xl -) 150 mg PO BID [facility] Last Admin: 09/08/19 09:19 Dose: 150 mg Diltiazem HCl (Cardizem Cd -) 240 mg PO DAILY [facility] Last Admin: 09/08/19 09:19 Dose: 240 mg Diphenoxylate HCl/Atropine (Lomotil -) 1 combo PO Q8H PRN PRN Reason: DIARRHEA Furosemide (Lasix -) 40 mg PO DAILY [facility] Last Admin: 09/08/19 09:19 Dose: 40 mg Isosorbide Mononitrate (Imdur -) 30 mg PO DAILY [facility] Last Admin: 09/08/19 09:19 Dose: 30 mg Meclizine HCl (Antivert -) 25 mg PO TID [facility] Last Admin: 09/08/19 09:18 Dose: 25 mg Ramipril (Altace -) 10 mg PO DAILY [facility] Last Admin: 09/08/19 09:18 Dose: 10 mg Warfarin Sodium (Coumadin -) 2 mg PO DAILY@1800 [facility] Last Admin: 09/07/19 18:39 Dose: 2 mg Vital Signs Period Temp Pulse Resp BP Sys/Franks Pulse Ox Last 24 Hr 97.1 F-98.7 F 71-95 18-20 91-132/44-83 99 Constitutional: Yes: Well Nourished, No Distress Eyes: No: Sclera Icterus HENT: No: Nasal Congestion Neck: No: Decreased ROM Respiratory: Yes: CTA Bilaterally. No: Accessory Muscle Use, Rales, Wheezes Gastrointestinal: Yes: Normal Bowel Sounds. No: Distention, Hepatomegaly, Palpable Mass, Tenderness Cardiovascular: Yes: Pulse Irregular Carotid Bruit: No PMI: Non-Displaced Heart Sounds: Yes: S1, S2. No: Gallop Murmur: No: Systolic Murmur, Diastolic Murmur Musculoskeletal: Yes: Other (No kyphosis) Extremities: No: Cool, Cyanosis Edema: No Peripheral Pulses: 2+ Left Carotid, 2+ Right Carotid, 2+ Left Doralis Pedis, 2+ Right Dorsalis Pedis Integumentary: No: Jaundice Neurological: Yes: Alert, Oriented (x3) Psychiatric: No: Agitated Assessment/Plan ECG: afib, NSST-Ts--no change vs prior CXR: clear lungs/pleura CT head: no acute pathology home meds: atorva 10, furosmide 40 qd, imdur 30, propranolol ER 60 qpm, ramipril 10, warfarin, meclizine prn tele: afib, rate controlled dizziness/vertigo/BPPV: -seen by neuro here, appreciate recs--for outpt f/u for vestibular sx's -CVA not suspected (INR therapeutic on admit) persistent afib: -HR transiently rapid in ER, ? if missed med doses -propranolol 60 held last month (sob s.e.?), diltiazem increased 180 to 240 qd -cont home regimen, observe trend -warfarin for INR 2-3 diast CHF: -L/RHC 2017: wedge, PA normal. low CI. mild nonob CAD (RCA) -echo 09/30: nl EF, ? LAP, nl RV. mild-mod TR, no RVSP. -chronic sob sx difficult to tease out clinically as pt is suboptimal historian (anxiety clouds her report, links it with "heavy beating" feeling in chest likely afib sx, but inconsistent association) -unremarkable L/RHC previously -this sx has not improved with lasix incr to 80, with increase creat--has appeared euvolemic longtime on lasix 40--cont same -recently c/o'd worsening incl at rest 08/03, ? propranolol s.e.--med held 07/28 HTN: -controlled -cont home meds HPL: -cont home regimen CKD: -baseline creat 1.7-2.2 -renal fxn stable here
[2019-09-08] MEDS ORDERED: PT OWN MED DRAWER 7, Y5N ONE (12:59)
[2019-09-08] MEDS ORDERED: MECLIZINE HCL 25 MG TABLET (FP) PO SCH (14:00)
[2019-09-08 14:47] VITALS: BP 104/62; PULSE 74; TEMP 98.2
== END 2019-09-08 13:10 | disposition home or self-care (01) | DRG 149 ==
LOC: JER 08:43 → JERBED 12:04 → J4W 09-07 15:04
PROVIDERS: ADMIT Internal Medicine; ATTEND Nurse Practitioner Acute Care
DX: H81.10 Benign paroxysmal vertigo, unspecified ear (principal); I42.9 Cardiomyopathy, unspecified; I48.19 Other persistent atrial fibrillation; N17.9 Acute kidney failure, unspecified; I13.0 Hypertensive heart and chronic kidney disease with heart failure and stage 1 through stage 4 chronic kidney disease, or unspecified chronic kidney disease; I50.32 Chronic diastolic (congestive) heart failure; G45.9 Transient cerebral ischemic attack, unspecified; I25.10 Atherosclerotic heart disease of native coronary artery without angina pectoris; E78.5 Hyperlipidemia, unspecified; R26.81 Unsteadiness on feet; I10 Essential (primary) hypertension; H55.00 Unspecified nystagmus; N18.9 Chronic kidney disease, unspecified; F41.9 Anxiety disorder, unspecified; Z88.0 Allergy status to penicillin; Z85.41 Personal history of malignant neoplasm of cervix uteri; Z79.01 Long term (current) use of anticoagulants
CPT/HCPCS: 36415; 70450-TC; 71045-TC-FY; 80053; 80061; 81003; 83036; 83721; 83735; 84484; 85025; 85610; 87086; 87186; 93005; 93010; 97116-GP; 97161-GP; 99285-25

== ENCOUNTER 2020-02-15 17:44 | Emergency (ER) | payer OTHER ==
--- NOTE | 2020-02-15 17:55 | PDOC ---
Rapid Medical Evaluation Chief Complaint: Back Pain Time Seen by Provider: 02/15/20 17:52 Medical Evaluation: Allergies Allergy/AdvReac Type Severity Reaction Status Date / Time fish derived [Fish derived] Allergy Severe SWELLING, Verified 02/15/20 17:51 NAUSEA Penicillins Allergy Severe HIVES,VOMIT Verified 02/15/20 17:51 ING aspirin Allergy Intermediate UNSURE Verified 02/15/20 17:51 Raspberry Flavor, Artificial Allergy Intermediate HIVES, Verified 02/15/20 17:51 ITCHING mercury (elemental) Allergy UNKNOWN Verified 02/15/20 17:51 [Mercury (Elemental)] 02/15/20 17:53 CC: rt hip to rt shoulder pain since yesterday morning exam: generally tender over rt posterior pelvis Plan: urine Discharge Disposition - Diagnosis Back pain - Referrals - Patient Instructions - Post Discharge Activity
[2020-02-15 17:56] VITALS: BP 133/77; PULSE 72; TEMP 97.8; BMI 27.3
[2020-02-15] MEDS ORDERED: LIDOCAINE HCL 5% TOP OINTMENT 50 GM TUBE TP ONE (18:17)
[2020-02-15] MEDS ORDERED: METHOCARBAMOL 500 MG TABLET PO ONE (18:17)
[2020-02-15] MEDS ORDERED: ACETAMINOPHEN 500 MG TABLET (FP) PO ONE (18:18)
[2020-02-15] MEDS ORDERED: ACETAMINOPHEN 500 MG TABLET (FP) ONE (18:19)
[2020-02-15] MEDS ORDERED: METHOCARBAMOL 500 MG TABLET ONE (18:19)
[2020-02-15] MEDS ORDERED: LIDOCAINE 5% TOPICAL PATCH TP ONE (18:19)
[2020-02-15] MEDS ORDERED: LIDOCAINE 5% TOPICAL PATCH ONE (18:19)
--- NOTE | 2020-02-15 18:26 | PDOC ---
History of Present Illness - General Chief Complaint: Back Pain Stated Complaint: BACK SPASMS Time Seen by Provider: 02/15/20 17:52 History Source: Patient Exam Limitations: Clinical Condition - History of Present Illness Initial Comments: 02/15/20 18:22 Patient with past medical history of hypertension, hyperlipidemia, A. fib and CAD presented with complaint of worsening bilateral low back pain which she describes as spasm to bilateral back which started while she was sleeping in bed yesterday. Patient reported history of intermittent back pains but not this severe. Denies urinary frequency, dysuria, burning with urination, hematuria, fever, chills, nausea, vomiting, shortness of breath or chest pain. Patient has not taken anything for symptoms. Patient reported increased pain to lower back when getting up from laying position. Occurred: reports: yesterday Severity: reports: moderate Pain Location: reports: back Method of Injury: Yes: unknown Modifying Factors: improves with: None Associated Symptoms (Fall): muscle spasms Past History - Medical History Allergies/Adverse Reactions: Allergies Allergy/AdvReac Type Severity Reaction Status Date / Time fish derived [Fish derived] Allergy Severe SWELLING, Verified 02/15/20 17:51 NAUSEA Penicillins Allergy Severe HIVES,VOMIT Verified 02/15/20 17:51 ING aspirin Allergy Intermediate UNSURE Verified 02/15/20 17:51 Raspberry Flavor, Artificial Allergy Intermediate HIVES, Verified 02/15/20 17:51 ITCHING mercury (elemental) Allergy UNKNOWN Verified 02/15/20 17:51 [Mercury (Elemental)] Home Medications: Ambulatory Orders Ramipril [Altace] 10 mg PO DAILY 10/27/16 Isosorbide Mononitrate [Imdur -] 30 mg PO DAILY 11/23/16 Bupropion HCl [Bupropion Xl] 150 mg PO BID 01/19/18 Furosemide [Lasix] 40 mg PO DAILY 03/03/18 Atorvastatin Ca [Lipitor] 40 mg PO HS #30 tablet 08/09/19 Warfarin Na [Coumadin -] 1 mg PO ASDIR #0 tab 08/09/19 Warfarin Na [Coumadin -] 2 mg PO ASDIR #0 tab 08/09/19 Diltiazem Cd [Cardizem Cd -] 240 mg PO DAILY cap.cd.24h 09/08/19 Meclizine HCl [Antivert -] 25 mg PO TID tablet 09/08/19 Meclizine HCl [Antivert -] 25 mg PO TID PRN #90 tablet 09/08/19 Ramipril [Altace] 10 mg PO DAILY capsule 09/08/19 Sulfamethoxazole/Trimethoprim [Bactrim Ds -] 1 tab PO BID #6 tablet 09/08/19 Acetaminophen [8Hr Arthritis Pain Relief] 650 mg PO TID #21 tablet.er 11/09/19 Methocarbamol [Robaxin -] 500 mg PO BID PRN #14 tablet 02/15/20 Methylprednisolone [Medrol Dose Maldonado] 4 mg PO ASDIR #21 tablet 02/15/20 Sulfamethoxazole/Trimethoprim [Bactrim Ds -] 1 tab PO BID 3 Days #6 tablet 02/15/20 Anemia: No Asthma: No Cancer: Yes (UTERINE) Cardiac Disorders: Yes (A-FIB, CAD, CARDIOMYOPATHY) CVA: No COPD: No CHF: No DVT: No Dementia: No Diabetes: No GI Disorders: No Disorders: No HTN: Yes Hypercholesterolemia: Yes Liver Disease: No Psychiatric Problems: Yes (ANXIETY) Seizures: No Thyroid Disease: No - Surgical History Abdominal Surgery: Yes Appendectomy: No Cardiac Surgery: No Cholecystectomy: No Lung Surgery: No Neurologic Surgery: No Orthopedic Surgery: Yes (Bilateral Trigger finger release) - Immunization History Immunization Up to Date: No - Psycho-Social/Smoking History Smoking Status: No Smoking History: Never smoked Have you smoked in the past 12 months: No Number of Cigarettes Smoked Daily: 0 If you are a former smoker, when did you quit?: 10 Information on smoking cessation initiated: No - Substance Abuse Hx (Audit-C & DAST Scrn) How often the patient has a drink containing alcohol: Never Score: In Men: 4 or > Positive; In Women: 3 or > Positive: 0 Screen Result (Pos requires Nsg. Audit-10AR): Negative In the last yr the pt used illegal drug/Rx for NonMed reason: No Score: Yes response is considered Positive: 0 Screen Result (Positive result requires Nsg. DAST-10): Negative Review of Systems - Review of Systems Able to Perform ROS?: Yes Is the patient limited [place] proficient: No Constitutional: No: Chills, Fever, Malaise HEENTM: No: Symptoms Reported, See HPI, Eye Pain, Blurred Vision, Tearing, Recent change in vision, Double Vision, Cataracts, Ear Pain, Ocular Prothesis, Ear Discharge, Nose Pain, Nose Congestion, Tinnitus, Nose Bleeding, Hearing Loss, Throat Pain, Throat Swelling, Mouth Pain, Dental Problems, Difficulty Swallowing, Mouth Swelling, Other Respiratory: No: Symptoms reported, See HPI, Cough, Orthopnea, Shortness of Breath, SOB with Exertion, SOB at Rest, Stridor, Wheezing, Productive cough, Hemoptysis, Other Cardiac (ROS): No: Symptoms Reported, See HPI, Chest Pain, Edema, Irregular Heart Rate, Lightheadedness, Palpitations, Syncope, Chest Tightness, Other ABD/GI: No: Symptoms Reported, Nausea, Vomiting : No: Symptoms Reported, Burning, Dysuria, Frequency, Flank Pain, Hematuria, Urgency Musculoskeletal: Yes: Symptoms Reported, See HPI, Back Pain Neurological: No: Headache, Weakness, Dizziness All Other Systems: Reviewed and Negative *Physical Exam - Vital Signs Last Vital Signs Temp Pulse Resp BP Pulse Ox 97.8 F 72 15 133/77 98 02/15/20 17:52 02/15/20 17:52 02/15/20 17:52 02/15/20 17:52 02/15/20 17:52 - Physical Exam 02/15/20 18:27 GENERAL: Well developed, well nourished. Awake and alert in mild acute distress. CARDIOVASCULAR: Regular rate and rhythm. No murmurs, rubs, or gallops. PULMONARY: No evidence of respiratory distress. Lungs clear to auscultation bilaterally. No wheezing, rales or rhonchi. ABDOMINAL: Soft. Non-tender. Non-distended. No rebound or guarding. No organomegaly. Normoactive bowel sounds MUSCULOSKELETAL : Moderate tenderness over posterior paravertebral muscle lumbosacral spine of L2-S1 on bilateral sides. No midline tenderness. Negative CVA tenderness. No bony deformities EXTREMITIES: No cyanosis. No clubbing. No edema. SKIN: Warm and dry. Normal capillary refill. No rashes. No jaundice. NEUROLOGICAL: Alert, awake, appropriate. No motor deficits in the lower extremities. Gait is normal without ataxia. PSYCHIATRIC: Cooperative. Good eye contact. Appropriate mood and affect. General Appearance: Yes: Nourished, Appropriately Dressed, Mild Distress Medical Decision Making - Medical Decision Making 02/15/20 18:23 Patient with past medical history of hypertension, hyperlipidemia, A. fib and CAD presented with complaint of worsening bilateral low back pain which she describes as spasm to bilateral back which started while she was sleeping in bed yesterday. Patient reported history of intermittent back pains for over 5 months now but not this severe. Denies urinary frequency, dysuria, burning with urination, hematuria, fever, chills, nausea, vomiting, shortness of breath or chest pain. Patient has not taken anything for symptoms. Patient reported increased pain to lower back when getting up from laying position. Exam significant for subjective bilateral tenderness to paravertebral muscle of lumbosacral spine of L2-S1. No midline tenderness. Worsening bilateral tenderness from sitting up from laying position. CVAT negative. Normal cardio and lung exam. Patient afebrile. Patient symptoms likely musculoskeletal pain with spasm versus less likely cystitis or kidney stone. UA and urine culture lab ordered. Tylenol thousand 1g p.o. ordered for back pain due to allergic to aspirin. Robaxin 500 mg p.o. ordered for back spasm. Lidocaine patch applied to back to help with pain. 02/15/20 19:02 UA shows leukocytosis with WBC. Patient report mild improvement in back pain and requesting to be discharged. Patient stable for discharge on Bactrim antibiotics for UTI and Medrol Maldonado with Robaxin for back pain with urology follow-up as needed. Discharge - Discharge Information Problems reviewed: Yes Clinical Impression/Diagnosis: Back pain Qualifiers: Back pain location: low back pain Chronicity: acute Back pain laterality: bilateral Sciatica presence: without sciatica Qualified Code(s): M54.5 - Low back pain UTI (urinary tract infection) Qualifiers: Urinary tract infection type: acute cystitis Hematuria presence: without hematuria Qualified Code(s): N30.00 - Acute cystitis without hematuria Condition: Stable Disposition: HOME - Admission No - Additional Discharge Information Prescriptions: Sulfamethoxazole/Trimethoprim [Bactrim Ds -] 1 tab PO BID 3 Days #6 tablet Methylprednisolone [Medrol Dose Maldonado] 4 mg PO ASDIR #21 tablet Methocarbamol [Robaxin -] 500 mg PO BID PRN #14 tablet PRN Reason: Back Pain - Follow up/Referral Referrals: Catalino Burkett MD [Staff Physician] - - Patient Discharge Instructions Patient Printed Discharge Instructions: DI for Back Spasm Additional Instructions: Your urine shows some bacteria which you are being treated with antibiotics. Take prescribed medication as prescribed for UTI and back pain. Follow-up referred to urology if symptoms persist for more than 4 days - Post Discharge Activity
[2020-02-15 18:35] LABS: EPI CELLS 28 /uL (0-25.1); HYALINE CASTS 1 /uL (0-3.1); URINE APPEARANCE CLOUDY; URINE BACTERIA 994 /uL (0-1359); URINE BILIRUBIN NEGATIVE (NEGATIVE); URINE COLOR YELLOW; URINE GLUCOSE (UA) NEGATIVE (NEGATIVE); URINE KETONE NEGATIVE (NEGATIVE); URINE LEUK ESTERASE 2+ (NEGATIVE); URINE NITRITE NEGATIVE (NEGATIVE); URINE PROTEIN NEGATIVE (NEGATIVE); URINE UROBILINOGEN 0.2 mg/dL (0.2-1.0); URINE WBC 153 /uL (0-25.8)
[2020-02-15 19:02] LABS: URINE RBC 27.3 /uL (0-23.9)
== END 2020-02-15 18:43 | disposition home or self-care (01) ==
LOC: JERFT 17:44
DX: M54.5 Low back pain (principal); N30.00 Acute cystitis without hematuria
CPT/HCPCS: 81003; 87086; 99283-25

== ENCOUNTER 2020-03-19 20:11 | Emergency (ER) | payer OTHER ==
[2020-03-19 20:26] VITALS: BMI 32.2
--- NOTE | 2020-03-19 22:07 | PDOC ---
History of Present Illness - General Chief Complaint: Lightheaded Stated Complaint: VERTIGO Time Seen by Provider: 03/19/20 22:05 History Source: Patient Exam Limitations: No Limitations - History of Present Illness Initial Comments: 03/19/20 22:06 PCP: [facility] Neuro: Dr. Denney HPI: 74yo F PMH CAD, CHF, Afib (on Warfarin), cardiomyopathy, HTN, HLD, BPPV (on Meclizine at home BID), presenting with typical vertiginous symptoms since 5PM. Patient reports she developed an unsteady gait and dizziness at 5PM this evening, she took a third dose of her Meclizine and did her Ashley maneuver as directed by her neurologist. Despite the medication, her symptoms (room spinning dizziness with head movements) persisted and she presented to the ED. Seh attributes the persistent vertigo to a stressful personal situation she has been dealing with for several days. She denies any nausea, vomiting, headache, trauma, falls. No history of stroke, VA, blood clots, ICH, GIB, on Warfarin for Afib. No chest pain, palpitations, SOB, cough, fevers, chills. Denies any history of migraine headaches. Reports that these are her typical symptoms of vertigo, but her meclizine simply didn't work like is usually does. She felt 100% in her baseline state of health before symptom onset at 5PM. Saw ENT yesterday for routine visit with normal ear exam, no recent illness or other symptoms. All: PCN, ASA, Mercury Meds: Per chart PMH: As above PSH: Per chart SHx: Lives at home with her cat Past History - Travel History Traveled outside of the country in the last 30 days: No Close contact w/someone who was outside of country & ill: No - Medical History Allergies/Adverse Reactions: Allergies Allergy/AdvReac Type Severity Reaction Status Date / Time fish derived [Fish derived] Allergy Severe SWELLING, Verified 03/19/20 20:26 NAUSEA Penicillins Allergy Severe HIVES,VOMIT Verified 03/19/20 20:26 ING aspirin Allergy Intermediate UNSURE Verified 03/19/20 20:26 Raspberry Flavor, Artificial Allergy Intermediate HIVES, Verified 03/19/20 20:26 ITCHING mercury (elemental) Allergy UNKNOWN Verified 03/19/20 20:26 [Mercury (Elemental)] Home Medications: Ambulatory Orders Ramipril [Altace] 10 mg PO DAILY 10/27/16 Isosorbide Mononitrate [Imdur -] 30 mg PO DAILY 11/23/16 Bupropion HCl [Bupropion Xl] 150 mg PO BID 01/19/18 Furosemide [Lasix] 40 mg PO DAILY 03/03/18 Atorvastatin Ca [Lipitor] 40 mg PO HS #30 tablet 08/09/19 Warfarin Na [Coumadin -] 1 mg PO ASDIR #0 tab 08/09/19 Warfarin Na [Coumadin -] 2 mg PO ASDIR #0 tab 08/09/19 Diltiazem Cd [Cardizem Cd -] 240 mg PO DAILY cap.cd.24h 09/08/19 Meclizine HCl [Antivert -] 25 mg PO TID tablet 09/08/19 Meclizine HCl [Antivert -] 25 mg PO TID PRN #90 tablet 09/08/19 Ramipril [Altace] 10 mg PO DAILY capsule 09/08/19 Sulfamethoxazole/Trimethoprim [Bactrim Ds -] 1 tab PO BID #6 tablet 09/08/19 Acetaminophen [8Hr Arthritis Pain Relief] 650 mg PO TID #21 tablet.er 11/09/19 Methocarbamol [Robaxin -] 500 mg PO BID PRN #14 tablet 02/15/20 Methylprednisolone [Medrol Dose Maldonado] 4 mg PO ASDIR #21 tablet 02/15/20 Sulfamethoxazole/Trimethoprim [Bactrim Ds -] 1 tab PO BID 3 Days #6 tablet 02/15/20 Anemia: No Asthma: No Cancer: Yes (UTERINE) Cardiac Disorders: Yes (A-FIB, CAD, CARDIOMYOPATHY) CVA: No COPD: No CHF: No DVT: No Dementia: No Diabetes: No GI Disorders: No Disorders: No HTN: Yes Hypercholesterolemia: Yes Liver Disease: No Psychiatric Problems: Yes (ANXIETY) Seizures: No Thyroid Disease: No Other medical history: vertigo - Surgical History Abdominal Surgery: Yes Appendectomy: No Cardiac Surgery: No Cholecystectomy: No Lung Surgery: No Neurologic Surgery: No Orthopedic Surgery: Yes (Bilateral Trigger finger release) - Immunization History Immunization Up to Date: No - Psycho-Social/Smoking History Smoking Status: No Smoking History: Never smoked Have you smoked in the past 12 months: No Number of Cigarettes Smoked Daily: 0 If you are a former smoker, when did you quit?: 10 - Substance Abuse Hx (Audit-C & DAST Scrn) How often the patient has a drink containing alcohol: Never Score: In Men: 4 or > Positive; In Women: 3 or > Positive: 0 Screen Result (Pos requires Nsg. Audit-10AR): Negative Review of Systems - Review of Systems Able to Perform ROS?: Yes Is the patient limited [place] proficient: Yes Constitutional: No: Chills, Fever, Weakness HEENTM: No: Recent change in vision, Nose Congestion, Throat Pain Respiratory: No: Cough, Shortness of Breath, Wheezing, Productive cough Cardiac (ROS): No: Chest Pain, Edema, Irregular Heart Rate, Lightheadedness, Palpitations, Syncope, Chest Tightness ABD/GI: No: Constipated, Diarrhea, Nausea, Vomiting : No: Burning, Dysuria, Frequency Musculoskeletal: No: Muscle Pain, Muscle Weakness, Neck Pain Integumentary: No: Bruising, Pruritus, Rash Neurological: Yes: Dizziness (room-spinning since 5PM). No: Headache, Numbness, Tingling, Tremors, Weakness Psychiatric: Yes: Stressors Endocrine: No: Increased Thirst, Increased Urine, Change in Weight Hematologic/Lymphatic: Yes: Easy Bleeding (on warfarin for afib). No: Anemia, Blood Clots All Other Systems: Reviewed and Negative *Physical Exam - Vital Signs Last Vital Signs Temp Pulse Resp BP Pulse Ox 97 F L 79 18 124/66 99 03/19/20 20:22 03/19/20 20:22 03/19/20 20:22 03/19/20 20:22 03/19/20 20:22 - Physical Exam 03/19/20 22:06 Vitals reviewed, AFVSS GEN: Well appearing, appears stated age, NAD, comfortable. AAOx3. HEENT: NCAT, EOMI, PERRL. Sclera anicteric, noninjected. No facial asymmetry. Moist mucous membranes. Normal voice. Trachea midline. CV: RRR, S1/S2, no murmurs / rubs / gallops appreciated. LUNG: CTABL, normal work of breathing. No wheezes, rales, rhonchi. No cough. Speaking full sentences. GI: Soft, NTND, +BS, no guarding, no rebound. No masses. EXTREMITIES: 2+ distal pulses. No clubbing / cyanosis / edema. No gross deformity in any extremity. SKIN: Warm, dry, no rashes appreciated, non-jaundiced. PSYCH: Normal mood and affect. Cooperative and appropriate. NEURO: Strength 5+ biceps, triceps, intrinsic hand muscles, hip flexors / extensors / foot dorsiflexion / plantarflexion Sensation normal throughout to light touch Reflexes not assessed Romberg negative [id number] and heel-shaw normal (+No dysmetria) Rapid alternating movements normal (No dysdiadokinesis) Pronator drift not assessed Gait not assess while symptomatic Cranial nerves: CN 1: Not assessed CN 2: Normal visual bryan and acuity CN 3/4/6: EOMI CN 5: Normal facial sensation CN 7: Normal facial movement CN 8: Symmetric hearing soft sounds CN 9: Uvula midline and normal articulation CN 10: Uvula midline and normal articulation CN 11: Normal shrug / head turn strength CN 12: Normal tongue movement A&Ox3, normal remote and recent recall. ED Treatment Course - LABORATORY CBC & Chemistry Diagram: 03/19/20 23:15 03/19/20 23:15 Medical Decision Making - Medical Decision Making 03/19/20 22:06 74yo F PMH CAD, CHF, Afib (on Warfarin), cardiomyopathy, HTN, HLD, BPPV (on Meclizine at home BID), presenting with typical vertiginous symptoms since 5PM. History notable for baseline state of health before 5PM, symptoms sudden onset, feel like usual vertigo, no other symptoms. Exam notable for stable vitals, horizontal nystagmus, symptoms exacerbation with fast head movements, normal neuro exam. Concerning for vertigo (BPPV), will r/o electrolyte abnormalities, arrhythmias, anemia. - CBC, CMP - EKG - Valium 5 mg PO 03/20/20 00:30 Patient symptomatically improved after valium. States she cannot get a taxi at this hour, requests to rest until 6AM. Labs notable for baseline CKD, otherwise unremarkable. Dispo: Reassess and discharge in the AM 03/20/20 02:34 Patient woke up frustrated, requested to get a cab now to leave. Stable for discharge, now asymptomatic. Discharge - Discharge Information Problems reviewed: Yes Clinical Impression/Diagnosis: Vertigo Condition: Stable Disposition: HOME - Admission No - Follow up/Referral - Patient Discharge Instructions Patient Printed Discharge Instructions: DI for Vertigo Additional Instructions: You were seen and evaluated at [place] for an episode fo Vertigo that was refractory to your usual medications. You responded well to Valium. Continue your home medications as directed. Follow up with your doctors as scheduled. Return to the ED for any new or concerning symptoms. - Post Discharge Activity
[2020-03-19] MEDS ORDERED: diazePAM 5 MG TABLET PO ONE (22:24)
--- NOTE | 2020-03-19 22:56 | PDOC ---
Documentation entered by Audrey Ponce SCRIBE, acting as scribe for Francis Dawson MD. Francis Dawson MD: This documentation has been prepared by the geovaniibeKris Ana, SCRIBE, under my direction and personally reviewed by me in its entirety. I confirm that the documentation accurately reflects all work, treatment, procedures, and medical decision making performed by me. Attending Attestation - Resident Resident Name: SudheerAdam - ED Attending Attestation I have performed the following: I have examined & evaluated the patient, The case was reviewed & discussed with the resident, I agree w/resident's findings & plan, Exceptions are as noted - HPI HPI: 03/19/20 22:09 Patient is a 74 year old female with a significant past medical history of coronary artery disease, congestive heart failure, Afib, cardiomyopathy, hypertension, hyperlipidemia, and BPPV, who presents to the ED with vertigo since earlier this evening. Patient describes her symptoms as the "room spinning" with head movements. Patient these are her normal vertigo symptoms but that her meclizine usually relieve her symptoms and this time they have not. Patient reports she was feeling perfectly fine before sudden onset at 5pm. Patient does note that the vertigo was admitted intermittent, worse with turning her head particularly to the left, And does resolve before recurring again. She is unable to ambulate due to severity of her dizziness. Patient also disclosed that she has been dealing with a personal situation that has been stressing her out these past couple days which could contribute to increased vertigo. Patient denies any double vision, dysarthria, focal numbness, tingling, weakness, neck pain, headache, recent head injury. Patient denies fever, chills, nausea, vomiting, SOB, cough, chest pain, palpitations, Patient does note that the vertigo is consistent with prior however seems to be more severe than the past. Allergies: see nurse's note PMD: [place] Neuro: malkani - Physicial Exam PE: 03/19/20 22:55 GENERAL: The patient is awake, alert, and fully oriented, Nontoxic - in no acute distress. HEAD: Normocephalic, atraumatic. EYES: extraocular movements intact, sclera anicteric, conjunctiva clear.Extinguishing horizontal nystagmus present ENT: Normal voice, Moist mucous membranes. NECK: Normal range of motion, supple LUNGS: Breath sounds equal, clear to auscultation bilaterally. No wheezes, no rhonchi, no rales. HEART: Regular rate and rhythm, normal S1 and S2 without murmur, rub or gallop. ABDOMEN: Soft, nontender, No guarding, no rebound. No CVA tenderness EXTREMITIES: Normal range of motion, no edema. NEUROLOGICAL: No facial assymetry, Normal speech, Normal [id number], normal rapid alternating movements, strength symmetric in upper and lower extremities, sensation symmetric bilaterally PSYCH: Normal mood, normal affect. SKIN: Warm, Dry, normal turgor, - Medical Decision Making 03/19/20 22:55 likely peripeheral vertigo, exacerbation of her chronic vertigo. normal neuro exam without any lateralizing findings no imrovement w meclizine will treat with valium will ck basic labs /ekg to screen for anemia,metabolic deragneent 03/20/20 00:11 labs reviewed cr 2.0, seems at bseline Pt clnically feels better, will wait for AM so she can call a taxi to go home. Discharge - Discharge Information Problems reviewed: Yes Clinical Impression/Diagnosis: Vertigo Condition: Stable Disposition: HOME - Follow up/Referral - Patient Discharge Instructions Patient Printed Discharge Instructions: DI for Vertigo Additional Instructions: You were seen and evaluated at [place] for an episode fo Vertigo that was refractory to your usual medications. You responded well to Valium. Continue your home medications as directed. Follow up with your doctors as scheduled. Return to the ED for any new or concerning symptoms. - Post Discharge Activity
[2020-03-19] MEDS ORDERED: diazePAM 5 MG TABLET ONE (23:04)
[2020-03-19 23:27] LABS: BASO % 0.8 % (0-2.0); EOS % 1.8 % (0-4.5); HEMATOCRIT 42.7 % (32.4-45.2); HEMOGLOBIN 14.3 GM/dL (10.7-15.3); LYMPH % 30.2 % (8-40); MCH 31.3 pg (25.7-33.7); MCHC 33.5 g/dl (32.0-36.0); MEAN CELL VOLUME 93.4 fl (80-96); MEAN PLT VOLUME 8.4 fl (7.5-11.1); MONO % 11.4 % (3.8-10.2); NEUT % 55.8 % (42.8-82.8); PLATELET COUNT 173 K/MM3 (134-434); RBC 4.57 M/mm3 (3.60-5.2); WHITE BLOOD COUNT 6.7 K/mm3 (4.0-10.0)
[2020-03-19 23:54] LABS: ALBUMIN 4.3 g/dl (3.4-5.0); BILIRUBIN,TOTAL 0.6 mg/dL (0.2-1); BLOOD UREA NITROGEN 37.4 mg/dL (7-18); CALCIUM 8.7 mg/dL (8.5-10.1); POTASSIUM 3.8 mmol/L (3.5-5.1)
[2020-03-20 01:56] VITALS: BP 119/78; PULSE 100; TEMP 97.2
--- NOTE | 2020-03-20 12:41 | EKG ---
Test Reason : Blood Pressure : / mmHG Vent. Rate : 088 BPM Atrial Rate : 258 BPM P-R Int : 000 ms QRS Dur : 084 ms QT Int : 368 ms P-R-T Axes : 000 042 -54 degrees QTc Int : 445 ms ATRIAL FIBRILLATION NONSPECIFIC T WAVE ABNORMALITY ABNORMAL ECG WHEN COMPARED WITH ECG OF 06-SEP-2019 10:30, NONSPECIFIC T WAVE ABNORMALITY NOW EVIDENT IN LATERAL LEADS Confirmed by Gagan Lockett ([id number]) on 03/20/2020 12:41:02 PM Referred By: Confirmed By:Gagan Lockett
== END 2020-03-20 02:37 | disposition home or self-care (01) ==
LOC: JER 20:11
DX: H81.10 Benign paroxysmal vertigo, unspecified ear (principal)
CPT/HCPCS: 36415; 80053; 85025; 93005; 93010; 99284-25

== ENCOUNTER 2020-07-09 15:45 | Emergency (ER) | payer OTHER ==
[2020-07-09 16:37] VITALS: BP 144/79; PULSE 84; TEMP 98; BMI 33.2
[2020-07-09] MEDS ORDERED: LIDOCAINE 5% TOPICAL PATCH TP ONE (16:42)
[2020-07-09] MEDS ORDERED: ACETAMINOPHEN 325 MG TABLET (FP) PO ONE (16:42)
[2020-07-09] MEDS ORDERED: ACETAMINOPHEN 325 MG TABLET (FP) ONE (16:58)
[2020-07-09] MEDS ORDERED: LIDOCAINE 5% TOPICAL PATCH ONE (16:58)
[2020-07-09] MEDS ORDERED: LIDOCAINE PATCH REMOVAL MC SCH (22:00)
== END 2020-07-09 18:09 | disposition left against medical advice (07) ==
LOC: FER 15:45
DX: S99.922A Unspecified injury of left foot, initial encounter (principal); W19.XXXA Unspecified fall, initial encounter
CPT/HCPCS: 73630-TC-LT; 99283-25

== ENCOUNTER 2020-08-05 08:30 | Emergency (ER) | payer OTHER ==
[2020-08-05 08:34] VITALS: BP 143/87; PULSE 75; TEMP 98.5; BMI 33.2
[2020-08-05] MEDS ORDERED: ACETAMINOPHEN 325 MG TABLET (FP) PO ONE (08:35)
[2020-08-05] MEDS ORDERED: ACETAMINOPHEN 325 MG TABLET (FP) ONE (08:56)
== END 2020-08-05 09:25 | disposition home or self-care (01) ==
LOC: FER 08:30
DX: M25.562 Pain in left knee (principal)
CPT/HCPCS: 73560-TC-LT-FY; 99284-25

== ENCOUNTER 2020-08-20 15:15 | Emergency (ER) | payer OTHER ==
[2020-08-20] MEDS ORDERED: ACETAMINOPHEN 500 MG TABLET (FP) PO ONE (15:46)
[2020-08-20] MEDS ORDERED: ACETAMINOPHEN 500 MG TABLET (FP) ONE (15:52)
[2020-08-20 16:04] VITALS: BP 122/74; PULSE 72; TEMP 98.3; BMI 33.2
== END 2020-08-20 17:00 | disposition home or self-care (01) ==
LOC: FER 15:15 → SUPCPDRO 15:15 → FER 17:00
DX: M79.675 Pain in left toe(s) (principal)
CPT/HCPCS: 73630-TC-LT; 99283-25

== ENCOUNTER 2020-08-23 13:10 | Emergency (ER) | payer OTHER ==
[2020-08-23 13:25] VITALS: BP 110/80; PULSE 78; BMI 33.2
[2020-08-23] MEDS ORDERED: KETOROLAC TROMETHAMINE 30 MG/1 ML VIAL ONE (14:01)
[2020-08-23] MEDS ORDERED: KETOROLAC TROMETHAMINE 30 MG/1 ML VIAL IM ONE (14:04)
== END 2020-08-23 14:31 | disposition home or self-care (01) ==
LOC: JERFT 13:10
PROC: 3E0233Z Introduction of Anti-inflammatory into Muscle, Percutaneous Approach (ICD-10-PCS; principal; 2020-08-23)
DX: S93.401A Sprain of unspecified ligament of right ankle, initial encounter (principal)
CPT/HCPCS: 73610-TC-LT-FY; 73630-TC-LT; 96372; 99284-25

== ENCOUNTER 2020-08-30 17:26 | Emergency (ER) | payer OTHER ==
[2020-08-30 17:37] VITALS: TEMP 99.2; BMI 33.2
[2020-08-30 19:37] LABS: BASO % 0.8 % (0-2.0); EOS % 1.5 % (0-4.5); HEMATOCRIT 44.2 % (32.4-45.2); HEMOGLOBIN 14.7 GM/dL (10.7-15.3); LYMPH % 23.6 % (8-40); MCHC 33.4 g/dl (32.0-36.0); MEAN PLT VOLUME 8.1 fl (7.5-11.1); MONO % 8.5 % (3.8-10.2); NEUT % 65.6 % (42.8-82.8); PLATELET COUNT 221 K/MM3 (134-434); RBC 4.75 M/mm3 (3.60-5.2); RDW 13.8 % (11.6-15.6); WHITE BLOOD COUNT 7.1 K/mm3 (4.0-10.0)
[2020-08-30 19:48] LABS: PROTHROMBIN TIME (PATIENT) 51.7 SEC (9.7-13.0)
[2020-08-30 19:51] LABS: ACTIVATED PTT 51.2 SECONDS (25.2-36.5)
[2020-08-30 19:58] LABS: POTASSIUM 3.7 mmol/L (3.5-5.1)
[2020-08-30 20:01] LABS: ALBUMIN 3.8 g/dl (3.4-5.0); CALCIUM 8.8 mg/dL (8.5-10.1)
[2020-08-30 20:02] LABS: BLOOD UREA NITROGEN 30.7 mg/dL (7-18)
[2020-08-30 20:04] LABS: PHOSPHOROUS 3.2 mg/dL (2.5-4.9)
[2020-08-30 20:05] LABS: CREATININE 1.9 mg/dL (0.55-1.3)
[2020-08-30 20:06] LABS: BILIRUBIN,TOTAL 0.6 mg/dL (0.2-1); TOT PROT 7.3 g/dl (6.4-8.2)
[2020-08-30 20:07] LABS: INR 4.39 (0.83-1.09)
[2020-08-30 20:10] LABS: N-TERMINAL BNP 4071.4 pg/ml (5-450)
[2020-08-30 21:22] VITALS: BP 120/87; PULSE 78
== END 2020-08-30 21:21 | disposition home or self-care (01) ==
LOC: JER 17:26
DX: R00.2 Palpitations (principal); I48.91 Unspecified atrial fibrillation; R79.1 Abnormal coagulation profile
CPT/HCPCS: 36415; 71045-TC-FY; 80053; 80162; 82550; 83735; 83880; 84100; 84484; 85025; 85610; 85730; 93005; 93010; 99285-25; C9803; U0003

== ENCOUNTER 2020-11-07 06:32 | Inpatient (IN) | payer OTHER ==
[2020-10-31 11:06] VITALS: BMI 31.4
[~2020-11-07 06:32] MED LIST: BUPIVICAINE 0.25%/MORPH PF/KETOROLAC - 51ML DISP.SYRINGE IA ONE; VANCOMYCIN 1,000 MG VIAL (RESTRICTED TO ID ONLY) IVPB ONE
[2020-11-07 08:01] LABS: INR 1.16 (0.82-1.09); PROTHROMBIN TIME (PATIENT) 12.9 SEC (10.2-13.0)
[2020-11-07 08:08] LABS: ACTIVATED PTT 26.6 SECONDS (25.2-36.5)
[2020-11-07] MEDS ORDERED: BUPIVACAINE LIPOSOME/PF (EXPAREL) 266 MG/20 ML VIAL ONE (08:19)
[2020-11-07] MEDS ORDERED: CLINDAMYCIN PHOSPHATE 600 MG/4 ML VIAL IVPB ONE (08:40)
[2020-11-07] MEDS ORDERED: VANCOMYCIN 1,000 MG VIAL (RESTRICTED TO ID ONLY) IVPB ONE ×2 (08:40→11:32)
[2020-11-07] MEDS ORDERED: BUPIVICAINE 0.25%/MORPH PF/KETOROLAC - 51ML DISP.SYRINGE IA ONE ×2 (11:11→11:20)
[2020-11-07] MEDS ORDERED: TRANEXAMIC ACID 1000 MG/10 ML VIAL IVPB ONE (11:22)
[2020-11-07] MEDS ORDERED: ONDANSETRON 4 MG/2 ML VIAL IVPUSH PRN ×2 (12:32→12:38)
[2020-11-07] MEDS ORDERED: MAG HYDROX/AL HYDROX/SIMETH 30 ML UNIT-DOSE CUP PO PRN (12:32)
[2020-11-07] MEDS ORDERED: oxyCODONE HCL 5 MG TABLET PO PRN (12:35)
[2020-11-07] MEDS ORDERED: LACTATED RINGERS SOLUTION 1,000 ML IV SCH ×3 (12:45)
[2020-11-07] MEDS: ACETAMINOPHEN 325 MG TABLET (FP) PO SCH (13:00)
[2020-11-07] MEDS ORDERED: diphenhydrAMINE HCL 25 MG CAPSULE (FP) PO PRN (13:08)
[2020-11-07] MEDS: CLINDAMYCIN 600MG PREMIX IVPB 600 MG/50 ML BAG IVPB SCH (15:51)
[2020-11-07] MEDS: buPROPion HCL 100 MG TABLET PO SCH (17:55)
[2020-11-07] MEDS: traMADol HCL 50 MG TABLET PO PRN (20:01)
[2020-11-07] MEDS ORDERED: VANCOMYCIN 1 GM in D5W (PRE-DOCKED) 1,000 MG/250 ML IVPB ONE (20:40)
[2020-11-07] MEDS ORDERED: VANCOMYCIN 1 GM in D5W (PRE-DOCKED) 1,000 MG/250 ML IVPB SCH (20:40)
[2020-11-07] MEDS: GABAPENTIN 300 MG CAPSULE PO SCH (21:12)
[2020-11-07] MEDS: SENNOSIDES/DOCUSATE COMBO (SENNA PLUS) TABLET (UD) PO SCH (21:22)
[2020-11-08] MEDS: CLINDAMYCIN 600MG PREMIX IVPB 600 MG/50 ML BAG IVPB SCH (00:02)
[2020-11-08] MEDS: ACETAMINOPHEN 325 MG TABLET (FP) PO SCH ×4 (03:21→21:10)
[2020-11-08] MEDS: buPROPion HCL 100 MG TABLET PO SCH ×2 (05:16→17:52)
[2020-11-08 07:54] LABS: BASO % 0.2 % (0-2.0); HEMATOCRIT 31.8 % (32.4-45.2); HEMOGLOBIN 10.6 GM/dl (10.7-15.3); LYMPH % 4.4 % (8-40); MCH 32.6 pg (25.7-33.7); MCHC 33.4 g/dl (32.0-36.0); MEAN CELL VOLUME 97.4 fl (80-96); MEAN PLT VOLUME 8.1 fl (7.5-11.1); MONO % 8.4 % (3.8-10.2); PLATELET COUNT 161 K/MM3 (134-434); RBC 3.27 M/mm3 (3.60-5.2); RDW 13.5 % (11.6-15.6); WHITE BLOOD COUNT 11.1 K/mm3 (4.0-10.8)
[2020-11-08 07:59] LABS: INR 1.3 (0.82-1.09); PROTHROMBIN TIME (PATIENT) 14.3 SEC (10.2-13.0)
[2020-11-08 08:05] LABS: ALBUMIN 3.5 g/dl (3.4-5.0); BILIRUBIN,TOTAL 0.6 mg/dl (0.2-1); CALCIUM 8.6 mg/dl (8.5-10)
[2020-11-08] MEDS: MULTIVITAMINS (DAILY MVI) TABLET (FP) PO SCH (09:59)
[2020-11-08] MEDS ORDERED: buPROPion HCL 100 MG TABLET PO SCH (10:00)
[2020-11-08] MEDS ORDERED: WARFARIN NA 2 MG TABLET PO SCH (10:00)
[2020-11-08] MEDS: PANTOPRAZOLE 40 MG TABLET PO SCH (10:00)
[2020-11-08] MEDS: RAMIPRIL 5 MG CAPSULE PO SCH (10:00)
[2020-11-08] MEDS ORDERED: ASPIRIN 325 MG TABLET PO SCH (10:00)
[2020-11-08] MEDS: SENNOSIDES/DOCUSATE COMBO (SENNA PLUS) TABLET (UD) PO SCH ×2 (10:01→21:11)
[2020-11-08] MEDS: FUROSEMIDE 40 MG TABLET (FP) PO SCH (10:01)
[2020-11-08] MEDS: ATORVASTATIN CA 10 MG TABLET (FP) PO SCH (10:01)
[2020-11-08] MEDS: ISOSORBIDE MONONITRATE 30 MG TAB.SR.24H (FP) PO SCH (10:01)
[2020-11-08] MEDS: GABAPENTIN 300 MG CAPSULE PO SCH ×2 (10:01→21:10)
[2020-11-09] MEDS: buPROPion HCL 100 MG TABLET PO SCH (06:04)
[2020-11-09] MEDS: ACETAMINOPHEN 325 MG TABLET (FP) PO SCH ×3 (06:04→15:52)
[2020-11-09 07:57] LABS: HEMATOCRIT 30.5 % (32.4-45.2); HEMOGLOBIN 10.1 GM/dl (10.7-15.3); MEAN CELL VOLUME 96.8 fl (80-96); MEAN PLT VOLUME 8.2 fl (7.5-11.1); PLATELET COUNT 148 K/MM3 (134-434); RBC 3.16 M/mm3 (3.60-5.2); RDW 13.5 % (11.6-15.6); WHITE BLOOD COUNT 8.6 K/mm3 (4.0-10.8)
[2020-11-09 08:02] LABS: INR 1.3 (0.82-1.09); PROTHROMBIN TIME (PATIENT) 14.3 SEC (10.2-13.0)
[2020-11-09] MEDS: traMADol HCL 50 MG TABLET PO PRN ×2 (09:12→13:32)
[2020-11-09] MEDS: oxyCODONE HCL 5 MG TABLET PO PRN ×2 (09:59→13:05)
[2020-11-09] MEDS ORDERED: WARFARIN NA 1 MG TABLET PO SCH (10:00)
[2020-11-09] MEDS ORDERED: MECLIZINE HCL 25 MG TABLET (FP) PO SCH (10:00)
[2020-11-09] MEDS: ATORVASTATIN CA 10 MG TABLET (FP) PO SCH (10:28)
[2020-11-09] MEDS: RAMIPRIL 5 MG CAPSULE PO SCH (10:28)
[2020-11-09] MEDS: FUROSEMIDE 40 MG TABLET (FP) PO SCH (10:28)
[2020-11-09] MEDS: ISOSORBIDE MONONITRATE 30 MG TAB.SR.24H (FP) PO SCH (10:28)
[2020-11-09] MEDS: GABAPENTIN 300 MG CAPSULE PO SCH (10:28)
[2020-11-09] MEDS: MULTIVITAMINS (DAILY MVI) TABLET (FP) PO SCH (10:29)
[2020-11-09] MEDS: SENNOSIDES/DOCUSATE COMBO (SENNA PLUS) TABLET (UD) PO SCH (10:29)
[2020-11-09] MEDS: PANTOPRAZOLE 40 MG TABLET PO SCH (10:29)
[2020-11-09 14:09] VITALS: BP 95/55; PULSE 76; TEMP 98.7
== END 2020-11-09 15:52 | disposition home or self-care (01) | DRG 470 ==
LOC: FM/S 06:32
PROVIDERS: ADMIT Orthopaedic Surgery; ATTEND Nurse Practitioner Acute Care
PROC: 8E0Y0CZ Robotic Assisted Procedure of Lower Extremity, Open Approach (ICD-10-PCS; 2020-11-07)
PROC: 0SRC0J9 Replacement of Right Knee Joint with Synthetic Substitute, Cemented, Open Approach (ICD-10-PCS; principal; 2020-11-07 08:00)
DX: M17.11 Unilateral primary osteoarthritis, right knee (principal); I50.32 Chronic diastolic (congestive) heart failure; I13.0 Hypertensive heart and chronic kidney disease with heart failure and stage 1 through stage 4 chronic kidney disease, or unspecified chronic kidney disease; I25.10 Atherosclerotic heart disease of native coronary artery without angina pectoris; I48.91 Unspecified atrial fibrillation; E78.5 Hyperlipidemia, unspecified; N18.9 Chronic kidney disease, unspecified; F32.9 Major depressive disorder, single episode, unspecified; M10.9 Gout, unspecified; Z79.01 Long term (current) use of anticoagulants; F41.9 Anxiety disorder, unspecified
CPT/HCPCS: 36415; 73560-TC-RT-FY; 80048; 80053; 83735; 85025; 85027; 85610; 85730; 88305-TC; 88311-TC; 94760; 97010-GP; 97116-GP

== ENCOUNTER 2020-11-10 09:00 | Inpatient (IN) | payer OTHER ==
[2020-11-10] MEDS ORDERED: ACETAMINOPHEN 1000 MG/100 ML VIAL (NON FORMULARY) IVPB ONE ×3 (09:30→17:13)
[2020-11-10] MEDS ORDERED: ACETAMINOPHEN INJECTION 100 ML IVPB ONE ×2 (09:35→16:49)
[2020-11-10 10:23] LABS: BASO % 0.1 % (0-2.0); EOS % 0.8 % (0-4.5); HEMATOCRIT 32.3 % (32.4-45.2); HEMOGLOBIN 10.9 GM/dl (10.7-15.3); LYMPH % 4.4 % (8-40); MCH 32.9 pg (25.7-33.7); MCHC 33.7 g/dl (32.0-36.0); MEAN CELL VOLUME 97.6 fl (80-96); MEAN PLT VOLUME 8.3 fl (7.5-11.1); MONO % 6.4 % (3.8-10.2); NEUT % 88.3 % (42.8-82.8); PLATELET COUNT 173 K/MM3 (134-434); RBC 3.31 M/mm3 (3.60-5.2); RDW 13.3 % (11.6-15.6); WHITE BLOOD COUNT 12.8 K/mm3 (4.0-10.8)
[2020-11-10 10:27] LABS: ACTIVATED PTT 22.6 SECONDS (25.2-36.5)
[2020-11-10 10:29] LABS: ALBUMIN 3.6 g/dl (3.4-5.0); CALCIUM 8.6 mg/dl (8.5-10); CREATININE 2.1 mg/dl (0.55-1.3); TOT PROT 6.4 g/dl (6.4-8.2)
[2020-11-10 10:32] LABS: INR 1.27 (0.82-1.09)
[2020-11-10] MEDS ORDERED: VANCOMYCIN 1 GM in D5W (PRE-DOCKED) 1,000 MG/250 ML IVPB ONE (10:57)
[2020-11-10] MEDS ORDERED: CEFEPIME HCL/D5W 1 GM/50 ML BAG IVPB ONE (10:57)
[2020-11-10] MEDS ORDERED: CEFEPIME HCL 2 GM VIAL (RESTRICTED TO ID) ONE ×2 (11:06→16:49)
[2020-11-10] MEDS ORDERED: VANCOMYCIN 1,000 MG VIAL (RESTRICTED TO ID ONLY) ONE (11:06)
[2020-11-10] MEDS ORDERED: LACTATED RINGERS SOLUTION 1,000 ML/1,000 ML INFUS.BAG IV SCH ×2 (11:30→11:48)
[2020-11-10] MEDS ORDERED: ROCURONIUM BROMIDE 50 MG/5 ML SYRINGE ONE (12:16)
[2020-11-10] MEDS ORDERED: PROPOFOL 20 ML ONE ×2 (12:16)
[2020-11-10] MEDS ORDERED: SUCCINYLCHOLINE CHLORIDE 200 MG/10 ML SYRINGE ONE (12:17)
[2020-11-10] MEDS ORDERED: HYDROmorphone HCl 2 MG/ML VIAL ONE (13:02)
[2020-11-10] MEDS ORDERED: GLYCOPYRROLATE 0.2 MG/1 ML VIAL ONE (14:46)
[2020-11-10] MEDS ORDERED: NEOSTIGMINE METHYLSULFATE 0.5 MG/ML - 10 ML MDV ONE (14:46)
[2020-11-10] MEDS ORDERED: BENZOIN/ALOE VERA/STORAX/TOLU 58 ML BOTTLE TP ONE (15:35)
[2020-11-10] MEDS ORDERED: PANTOPRAZOLE SODIUM 40 MG VIAL IVPUSH ONE (16:07)
[2020-11-10] MEDS ORDERED: SODIUM CHLORIDE 1,000 ML IV SCH ×2 (16:15→23:03)
[2020-11-10] MEDS ORDERED: CEFEPIME HCL 2 GM VIAL (RESTRICTED TO ID) IVPB ONE (18:00)
[2020-11-10] MEDS ORDERED: HYDROmorphone HCl 2 MG/ML VIAL IVPUSH PRN (18:14)
[2020-11-10] MEDS ORDERED: dilTIAZem HCL 50 MG/10 ML - 10 ML VIAL IVPUSH PRN (19:01)
[2020-11-10] MEDS ORDERED: dilTIAZem HCL 125 MG/25 ML - 25 ML VIAL ONE (19:08)
[2020-11-10] MEDS ORDERED: WARFARIN NA 1 MG TABLET PO SCH (19:30)
[2020-11-10] MEDS ORDERED: WARFARIN NA 2 MG TABLET PO SCH (19:30)
[2020-11-10] MEDS ORDERED: ACETAMINOPHEN 1000 MG/100 ML VIAL (NON FORMULARY) IVPB PRN (20:57)
[2020-11-10] MEDS ORDERED: MUPIROCIN 2% TOPICAL OINTMENT FOR DECOLONIZATION NS SCH ×3 (22:00)
[2020-11-10] MEDS ORDERED: CHLORHEXIDINE GLUCONATE 4% CLEANSER FOR DECOLONIZATION TP SCH ×3 (22:00)
[2020-11-10] MEDS ORDERED: CIPROFLOXACIN 400 MG/D5W 400 MG/200 ML IVPB IVPB SCH (22:00)
[2020-11-10] MEDS ORDERED: LACTATED RINGERS SOLUTION 1000 ML INFUS.BAG IV ONE (23:45)
[2020-11-11 06:34] LABS: HEMATOCRIT 27.1 % (32.4-45.2); HEMOGLOBIN 9.1 GM/dL (10.7-15.3); MCH 32.5 pg (25.7-33.7); MCHC 33.5 g/dl (32.0-36.0); MEAN PLT VOLUME 8.1 fl (7.5-11.1); PLATELET COUNT 136 K/MM3 (134-434); RDW 14.3 % (11.6-15.6); WHITE BLOOD COUNT 10.4 K/mm3 (4.0-10.0)
[2020-11-11 06:37] LABS: INR 1.25 (0.83-1.09)
[2020-11-11 06:40] LABS: ACTIVATED PTT 24.3 SECONDS (25.2-36.5)
[2020-11-11 06:50] LABS: CALCIUM 7.3 mg/dL (8.5-10.1)
[2020-11-11 06:52] LABS: BLOOD UREA NITROGEN 36.8 mg/dL (7-18); MAGNESIUM 2.2 mg/dL (1.8-2.4)
[2020-11-11 06:55] LABS: CREATININE 2.1 mg/dL (0.55-1.3); PHOSPHOROUS 3.4 mg/dL (2.5-4.9)
[2020-11-11 06:56] LABS: BILIRUBIN,TOTAL 2.5 mg/dL (0.2-1); TOT PROT 4.9 g/dl (6.4-8.2)
[2020-11-11] MEDS ORDERED: dilTIAZem HCL 50 MG/10 ML - 10 ML VIAL IVPUSH PRN ×2 (07:06→08:20)
[2020-11-11] MEDS ORDERED: HYDROmorphone HCl 2 MG/ML VIAL IVPUSH PRN (07:06)
[2020-11-11] MEDS ORDERED: WARFARIN NA 1 MG TABLET PO SCH (07:06)
[2020-11-11] MEDS ORDERED: WARFARIN NA 2 MG TABLET PO SCH (07:06)
[2020-11-11 07:12] LABS: ALBUMIN 2.3 g/dl (3.4-5.0)
[2020-11-11] MEDS ORDERED: ONDANSETRON 4 MG/2 ML VIAL IVPUSH PRN (08:08)
[2020-11-11] MEDS ORDERED: DEXAMETHASONE SOD PHOSPHATE 4 MG/1 ML VIAL IVPUSH ONE (08:15)
[2020-11-11] MEDS ORDERED: HYDROmorphone *PCA* 10MG/50ML DISP.SYRIN PCA SCH (08:15)
[2020-11-11] MEDS ORDERED: METOPROLOL TARTRATE 5 MG/5 ML VIAL IVPUSH PRN (08:48)
[2020-11-11] MEDS ORDERED: dilTIAZem HCL 25 MG/5 ML - 5 ML VIAL ONE (09:28)
[2020-11-11] MEDS: PANTOPRAZOLE SODIUM 40 MG VIAL IVPUSH SCH (09:48)
[2020-11-11] MEDS: MUPIROCIN 2% TOPICAL OINTMENT FOR DECOLONIZATION NS SCH ×2 (09:49→22:03)
[2020-11-11] MEDS: DILTIAZEM INJECTION 125 MG in SODIUM CHLORIDE 100 ML IVPB SCH (09:50)
[2020-11-11] MEDS ORDERED: PANTOPRAZOLE SODIUM 40 MG VIAL IVPUSH SCH (10:00)
[2020-11-11] MEDS ORDERED: ISOSORBIDE MONONITRATE 30 MG TAB.SR.24H (FP) PO SCH ×3 (10:00)
[2020-11-11] MEDS ORDERED: ENOXAPARIN NA (PORCINE) 30 MG/0.3 ML DISP.SYRIN SQ SCH (10:00)
[2020-11-11] MEDS ORDERED: CEFEPIME 1 GM in DEXTROSE 5%-WATER 100 ML IVPB ONE (10:00)
[2020-11-11] MEDS ORDERED: ENOXAPARIN NA (PORCINE) 40 MG/0.4 ML DISP.SYRIN SQ SCH (10:00)
[2020-11-11] MEDS ORDERED: DEXTROSE 5%-WATER 100 ML IVPB ONE (10:47)
[2020-11-11] MEDS ORDERED: CEFEPIME HCL 1 GM VIAL (RESTRICTED TO ID) ONE (10:47)
[2020-11-11] MEDS ORDERED: SODIUM CHLORIDE 0.9% 500 ML INFUS.BAG IV ONE (10:53)
[2020-11-11] MEDS ORDERED: morphine SULFATE 4 MG/ML VIAL IVPUSH ONE (10:53)
[2020-11-11] MEDS ORDERED: DEXTROSE 5%-0.45% SALINE 1,000 ML IV SCH (11:00)
[2020-11-11] MEDS ORDERED: LACTATED RINGERS SOLUTION 1000 ML INFUS.BAG IV ONE (11:45)
[2020-11-11] MEDS: DEXTROSE 5%-LACTATED RINGERS 1,000 ML IV SCH (12:45)
[2020-11-11] MEDS: HYDROmorphone *PCA* 10MG/50ML DISP.SYRIN PCA SCH (15:45)
[2020-11-11] MEDS ORDERED: diazePAM CARPU-JECT 10 MG/2 ML DISP.SYRIN IVPUSH ONE ×2 (16:42→21:15)
[2020-11-11] MEDS ORDERED: PT OWN MED DRAWER 7, Y5N ONE (18:08)
[2020-11-11] MEDS: WARFARIN NA 1 MG TABLET PO SCH (18:34)
[2020-11-11] MEDS ORDERED: CHLORHEXIDINE GLUCONATE 4% CLEANSER FOR DECOLONIZATION TP SCH (22:00)
[2020-11-12] MEDS ORDERED: diazePAM CARPU-JECT 10 MG/2 ML DISP.SYRIN IVPUSH ONE (01:55)
[2020-11-12] MEDS: DILTIAZEM INJECTION 125 MG in SODIUM CHLORIDE 100 ML IVPB SCH ×2 (03:01→11:00)
[2020-11-12 07:09] LABS: ALBUMIN 2.5 g/dl (3.4-5.0); BLOOD UREA NITROGEN 28.8 mg/dL (7-18); CALCIUM 7.9 mg/dL (8.5-10.1)
[2020-11-12 07:10] LABS: HEMATOCRIT 26.5 % (32.4-45.2); HEMOGLOBIN 8.9 GM/dL (10.7-15.3); INR 1.34 (0.83-1.09); MCH 32.6 pg (25.7-33.7); MCHC 33.5 g/dl (32.0-36.0); MEAN CELL VOLUME 97.4 fl (80-96); MEAN PLT VOLUME 8.7 fl (7.5-11.1); PLATELET COUNT 162 K/MM3 (134-434); PROTHROMBIN TIME (PATIENT) 16.3 SEC (9.7-13.0); RBC 2.72 M/mm3 (3.60-5.2); RDW 14.4 % (11.6-15.6); WHITE BLOOD COUNT 11.1 K/mm3 (4.0-10.0)
[2020-11-12 07:12] LABS: ACTIVATED PTT 24.6 SECONDS (25.2-36.5); CREATININE 1.8 mg/dL (0.55-1.3)
[2020-11-12 07:14] LABS: BILIRUBIN,TOTAL 2.9 mg/dL (0.2-1); TOT PROT 5.4 g/dl (6.4-8.2)
[2020-11-12] MEDS ORDERED: HYDROmorphone HCl 2 MG/ML VIAL IVPUSH ONE (07:50)
[2020-11-12] MEDS ORDERED: HYDROmorphone HCl 2 MG/ML VIAL ONE (07:51)
[2020-11-12] MEDS: diazePAM 5 MG TABLET PO PRN ×2 (08:30→17:06)
[2020-11-12 09:03] LABS: EPI CELLS 15 /uL (0-25.1); HYALINE CASTS 3 /uL (0-3.1); URINE APPEARANCE CLEAR; URINE BACTERIA 4 /uL (0-1359); URINE BILIRUBIN NEGATIVE (NEGATIVE); URINE COLOR DK YELLOW; URINE GLUCOSE (UA) NEGATIVE (NEGATIVE); URINE KETONE NEGATIVE (NEGATIVE); URINE LEUK ESTERASE NEGATIVE (NEGATIVE); URINE NITRITE NEGATIVE (NEGATIVE); URINE PROTEIN TRACE (NEGATIVE); URINE RBC 13 /uL (0-23.9); URINE UROBILINOGEN 0.2 mg/dL (0.2-1.0)
[2020-11-12] MEDS: MUPIROCIN 2% TOPICAL OINTMENT FOR DECOLONIZATION NS SCH ×2 (09:06→22:42)
[2020-11-12] MEDS: PANTOPRAZOLE SODIUM 40 MG VIAL IVPUSH SCH (09:06)
[2020-11-12] MEDS: CEFEPIME 1 GM in DEXTROSE 5%-WATER 1 GM/100 ML BAG IVPB SCH ×2 (12:30→22:42)
[2020-11-12] MEDS: DEXTROSE 5%-LACTATED RINGERS 1,000 ML IV SCH (13:00)
[2020-11-12] MEDS ORDERED: DEXTROSE 5%-WATER 100 ML IVPB ONE ×2 (13:14→22:27)
[2020-11-12] MEDS ORDERED: CEFEPIME HCL 1 GM VIAL (RESTRICTED TO ID) ONE ×2 (13:14→22:27)
[2020-11-12] MEDS ORDERED: WARFARIN NA 2 MG TABLET PO SCH (18:00)
[2020-11-12 22:26] VITALS: BMI 37.0
[2020-11-13] MEDS: HYDROmorphone *PCA* 10MG/50ML DISP.SYRIN PCA SCH ×2 (03:55→15:51)
[2020-11-13 06:07] LABS: BASO % 0.4 % (0-2.0); EOS % 4.3 % (0-4.5); HEMATOCRIT 26.7 % (32.4-45.2); LYMPH % 5.9 % (8-40); MCH 32.4 pg (25.7-33.7); MCHC 33.5 g/dl (32.0-36.0); MEAN CELL VOLUME 96.8 fl (80-96); MONO % 10.3 % (3.8-10.2); NEUT % 79.1 % (42.8-82.8); PLATELET COUNT 180 K/MM3 (134-434); RBC 2.76 M/mm3 (3.60-5.2); RDW 14.3 % (11.6-15.6)
[2020-11-13 06:21] LABS: CALCIUM 7.7 mg/dL (8.5-10.1)
[2020-11-13 06:22] LABS: ALBUMIN 2.3 g/dl (3.4-5.0); BLOOD UREA NITROGEN 24.2 mg/dL (7-18); MAGNESIUM 2.2 mg/dL (1.8-2.4)
[2020-11-13 06:25] LABS: CREATININE 1.6 mg/dL (0.55-1.3)
[2020-11-13 06:26] LABS: BILIRUBIN,TOTAL 2.5 mg/dL (0.2-1); PHOSPHOROUS 1.8 mg/dL (2.5-4.9); TOT PROT 5.4 g/dl (6.4-8.2)
[2020-11-13] MEDS ORDERED: PCA PUMP NR ONE (09:36)
[2020-11-13] MEDS ORDERED: CEFEPIME HCL 1 GM VIAL (RESTRICTED TO ID) ONE ×2 (09:37→21:12)
[2020-11-13] MEDS ORDERED: DEXTROSE 5%-WATER 100 ML IVPB ONE ×2 (09:37→21:12)
[2020-11-13] MEDS: PANTOPRAZOLE SODIUM 40 MG VIAL IVPUSH SCH (09:41)
[2020-11-13] MEDS: CEFEPIME 1 GM in DEXTROSE 5%-WATER 1 GM/100 ML BAG IVPB SCH ×2 (09:41→21:38)
[2020-11-13] MEDS: MUPIROCIN 2% TOPICAL OINTMENT FOR DECOLONIZATION NS SCH ×2 (09:42→21:38)
[2020-11-13] MEDS: DILTIAZEM INJECTION 125 MG in SODIUM CHLORIDE 100 ML IVPB SCH (15:51)
[2020-11-14 06:50] LABS: INR 1.52 (0.83-1.09); PROTHROMBIN TIME (PATIENT) 18.5 SEC (9.7-13.0)
[2020-11-14 09:02] LABS: ALBUMIN 2.3 g/dl (3.4-5.0); CALCIUM 7.9 mg/dL (8.5-10.1)
[2020-11-14 09:03] LABS: BLOOD UREA NITROGEN 21.7 mg/dL (7-18); MAGNESIUM 2.1 mg/dL (1.8-2.4)
[2020-11-14 09:05] LABS: PHOSPHOROUS 1.7 mg/dL (2.5-4.9)
[2020-11-14 09:06] LABS: CREATININE 1.4 mg/dL (0.55-1.3)
[2020-11-14 09:07] LABS: BILIRUBIN,TOTAL 2.2 mg/dL (0.2-1); TOT PROT 5.4 g/dl (6.4-8.2)
[2020-11-14 09:09] LABS: HEMATOCRIT 27.1 % (32.4-45.2); HEMOGLOBIN 9.1 GM/dL (10.7-15.3); MCH 32.6 pg (25.7-33.7); MCHC 33.6 g/dl (32.0-36.0); MEAN CELL VOLUME 96.8 fl (80-96); PLATELET COUNT 203 K/MM3 (134-434); RDW 14.5 % (11.6-15.6); WHITE BLOOD COUNT 8.6 K/mm3 (4.0-10.0)
[2020-11-14] MEDS ORDERED: CEFEPIME HCL 1 GM VIAL (RESTRICTED TO ID) ONE (09:37)
[2020-11-14] MEDS ORDERED: DEXTROSE 5%-WATER 100 ML IVPB ONE ×2 (09:37→17:23)
[2020-11-14] MEDS: CEFEPIME 1 GM in DEXTROSE 5%-WATER 1 GM/100 ML BAG IVPB SCH (09:39)
[2020-11-14] MEDS: MUPIROCIN 2% TOPICAL OINTMENT FOR DECOLONIZATION NS SCH ×2 (09:40→21:18)
[2020-11-14] MEDS: PANTOPRAZOLE SODIUM 40 MG VIAL IVPUSH SCH (09:40)
[2020-11-14] MEDS ORDERED: ARTIFICIAL TEARS (POLYVINYL ALCOHOL) OPTH DROPS OU PRN (12:01)
[2020-11-14] MEDS ORDERED: PT OWN MED DRAWER 7, Y5N ONE (17:44)
[2020-11-14] MEDS: WARFARIN NA 1 MG TABLET PO SCH (17:44)
[2020-11-14] MEDS ORDERED: CEFTRIAXONE 2 GM in DEXTROSE 5%-WATER 2 GM/100 ML BAG IVPB SCH (18:00)
[2020-11-14] MEDS: SODIUM CHLORIDE 1,000 ML IV SCH (19:30)
[2020-11-14] MEDS: HYDROmorphone HCl 2 MG/ML VIAL IVPB PRN (23:41)
[2020-11-15] MEDS: HYDROmorphone HCl 2 MG/ML VIAL IVPB PRN ×2 (06:15→18:26)
[2020-11-15 06:45] LABS: HEMATOCRIT 27.1 % (32.4-45.2); HEMOGLOBIN 9.2 GM/dL (10.7-15.3); MCH 32.9 pg (25.7-33.7); MCHC 33.9 g/dl (32.0-36.0); MEAN CELL VOLUME 97.1 fl (80-96); MEAN PLT VOLUME 7.8 fl (7.5-11.1); PLATELET COUNT 230 K/MM3 (134-434); RBC 2.79 M/mm3 (3.60-5.2); RDW 14.4 % (11.6-15.6); WHITE BLOOD COUNT 8.3 K/mm3 (4.0-10.0)
[2020-11-15 06:52] LABS: INR 1.78 (0.83-1.09); PROTHROMBIN TIME (PATIENT) 21.2 SEC (9.7-13.0)
[2020-11-15 07:38] LABS: ALBUMIN 2.2 g/dl (3.4-5.0); BILIRUBIN,TOTAL 1.9 mg/dL (0.2-1); BLOOD UREA NITROGEN 18.4 mg/dL (7-18); CALCIUM 7.4 mg/dL (8.5-10.1); CREATININE 1.2 mg/dL (0.55-1.3); MAGNESIUM 1.8 mg/dL (1.8-2.4); TOT PROT 5.6 g/dl (6.4-8.2)
[2020-11-15] MEDS: ACETAMINOPHEN 1000 MG/100 ML VIAL (NON FORMULARY) IVPB SCH ×3 (09:21→21:21)
[2020-11-15] MEDS ORDERED: MAGNESIUM 2GM/50ML STERILE WATER IVPB IVPB ONE (09:45)
[2020-11-15] MEDS ORDERED: POTASSIUM PHOSPHATE 30 MM in DEXTROSE 5%-WATER - 250 ML IVPB ONE (10:00)
[2020-11-15] MEDS: PANTOPRAZOLE SODIUM 40 MG VIAL IVPUSH SCH (10:22)
[2020-11-15] MEDS: MUPIROCIN 2% TOPICAL OINTMENT FOR DECOLONIZATION NS SCH (12:19)
[2020-11-15] MEDS ORDERED: CASPOFUNGIN ACETATE 70 MG in SODIUM CHLORIDE 250 ML IVPB ONE (14:00)
[2020-11-15] MEDS ORDERED: DEXTROSE 5%-WATER 100 ML IVPB ONE (17:04)
[2020-11-15] MEDS ORDERED: ARTIFICIAL TEARS (POLYVINYL ALCOHOL) OPTH DROPS OU PRN (17:10)
[2020-11-15] MEDS ORDERED: dilTIAZem HCL 50 MG/10 ML - 10 ML VIAL IVPUSH PRN ×2 (17:10→21:04)
[2020-11-15] MEDS ORDERED: METOPROLOL TARTRATE 5 MG/5 ML VIAL IVPUSH PRN (17:10)
[2020-11-15] MEDS: CEFTRIAXONE 2 GM in DEXTROSE 5%-WATER 2 GM/100 ML BAG IVPB SCH (17:39)
[2020-11-15] MEDS: WARFARIN NA 2 MG TABLET PO SCH (17:53)
[2020-11-15] MEDS: SODIUM CHLORIDE 1,000 ML IV SCH (19:30)
[2020-11-15] MEDS ORDERED: MUPIROCIN 2% TOPICAL OINTMENT FOR DECOLONIZATION NS SCH (22:00)
[2020-11-16] MEDS: HYDROmorphone HCl 2 MG/ML VIAL IVPB PRN ×2 (01:06→08:26)
[2020-11-16] MEDS: ONDANSETRON 4 MG/2 ML VIAL IVPUSH PRN ×2 (01:09→12:04)
[2020-11-16] MEDS: ACETAMINOPHEN 1000 MG/100 ML VIAL (NON FORMULARY) IVPB SCH (04:01)
[2020-11-16 07:46] LABS: BASO % 0.4 % (0-2.0); EOS % 1.8 % (0-4.5); HEMATOCRIT 27.7 % (32.4-45.2); HEMOGLOBIN 9.4 GM/dL (10.7-15.3); LYMPH % 7.1 % (8-40); MCH 32.8 pg (25.7-33.7); MCHC 33.9 g/dl (32.0-36.0); MEAN CELL VOLUME 96.9 fl (80-96); MONO % 12.6 % (3.8-10.2); NEUT % 78.1 % (42.8-82.8); PLATELET COUNT 260 K/MM3 (134-434); RBC 2.86 M/mm3 (3.60-5.2); RDW 14.6 % (11.6-15.6); WHITE BLOOD COUNT 9.8 K/mm3 (4.0-10.0)
[2020-11-16 07:51] LABS: INR 2.26 (0.83-1.09); PROTHROMBIN TIME (PATIENT) 27.1 SEC (9.7-13.0)
[2020-11-16 08:22] LABS: ALBUMIN 2.5 g/dl (3.4-5.0); BLOOD UREA NITROGEN 16.6 mg/dL (7-18); CALCIUM 7.7 mg/dL (8.5-10.1)
[2020-11-16 08:25] LABS: CREATININE 1.1 mg/dL (0.55-1.3); PHOSPHOROUS 2.6 mg/dL (2.5-4.9)
[2020-11-16 08:26] LABS: BILIRUBIN,TOTAL 1.7 mg/dL (0.2-1); TOT PROT 5.5 g/dl (6.4-8.2)
[2020-11-16 10:34] LABS: ANISOCYTOSIS 0; HELMET CELLS 0; HOWELL-JOLLY BODIES 0; MACROCYTOSIS 0; OVALOCYTE 0; PLATELET ESTIMATE NORMAL; ROULEAU 0; SICKELED CELLS 0; TARGET CELLS 0; TEAR DROP CELLS 0; TOXIC GRANULATION 0
[2020-11-16] MEDS: PANTOPRAZOLE SODIUM 40 MG VIAL IVPUSH SCH (10:35)
[2020-11-16] MEDS ORDERED: PT OWN MED DRAWER 7, Y5N ONE ×2 (12:59→17:12)
[2020-11-16] MEDS: CASPOFUNGIN ACETATE 50 MG in SODIUM CHLORIDE 250 ML IVPB SCH (14:07)
[2020-11-16] MEDS: POTASSIUM CHLORIDE 10 MEQ in AMINO ACIDS 4.25%/D5W 1,000 ML IV SCH (14:15)
[2020-11-16] MEDS ORDERED: DEXTROSE 5%-WATER 100 ML IVPB ONE (17:11)
[2020-11-16] MEDS: CEFTRIAXONE 2 GM in DEXTROSE 5%-WATER 2 GM/100 ML BAG IVPB SCH (17:14)
[2020-11-16] MEDS ORDERED: WARFARIN NA 1 MG TABLET PO SCH (18:00)
[2020-11-16] MEDS: diazePAM 5 MG TABLET PO PRN (21:33)
[2020-11-17] MEDS: HYDROmorphone HCl 2 MG/ML VIAL IVPB PRN ×5 (00:31→22:27)
[2020-11-17 08:13] LABS: INR 3.54 (0.83-1.09); PROTHROMBIN TIME (PATIENT) 41.3 SEC (9.7-13.0)
[2020-11-17 08:35] LABS: ALBUMIN 2.5 g/dl (3.4-5.0); BLOOD UREA NITROGEN 19.2 mg/dL (7-18); CALCIUM 7.6 mg/dL (8.5-10.1)
[2020-11-17 08:36] LABS: MAGNESIUM 1.9 mg/dL (1.8-2.4)
[2020-11-17 08:38] LABS: BILIRUBIN,TOTAL 1.3 mg/dL (0.2-1); CREATININE 1.1 mg/dL (0.55-1.3); PHOSPHOROUS 1.4 mg/dL (2.5-4.9); TOT PROT 5.6 g/dl (6.4-8.2)
[2020-11-17] MEDS: PANTOPRAZOLE SODIUM 40 MG VIAL IVPUSH SCH (09:58)
[2020-11-17] MEDS: POTASSIUM CHLORIDE 10 MEQ in AMINO ACIDS 4.25%/D5W 1,000 ML IV SCH (11:05)
[2020-11-17] MEDS ORDERED: SODIUM PHOSPHATE - 20 MM in SODIUM CHLORIDE 250 ML IVPB ONE (12:06)
[2020-11-17] MEDS: diazePAM 5 MG TABLET PO PRN (12:15)
[2020-11-17] MEDS ORDERED: MAGNESIUM 2GM/50ML STERILE WATER IVPB IVPB ONE (13:30)
[2020-11-17] MEDS ORDERED: NAPH,MB-DB/K PH,MBDB POWDER PACKET PO ONE (13:30)
[2020-11-17] MEDS: CASPOFUNGIN ACETATE 50 MG in SODIUM CHLORIDE 250 ML IVPB SCH (16:51)
[2020-11-17] MEDS ORDERED: DEXTROSE 5%-WATER 100 ML IVPB ONE (17:46)
[2020-11-17] MEDS: AMINO ACIDS/PROTEIN HYDROLYS 30 ML LIQUID.PKT PO SCH (18:05)
[2020-11-17] MEDS: CEFTRIAXONE 2 GM in DEXTROSE 5%-WATER 2 GM/100 ML BAG IVPB SCH (18:05)
[2020-11-17] MEDS ORDERED: ATORVASTATIN CA 80 MG TABLET (FP) PO ONE (19:00)
[2020-11-18] MEDS: HYDROmorphone HCl 2 MG/ML VIAL IVPB PRN ×3 (05:53→14:55)
[2020-11-18 08:02] LABS: BASO % 0.6 % (0-2.0); EOS % 1.8 % (0-4.5); HEMATOCRIT 28.8 % (32.4-45.2); HEMOGLOBIN 9.6 GM/dL (10.7-15.3); LYMPH % 12.4 % (8-40); MCH 32.5 pg (25.7-33.7); MCHC 33.5 g/dl (32.0-36.0); MEAN CELL VOLUME 96.9 fl (80-96); MEAN PLT VOLUME 7.7 fl (7.5-11.1); MONO % 9.2 % (3.8-10.2); PLATELET COUNT 303 K/MM3 (134-434); RBC 2.97 M/mm3 (3.60-5.2); RDW 14.7 % (11.6-15.6)
[2020-11-18 08:13] LABS: INR 3.41 (0.83-1.09); PROTHROMBIN TIME (PATIENT) 39.8 SEC (9.7-13.0)
[2020-11-18 08:15] LABS: ALBUMIN 2.4 g/dl (3.4-5.0); BLOOD UREA NITROGEN 21.2 mg/dL (7-18); CALCIUM 7.7 mg/dL (8.5-10.1); MAGNESIUM 2.3 mg/dL (1.8-2.4)
[2020-11-18 08:18] LABS: CREATININE 1.1 mg/dL (0.55-1.3)
[2020-11-18 08:19] LABS: PHOSPHOROUS 2.9 mg/dL (2.5-4.9)
[2020-11-18 08:20] LABS: BILIRUBIN,TOTAL 1.3 mg/dL (0.2-1); TOT PROT 5.3 g/dl (6.4-8.2)
[2020-11-18] MEDS: diazePAM 5 MG TABLET PO PRN ×2 (10:44→21:21)
[2020-11-18] MEDS: AMINO ACIDS/PROTEIN HYDROLYS 30 ML LIQUID.PKT PO SCH ×2 (10:45→17:58)
[2020-11-18] MEDS: PANTOPRAZOLE SODIUM 40 MG VIAL IVPUSH SCH (10:45)
[2020-11-18] MEDS: CASPOFUNGIN ACETATE 50 MG in SODIUM CHLORIDE 250 ML IVPB SCH (14:55)
[2020-11-18] MEDS ORDERED: DOCUSATE SODIUM 100 MG CAPSULE (FP) PO PRN (16:31)
[2020-11-19] MEDS: ONDANSETRON 4 MG/2 ML VIAL IVPUSH PRN (07:00)
[2020-11-19 08:01] LABS: HEMATOCRIT 29.6 % (32.4-45.2); MCH 32.5 pg (25.7-33.7); MCHC 33.6 g/dl (32.0-36.0); MEAN CELL VOLUME 96.7 fl (80-96); PLATELET COUNT 367 K/MM3 (134-434); RBC 3.06 M/mm3 (3.60-5.2); RDW 14.8 % (11.6-15.6); WHITE BLOOD COUNT 9.9 K/mm3 (4.0-10.0)
[2020-11-19 08:10] LABS: INR 3.01 (0.83-1.09); PROTHROMBIN TIME (PATIENT) 35.8 SEC (9.7-13.0)
[2020-11-19 08:23] LABS: ALBUMIN 2.8 g/dl (3.4-5.0); CALCIUM 8.2 mg/dL (8.5-10.1)
[2020-11-19 08:24] LABS: BLOOD UREA NITROGEN 19.2 mg/dL (7-18)
[2020-11-19 08:27] LABS: PHOSPHOROUS 2.5 mg/dL (2.5-4.9)
[2020-11-19 08:28] LABS: BILIRUBIN,TOTAL 1.5 mg/dL (0.2-1); TOT PROT 5.9 g/dl (6.4-8.2)
[2020-11-19] MEDS ORDERED: PSYLLIUM 5.85 GM PACKET PO SCH (10:00)
[2020-11-19] MEDS: AMINO ACIDS/PROTEIN HYDROLYS 30 ML LIQUID.PKT PO SCH ×2 (10:01→17:22)
[2020-11-19] MEDS: PANTOPRAZOLE SODIUM 40 MG VIAL IVPUSH SCH (10:02)
[2020-11-19] MEDS ORDERED: ONDANSETRON 4 MG/2 ML VIAL IVPB PRN (13:51)
[2020-11-19] MEDS: CASPOFUNGIN ACETATE 50 MG in SODIUM CHLORIDE 250 ML IVPB SCH (15:29)
[2020-11-19] MEDS: WARFARIN NA 2 MG TABLET PO SCH (17:26)
[2020-11-19] MEDS: WARFARIN NA 1 MG TABLET PO SCH (19:30)
[2020-11-19] MEDS ORDERED: DOCUSATE SODIUM 100 MG CAPSULE (FP) PO PRN (20:40)
[2020-11-19] MEDS ORDERED: ARTIFICIAL TEARS (POLYVINYL ALCOHOL) OPTH DROPS OU PRN (20:40)
[2020-11-20] MEDS: diazePAM 5 MG TABLET PO PRN (01:49)
[2020-11-20 08:31] LABS: BASO % 0.4 % (0-2.0); EOS % 0.6 % (0-4.5); HEMATOCRIT 29.6 % (32.4-45.2); HEMOGLOBIN 10.1 GM/dL (10.7-15.3); LYMPH % 9.8 % (8-40); MCH 32.7 pg (25.7-33.7); MCHC 34.3 g/dl (32.0-36.0); MEAN CELL VOLUME 95.5 fl (80-96); MEAN PLT VOLUME 7.6 fl (7.5-11.1); MONO % 8.9 % (3.8-10.2); NEUT % 80.3 % (42.8-82.8); PLATELET COUNT 402 K/MM3 (134-434); RDW 14.9 % (11.6-15.6); WHITE BLOOD COUNT 9.8 K/mm3 (4.0-10.0)
[2020-11-20 08:34] LABS: INR 3.04 (0.83-1.09); PROTHROMBIN TIME (PATIENT) 35.6 SEC (9.7-13.0)
[2020-11-20 08:52] LABS: CALCIUM 8.2 mg/dL (8.5-10.1)
[2020-11-20 08:53] LABS: BLOOD UREA NITROGEN 15.5 mg/dL (7-18)
[2020-11-20 08:56] LABS: CREATININE 1.1 mg/dL (0.55-1.3)
[2020-11-20] MEDS: FUROSEMIDE 40 MG TABLET (FP) PO SCH (09:08)
[2020-11-20] MEDS: RAMIPRIL 5 MG CAPSULE PO SCH (09:08)
[2020-11-20] MEDS: AMINO ACIDS/PROTEIN HYDROLYS 30 ML LIQUID.PKT PO SCH ×2 (09:08→17:11)
[2020-11-20] MEDS: PANTOPRAZOLE SODIUM 40 MG VIAL IVPUSH SCH (09:08)
[2020-11-20] MEDS: PSYLLIUM 5.85 GM PACKET PO SCH (09:08)
[2020-11-20] MEDS ORDERED: CASPOFUNGIN ACETATE 50 MG in SODIUM CHLORIDE 250 ML IVPB SCH (15:00)
[2020-11-20] MEDS: WARFARIN NA 1 MG TABLET PO SCH (17:11)
[2020-11-20] MEDS: ATORVASTATIN CA 10 MG TABLET (FP) PO SCH (21:34)
[2020-11-21 07:53] LABS: BASO % 0.5 % (0-2.0); EOS % 0.8 % (0-4.5); HEMOGLOBIN 10.6 GM/dL (10.7-15.3); LYMPH % 8.9 % (8-40); MCH 32.6 pg (25.7-33.7); MCHC 34.1 g/dl (32.0-36.0); MEAN CELL VOLUME 95.7 fl (80-96); MEAN PLT VOLUME 8.1 fl (7.5-11.1); MONO % 8.4 % (3.8-10.2); NEUT % 81.4 % (42.8-82.8); PLATELET COUNT 446 K/MM3 (134-434); RBC 3.24 M/mm3 (3.60-5.2); RDW 15.2 % (11.6-15.6); WHITE BLOOD COUNT 9.4 K/mm3 (4.0-10.0)
[2020-11-21 08:10] LABS: BLOOD UREA NITROGEN 17.8 mg/dL (7-18); CALCIUM 7.9 mg/dL (8.5-10.1)
[2020-11-21 08:13] LABS: CREATININE 1.2 mg/dL (0.55-1.3)
[2020-11-21] MEDS: diazePAM 5 MG TABLET PO PRN ×2 (09:41→21:11)
[2020-11-21] MEDS: AMINO ACIDS/PROTEIN HYDROLYS 30 ML LIQUID.PKT PO SCH ×2 (09:41→18:23)
[2020-11-21] MEDS: FUROSEMIDE 40 MG TABLET (FP) PO SCH (09:43)
[2020-11-21] MEDS: RAMIPRIL 5 MG CAPSULE PO SCH (09:43)
[2020-11-21] MEDS: PANTOPRAZOLE SODIUM 40 MG VIAL IVPUSH SCH (09:43)
[2020-11-21] MEDS ORDERED: PT OWN MED DRAWER 7, Y5N ONE ×2 (09:46→18:19)
[2020-11-21] MEDS: PSYLLIUM 5.85 GM PACKET PO SCH (09:51)
[2020-11-21 17:32] LABS: INR 2.44 (0.83-1.09); PROTHROMBIN TIME (PATIENT) 29.3 SEC (9.7-13.0)
[2020-11-21] MEDS ORDERED: WARFARIN NA 1 MG TABLET PO SCH (18:00)
[2020-11-21] MEDS: WARFARIN NA 1 MG TABLET PO SCH (18:23)
[2020-11-21] MEDS: ATORVASTATIN CA 10 MG TABLET (FP) PO SCH (21:12)
[2020-11-22] MEDS ORDERED: ACETAMINOPHEN 1000 MG/100 ML VIAL (NON FORMULARY) IVPB ONE (05:15)
[2020-11-22 07:25] LABS: HEMATOCRIT 31.3 % (32.4-45.2); HEMOGLOBIN 10.4 GM/dL (10.7-15.3); MCHC 33.3 g/dl (32.0-36.0); MEAN CELL VOLUME 96.3 fl (80-96); PLATELET COUNT 446 K/MM3 (134-434); RBC 3.25 M/mm3 (3.60-5.2); RDW 15.1 % (11.6-15.6); WHITE BLOOD COUNT 8.3 K/mm3 (4.0-10.0)
[2020-11-22 07:45] LABS: CALCIUM 8.2 mg/dL (8.5-10.1)
[2020-11-22 07:49] LABS: CREATININE 1.4 mg/dL (0.55-1.3)
[2020-11-22] MEDS: AMINO ACIDS/PROTEIN HYDROLYS 30 ML LIQUID.PKT PO SCH (09:37)
[2020-11-22] MEDS: RAMIPRIL 5 MG CAPSULE PO SCH (09:38)
[2020-11-22] MEDS: FUROSEMIDE 40 MG TABLET (FP) PO SCH (09:40)
[2020-11-22] MEDS: diazePAM 5 MG TABLET PO PRN (09:40)
[2020-11-22] MEDS: PSYLLIUM 5.85 GM PACKET PO SCH ×2 (09:41→09:48)
[2020-11-22] MEDS ORDERED: PANTOPRAZOLE 40 MG TABLET PO SCH (10:00)
[2020-11-22] MEDS ORDERED: buPROPion HCL 100 MG TABLET PO SCH (11:30)
[2020-11-22] MEDS ORDERED: PT OWN MED DRAWER 7, Y5N ONE (12:38)
[2020-11-22] MEDS ORDERED: MORPHINE SULFATE 2 MG/ML VIAL IVPUSH PRN (14:29)
[2020-11-22 14:34] VITALS: BP 132/76; PULSE 102; TEMP 97.8
[2020-11-22] MEDS ORDERED: WARFARIN NA 2 MG TABLET PO SCH (18:00)
== END 2020-11-22 18:23 | DRG 853 ==
LOC: FER 09:00 → JICU 18:28 → J4W 11-15 17:00 → J6S 11-19 16:36
PROVIDERS: ADMIT Internal Medicine Pulmonary Disease
PROC: 0DBU0ZZ Excision of Omentum, Open Approach (ICD-10-PCS; 2020-11-10)
PROC: 0DNL0ZZ Release Transverse Colon, Open Approach (ICD-10-PCS; 2020-11-10)
PROC: 0DTN0ZZ Resection of Sigmoid Colon, Open Approach (ICD-10-PCS; principal; 2020-11-10 13:30)
PROC: 0D1E0Z4 Bypass Large Intestine to Cutaneous, Open Approach (ICD-10-PCS; 2020-11-10 13:30)
DX: A41.9 Sepsis, unspecified organism (principal); K65.9 Peritonitis, unspecified; K57.20 Diverticulitis of large intestine with perforation and abscess without bleeding; N17.9 Acute kidney failure, unspecified; I12.9 Hypertensive chronic kidney disease with stage 1 through stage 4 chronic kidney disease, or unspecified chronic kidney disease; I48.91 Unspecified atrial fibrillation; E78.5 Hyperlipidemia, unspecified; I25.10 Atherosclerotic heart disease of native coronary artery without angina pectoris; N18.9 Chronic kidney disease, unspecified; F32.9 Major depressive disorder, single episode, unspecified; E66.9 Obesity, unspecified; Z68.37 Body mass index [BMI] 37.0-37.9, adult; Z88.0 Allergy status to penicillin; D72.829 Elevated white blood cell count, unspecified
CPT/HCPCS: 36415; 70450-TC; 71045-TC-FY; 73560-TC-RT-FY; 74176-TC; 80048; 80053; 81003; 82962; 83605; 83690; 83735; 84100; 85025; 85027; 85610; 85730; 86850; 86900; 86901; 86922; 87040; 87070; 87075; 87076; 87077; 87186; 87205; 88307-TC; 93005; 94760; 97116-GP; 97162-GP; 99285-25; C9803; J0131; J0637; U0003; U0005

== ENCOUNTER 2021-01-05 20:23 | Inpatient (IN) | payer OTHER ==
[2021-01-05] MEDS ORDERED: SODIUM CHLORIDE 1,769 ML IV ONE (20:41)
[2021-01-05 21:45] LABS: EPI CELLS >36 /uL (0-25.1); HYALINE CASTS 88 /uL (0-3.1); PH,URINE 5.5 (5.0-8.0); URINE APPEARANCE TURBID; URINE BACTERIA 1544 /uL (0-1359); URINE BILIRUBIN NEGATIVE (NEGATIVE); URINE COLOR DK YELLOW; URINE GLUCOSE (UA) NEGATIVE (NEGATIVE); URINE KETONE NEGATIVE (NEGATIVE); URINE LEUK ESTERASE 3+ (NEGATIVE); URINE NITRITE POSITIVE (NEGATIVE); URINE PROTEIN 3+ (NEGATIVE); URINE UROBILINOGEN 0.2 mg/dL (0.2-1.0); URINE WBC 35943 /uL (0-25.8)
[2021-01-05 21:56] LABS: BASO % 0.4 % (0-2.0); EOS % 0.3 % (0-4.5); HEMATOCRIT 38.6 % (32.4-45.2); HEMOGLOBIN 12.5 GM/dL (10.7-15.3); LYMPH % 10.1 % (8-40); MCHC 32.5 g/dl (32.0-36.0); MEAN CELL VOLUME 92.3 fl (80-96); MEAN PLT VOLUME 9.2 fl (7.5-11.1); MONO % 10.9 % (3.8-10.2); NEUT % 78.3 % (42.8-82.8); PLATELET COUNT 253 10^3/uL (134-434); RBC 4.18 M/mm3 (3.60-5.2); RDW 15.3 % (11.6-15.6); WHITE BLOOD COUNT 10.9 K/mm3 (4.0-10.0)
[2021-01-05] MEDS ORDERED: CEFTRIAXONE 1 GM in DEXTROSE 5%-WATER - 100 ML IVPB ONE (22:01)
[2021-01-05 22:05] LABS: INR 1.51 (0.83-1.09)
[2021-01-05 22:19] LABS: CALCIUM 8.9 mg/dL (8.5-10.1)
[2021-01-05 22:20] LABS: BLOOD UREA NITROGEN 36.8 mg/dL (7-18)
[2021-01-05 22:22] LABS: CREATININE 1.8 mg/dL (0.55-1.3)
[2021-01-05 22:24] LABS: BILIRUBIN,TOTAL 0.8 mg/dL (0.2-1); TOT PROT 7.1 g/dl (6.4-8.2)
[2021-01-05] MEDS ORDERED: CEFTRIAXONE 1 GM/50 ML BAG ONE (22:30)
[2021-01-05 23:11] LABS: URINE RBC 872.7 /uL (0-23.9)
[2021-01-05 23:12] LABS: YEAST NEGATIVE (NEGATIVE)
[2021-01-06] MEDS ORDERED: ACETAMINOPHEN 325 MG TABLET (FP) PO PRN (00:19)
[2021-01-06] MEDS ORDERED: VANCOMYCIN 1 GM in D5W (PRE-DOCKED) 1,000 MG/250 ML IVPB ONE (00:25)
[2021-01-06] MEDS ORDERED: WARFARIN NA 1 MG TABLET PO ONE (01:03)
[2021-01-06] MEDS: SODIUM CHLORIDE 1,000 ML IV SCH ×2 (01:15→08:57)
[2021-01-06] MEDS ORDERED: cefTRIAXone SODIUM 1 GM VIAL ONE (09:11)
[2021-01-06] MEDS ORDERED: DEXTROSE 5%-WATER - 50 ML IVPB ONE (09:12)
[2021-01-06] MEDS: CEFTRIAXONE 1 GM in DEXTROSE 5%-WATER - 50 ML IVPB SCH (09:15)
[2021-01-06 09:18] LABS: BASO % 0.5 % (0-2.0); EOS % 0.3 % (0-4.5); HEMATOCRIT 36.5 % (32.4-45.2); HEMOGLOBIN 11.8 GM/dL (10.7-15.3); LYMPH % 11.4 % (8-40); MCH 29.9 pg (25.7-33.7); MCHC 32.2 g/dl (32.0-36.0); MEAN CELL VOLUME 92.7 fl (80-96); MEAN PLT VOLUME 9.3 fl (7.5-11.1); MONO % 10.5 % (3.8-10.2); NEUT % 77.3 % (42.8-82.8); PLATELET COUNT 235 10^3/uL (134-434); RBC 3.94 M/mm3 (3.60-5.2); RDW 15.5 % (11.6-15.6); WHITE BLOOD COUNT 9.7 K/mm3 (4.0-10.0)
[2021-01-06 09:23] LABS: INR 1.56 (0.83-1.09)
[2021-01-06 09:49] LABS: CALCIUM 8.5 mg/dL (8.5-10.1)
[2021-01-06 09:50] LABS: BLOOD UREA NITROGEN 39.9 mg/dL (7-18)
[2021-01-06 09:51] LABS: ALBUMIN 2.8 g/dl (3.4-5.0); MAGNESIUM 2.1 mg/dL (1.8-2.4)
[2021-01-06 09:53] LABS: CREATININE 1.8 mg/dL (0.55-1.3); PHOSPHOROUS 3.6 mg/dL (2.5-4.9)
[2021-01-06 09:55] LABS: BILIRUBIN,TOTAL 0.7 mg/dL (0.2-1); TOT PROT 6.6 g/dl (6.4-8.2)
[2021-01-06 13:42] LABS: EPI CELLS 16 /uL (0-25.1); HYALINE CASTS 8 /uL (0-3.1); PH,URINE 5.5 (5.0-8.0); URINE APPEARANCE TURBID; URINE BILIRUBIN NEGATIVE (NEGATIVE); URINE COLOR YELLOW; URINE GLUCOSE (UA) NEGATIVE (NEGATIVE); URINE KETONE NEGATIVE (NEGATIVE); URINE LEUK ESTERASE 3+ (NEGATIVE); URINE NITRITE POSITIVE (NEGATIVE); URINE PROTEIN 3+ (NEGATIVE); URINE UROBILINOGEN 0.2 mg/dL (0.2-1.0); URINE WBC 22265 /uL (0-25.8)
[2021-01-06] MEDS: SODIUM CHLORIDE 0.45% 1,000 ML IV SCH (14:09)
[2021-01-06] MEDS ORDERED: ENOXAPARIN NA (PORCINE) 60 MG/0.6 ML DISP.SYRIN SQ SCH (14:15)
[2021-01-06] MEDS ORDERED: WARFARIN NA 1 MG TABLET PO SCH (18:00)
[2021-01-06] MEDS: ENOXAPARIN NA (PORCINE) 60 MG/0.6 ML DISP.SYRIN SQ SCH (18:54)
[2021-01-07] MEDS: SODIUM CHLORIDE 0.45% 1,000 ML IV SCH ×3 (02:19→15:00)
[2021-01-07] MEDS ORDERED: cefTRIAXone SODIUM 1 GM VIAL ONE (09:10)
[2021-01-07] MEDS ORDERED: DEXTROSE 5%-WATER - 50 ML IVPB ONE (09:10)
[2021-01-07] MEDS: CEFTRIAXONE 1 GM in DEXTROSE 5%-WATER - 50 ML IVPB SCH (10:22)
[2021-01-07 11:59] LABS: INR 1.66 (0.83-1.09); PROTHROMBIN TIME (PATIENT) 19.8 SEC (9.7-13.0)
[2021-01-07 12:22] LABS: CALCIUM 8.7 mg/dL (8.5-10.1)
[2021-01-07 12:23] LABS: ALBUMIN 2.4 g/dl (3.4-5.0); MAGNESIUM 2.1 mg/dL (1.8-2.4)
[2021-01-07 12:26] LABS: CREATININE 1.3 mg/dL (0.55-1.3)
[2021-01-07 12:28] LABS: TOT PROT 5.9 g/dl (6.4-8.2)
[2021-01-07] MEDS ORDERED: ACETAMINOPHEN 1000 MG/100 ML VIAL (NON FORMULARY) IVPB ONE (13:03)
[2021-01-07] MEDS: ERTAPENEM SODIUM 1 GM in SODIUM CHLORIDE 50 ML IVPB SCH (17:10)
[2021-01-07] MEDS: ENOXAPARIN NA (PORCINE) 60 MG/0.6 ML DISP.SYRIN SQ SCH (17:10)
[2021-01-07] MEDS ORDERED: WARFARIN NA 1 MG TABLET PO ONE (18:00)
[2021-01-08] MEDS ORDERED: PT OWN MED DRAWER 7, Y5N ONE (09:22)
[2021-01-08] MEDS: ERTAPENEM SODIUM 1 GM in SODIUM CHLORIDE 50 ML IVPB SCH (09:27)
[2021-01-08] MEDS: SODIUM CHLORIDE 0.45% 1,000 ML IV SCH (09:27)
[2021-01-08] MEDS: ISOSORBIDE MONONITRATE 30 MG TAB.SR.24H (FP) PO SCH (10:28)
[2021-01-08 10:39] LABS: HEMATOCRIT 34.5 % (32.4-45.2); HEMOGLOBIN 11.3 GM/dL (10.7-15.3); MCHC 32.9 g/dl (32.0-36.0); MEAN CELL VOLUME 91.3 fl (80-96); MEAN PLT VOLUME 9.1 fl (7.5-11.1); PLATELET COUNT 231 10^3/uL (134-434); RBC 3.77 M/mm3 (3.60-5.2); RDW 15.1 % (11.6-15.6); WHITE BLOOD COUNT 7.6 K/mm3 (4.0-10.0)
[2021-01-08 10:47] LABS: PROTHROMBIN TIME (PATIENT) 24.1 SEC (9.7-13.0)
[2021-01-08 10:59] LABS: ALBUMIN 2.6 g/dl (3.4-5.0); CALCIUM 8.7 mg/dL (8.5-10.1)
[2021-01-08 11:04] LABS: BILIRUBIN,TOTAL 0.8 mg/dL (0.2-1)
[2021-01-08] MEDS ORDERED: SODIUM CHLORIDE 0.45% 1,000 ML IV SCH (13:23)
[2021-01-08] MEDS ORDERED: WARFARIN NA 1 MG TABLET PO SCH (18:00)
[2021-01-09 08:39] LABS: HEMATOCRIT 34.1 % (32.4-45.2); MCH 29.5 pg (25.7-33.7); MCHC 32.3 g/dl (32.0-36.0); MEAN CELL VOLUME 91.5 fl (80-96); MEAN PLT VOLUME 9.1 fl (7.5-11.1); PLATELET COUNT 255 10^3/uL (134-434); RBC 3.73 M/mm3 (3.60-5.2); RDW 15.2 % (11.6-15.6); WHITE BLOOD COUNT 7.1 K/mm3 (4.0-10.0)
[2021-01-09 08:46] LABS: INR 2.18 (0.83-1.09); PROTHROMBIN TIME (PATIENT) 26.2 SEC (9.7-13.0)
[2021-01-09 09:00] LABS: ALBUMIN 2.4 g/dl (3.4-5.0); CALCIUM 8.4 mg/dL (8.5-10.1)
[2021-01-09 09:01] LABS: BLOOD UREA NITROGEN 30.6 mg/dL (7-18)
[2021-01-09 09:03] LABS: TOT PROT 5.9 g/dl (6.4-8.2)
[2021-01-09 09:04] LABS: CREATININE 1.3 mg/dL (0.55-1.3)
[2021-01-09 09:05] LABS: BILIRUBIN,TOTAL 0.4 mg/dL (0.2-1)
[2021-01-09] MEDS: ISOSORBIDE MONONITRATE 30 MG TAB.SR.24H (FP) PO SCH ×2 (09:36→12:46)
[2021-01-09] MEDS: ERTAPENEM SODIUM 1 GM in SODIUM CHLORIDE 50 ML IVPB SCH (10:17)
[2021-01-09] MEDS ORDERED: ACETAMINOPHEN 1000 MG/100 ML VIAL (NON FORMULARY) IVPB PRN (11:59)
[2021-01-09] MEDS: SODIUM CHLORIDE 0.45% 1,000 ML IV SCH ×2 (12:51→21:54)
[2021-01-10] MEDS: ERTAPENEM SODIUM 1 GM in SODIUM CHLORIDE 50 ML IVPB SCH (09:41)
[2021-01-10] MEDS ORDERED: ENOXAPARIN NA (PORCINE) 80 MG/0.8 ML DISP.SYRIN SQ SCH (10:00)
[2021-01-10 10:10] LABS: HEMATOCRIT 35.9 % (32.4-45.2); HEMOGLOBIN 11.4 GM/dL (10.7-15.3); MCH 29.3 pg (25.7-33.7); MCHC 31.7 g/dl (32.0-36.0); MEAN CELL VOLUME 92.5 fl (80-96); MEAN PLT VOLUME 9.1 fl (7.5-11.1); PLATELET COUNT 252 10^3/uL (134-434); RBC 3.89 M/mm3 (3.60-5.2); WHITE BLOOD COUNT 7.6 K/mm3 (4.0-10.0)
[2021-01-10 10:17] LABS: INR 2.43 (0.83-1.09); PROTHROMBIN TIME (PATIENT) 29.1 SEC (9.7-13.0)
[2021-01-10 10:35] LABS: CALCIUM 8.7 mg/dL (8.5-10.1)
[2021-01-10 10:36] LABS: ALBUMIN 2.3 g/dl (3.4-5.0); BLOOD UREA NITROGEN 24.6 mg/dL (7-18)
[2021-01-10 10:39] LABS: CREATININE 0.9 mg/dL (0.55-1.3)
[2021-01-10 10:41] LABS: BILIRUBIN,TOTAL 0.5 mg/dL (0.2-1); TOT PROT 5.8 g/dl (6.4-8.2)
[2021-01-10] MEDS: WARFARIN NA 1 MG TABLET PO SCH (18:44)
[2021-01-10] MEDS: AMINO ACIDS/PROTEIN HYDROLYS 30 ML LIQUID.PKT PO SCH (18:45)
[2021-01-10] MEDS: buPROPion HCL 75 MG TABLET PO SCH (18:46)
[2021-01-10] MEDS: SODIUM CHLORIDE 0.45% 1,000 ML IV SCH (18:56)
[2021-01-10] MEDS ORDERED: PT OWN MED DRAWER 7, Y5N ONE (18:58)
[2021-01-11] MEDS: SODIUM CHLORIDE 0.45% 1,000 ML IV SCH ×2 (01:39→17:01)
[2021-01-11] MEDS: buPROPion HCL 75 MG TABLET PO SCH ×2 (06:01→17:04)
[2021-01-11] MEDS ORDERED: AMINO ACIDS 4.25%/D5W 1,000 ML IV SCH (08:15)
[2021-01-11 09:35] LABS: INR 2.37 (0.83-1.09)
[2021-01-11 09:57] LABS: BLOOD UREA NITROGEN 22.1 mg/dL (7-18); CALCIUM 8.3 mg/dL (8.5-10.1); HEMATOCRIT 36.1 % (32.4-45.2); HEMOGLOBIN 11.8 GM/dL (10.7-15.3); MCH 30.2 pg (25.7-33.7); MCHC 32.8 g/dl (32.0-36.0); MEAN CELL VOLUME 92.1 fl (80-96); MEAN PLT VOLUME 9.5 fl (7.5-11.1); PLATELET COUNT 278 10^3/uL (134-434); RBC 3.92 M/mm3 (3.60-5.2); RDW 15.2 % (11.6-15.6)
[2021-01-11 09:58] LABS: MAGNESIUM 1.9 mg/dL (1.8-2.4); WHITE BLOOD COUNT 11.5 K/mm3 (4.0-10.0)
[2021-01-11] MEDS ORDERED: PT OWN MED DRAWER 7, Y5N ONE ×2 (10:00→16:24)
[2021-01-11 10:02] LABS: CREATININE 0.8 mg/dL (0.55-1.3)
[2021-01-11] MEDS: ERTAPENEM SODIUM 1 GM in SODIUM CHLORIDE 50 ML IVPB SCH (10:13)
[2021-01-11] MEDS: ISOSORBIDE MONONITRATE 30 MG TAB.SR.24H (FP) PO SCH (10:13)
[2021-01-11] MEDS: AMINO ACIDS/PROTEIN HYDROLYS 30 ML LIQUID.PKT PO SCH ×2 (10:14→17:03)
[2021-01-11 12:39] VITALS: BMI 27.5
[2021-01-11] MEDS ORDERED: MEROPENEM 1 GM VIAL (RESTRICTED TO ID) IVPB ONE (16:22)
[2021-01-11] MEDS ORDERED: DEXTROSE 5%-WATER 100 ML IVPB ONE (16:23)
[2021-01-11] MEDS: WARFARIN NA 1 MG TABLET PO SCH (17:03)
[2021-01-11] MEDS: MEROPENEM 1 GM in DEXTROSE 5%-WATER 100 ML IVPB SCH (17:03)
[2021-01-12] MEDS ORDERED: MEROPENEM 1 GM VIAL (RESTRICTED TO ID) IVPB ONE ×3 (01:56→18:39)
[2021-01-12] MEDS ORDERED: DEXTROSE 5%-WATER 100 ML IVPB ONE ×3 (01:56→18:39)
[2021-01-12] MEDS: MEROPENEM 1 GM in DEXTROSE 5%-WATER 100 ML IVPB SCH ×3 (02:06→18:47)
[2021-01-12] MEDS ORDERED: PT OWN MED DRAWER 7, Y5N ONE ×3 (05:08→18:46)
[2021-01-12] MEDS: buPROPion HCL 75 MG TABLET PO SCH ×3 (05:11→19:02)
[2021-01-12] MEDS ORDERED: AMINO ACIDS 4.25%/D5W 1,000 ML IV SCH (07:59)
[2021-01-12 09:00] LABS: HEMATOCRIT 32.5 % (32.4-45.2); HEMOGLOBIN 10.9 GM/dL (10.7-15.3); MCH 30.2 pg (25.7-33.7); MCHC 33.5 g/dl (32.0-36.0); MEAN CELL VOLUME 90.1 fl (80-96); MEAN PLT VOLUME 8.7 fl (7.5-11.1); PLATELET COUNT 285 10^3/uL (134-434); RBC 3.61 M/mm3 (3.60-5.2); RDW 15.2 % (11.6-15.6); WHITE BLOOD COUNT 8.5 K/mm3 (4.0-10.0)
[2021-01-12 09:24] LABS: BLOOD UREA NITROGEN 29.8 mg/dL (7-18); CALCIUM 8.2 mg/dL (8.5-10.1); MAGNESIUM 1.9 mg/dL (1.8-2.4)
[2021-01-12 09:28] LABS: CREATININE 0.9 mg/dL (0.55-1.3)
[2021-01-12 09:29] LABS: BILIRUBIN,TOTAL 0.4 mg/dL (0.2-1); TOT PROT 5.5 g/dl (6.4-8.2)
[2021-01-12] MEDS: ISOSORBIDE MONONITRATE 30 MG TAB.SR.24H (FP) PO SCH ×2 (10:13→10:20)
[2021-01-12] MEDS: AMINO ACIDS/PROTEIN HYDROLYS 30 ML LIQUID.PKT PO SCH ×3 (10:13→18:54)
[2021-01-12] MEDS ORDERED: POTASSIUM CHLORIDE ORAL LIQUID 20 MEQ/15 ML PO ONE (16:37)
[2021-01-12] MEDS: POTASSIUM CHLORIDE 10 MEQ in AMINO ACIDS 4.25%/D5W 1,000 ML IV SCH (18:48)
[2021-01-12] MEDS: WARFARIN NA 1 MG TABLET PO SCH (19:01)
[2021-01-13] MEDS ORDERED: MEROPENEM 1 GM VIAL (RESTRICTED TO ID) IVPB ONE ×3 (01:22→17:52)
[2021-01-13] MEDS ORDERED: DEXTROSE 5%-WATER 100 ML IVPB ONE ×3 (01:23→17:52)
[2021-01-13] MEDS: MEROPENEM 1 GM in DEXTROSE 5%-WATER 100 ML IVPB SCH ×3 (01:36→17:55)
[2021-01-13] MEDS ORDERED: PT OWN MED DRAWER 7, Y5N ONE ×2 (05:34→17:57)
[2021-01-13] MEDS: buPROPion HCL 75 MG TABLET PO SCH ×2 (05:56→18:07)
[2021-01-13 08:26] LABS: BILIRUBIN,TOTAL 0.4 mg/dL (0.2-1); BLOOD UREA NITROGEN 34.9 mg/dL (7-18); CALCIUM 8.1 mg/dL (8.5-10.1); CREATININE 0.8 mg/dL (0.55-1.3); MAGNESIUM 1.8 mg/dL (1.8-2.4); TOT PROT 5.4 g/dl (6.4-8.2)
[2021-01-13 08:53] LABS: INR 2.65 (0.83-1.09); PROTHROMBIN TIME (PATIENT) 31.2 SEC (9.7-13.0)
[2021-01-13] MEDS: AMINO ACIDS/PROTEIN HYDROLYS 30 ML LIQUID.PKT PO SCH ×4 (10:10→18:08)
[2021-01-13] MEDS: ISOSORBIDE MONONITRATE 30 MG TAB.SR.24H (FP) PO SCH ×2 (10:11→10:37)
[2021-01-13] MEDS: POTASSIUM CHLORIDE 10 MEQ in AMINO ACIDS 4.25%/D5W 1,000 ML IV SCH ×2 (14:23→16:54)
[2021-01-13] MEDS: WARFARIN NA 1 MG TABLET PO SCH (17:58)
[2021-01-14] MEDS ORDERED: DEXTROSE 5%-WATER 100 ML IVPB ONE ×3 (00:47→16:41)
[2021-01-14] MEDS ORDERED: MEROPENEM 1 GM VIAL (RESTRICTED TO ID) IVPB ONE ×3 (00:47→16:40)
[2021-01-14] MEDS: MEROPENEM 1 GM in DEXTROSE 5%-WATER 100 ML IVPB SCH ×3 (01:10→18:00)
[2021-01-14] MEDS ORDERED: PT OWN MED DRAWER 7, Y5N ONE ×2 (06:10→06:28)
[2021-01-14] MEDS: buPROPion HCL 75 MG TABLET PO SCH ×3 (06:13→10:58)
[2021-01-14] MEDS: AMINO ACIDS/PROTEIN HYDROLYS 30 ML LIQUID.PKT PO SCH ×2 (09:51→18:00)
[2021-01-14] MEDS: POTASSIUM CHLORIDE 10 MEQ in AMINO ACIDS 4.25%/D5W 1,000 ML IV SCH (09:52)
[2021-01-14] MEDS: ISOSORBIDE MONONITRATE 30 MG TAB.SR.24H (FP) PO SCH (10:04)
[2021-01-14 11:01] LABS: INR 2.78 (0.83-1.09); PROTHROMBIN TIME (PATIENT) 33.2 SEC (9.7-13.0)
[2021-01-14] MEDS: AMINO ACIDS 4.25%/D5W 1,000 ML IV SCH (18:02)
[2021-01-15] MEDS ORDERED: DEXTROSE 5%-WATER 100 ML IVPB ONE ×3 (00:47→16:54)
[2021-01-15] MEDS ORDERED: MEROPENEM 1 GM VIAL (RESTRICTED TO ID) IVPB ONE ×3 (00:47→16:54)
[2021-01-15] MEDS: MEROPENEM 1 GM in DEXTROSE 5%-WATER 100 ML IVPB SCH ×3 (01:59→17:32)
[2021-01-15] MEDS: AMINO ACIDS 4.25%/D5W 1,000 ML IV SCH ×4 (01:59→22:03)
[2021-01-15 07:51] LABS: INR 2.66 (0.83-1.09); PROTHROMBIN TIME (PATIENT) 31.8 SEC (9.7-13.0)
[2021-01-15 07:55] LABS: HEMATOCRIT 33.8 % (32.4-45.2); HEMOGLOBIN 11.1 GM/dL (10.7-15.3); MCH 29.7 pg (25.7-33.7); MCHC 32.9 g/dl (32.0-36.0); MEAN CELL VOLUME 90.4 fl (80-96); MEAN PLT VOLUME 8.3 fl (7.5-11.1); PLATELET COUNT 327 10^3/uL (134-434); RBC 3.74 M/mm3 (3.60-5.2); RDW 14.8 % (11.6-15.6); WHITE BLOOD COUNT 6.4 K/mm3 (4.0-10.0)
[2021-01-15 08:06] LABS: ALBUMIN 1.9 g/dl (3.4-5.0); CALCIUM 8.3 mg/dL (8.5-10.1)
[2021-01-15 08:07] LABS: BLOOD UREA NITROGEN 37.8 mg/dL (7-18)
[2021-01-15 08:10] LABS: CREATININE 0.7 mg/dL (0.55-1.3)
[2021-01-15 08:11] LABS: BILIRUBIN,TOTAL 0.4 mg/dL (0.2-1); TOT PROT 5.5 g/dl (6.4-8.2)
[2021-01-15] MEDS: AMINO ACIDS/PROTEIN HYDROLYS 30 ML LIQUID.PKT PO SCH ×3 (11:05→19:16)
[2021-01-15] MEDS: ISOSORBIDE MONONITRATE 30 MG TAB.SR.24H (FP) PO SCH ×2 (11:05→12:00)
[2021-01-15] MEDS ORDERED: KCL 10 MEQ IVPB 10 MEQ/100 ML INFUS.BAG IVPB SCH (12:00)
[2021-01-15] MEDS: WARFARIN NA 1 MG TABLET PO SCH (17:31)
[2021-01-16] MEDS ORDERED: DEXTROSE 5%-WATER 100 ML IVPB ONE ×2 (01:20→09:01)
[2021-01-16] MEDS ORDERED: MEROPENEM 1 GM VIAL (RESTRICTED TO ID) IVPB ONE ×2 (01:20→09:00)
[2021-01-16] MEDS: MEROPENEM 1 GM in DEXTROSE 5%-WATER 100 ML IVPB SCH ×2 (01:31→09:11)
[2021-01-16 07:53] LABS: INR 2.55 (0.83-1.09)
[2021-01-16] MEDS: AMINO ACIDS/PROTEIN HYDROLYS 30 ML LIQUID.PKT PO SCH ×2 (08:54→16:57)
[2021-01-16] MEDS: ISOSORBIDE MONONITRATE 30 MG TAB.SR.24H (FP) PO SCH (09:11)
[2021-01-16] MEDS ORDERED: PT OWN MED DRAWER 7, Y5N ONE (09:46)
[2021-01-16] MEDS: AMINO ACIDS 4.25%/D5W 1,000 ML IV SCH (11:24)
[2021-01-16] MEDS: POTASSIUM CHLORIDE 10 MEQ in AMINO ACIDS 4.25%/D5W 1,000 ML IV SCH (12:31)
[2021-01-17] MEDS: POTASSIUM CHLORIDE 10 MEQ in AMINO ACIDS 4.25%/D5W 1,000 ML IV SCH ×3 (05:36→23:27)
[2021-01-17 08:17] LABS: CALCIUM 8.9 mg/dL (8.5-10.1)
[2021-01-17 08:18] LABS: ALBUMIN 2.1 g/dl (3.4-5.0); BLOOD UREA NITROGEN 37.7 mg/dL (7-18); MAGNESIUM 1.9 mg/dL (1.8-2.4)
[2021-01-17 08:20] LABS: INR 2.2 (0.83-1.09); PROTHROMBIN TIME (PATIENT) 26.4 SEC (9.7-13.0)
[2021-01-17 08:21] LABS: CREATININE 0.7 mg/dL (0.55-1.3); PHOSPHOROUS 1.4 mg/dL (2.5-4.9)
[2021-01-17 08:22] LABS: BILIRUBIN,TOTAL 0.5 mg/dL (0.2-1)
[2021-01-17 08:44] LABS: BASO % 0.7 % (0-2.0); EOS % 1.3 % (0-4.5); HEMATOCRIT 35.3 % (32.4-45.2); HEMOGLOBIN 11.6 GM/dL (10.7-15.3); LYMPH % 11.1 % (8-40); MCH 29.6 pg (25.7-33.7); MCHC 32.7 g/dl (32.0-36.0); MEAN CELL VOLUME 90.4 fl (80-96); MEAN PLT VOLUME 8.2 fl (7.5-11.1); MONO % 14.4 % (3.8-10.2); NEUT % 72.5 % (42.8-82.8); PLATELET COUNT 320 10^3/uL (134-434); RDW 14.8 % (11.6-15.6); WHITE BLOOD COUNT 9.7 K/mm3 (4.0-10.0)
[2021-01-17] MEDS: AMINO ACIDS/PROTEIN HYDROLYS 30 ML LIQUID.PKT PO SCH ×2 (09:09→17:04)
[2021-01-17] MEDS ORDERED: POTASSIUM PHOSPHATE 15 MM in SODIUM CHLORIDE 250 ML IVPB ONE (12:00)
[2021-01-17] MEDS: ACETAMINOPHEN 1000 MG/100 ML VIAL (NON FORMULARY) IVPB PRN (21:27)
[2021-01-18 09:12] LABS: INR 2.2 (0.83-1.09); PROTHROMBIN TIME (PATIENT) 26.4 SEC (9.7-13.0)
[2021-01-18] MEDS: AMINO ACIDS/PROTEIN HYDROLYS 30 ML LIQUID.PKT PO SCH ×2 (09:19→18:04)
[2021-01-18] MEDS: POTASSIUM CHLORIDE 10 MEQ in AMINO ACIDS 4.25%/D5W 1,000 ML IV SCH ×3 (09:19→16:15)
[2021-01-18] MEDS: SILVER SULFADIAZINE 1% TOP CREAM 50 GM JAR TP SCH ×2 (14:27→22:03)
[2021-01-18] MEDS ORDERED: VANCOMYCIN 1 GRAM (PRE-DOCKED) 1,000 MG/250 ML BAG IVPB ONE (17:04)
[2021-01-18] MEDS ORDERED: DEXTROSE 5%-WATER 100 ML IVPB ONE (17:34)
[2021-01-18] MEDS ORDERED: CEFEPIME HCL 1 GM VIAL (RESTRICTED TO ID) ONE (17:34)
[2021-01-18] MEDS: CEFEPIME 1 GM in DEXTROSE 5%-WATER 100 ML IVPB SCH (17:55)
[2021-01-18] MEDS: ACETAMINOPHEN 1000 MG/100 ML VIAL (NON FORMULARY) IVPB PRN (22:13)
[2021-01-19] MEDS ORDERED: CEFEPIME HCL 1 GM VIAL (RESTRICTED TO ID) ONE ×3 (01:25→18:18)
[2021-01-19] MEDS ORDERED: DEXTROSE 5%-WATER 100 ML IVPB ONE ×3 (01:25→18:18)
[2021-01-19] MEDS: CEFEPIME 1 GM in DEXTROSE 5%-WATER 100 ML IVPB SCH ×3 (02:03→18:27)
[2021-01-19] MEDS: POTASSIUM CHLORIDE 10 MEQ in AMINO ACIDS 4.25%/D5W 1,000 ML IV SCH ×3 (04:40→19:49)
[2021-01-19] MEDS: AMINO ACIDS/PROTEIN HYDROLYS 30 ML LIQUID.PKT PO SCH (08:33)
[2021-01-19 08:57] LABS: HEMATOCRIT 33.1 % (32.4-45.2); MCH 29.8 pg (25.7-33.7); MCHC 33.2 g/dl (32.0-36.0); MEAN CELL VOLUME 89.7 fl (80-96); MEAN PLT VOLUME 7.9 fl (7.5-11.1); PLATELET COUNT 290 10^3/uL (134-434); RBC 3.69 M/mm3 (3.60-5.2); RDW 14.8 % (11.6-15.6); WHITE BLOOD COUNT 7.7 K/mm3 (4.0-10.0)
[2021-01-19 09:04] LABS: INR 1.94 (0.83-1.09)
[2021-01-19 09:35] LABS: BLOOD UREA NITROGEN 46.6 mg/dL (7-18)
[2021-01-19 09:37] LABS: CALCIUM 9.1 mg/dL (8.5-10.1)
[2021-01-19 09:39] LABS: CREATININE 0.8 mg/dL (0.55-1.3)
[2021-01-19] MEDS: SILVER SULFADIAZINE 1% TOP CREAM 50 GM JAR TP SCH ×2 (11:02→21:34)
[2021-01-20] MEDS ORDERED: DEXTROSE 5%-WATER 100 ML IVPB ONE ×3 (01:43→17:11)
[2021-01-20] MEDS ORDERED: CEFEPIME HCL 1 GM VIAL (RESTRICTED TO ID) ONE ×3 (01:43→17:11)
[2021-01-20] MEDS: CEFEPIME 1 GM in DEXTROSE 5%-WATER 100 ML IVPB SCH ×3 (01:49→18:38)
[2021-01-20] MEDS: POTASSIUM CHLORIDE 10 MEQ in AMINO ACIDS 4.25%/D5W 1,000 ML IV SCH ×3 (06:58→18:38)
[2021-01-20 09:51] LABS: INR 1.85 (0.83-1.09); PROTHROMBIN TIME (PATIENT) 22.4 SEC (9.7-13.0)
[2021-01-20 10:29] LABS: ALBUMIN 2.1 g/dl (3.4-5.0); BLOOD UREA NITROGEN 47.8 mg/dL (7-18); CALCIUM 9.4 mg/dL (8.5-10.1)
[2021-01-20 10:32] LABS: CREATININE 0.9 mg/dL (0.55-1.3)
[2021-01-20 10:33] LABS: TOT PROT 5.8 g/dl (6.4-8.2)
[2021-01-20 10:35] LABS: BILIRUBIN,TOTAL 0.7 mg/dL (0.2-1)
[2021-01-20] MEDS: SILVER SULFADIAZINE 1% TOP CREAM 50 GM JAR TP SCH ×2 (11:38→21:36)
[2021-01-20] MEDS ORDERED: CEFTRIAXONE 1 GM in DEXTROSE 5%-WATER - 50 ML IVPB ONE (14:15)
[2021-01-20] MEDS ORDERED: GlUCAGON HUMAN RECOMBINANT 1 MG/VIAL IVPB ONE (14:25)
[2021-01-20] MEDS: ACETAMINOPHEN 1000 MG/100 ML VIAL (NON FORMULARY) IVPB PRN (17:22)
[2021-01-21] MEDS ORDERED: DEXTROSE 5%-WATER 100 ML IVPB ONE ×3 (01:08→17:32)
[2021-01-21] MEDS ORDERED: CEFEPIME HCL 1 GM VIAL (RESTRICTED TO ID) ONE ×3 (01:08→17:32)
[2021-01-21] MEDS: CEFEPIME 1 GM in DEXTROSE 5%-WATER 100 ML IVPB SCH ×3 (01:32→17:54)
[2021-01-21] MEDS: POTASSIUM CHLORIDE 10 MEQ in AMINO ACIDS 4.25%/D5W 1,000 ML IV SCH (06:52)
[2021-01-21 09:25] LABS: HEMATOCRIT 30.6 % (32.4-45.2); HEMOGLOBIN 10.1 GM/dL (10.7-15.3); MCH 29.8 pg (25.7-33.7); MCHC 33.1 g/dl (32.0-36.0); MEAN CELL VOLUME 90.1 fl (80-96); MEAN PLT VOLUME 8.8 fl (7.5-11.1); PLATELET COUNT 261 10^3/uL (134-434); RDW 15.1 % (11.6-15.6); WHITE BLOOD COUNT 6.4 K/mm3 (4.0-10.0)
[2021-01-21 09:32] LABS: INR 1.93 (0.83-1.09); PROTHROMBIN TIME (PATIENT) 22.9 SEC (9.7-13.0)
[2021-01-21 09:44] LABS: CALCIUM 9.2 mg/dL (8.5-10.1)
[2021-01-21 09:45] LABS: BLOOD UREA NITROGEN 58.1 mg/dL (7-18)
[2021-01-21 09:48] LABS: CREATININE 0.9 mg/dL (0.55-1.3)
[2021-01-21] MEDS: SILVER SULFADIAZINE 1% TOP CREAM 50 GM JAR TP SCH ×2 (10:04→21:47)
[2021-01-21] MEDS: ACETAMINOPHEN 1000 MG/100 ML VIAL (NON FORMULARY) IVPB PRN (21:37)
[2021-01-22] MEDS ORDERED: DEXTROSE 5%-WATER 100 ML IVPB ONE ×3 (01:22→16:59)
[2021-01-22] MEDS ORDERED: CEFEPIME HCL 1 GM VIAL (RESTRICTED TO ID) ONE ×3 (01:22→16:59)
[2021-01-22] MEDS: CEFEPIME 1 GM in DEXTROSE 5%-WATER 100 ML IVPB SCH ×3 (01:23→17:08)
[2021-01-22 03:56] LABS: HEMATOCRIT 31.8 % (32.4-45.2); HEMOGLOBIN 10.7 GM/dL (10.7-15.3); LYMPH % 5.9 % (8-40); MCH 29.2 pg (25.7-33.7); MCHC 33.5 g/dl (32.0-36.0); MEAN CELL VOLUME 87.1 fl (80-96); MEAN PLT VOLUME 8.2 fl (7.5-11.1); NEUT % 84.4 % (42.8-82.8); PLATELET COUNT 281 10^3/uL (134-434); RBC 3.65 M/mm3 (3.60-5.2); RDW 15.3 % (11.6-15.6); WHITE BLOOD COUNT 7.5 K/mm3 (4.0-10.0)
[2021-01-22 03:57] LABS: BASO % 0.6 % (0-2.0); EOS % 0.1 % (0-4.5)
[2021-01-22 04:17] LABS: ALBUMIN 2.2 g/dl (3.4-5.0); BLOOD UREA NITROGEN 58.2 mg/dL (7-18); CALCIUM 9.7 mg/dL (8.5-10.1)
[2021-01-22 04:20] LABS: CREATININE 1.2 mg/dL (0.55-1.3)
[2021-01-22 04:22] LABS: BILIRUBIN,TOTAL 0.5 mg/dL (0.2-1); TOT PROT 6.4 g/dl (6.4-8.2)
[2021-01-22 06:03] LABS: ARTERIAL BLD GAS O2 SATURATION 97.4 mmHg (95-98); ARTERIAL BLOOD GAS BASE EXCESS -3.5 mmol/L (-2-2); ARTERIAL BLOOD GAS PO2 87.2 mmHg (80-100); ARTERIAL BLOOD GAS pH 7.494 (7.350-7.450)
[2021-01-22 06:06] LABS: ALLENS TEST POSITIVE
[2021-01-22] MEDS: ACETAMINOPHEN 1000 MG/100 ML VIAL (NON FORMULARY) IVPB PRN ×2 (11:22→17:09)
[2021-01-22] MEDS: METOPROLOL TARTRATE 25 MG TABLET (FP) PO SCH ×2 (12:20→21:25)
[2021-01-22] MEDS: SILVER SULFADIAZINE 1% TOP CREAM 50 GM JAR TP SCH ×2 (14:41→21:25)
[2021-01-23] MEDS ORDERED: DEXTROSE 5%-WATER 100 ML IVPB ONE ×3 (01:08→16:58)
[2021-01-23] MEDS ORDERED: CEFEPIME HCL 1 GM VIAL (RESTRICTED TO ID) ONE ×3 (01:08→16:58)
[2021-01-23] MEDS: CEFEPIME 1 GM in DEXTROSE 5%-WATER 100 ML IVPB SCH ×3 (01:18→17:13)
[2021-01-23] MEDS: ACETAMINOPHEN 1000 MG/100 ML VIAL (NON FORMULARY) IVPB PRN ×3 (05:27→22:16)
[2021-01-23 10:01] LABS: BLOOD UREA NITROGEN 56.7 mg/dL (7-18); CALCIUM 9.3 mg/dL (8.5-10.1)
[2021-01-23 10:05] LABS: CREATININE 1.2 mg/dL (0.55-1.3)
[2021-01-23] MEDS: METOPROLOL TARTRATE 25 MG TABLET (FP) PO SCH ×2 (10:50→22:16)
[2021-01-23] MEDS: SILVER SULFADIAZINE 1% TOP CREAM 50 GM JAR TP SCH ×2 (11:01→22:24)
[2021-01-23] MEDS ORDERED: POTASSIUM CHLORIDE ORAL LIQUID 20 MEQ/15 ML PO ONE (12:42)
[2021-01-23] MEDS: SODIUM BICARBONATE 650 MG TABLET PO SCH (14:24)
[2021-01-24] MEDS ORDERED: DEXTROSE 5%-WATER 100 ML IVPB ONE ×2 (01:12→09:42)
[2021-01-24] MEDS ORDERED: CEFEPIME HCL 1 GM VIAL (RESTRICTED TO ID) ONE ×2 (01:12→09:42)
[2021-01-24] MEDS: CEFEPIME 1 GM in DEXTROSE 5%-WATER 100 ML IVPB SCH ×2 (01:18→10:02)
[2021-01-24] MEDS: ACETAMINOPHEN 1000 MG/100 ML VIAL (NON FORMULARY) IVPB PRN (05:58)
[2021-01-24] MEDS: APIXABAN 5 MG TABLET PO SCH ×2 (10:02→21:19)
[2021-01-24] MEDS: SILVER SULFADIAZINE 1% TOP CREAM 50 GM JAR TP SCH (10:02)
[2021-01-24] MEDS: SODIUM BICARBONATE 650 MG TABLET PO SCH (10:02)
[2021-01-24] MEDS: METOPROLOL TARTRATE 25 MG TABLET (FP) PO SCH ×2 (10:02→21:19)
[2021-01-25] MEDS: SILVER SULFADIAZINE 1% TOP CREAM 50 GM JAR TP SCH ×3 (02:35→21:51)
[2021-01-25] MEDS ORDERED: PT OWN MED DRAWER 7, Y5N ONE (10:36)
[2021-01-25] MEDS: SODIUM BICARBONATE 650 MG TABLET PO SCH (10:44)
[2021-01-25] MEDS: METOPROLOL TARTRATE 25 MG TABLET (FP) PO SCH ×2 (10:44→21:51)
[2021-01-25] MEDS: APIXABAN 5 MG TABLET PO SCH ×2 (10:44→21:51)
[2021-01-25 11:49] LABS: BASO % 0.7 % (0-2.0); EOS % 2.3 % (0-4.5); HEMATOCRIT 31.8 % (32.4-45.2); HEMOGLOBIN 10.5 GM/dL (10.7-15.3); LYMPH % 15.3 % (8-40); MCH 29.3 pg (25.7-33.7); MCHC 32.9 g/dl (32.0-36.0); MEAN CELL VOLUME 89.3 fl (80-96); MEAN PLT VOLUME 8.8 fl (7.5-11.1); MONO % 12.4 % (3.8-10.2); NEUT % 69.3 % (42.8-82.8); PLATELET COUNT 286 10^3/uL (134-434); RBC 3.56 M/mm3 (3.60-5.2); RDW 15.6 % (11.6-15.6); WHITE BLOOD COUNT 8.1 K/mm3 (4.0-10.0)
[2021-01-25 12:16] LABS: ALBUMIN 2.2 g/dl (3.4-5.0); BLOOD UREA NITROGEN 48.5 mg/dL (7-18); CALCIUM 9.6 mg/dL (8.5-10.1); MAGNESIUM 2.2 mg/dL (1.8-2.4)
[2021-01-25 12:19] LABS: CREATININE 1.1 mg/dL (0.55-1.3)
[2021-01-25 12:20] LABS: PHOSPHOROUS 2.8 mg/dL (2.5-4.9)
[2021-01-25 12:21] LABS: BILIRUBIN,TOTAL 0.5 mg/dL (0.2-1); TOT PROT 6.6 g/dl (6.4-8.2)
[2021-01-25] MEDS: ACETAMINOPHEN 1000 MG/100 ML VIAL (NON FORMULARY) IVPB PRN (13:18)
[2021-01-26] MEDS ORDERED: PT OWN MED DRAWER 7, Y5N ONE (10:49)
[2021-01-26] MEDS: ACETAMINOPHEN 1000 MG/100 ML VIAL (NON FORMULARY) IVPB PRN (11:04)
[2021-01-26] MEDS: APIXABAN 5 MG TABLET PO SCH ×2 (11:04→22:04)
[2021-01-26] MEDS: METOPROLOL TARTRATE 25 MG TABLET (FP) PO SCH ×2 (11:04→22:05)
[2021-01-26] MEDS: SODIUM BICARBONATE 650 MG TABLET PO SCH (11:04)
[2021-01-26] MEDS: SILVER SULFADIAZINE 1% TOP CREAM 50 GM JAR TP SCH ×2 (11:05→22:05)
[2021-01-26 15:07] LABS: HEMATOCRIT 28.2 % (32.4-45.2); HEMOGLOBIN 9.3 GM/dL (10.7-15.3); MCH 29.2 pg (25.7-33.7); MEAN CELL VOLUME 88.6 fl (80-96); MEAN PLT VOLUME 8.1 fl (7.5-11.1); PLATELET COUNT 278 10^3/uL (134-434); RBC 3.19 M/mm3 (3.60-5.2); RDW 15.9 % (11.6-15.6); WHITE BLOOD COUNT 9.3 K/mm3 (4.0-10.0)
[2021-01-26 15:49] LABS: URINE APPEARANCE TURBID; URINE COLOR YELLOW; URINE GLUCOSE (UA) NEGATIVE (NEGATIVE)
[2021-01-26 15:50] LABS: PH,URINE 5.5 (5.0-8.0); URINE BILIRUBIN NEGATIVE (NEGATIVE); URINE KETONE NEGATIVE (NEGATIVE); URINE LEUK ESTERASE LARGE (NEGATIVE); URINE NITRITE NEGATIVE (NEGATIVE); URINE PROTEIN 2+ (NEGATIVE)
[2021-01-26 15:51] LABS: EPI CELLS FEW /HPF; URINE WBC 20-50 (NEGATIVE)
[2021-01-27] MEDS: APIXABAN 5 MG TABLET PO SCH ×2 (09:55→21:38)
[2021-01-27] MEDS: SODIUM BICARBONATE 650 MG TABLET PO SCH (09:55)
[2021-01-27] MEDS: SILVER SULFADIAZINE 1% TOP CREAM 50 GM JAR TP SCH ×2 (09:55→21:40)
[2021-01-27] MEDS: METOPROLOL TARTRATE 25 MG TABLET (FP) PO SCH ×2 (09:56→21:38)
[2021-01-27 10:08] LABS: ALBUMIN 1.9 g/dl (3.4-5.0); BLOOD UREA NITROGEN 59.4 mg/dL (7-18)
[2021-01-27 10:12] LABS: BILIRUBIN,TOTAL 0.4 mg/dL (0.2-1); TOT PROT 5.8 g/dl (6.4-8.2)
[2021-01-27 10:13] LABS: CREATININE 1.3 mg/dL (0.55-1.3)
[2021-01-27 10:57] LABS: BASO % 0.6 % (0-2.0); EOS % 4.8 % (0-4.5); HEMOGLOBIN 9.1 GM/dL (10.7-15.3); LYMPH % 18.6 % (8-40); MCHC 32.5 g/dl (32.0-36.0); MEAN CELL VOLUME 89.1 fl (80-96); MEAN PLT VOLUME 8.6 fl (7.5-11.1); MONO % 11.7 % (3.8-10.2); NEUT % 64.3 % (42.8-82.8); PLATELET COUNT 270 10^3/uL (134-434); RBC 3.15 M/mm3 (3.60-5.2); RDW 15.9 % (11.6-15.6); WHITE BLOOD COUNT 7.8 K/mm3 (4.0-10.0)
[2021-01-27] MEDS: ACETAMINOPHEN 1000 MG/100 ML VIAL (NON FORMULARY) IVPB PRN (20:13)
[2021-01-28 01:10] VITALS: BP 108/58; PULSE 105
[2021-01-28 01:12] VITALS: TEMP 99
[2021-01-28] MEDS ORDERED: AMINO ACIDS/PROTEIN HYDROLYS 30 ML LIQUID.PKT GT SCH (08:00)
[2021-01-28] MEDS ORDERED: MULTIVIT-MINERALS ORAL LIQUID GT SCH (10:00)
== END 2021-01-28 01:15 | DRG 871 ==
LOC: JER 20:23 → JERBED 22:29 → J5S 01-06 04:52
PROVIDERS: ADMIT Hospitalist; ATTEND Family Medicine
PROC: 0DH63UZ Insertion of Feeding Device into Stomach, Percutaneous Approach (ICD-10-PCS; principal; 2021-01-20)
PROC: 3E0G76Z Introduction of Nutritional Substance into Upper GI, Via Natural or Artificial Opening (ICD-10-PCS; 2021-01-20)
DX: A41.9 Sepsis, unspecified organism (principal); L89.153 Pressure ulcer of sacral region, stage 3; G93.41 Metabolic encephalopathy; N39.0 Urinary tract infection, site not specified; E87.0 Hyperosmolality and hypernatremia; N17.9 Acute kidney failure, unspecified; R74.01 Elevation of levels of liver transaminase levels; I48.91 Unspecified atrial fibrillation; E78.5 Hyperlipidemia, unspecified; I10 Essential (primary) hypertension; I25.10 Atherosclerotic heart disease of native coronary artery without angina pectoris; R33.9 Retention of urine, unspecified; E87.6 Hypokalemia; R62.7 Adult failure to thrive; Z68.29 Body mass index [BMI] 29.0-29.9, adult; F03.90 Unspecified dementia, unspecified severity, without behavioral disturbance, psychotic disturbance, mood disturbance, and anxiety; R00.0 Tachycardia, unspecified; N18.9 Chronic kidney disease, unspecified; Z88.0 Allergy status to penicillin; M10.9 Gout, unspecified
CPT/HCPCS: 36415; 36600; 49440; 70450-TC; 70551-TC; 71045-TC-FY; 73030-TC-RT-FY; 73523-TC-FY; 80048; 80053; 81003; 82140; 82436; 82570; 82803; 83605; 83735; 83880; 84100; 84133; 84300; 84484; 85025; 85027; 85610; 85730; 87040; 87077; 87086; 87186; 93005; 93010; 93970-TC; 97162-GP; 99285-25; C9803; J0131; U0003; U0005

== ENCOUNTER 2021-01-29 12:22 | Inpatient (IN) | payer OTHER ==
[2021-01-29] MEDS ORDERED: VANCOMYCIN 1 GM in D5W (PRE-DOCKED) 1,000 MG/250 ML IVPB ONE (13:01)
[2021-01-29] MEDS ORDERED: CEFEPIME HCL/D5W 1 GM/50 ML BAG IVPB ONE ×2 (13:03→13:36)
[2021-01-29] MEDS ORDERED: LACTATED RINGERS SOLUTION 1000 ML INFUS.BAG IV ONE (13:05)
[2021-01-29 13:24] VITALS: BMI 29.2
[2021-01-29] MEDS ORDERED: VANCOMYCIN 1 GRAM (PRE-DOCKED) 1,000 MG/250 ML BAG IVPB ONE (13:35)
[2021-01-29 13:46] LABS: VENOUS BASE EXCESS 0.8 mmol/L (-2-2); VENOUS PCO2 38.8 mmHg (38-52); VENOUS PH 7.428 (7.310-7.410)
[2021-01-29 13:49] LABS: BASO % 0.9 % (0-2.0); EOS % 3.4 % (0-4.5); HEMATOCRIT 32.4 % (32.4-45.2); HEMOGLOBIN 10.5 GM/dL (10.7-15.3); LYMPH % 22.9 % (8-40); MCHC 32.4 g/dl (32.0-36.0); MEAN CELL VOLUME 89.5 fl (80-96); MEAN PLT VOLUME 8.7 fl (7.5-11.1); MONO % 7.8 % (3.8-10.2); PLATELET COUNT 376 10^3/uL (134-434); RBC 3.62 M/mm3 (3.60-5.2); WHITE BLOOD COUNT 8.3 K/mm3 (4.0-10.0)
[2021-01-29 13:56] LABS: INR 1.46 (0.83-1.09); PROTHROMBIN TIME (PATIENT) 17.8 SEC (9.7-13.0)
[2021-01-29 13:59] LABS: ACTIVATED PTT 26.8 SECONDS (25.2-36.5)
[2021-01-29 14:04] LABS: CHLORIDE 110 mmol/L (98-107); SODIUM 141 mmol/L (136-145)
[2021-01-29 14:06] LABS: ALBUMIN 2.3 g/dl (3.4-5.0); BLOOD UREA NITROGEN 72.6 mg/dL (7-18); CALCIUM 8.7 mg/dL (8.5-10.1); CO2 22 mmol/L (21-32); GLUCOSE,RANDOM 95 mg/dL (74-106)
[2021-01-29 14:09] LABS: CREATININE 1.5 mg/dL (0.55-1.3); SGOT/AST 34 U/L (15-37); SGPT/ALT 17 U/L (13-61)
[2021-01-29 14:11] LABS: BILIRUBIN,TOTAL 0.6 mg/dL (0.2-1); TOT PROT 7.1 g/dl (6.4-8.2)
[2021-01-29 14:12] LABS: ALK PHOS 137 U/L (45-117)
[2021-01-29 14:21] LABS: ANION GAP 9 MMOL/L (8-16)
[2021-01-29 14:58] LABS: CALCIUM 8.6 mg/dL (8.5-10.1)
[2021-01-29 14:59] LABS: ALBUMIN 2.2 g/dl (3.4-5.0); BLOOD UREA NITROGEN 71.6 mg/dL (7-18)
[2021-01-29 15:02] LABS: CREATININE 1.5 mg/dL (0.55-1.3)
[2021-01-29 15:03] LABS: BILIRUBIN,TOTAL 0.4 mg/dL (0.2-1); TOT PROT 6.6 g/dl (6.4-8.2)
[2021-01-29 15:12] LABS: EPI CELLS >36 /uL (0-25.1); HYALINE CASTS 4 /uL (0-3.1); PH,URINE 5.5 (5.0-8.0); URINE APPEARANCE CLOUDY; URINE BACTERIA 55 /uL (0-1359); URINE BILIRUBIN NEGATIVE (NEGATIVE); URINE COLOR YELLOW; URINE GLUCOSE (UA) NEGATIVE (NEGATIVE); URINE KETONE NEGATIVE (NEGATIVE); URINE LEUK ESTERASE 2+ (NEGATIVE); URINE NITRITE NEGATIVE (NEGATIVE); URINE PROTEIN 2+ (NEGATIVE); URINE RBC 401 /uL (0-23.9); URINE WBC 194 /uL (0-25.8)
[2021-01-29 15:45] LABS: YEAST NONE SEEN (NEGATIVE)
[2021-01-29] MEDS ORDERED: ACETAMINOPHEN 1000 MG/100 ML VIAL (NON FORMULARY) IVPB ONE (16:10)
[2021-01-29] MEDS ORDERED: ACETAMINOPHEN INJECTION 100 ML IVPB ONE (16:13)
[2021-01-29] MEDS: METOPROLOL TARTRATE 5 MG/5 ML VIAL IVPUSH PRN (18:39)
[2021-01-29] MEDS: APIXABAN 5 MG TABLET GT SCH (21:58)
[2021-01-29] MEDS: METOPROLOL TARTRATE 25 MG TABLET (FP) GT SCH (21:58)
[2021-01-29] MEDS ORDERED: METOPROLOL TARTRATE 25 MG TABLET (FP) PO SCH (22:00)
[2021-01-30] MEDS: METOPROLOL TARTRATE 5 MG/5 ML VIAL IVPUSH PRN ×2 (08:10→13:46)
[2021-01-30] MEDS: SODIUM CHLORIDE 0.45% 1,000 ML IV SCH (08:16)
[2021-01-30] MEDS: METOPROLOL TARTRATE 25 MG TABLET (FP) GT SCH ×2 (10:08→21:24)
[2021-01-30] MEDS: APIXABAN 5 MG TABLET GT SCH ×2 (10:08→21:24)
[2021-01-30] MEDS: ACETAMINOPHEN 650 MG/20.3 ML ORAL SOLUTION (CUPS) GT PRN ×2 (13:47→21:25)
[2021-01-30] MEDS ORDERED: CEFEPIME 1 GM in DEXTROSE 5%-WATER 1 GM/100 ML BAG IVPB SCH (16:00)
[2021-01-30] MEDS ORDERED: CEFEPIME HCL 1 GM VIAL (RESTRICTED TO ID) ONE (16:12)
[2021-01-30] MEDS ORDERED: DEXTROSE 5%-WATER 100 ML IVPB ONE (16:12)
[2021-01-31] MEDS ORDERED: DEXTROSE 5%-WATER 100 ML IVPB ONE (04:59)
[2021-01-31] MEDS ORDERED: CEFEPIME HCL 1 GM VIAL (RESTRICTED TO ID) ONE (04:59)
[2021-01-31] MEDS: CEFEPIME 1 GM in DEXTROSE 5%-WATER 1 GM/100 ML BAG IVPB SCH ×2 (05:00→17:13)
[2021-01-31 07:18] LABS: BASO % 0.6 % (0-2.0); EOS % 2.2 % (0-4.5); HEMOGLOBIN 8.5 GM/dL (10.7-15.3); LYMPH % 15.9 % (8-40); MCH 29.1 pg (25.7-33.7); MCHC 32.8 g/dl (32.0-36.0); MEAN CELL VOLUME 88.6 fl (80-96); MEAN PLT VOLUME 7.9 fl (7.5-11.1); MONO % 10.6 % (3.8-10.2); NEUT % 70.7 % (42.8-82.8); PLATELET COUNT 312 10^3/uL (134-434); RBC 2.94 M/mm3 (3.60-5.2); RDW 15.3 % (11.6-15.6); WHITE BLOOD COUNT 7.2 K/mm3 (4.0-10.0)
[2021-01-31 07:36] LABS: CALCIUM 8.1 mg/dL (8.5-10.1)
[2021-01-31 07:38] LABS: ALBUMIN 1.9 g/dl (3.4-5.0); BLOOD UREA NITROGEN 49.1 mg/dL (7-18)
[2021-01-31 07:41] LABS: CREATININE 1.1 mg/dL (0.55-1.3)
[2021-01-31 07:43] LABS: BILIRUBIN,TOTAL 0.3 mg/dL (0.2-1); TOT PROT 5.7 g/dl (6.4-8.2)
[2021-01-31] MEDS: SODIUM CHLORIDE 0.45% 1,000 ML IV SCH (10:51)
[2021-01-31] MEDS: METOPROLOL TARTRATE 25 MG TABLET (FP) GT SCH ×2 (10:51→21:33)
[2021-01-31] MEDS: APIXABAN 5 MG TABLET GT SCH ×2 (10:51→21:33)
[2021-01-31] MEDS: PANTOPRAZOLE SODIUM 40 MG VIAL IVPUSH SCH (10:51)
[2021-01-31] MEDS: ACETAMINOPHEN 650 MG/20.3 ML ORAL SOLUTION (CUPS) GT PRN (11:20)
[2021-01-31] MEDS: METOPROLOL TARTRATE 5 MG/5 ML VIAL IVPUSH PRN (11:23)
[2021-01-31 16:54] LABS: HEMATOCRIT 24.5 % (32.4-45.2); MCHC 32.7 g/dl (32.0-36.0); MEAN CELL VOLUME 88.6 fl (80-96); MEAN PLT VOLUME 8.1 fl (7.5-11.1); PLATELET COUNT 298 10^3/uL (134-434); RBC 2.76 M/mm3 (3.60-5.2); RDW 15.2 % (11.6-15.6); WHITE BLOOD COUNT 6.6 K/mm3 (4.0-10.0)
[2021-01-31] MEDS: BANATROL PLUS POWDER PACKET PEG SCH (21:32)
[2021-02-01] MEDS: SODIUM CHLORIDE 0.45% 1,000 ML IV SCH ×3 (01:51→15:22)
[2021-02-01] MEDS: ACETAMINOPHEN 650 MG/20.3 ML ORAL SOLUTION (CUPS) GT PRN ×3 (05:11→23:15)
[2021-02-01] MEDS: BANATROL PLUS POWDER PACKET PEG SCH ×3 (05:11→21:40)
[2021-02-01 07:38] LABS: BASO % 0.5 % (0-2.0); EOS % 3.1 % (0-4.5); HEMATOCRIT 24.1 % (32.4-45.2); HEMOGLOBIN 8.1 GM/dL (10.7-15.3); MCH 29.5 pg (25.7-33.7); MCHC 33.6 g/dl (32.0-36.0); MEAN CELL VOLUME 87.8 fl (80-96); MEAN PLT VOLUME 8.4 fl (7.5-11.1); MONO % 11.5 % (3.8-10.2); NEUT % 65.9 % (42.8-82.8); PLATELET COUNT 306 10^3/uL (134-434); RBC 2.74 M/mm3 (3.60-5.2); RDW 15.2 % (11.6-15.6); WHITE BLOOD COUNT 6.4 K/mm3 (4.0-10.0)
[2021-02-01 08:09] LABS: CALCIUM 8.2 mg/dL (8.5-10.1)
[2021-02-01 08:10] LABS: ALBUMIN 1.9 g/dl (3.4-5.0); BLOOD UREA NITROGEN 39.3 mg/dL (7-18)
[2021-02-01 08:14] LABS: BILIRUBIN,TOTAL 0.3 mg/dL (0.2-1); TOT PROT 5.7 g/dl (6.4-8.2)
[2021-02-01] MEDS ORDERED: PT OWN MED DRAWER 7, Y5N ONE ×3 (09:21→21:49)
[2021-02-01] MEDS: MULTIVIT-MINERALS ORAL LIQUID PEG SCH (09:37)
[2021-02-01] MEDS: METOPROLOL TARTRATE 25 MG TABLET (FP) GT SCH ×2 (09:37→21:40)
[2021-02-01] MEDS: PANTOPRAZOLE SODIUM 40 MG VIAL IVPUSH SCH (09:37)
[2021-02-01] MEDS: APIXABAN 5 MG TABLET GT SCH ×2 (09:37→21:40)
[2021-02-02] MEDS: SODIUM CHLORIDE 0.45% 1,000 ML IV SCH (03:50)
[2021-02-02] MEDS ORDERED: PT OWN MED DRAWER 7, Y5N ONE ×3 (05:58→21:08)
[2021-02-02] MEDS: BANATROL PLUS POWDER PACKET PEG SCH ×3 (06:01→21:16)
[2021-02-02] MEDS: AMINO ACIDS/PROTEIN HYDROLYS 30 ML LIQUID.PKT PEG SCH (10:16)
[2021-02-02] MEDS: MULTIVIT-MINERALS ORAL LIQUID PEG SCH (10:17)
[2021-02-02] MEDS: METOPROLOL TARTRATE 25 MG TABLET (FP) GT SCH ×2 (10:17→21:16)
[2021-02-02] MEDS: APIXABAN 5 MG TABLET GT SCH ×2 (10:17→21:16)
[2021-02-02] MEDS: PANTOPRAZOLE SODIUM 40 MG VIAL IVPUSH SCH (10:17)
[2021-02-02] MEDS: METOPROLOL TARTRATE 5 MG/5 ML VIAL IVPUSH PRN (17:03)
[2021-02-03] MEDS ORDERED: PT OWN MED DRAWER 7, Y5N ONE ×5 (05:48→20:22)
[2021-02-03] MEDS: BANATROL PLUS POWDER PACKET PEG SCH ×3 (05:54→22:12)
[2021-02-03] MEDS: AMINO ACIDS/PROTEIN HYDROLYS 30 ML LIQUID.PKT PEG SCH (08:54)
[2021-02-03] MEDS: APIXABAN 5 MG TABLET GT SCH ×2 (10:13→22:12)
[2021-02-03] MEDS: METOPROLOL TARTRATE 25 MG TABLET (FP) GT SCH ×2 (10:13→22:12)
[2021-02-03] MEDS: MULTIVIT-MINERALS ORAL LIQUID PEG SCH (10:13)
[2021-02-03] MEDS: PANTOPRAZOLE SODIUM 40 MG VIAL IVPUSH SCH (10:13)
[2021-02-03] MEDS: ACETAMINOPHEN 650 MG/20.3 ML ORAL SOLUTION (CUPS) GT PRN (14:51)
[2021-02-04] MEDS: BANATROL PLUS POWDER PACKET PEG SCH ×3 (06:14→21:11)
[2021-02-04] MEDS: ACETAMINOPHEN 650 MG/20.3 ML ORAL SOLUTION (CUPS) GT PRN ×2 (06:15→14:12)
[2021-02-04] MEDS: APIXABAN 5 MG TABLET GT SCH ×2 (09:13→21:11)
[2021-02-04] MEDS: PANTOPRAZOLE SODIUM 40 MG VIAL IVPUSH SCH (09:13)
[2021-02-04] MEDS: AMINO ACIDS/PROTEIN HYDROLYS 30 ML LIQUID.PKT PEG SCH (09:13)
[2021-02-04] MEDS: METOPROLOL TARTRATE 25 MG TABLET (FP) GT SCH ×2 (09:13→21:11)
[2021-02-04] MEDS: MULTIVIT-MINERALS ORAL LIQUID PEG SCH (09:32)
[2021-02-04 17:07] LABS: ATYPICAL pANCA <1:20 titer (Neg:<1:20); C-ANCA <1:20 titer (Neg:<1:20)
[2021-02-04 20:52] VITALS: BP 121/42; PULSE 107; TEMP 99
[2021-02-04] MEDS ORDERED: PT OWN MED DRAWER 7, Y5N ONE (21:07)
== END 2021-02-04 21:40 | DRG 682 ==
LOC: JER 12:22 → JERBED 16:26 → J4S 18:27
PROVIDERS: ADMIT Family Medicine; ATTEND Family Medicine
DX: N17.9 Acute kidney failure, unspecified (principal); G93.41 Metabolic encephalopathy; N39.0 Urinary tract infection, site not specified; I25.10 Atherosclerotic heart disease of native coronary artery without angina pectoris; I48.91 Unspecified atrial fibrillation; Z79.01 Long term (current) use of anticoagulants; E78.5 Hyperlipidemia, unspecified; I12.9 Hypertensive chronic kidney disease with stage 1 through stage 4 chronic kidney disease, or unspecified chronic kidney disease; N18.9 Chronic kidney disease, unspecified; M10.9 Gout, unspecified; F32.9 Major depressive disorder, single episode, unspecified; F41.9 Anxiety disorder, unspecified; R62.7 Adult failure to thrive; E86.0 Dehydration; D64.9 Anemia, unspecified; F03.90 Unspecified dementia, unspecified severity, without behavioral disturbance, psychotic disturbance, mood disturbance, and anxiety
CPT/HCPCS: 36415; 70450-TC; 71045-TC-FY; 80053; 81003; 82272; 82728; 82803; 83520; 83540; 83550; 83605; 84443; 84484; 85025; 85027; 85610; 85651; 85730; 86038; 86140; 86162; 86256; 86850; 86900; 86901; 87040; 87070; 87086; 87205; 93005; 93010; 99285-25; C9803; J0131; U0003; U0005

== ENCOUNTER 2021-05-22 11:35 | Emergency (ER) | payer OTHER ==
[2021-05-22 12:11] VITALS: BMI 27.3
[2021-05-22] MEDS ORDERED: MIDAZOLAM HCL 5 MG/1 ML Single Dose Vial IVPUSH ONE (14:08)
[2021-05-22] MEDS ORDERED: SODIUM CHLORIDE 0.9% 500 ML INFUS.BAG IV ONE (14:09)
[2021-05-22] MEDS ORDERED: MIDAZOLAM HCL 2 MG/2 ML SINGLE DOSE VIAL ONE (14:15)
[2021-05-22] MEDS ORDERED: FLUCONAZOLE 150 MG TABLET PO ONE (14:35)
[2021-05-22] MEDS ORDERED: FLUCONAZOLE 100 MG TABLET (UD) ONE (15:35)
[2021-05-22 15:56] LABS: EPI CELLS 1 /uL (0-25.1); HYALINE CASTS 3 /uL (0-3.1); URINE APPEARANCE CLOUDY; URINE BACTERIA 1552 /uL (0-1359); URINE BILIRUBIN NEGATIVE (NEGATIVE); URINE COLOR YELLOW; URINE GLUCOSE (UA) NEGATIVE (NEGATIVE); URINE KETONE NEGATIVE (NEGATIVE); URINE LEUK ESTERASE 3+ (NEGATIVE); URINE NITRITE NEGATIVE (NEGATIVE); URINE PROTEIN 1+ (NEGATIVE); URINE RBC 327 /uL (0-23.9); URINE UROBILINOGEN 0.2 mg/dL (0.2-1.0); URINE WBC 373 /uL (0-25.8)
[2021-05-23 02:42] VITALS: BP 133/78; PULSE 97; TEMP 98.4
== END 2021-05-23 05:32 | disposition home or self-care (01) ==
LOC: JER 11:35
PROC: 3E033NZ Introduction of Analgesics, Hypnotics, Sedatives into Peripheral Vein, Percutaneous Approach (ICD-10-PCS; principal; 2021-05-22)
DX: Z46.6 Encounter for fitting and adjustment of urinary device (principal)
CPT/HCPCS: 81003; 87086; 87186; 96374; 99284-25

== ENCOUNTER 2021-07-19 12:03 | Emergency (ER) | payer OTHER ==
[2021-07-19 12:55] VITALS: BMI 35.2
[2021-07-19] MEDS ORDERED: MIDAZOLAM HCL 2 MG/2 ML SINGLE DOSE VIAL IVPUSH ONE (17:20)
[2021-07-19] MEDS ORDERED: MIDAZOLAM HCL 2 MG/2 ML SINGLE DOSE VIAL ONE (17:33)
[2021-07-19] MEDS ORDERED: SODIUM CHLORIDE 0.9% 500 ML INFUS.BAG IV ONE (19:02)
[2021-07-19] MEDS ORDERED: FLUCONAZOLE 50 MG TABLET PO ONE (19:02)
[2021-07-19] MEDS ORDERED: FLUCONAZOLE 150 MG TABLET PO ONE (19:40)
[2021-07-19 21:06] LABS: EPI CELLS 14 /uL (0-25.1); HYALINE CASTS 15 /uL (0-3.1); URINE APPEARANCE CLOUDY; URINE BACTERIA 810 /uL (0-1359); URINE BILIRUBIN NEGATIVE (NEGATIVE); URINE COLOR YELLOW; URINE GLUCOSE (UA) NEGATIVE (NEGATIVE); URINE KETONE NEGATIVE (NEGATIVE); URINE LEUK ESTERASE 2+ (NEGATIVE); URINE NITRITE NEGATIVE (NEGATIVE); URINE PROTEIN 3+ (NEGATIVE); URINE RBC 114 /uL (0-23.9); URINE UROBILINOGEN 0.2 mg/dL (0.2-1.0); URINE WBC 956 /uL (0-25.8)
[2021-07-19 21:34] VITALS: BP 132/64; PULSE 81; TEMP 98
== END 2021-07-19 21:47 | disposition home or self-care (01) ==
LOC: JER 12:03
PROC: 3E033GC Introduction of Other Therapeutic Substance into Peripheral Vein, Percutaneous Approach (ICD-10-PCS; principal; 2021-07-19)
DX: Z46.6 Encounter for fitting and adjustment of urinary device (principal)
CPT/HCPCS: 81003; 87086; 99284-25

== ENCOUNTER 2021-08-22 11:49 | Emergency (ER) | payer OTHER ==
[2021-08-22 12:03] VITALS: TEMP 98.7; BMI 31.6
[2021-08-22 12:42] LABS: INR 1.35 (0.83-1.09); PROTHROMBIN TIME (PATIENT) 15.6 SEC (9.7-13.0)
[2021-08-22 12:45] LABS: ACTIVATED PTT 32.7 SECONDS (25.2-36.5)
[2021-08-22 12:49] LABS: BILIRUBIN,TOTAL 0.6 mg/dl (0.2-1); CALCIUM 9.7 mg/dl (8.5-10); CREATININE 1.2 mg/dl (0.55-1.3); TOT PROT 7.7 g/dl (6.4-8.2)
[2021-08-22 13:31] LABS: EPITHELIAL CELLS FEW /hpf
[2021-08-22] MEDS ORDERED: NITROFURANTOIN MACROCRYSTAL 50 MG CAPSULE (FP) PO SCH (15:15)
[2021-08-22] MEDS ORDERED: ACETAMINOPHEN 500 MG TABLET (FP) PO ONE (15:32)
[2021-08-22] MEDS ORDERED: oxyCODONE HCL 5 MG TABLET PO ONE (15:40)
[2021-08-22 15:45] LABS: BASO % 0.6 % (0-2.0); EOS % 2.7 % (0-4.5); HEMATOCRIT 37.6 % (32.4-45.2); HEMOGLOBIN 12.5 GM/dL (10.7-15.3); LYMPH % 26.3 % (8-40); MCH 29.5 pg (25.7-33.7); MCHC 33.3 g/dl (32.0-36.0); MEAN CELL VOLUME 88.7 fl (80-96); MEAN PLT VOLUME 8.1 fl (7.5-11.1); MONO % 9.6 % (3.8-10.2); NEUT % 60.8 % (42.8-82.8); PLATELET COUNT 186 10^3/uL (134-434); RBC 4.23 M/mm3 (3.60-5.2); WHITE BLOOD COUNT 5.7 K/mm3 (4.0-10.0)
[2021-08-22] MEDS ORDERED: oxyCODONE HCL 5 MG TABLET ONE (15:47)
[2021-08-22 19:32] VITALS: BP 151/82; PULSE 96
== END 2021-08-22 22:19 ==
LOC: FER 11:49
DX: M25.551 Pain in right hip (principal); N39.0 Urinary tract infection, site not specified
CPT/HCPCS: 36415; 71045-TC-FY; 73523-TC-FY; 73564-TC-RT-FY; 73700-TC-RT; 80053; 81003; 81015; 85025; 85610; 85730; 86850; 86900; 86901; 87086; 93005; 93010; 99284-25; C9803; U0003; U0005

== ENCOUNTER 2021-10-25 10:45 | Inpatient (IN) | payer OTHER ==
[2021-10-25] MEDS ORDERED: MIDAZOLAM HCL 2 MG/2 ML SINGLE DOSE VIAL IVPUSH ONE ×2 (11:37→13:30)
[2021-10-25] MEDS ORDERED: MIDAZOLAM HCL 2 MG/2 ML SINGLE DOSE VIAL ONE ×2 (13:06→13:44)
[2021-10-25 13:22] LABS: BASO % 0.1 % (0-2.0); HEMATOCRIT 46.9 % (32.4-45.2); HEMOGLOBIN 15.3 GM/dL (10.7-15.3); LYMPH % 4.5 % (8-40); MCH 29.2 pg (25.7-33.7); MCHC 32.5 g/dl (32.0-36.0); MEAN CELL VOLUME 89.6 fl (80-96); MEAN PLT VOLUME 8.2 fl (7.5-11.1); MONO % 4.7 % (3.8-10.2); NEUT % 90.7 % (42.8-82.8); PLATELET COUNT 255 10^3/uL (134-434); RBC 5.24 M/mm3 (3.60-5.2); RDW 15.2 % (11.6-15.6); WHITE BLOOD COUNT 11.9 K/mm3 (4.0-10.0)
[2021-10-25 13:40] LABS: BLOOD UREA NITROGEN 37.9 mg/dL (7-18); CALCIUM 9.3 mg/dL (8.5-10.1)
[2021-10-25 13:41] LABS: ALBUMIN 3.8 g/dl (3.4-5.0)
[2021-10-25] MEDS ORDERED: fentaNYL CITRATE 250 MCG/5 ML VIAL IVPUSH ONE (13:43)
[2021-10-25 13:44] LABS: CREATININE 2.1 mg/dL (0.55-1.3)
[2021-10-25 13:46] LABS: TOT PROT 8.6 g/dl (6.4-8.2)
[2021-10-25] MEDS ORDERED: SODIUM CHLORIDE 1,000 ML IV STA (13:56)
[2021-10-25] MEDS ORDERED: oxyCODONE HCL 5 MG TABLET PO PRN (15:09)
[2021-10-25] MEDS: SODIUM CHLORIDE 1,000 ML IV SCH (15:26)
[2021-10-25 15:29] LABS: EPI CELLS >36 /uL (0-25.1); HYALINE CASTS 348 /uL (0-3.1); PH,URINE >= 9.0 (5.0-8.0); URINE APPEARANCE TURBID; URINE BACTERIA >9,000 /uL (0-1359); URINE BILIRUBIN NEGATIVE (NEGATIVE); URINE COLOR YELLOW; URINE GLUCOSE (UA) NEGATIVE (NEGATIVE); URINE KETONE NEGATIVE (NEGATIVE); URINE LEUK ESTERASE 3+ (NEGATIVE); URINE NITRITE NEGATIVE (NEGATIVE); URINE PROTEIN 3+ (NEGATIVE); URINE RBC 48.8 /uL (0-23.9); URINE UROBILINOGEN 0.2 mg/dL (0.2-1.0); URINE WBC 6800 /uL (0-25.8)
[2021-10-25 15:30] LABS: YEAST NEGATIVE (NEGATIVE)
[2021-10-26] MEDS ORDERED: GABAPENTIN 100 MG CAPSULE ONE (00:35)
[2021-10-26] MEDS ORDERED: METOPROLOL TARTRATE 25 MG TABLET (FP) ONE (00:35)
[2021-10-26] MEDS: METOPROLOL TARTRATE 25 MG TABLET (FP) PO SCH ×3 (00:48→21:36)
[2021-10-26] MEDS: GABAPENTIN 100 MG CAPSULE PO SCH ×4 (00:48→21:36)
[2021-10-26 01:59] VITALS: BMI 28.1
[2021-10-26] MEDS: SODIUM CHLORIDE 1,000 ML IV SCH (05:29)
[2021-10-26 08:34] LABS: BASO % 0.5 % (0-2.0); EOS % 0.3 % (0-4.5); HEMATOCRIT 33.5 % (32.4-45.2); HEMOGLOBIN 11.3 GM/dL (10.7-15.3); MCHC 33.6 g/dl (32.0-36.0); MEAN CELL VOLUME 89.3 fl (80-96); MEAN PLT VOLUME 7.9 fl (7.5-11.1); MONO % 13.5 % (3.8-10.2); NEUT % 61.7 % (42.8-82.8); PLATELET COUNT 176 10^3/uL (134-434); RBC 3.75 M/mm3 (3.60-5.2); RDW 15.2 % (11.6-15.6); WHITE BLOOD COUNT 7.2 K/mm3 (4.0-10.0)
[2021-10-26 09:10] LABS: CALCIUM 8.7 mg/dL (8.5-10.1)
[2021-10-26 09:11] LABS: BLOOD UREA NITROGEN 44.6 mg/dL (7-18); MAGNESIUM 2.3 mg/dL (1.8-2.4)
[2021-10-26 09:13] LABS: BILIRUBIN,TOTAL 0.9 mg/dL (0.2-1)
[2021-10-26 09:14] LABS: CREATININE 1.9 mg/dL (0.55-1.3); PHOSPHOROUS 2.9 mg/dL (2.5-4.9)
[2021-10-26 09:22] LABS: ALBUMIN 2.8 g/dl (3.4-5.0)
[2021-10-26] MEDS: TAMSULOSIN HCL 0.4 MG CAP PO SCH (10:13)
[2021-10-26] MEDS: FAMOTIDINE 20 MG TABLET PO SCH (10:14)
[2021-10-26] MEDS: CITALOPRAM HYDROBROMIDE 10 MG TABLET PO SCH (13:24)
[2021-10-26] MEDS ORDERED: SODIUM CHLORIDE 0.45% 1,000 ML IV SCH (14:45)
[2021-10-26] MEDS: ERTAPENEM SODIUM 0.5 GM in SODIUM CHLORIDE 50 ML IVPB SCH (16:49)
[2021-10-26] MEDS: PRAMIPEXOLE DIHYDROCHLORIDE 0.125 MG TABLET PO SCH (21:37)
[2021-10-27] MEDS: GABAPENTIN 100 MG CAPSULE PO SCH ×3 (06:15→22:53)
[2021-10-27] MEDS: PRAMIPEXOLE DIHYDROCHLORIDE 0.125 MG TABLET PO SCH ×3 (06:15→22:52)
[2021-10-27 09:56] LABS: CREATININE 1.5 mg/dL (0.55-1.3)
[2021-10-27 09:57] LABS: CALCIUM 8.5 mg/dL (8.5-10.1)
[2021-10-27 09:58] LABS: BLOOD UREA NITROGEN 34.6 mg/dL (7-18)
[2021-10-27] MEDS: METOPROLOL TARTRATE 25 MG TABLET (FP) PO SCH ×2 (09:58→22:53)
[2021-10-27] MEDS: TAMSULOSIN HCL 0.4 MG CAP PO SCH (09:58)
[2021-10-27] MEDS: FAMOTIDINE 20 MG TABLET PO SCH (09:58)
[2021-10-27] MEDS: ERTAPENEM SODIUM 0.5 GM in SODIUM CHLORIDE 50 ML IVPB SCH (09:58)
[2021-10-27] MEDS: CITALOPRAM HYDROBROMIDE 10 MG TABLET PO SCH (09:58)
[2021-10-27 10:02] LABS: BILIRUBIN,TOTAL 0.9 mg/dL (0.2-1); TOT PROT 6.2 g/dl (6.4-8.2)
[2021-10-27] MEDS ORDERED: SODIUM CHLORIDE 0.45% 1,000 ML IV SCH (13:41)
[2021-10-28] MEDS: MELATONIN 1 MG TABLET PO PRN ×2 (02:30→21:58)
[2021-10-28] MEDS: GABAPENTIN 100 MG CAPSULE PO SCH ×3 (06:30→21:59)
[2021-10-28] MEDS: PRAMIPEXOLE DIHYDROCHLORIDE 0.125 MG TABLET PO SCH ×3 (06:30→22:00)
[2021-10-28] MEDS: METOPROLOL TARTRATE 25 MG TABLET (FP) PO SCH ×2 (09:51→22:00)
[2021-10-28] MEDS: TAMSULOSIN HCL 0.4 MG CAP PO SCH (09:51)
[2021-10-28] MEDS: FAMOTIDINE 20 MG TABLET PO SCH (09:53)
[2021-10-28] MEDS: CITALOPRAM HYDROBROMIDE 10 MG TABLET PO SCH (09:54)
[2021-10-28] MEDS: ERTAPENEM SODIUM 0.5 GM in SODIUM CHLORIDE 50 ML IVPB SCH (10:25)
[2021-10-28] MEDS: ACETAMINOPHEN 325 MG TABLET (FP) PO PRN (21:58)
[2021-10-29] MEDS: PRAMIPEXOLE DIHYDROCHLORIDE 0.125 MG TABLET PO SCH ×3 (05:40→21:43)
[2021-10-29] MEDS: GABAPENTIN 100 MG CAPSULE PO SCH ×3 (05:40→21:43)
[2021-10-29 08:31] LABS: HEMATOCRIT 35.4 % (32.4-45.2); HEMOGLOBIN 12.3 GM/dL (10.7-15.3); MCH 30.4 pg (25.7-33.7); MCHC 34.6 g/dl (32.0-36.0); MEAN CELL VOLUME 87.9 fl (80-96); MEAN PLT VOLUME 8.2 fl (7.5-11.1); PLATELET COUNT 172 10^3/uL (134-434); RBC 4.02 M/mm3 (3.60-5.2); RDW 14.5 % (11.6-15.6); WHITE BLOOD COUNT 4.8 K/mm3 (4.0-10.0)
[2021-10-29 08:43] LABS: BLOOD UREA NITROGEN 20.2 mg/dL (7-18); CALCIUM 8.6 mg/dL (8.5-10.1)
[2021-10-29 08:47] LABS: CREATININE 1.3 mg/dL (0.55-1.3)
[2021-10-29] MEDS: FAMOTIDINE 20 MG TABLET PO SCH (09:16)
[2021-10-29] MEDS: TAMSULOSIN HCL 0.4 MG CAP PO SCH (09:16)
[2021-10-29] MEDS: METOPROLOL TARTRATE 25 MG TABLET (FP) PO SCH ×2 (09:16→21:43)
[2021-10-29] MEDS: ERTAPENEM SODIUM 0.5 GM in SODIUM CHLORIDE 50 ML IVPB SCH (09:16)
[2021-10-29] MEDS: CITALOPRAM HYDROBROMIDE 10 MG TABLET PO SCH (10:10)
[2021-10-30] MEDS: PRAMIPEXOLE DIHYDROCHLORIDE 0.125 MG TABLET PO SCH ×2 (06:30→13:34)
[2021-10-30] MEDS: GABAPENTIN 100 MG CAPSULE PO SCH ×2 (06:30→13:34)
[2021-10-30] MEDS: CITALOPRAM HYDROBROMIDE 10 MG TABLET PO SCH (09:07)
[2021-10-30] MEDS: METOPROLOL TARTRATE 25 MG TABLET (FP) PO SCH ×2 (09:07→21:51)
[2021-10-30] MEDS: TAMSULOSIN HCL 0.4 MG CAP PO SCH (09:07)
[2021-10-30] MEDS: FAMOTIDINE 20 MG TABLET PO SCH (09:07)
[2021-10-30] MEDS: ERTAPENEM SODIUM 0.5 GM in SODIUM CHLORIDE 50 ML IVPB SCH (09:08)
[2021-10-30] MEDS: AMINO ACIDS/PROTEIN HYDROLYS 30 ML LIQUID.PKT PO SCH (17:07)
[2021-10-30] MEDS: PRAMIPEXOLE DIHYDROCHLORIDE 0.25 MG TABLET PO SCH (21:51)
[2021-10-31] MEDS: MELATONIN 1 MG TABLET PO PRN (03:48)
[2021-10-31] MEDS: ACETAMINOPHEN 325 MG TABLET (FP) PO PRN (03:48)
[2021-10-31] MEDS: MULTIVITAMINS (DAILY MVI) TABLET (FP) PO SCH (09:36)
[2021-10-31] MEDS: METOPROLOL TARTRATE 25 MG TABLET (FP) PO SCH ×2 (09:36→23:10)
[2021-10-31] MEDS: FAMOTIDINE 20 MG TABLET PO SCH (09:36)
[2021-10-31] MEDS: AMINO ACIDS/PROTEIN HYDROLYS 30 ML LIQUID.PKT PO SCH ×2 (09:37→16:39)
[2021-10-31] MEDS: ERTAPENEM SODIUM 0.5 GM in SODIUM CHLORIDE 50 ML IVPB SCH (09:37)
[2021-10-31] MEDS: CITALOPRAM HYDROBROMIDE 10 MG TABLET PO SCH (09:37)
[2021-10-31] MEDS: PRAMIPEXOLE DIHYDROCHLORIDE 0.25 MG TABLET PO SCH ×2 (09:37→23:10)
[2021-11-01 11:27] LABS: ALBUMIN 3.5 g/dl (3.4-5.0); BLOOD UREA NITROGEN 22.8 mg/dL (7-18); CALCIUM 8.8 mg/dL (8.5-10.1)
[2021-11-01 11:30] LABS: CREATININE 1.3 mg/dL (0.55-1.3)
[2021-11-01 11:32] LABS: BILIRUBIN,TOTAL 0.6 mg/dL (0.2-1)
[2021-11-01] MEDS: AMINO ACIDS/PROTEIN HYDROLYS 30 ML LIQUID.PKT PO SCH ×2 (11:36→17:28)
[2021-11-01] MEDS: CITALOPRAM HYDROBROMIDE 10 MG TABLET PO SCH (11:37)
[2021-11-01] MEDS: FAMOTIDINE 20 MG TABLET PO SCH (11:37)
[2021-11-01] MEDS: METOPROLOL TARTRATE 25 MG TABLET (FP) PO SCH ×2 (11:37→23:15)
[2021-11-01] MEDS: MULTIVITAMINS (DAILY MVI) TABLET (FP) PO SCH (11:37)
[2021-11-01] MEDS: PRAMIPEXOLE DIHYDROCHLORIDE 0.25 MG TABLET PO SCH ×2 (11:38→23:16)
[2021-11-01] MEDS: ERTAPENEM SODIUM 0.5 GM in SODIUM CHLORIDE 50 ML IVPB SCH ×2 (11:53→17:21)
[2021-11-01 13:08] LABS: SARS-CoV-2 NAA Not Detected (Not Detected)
[2021-11-02] MEDS: FAMOTIDINE 20 MG TABLET PO SCH (09:54)
[2021-11-02] MEDS: MULTIVITAMINS (DAILY MVI) TABLET (FP) PO SCH (09:54)
[2021-11-02] MEDS: ERTAPENEM SODIUM 0.5 GM in SODIUM CHLORIDE 50 ML IVPB SCH (09:54)
[2021-11-02] MEDS: METOPROLOL TARTRATE 25 MG TABLET (FP) PO SCH (09:54)
[2021-11-02] MEDS: CITALOPRAM HYDROBROMIDE 10 MG TABLET PO SCH (09:54)
[2021-11-02] MEDS: PRAMIPEXOLE DIHYDROCHLORIDE 0.25 MG TABLET PO SCH (09:54)
[2021-11-02] MEDS: AMINO ACIDS/PROTEIN HYDROLYS 30 ML LIQUID.PKT PO SCH ×2 (09:55→17:16)
[2021-11-02 14:31] VITALS: BP 154/94; PULSE 91; TEMP 97.6
== END 2021-11-02 19:30 | DRG 699 ==
LOC: JER 10:45 → JERBED 15:06 → J7W 10-26 00:46
PROVIDERS: ADMIT Family Medicine; ATTEND Family Medicine
DX: T83.091A Other mechanical complication of indwelling urethral catheter, initial encounter (principal); N39.0 Urinary tract infection, site not specified; N17.9 Acute kidney failure, unspecified; I42.8 Other cardiomyopathies; I48.91 Unspecified atrial fibrillation; I25.10 Atherosclerotic heart disease of native coronary artery without angina pectoris; F41.8 Other specified anxiety disorders; M10.9 Gout, unspecified; I12.9 Hypertensive chronic kidney disease with stage 1 through stage 4 chronic kidney disease, or unspecified chronic kidney disease; N18.9 Chronic kidney disease, unspecified; M54.9 Dorsalgia, unspecified; F03.90 Unspecified dementia, unspecified severity, without behavioral disturbance, psychotic disturbance, mood disturbance, and anxiety; B96.1 Klebsiella pneumoniae [K. pneumoniae] as the cause of diseases classified elsewhere; B96.4 Proteus (mirabilis) (morganii) as the cause of diseases classified elsewhere; G25.81 Restless legs syndrome; D72.829 Elevated white blood cell count, unspecified; R33.9 Retention of urine, unspecified; R62.7 Adult failure to thrive; Z68.28 Body mass index [BMI] 28.0-28.9, adult; K57.90 Diverticulosis of intestine, part unspecified, without perforation or abscess without bleeding; K44.9 Diaphragmatic hernia without obstruction or gangrene; Z85.42 Personal history of malignant neoplasm of other parts of uterus; Y84.8 Other medical procedures as the cause of abnormal reaction of the patient, or of later complication, without mention of misadventure at the time of the procedure; Z88.0 Allergy status to penicillin; Z93.3 Colostomy status
CPT/HCPCS: 36415; 76775-TC; 80048; 80053; 81003; 82550; 82570; 83540; 83550; 83735; 84100; 84156; 84252; 84300; 84540; 85025; 85027; 87086; 87186; 93005; 93010; 97162-GP; 99285-25; C9803-CS; U0003; U0005